=== PATIENT | female | born 1950 | race Caucasian/White ===

== ENCOUNTER → 2021-09-27 08:10 | Outpatient (CLI) | payer MEDICARE, SELFPAY ==
--- NOTE | 2021-09-27 08:24 | CT_ITS ---
STUDY: CT ABDOMEN AND PELVIS WITH CONTRAST REASON FOR EXAM: Female, 70 years old. NEOPLASM OF UNCERTAIN BEHAVIOR OF RIGHT KIDNEY RADIATION DOSAGE (If Supplied By Facility): CTDIvol = ( 15.51 ) mGy, DLP = ( 1014.33 ) mGycm TECHNIQUE: Transaxial images were obtained from the dome of the diaphragm to the symphysis pubis without oral contrast. IV 100mL Isovue-300 was administered. Sagittal and coronal images were reconstructed. Individualized dose optimization techniques were used for this CT. COMPARISON: None. FINDINGS: Minimal linear scarring at the lung bases. Coronary artery calcification. There is decreased attenuation of the liver consistent with steatosis. There are surgical clips in the gallbladder fossa consistent with a prior cholecystectomy. Normal spleen. Normal pancreas. There is a small, circumscribed, smooth, low attenuation right adrenal mass, consistent with an adrenal adenoma. This measures 2.2 cm. Normal left adrenal gland. Mild degree of cortical atrophy in the left kidneys with areas of scarring. There is a 3.1 cm x 3.2 cm duodenal diverticulum arising from the second portion of the duodenum. Normal small intestine. There are multiple colonic diverticula consistent with diverticulosis. The appendix is visualized and appears normal. There is diffuse atherosclerotic calcification of the abdominal aorta and its major visceral branches, without a demonstrated aneurysm. Normal inferior vena cava. Normal retroperitoneum. Normal urinary bladder. There is absence of the uterus consistent with a prior hysterectomy. There is a small umbilical hernia containing fat. There are mild degenerative changes of the visualized lumbar spine. CT/Abdomen/Pelvis W IV Cont ONLY IMPRESSION: No acute abnormality is seen. Electronically Signed: Palmer Carbajal MD at 12:31 EST , Service support ,
[2021-09-27 08:41] LABS: CREATININE FINGERSTICK 1.3 mg/dL (0.55-1.02)
[2021-09-27 09:59] LABS: Anion Gap 5 (5-15); BUN 16 mg/dL (7-18); BUN/Creat Ratio 17.8 RATIO (10-20); Calcium,Total 8.2 mg/dL (8.5-10.1); Chloride 109 mmol/L (98-107); EST Glomerular Filtration Rate 66 mL/min (>60); Est Glom Filt Rate - Afr Amer 80 mL/min (>60); Glucose 136 mg/dL (74-106); Potassium 3.8 mmol/L (3.5-5.1); Sodium Level 140 mmol/L (136-145)
== END ==
PROVIDERS: Referring Provider Urology; Visit Provider Urology
DX: D41.01 Neoplasm of uncertain behavior of right kidney (principal)
CPT/HCPCS: 36415; 74177; 80048; Q9967

== ENCOUNTER → 2021-10-01 | Outpatient (CLI) | payer MEDICARE, SELFPAY ==
[2021-10-01 17:12] LABS: Bacteria 0 SEEN /hpf (None Seen); Mucous, Urine 0 SEEN /hpf (<or=2+); Red Blood Cells-Urine 0 SEEN /hpf (0-5)
[2021-10-01 17:27] LABS: Color, Urine Yellow (Yellow); Glucose, Dipstick Normal (Normal); Ketone-Dipstick Negative (Negative); Leukocyte Esterase-Dipstick 100 /ul (Negative); Nitrite-Dipstick Negative (Negative); Occult Blood-Urine 10 /ul (Negative); Protein-Dipstick 15 mg/dl (Negative); Urine Bilirubin Dipstick Negative (Negative); Urine Clarity Clear (Clear); Urine Urobilinogen Normal (Normal)
[2021-10-01 17:33] LABS: Squamous Epithelial Cells - UA 0-5 SEEN /hpf (5-10); White Blood Cells 0-5 SEEN /hpf (0-5)
== END | disposition home or self-care (01) ==
LOC: LABSPEC 16:33
PROVIDERS: Visit Provider Urology
DX: R31.29 Other microscopic hematuria (principal)
CPT/HCPCS: 81001

== ENCOUNTER 2022-12-25 08:03 | Inpatient (IN) | payer MEDICARE, SELFPAY ==
[2022-12-25] VITALS (14 sets, daily range): BP systolic 97–130; BP diastolic 38–69; PULSE 55–75; RESP 16–18; TEMP 36.1–36.8; O2SAT 92–97; BMI 30.2
[2022-12-25] MEDS: Lactated Ringers 1,000 ML 15 ML IV ×2 (07:07→08:35)
--- NOTE | 2022-12-25 07:26 | HP.PCM_ITS ---
HPI - General General Date of Admission: 12/25/22 Chief Complaint: Right lower pole renal mass HPI Narrative MARI RODRIGUES, is a 72 F who presents with a right lower pole renal mass suspicious for carcinoma or to proceed with a right partial nephrectomy [facility] Medical History Cardiology follow-up encounter Colitis Former smoker Gastric reflux High cholesterol History of diverticulitis History of echocardiogram History of GI bleed History of heart attack Hypertension Post-menopausal Rectal bleeding Right knee pain Shortness of breath on exertion STEMI (ST elevation myocardial infarction) Wears dentures Wears glasses Wears hearing aid Home Medications acetaminophen 500 mg tablet 500 mg PO QHS 12/11/22 [History Last Taken 12/23/22] aspirin 81 mg capsule 81 mg PO DAILY 12/11/22 [History Last Taken 12/15/22] carvedilol 12.5 mg tablet 12.5 mg PO BID BP 12/11/22 [History Last Taken 12/25/22] docusate sodium 100 mg tablet 100 mg PO BID 12/11/22 [History Last Taken 12/18/22] lisinopril 20 mg tablet 20 mg PO DAILY 12/11/22 [History Last Taken 12/25/22] omeprazole 20 mg tablet,delayed release 20 mg PO DAILY 12/11/22 [History Last Taken Unknown] rosuvastatin 40 mg tablet 40 mg PO QHS 12/11/22 [History Last Taken 12/23/22] fluconazole 100 mg tablet 100 mg PO DAILY 12/25/22 [History Last Taken 12/24/22] Allergy/AdvReac Type Severity Reaction Status Date / Time No Known Allergies Allergy Verified 12/25/22 06:52 Surgical History History of cardiac catheterization History of carpal tunnel surgery of right wrist History of coronary artery stent placement History of partial hysterectomy Hx laparoscopic cholecystectomy Social History Smoking Status: Former smoker alcohol intake: never Vital Signs Vital Signs Vital Signs: 12/25/22 06:55 12/25/22 06:55 Temperature 97.5 F L Temperature Source Temporal Pulse Rate 67 Respiratory Rate 16 Respiratory Pattern Normal Blood Pressure 97/69 Blood Pressure Mean 78 Blood Pressure Source Monitor Blood Pressure Position Semi-Fowlers Blood Pressure Location Right Arm Pulse Ox 95 Oxygen Delivery Method Room Air Weight Weight: 80 kg Body Mass Index (BMI) 30.2
[2022-12-25] MEDS: Cefazolin 2 GM in 0.9% Normal Saline 100 ML IV (07:55)
--- NOTE | 2022-12-25 08:00 | KID_PTH ---
PATIENT: MARI RODRIGUES LOC: MS3 U#:[id number] AGE/SX: 72/F ROOM: SC318 RE12/25/[address]: Dr. Giorgio Cleaning MD : 1950 BED: 1 DIS: 12/26/2022 SPEC #: [id number] RECD: 12/25/22 11:53 STATUS: KENNEDY VELASQUEZChadd #: [id number] JOSHUA: 12/25/22 08:[address]: Giorgio Cleaning DEPT: SURGICAL PATHOLOGY RECD BY: Sagar Patino ENTERED: 12/25/22 13:22 SP TYPE: KIDNEY OTHR DR: KARON Correia Tissues: Kidney, NOS Procedures: Surgery Specimen Level V HEADER OPERATION: Lap robotic partial nephrectomy PRE-OP DIAGNOSIS: Right lower pole renal mass TISSUE SUBMITTED: Partial right kidney and contents MICROSCOPIC DIAGNOSIS Partial right kidney and contents, partial nephrectomy: Clear cell renal cell carcinoma. See cancer summary in the comment section. SJ:rg 12/27/2022 COMMENT KIDNEY CANCER SUMMARY Procedure - partial nephrectomy Specimen laterality - right Tumor site ? lower pole as per clinical information. Tumor size ? 3.5 x 3.5 x 3.0 cm Tumor focality - unifocal Histologic type ? clear cell renal cell carcinoma Sarcomatoid features ? not identified Rhabadoid features - not identified Histologic grade - grade 2 predominantly with focal minimal area of grade 3 and grade 4 (WHO/ISUP grade/Carmelo grade) Tumor necrosis ? present, focal % of necrosis - <5% of tumor examined. Tumor extension ? tumor limited kidney. Margins ? uninvolved by invasive carcinoma. Lymphvascular invasion - not identified Regional lymph nodes ? no lymph nodes submitted or found. Non-neoplastic kidney ? interstitial chronic inflammation. Additional pathologic finding - none PATHOLOGIC STAGE: pT1a pNx pMx The above summary is in compliance with [employer] (CAP) Cancer Protocols Checklist and [place] Joint Committee on Cancer (AJCC), Staging Manual, 8th Ed. MICROSCOPIC DESCRIPTION Slides are reviewed. GROSS DESCRIPTION Received in fixative is one container labeled with the patient's name and designated partial right kidney and contents. The specimen consists of a partial nephrectomy specimen weighing 32 gm and measures 4.0 x 4.0 x 4.5 cm. Focal area also shows perirenal adipose tissue. The specimen is inked as follows: parenchymal resection margin ? black, rest of the surface ? blue, and reveals an almost circumferential yellowish, hemorrhagic mass measuring 3.5 x 3.0 x 3.5 cm. Areas of necrosis are not seen. The mass is very close to the renal parenchymal resection margin. Tree Worker sections are submitted in six cassettes. Cassettes 1-3 contain the closest parenchymal resection margin, cassette 5 also contains the perirenal adipose tissue and cassette 6 contains the uninvolved portion of the kidney. / JUICE:braydon 12/26/2022 TC:0 CPT: 35261
--- NOTE | 2022-12-25 08:03 | DCINST_ITS ---
Discharge Instructions Diet Discharge Diet: No restrictions, Light diet - advance as tolerated and Soft diet Activity Discharge Activity: May Shower Return to work on:: 02/05/23 Lifting Restrictions: No lifting for 6 weeks. Dressing / Incision Call your doctor if you observe: Fever of 101 or Higher Cleanse incision/area with: Soap & Water Follow Up Care Please Follow Up With: Giorgio Cleaning MD When: Call for an appt 2 weeks follow up [phone] Test Results: Test results from this visit will be discussed in further detail at your follow- up appointment, if applicable. Discharge Plan Admission Primary Reason for Your Visit: right partial nephrectomy Attending Provider: Giorgio Cleaning Primary Care Provider: Pili Schmitt Discharge Orders/Prescriptions Prescriptions: New docusate sodium [Colace] 100 mg capsule 100 mg PO BID Qty: 20 0RF ibuprofen 600 mg tablet 600 mg PO Q6H PRN (Reason: pain) Qty: 20 0RF No Action carvedilol 12.5 mg tablet 12.5 mg PO BID Label Comments: TAKE 1 TABLET BY MOUTH TWICE DAILY lisinopril 20 mg tablet 20 mg PO DAILY Label Comments: TAKE 1 TABLET BY MOUTH ONCE DAILY acetaminophen 500 mg Tablet 500 mg PO QHS docusate sodium 100 mg Tablet 100 mg PO BID rosuvastatin 40 mg tablet 40 mg PO QHS Label Comments: TAKE 1 TABLET BY MOUTH ONCE DAILY omeprazole 20 mg Tablet,Delayed Release (Dr/Ec) 20 mg PO DAILY aspirin 81 mg Capsule 81 mg PO DAILY fluconazole 100 mg tablet 100 mg PO DAILY Label Comments: TAKE 2 TABLETS BY MOUTH TODAY, THEN 1 DAILY FOR 10 DAYS Referrals / Follow Up: Giorgio Cleaning MD [Med Staff - Active Staff] - Pili Schmitt PA [Primary Care Provider] - Disposition Disposition (needs filled in before D/C Order can be placed): Home, Self Care
[2022-12-25] MEDS: Bupivacaine 0.5% PF 10 ML VIAL (10:19)
--- NOTE | 2022-12-25 10:32 | PCM.OPRPT ---
Report of Operation Date of Procedure: 12/25/22 Pre-Operative Diagnosis: Right lower pole renal mass Post-Operative Diagnosis: Same Surgery/Procedure Performed:: Laparoscopic robotic assisted right partial nephrectomy Description of Surgical Findings:: Patient was taken back to the operating room at the smooth induction of general anesthesia she was placed in flat on the operating room table. She underwent general anesthesia with intubation by Dr. Gifford we then placed a Jacobo catheter into her bladder but the patient was then positioned in modified flank position with the right side up left side down for a laparoscopic approach to the right side and right abdomen and right kidney. The abdomen was prepped and draped in usual sterile fashion, made a small incision in the midline abdomen placement Veress needle into the peritoneal cavity filled the peritoneal cavity with CO2 gas placed my camera trocar right arm trocar left arm trocar and extra trocar lower port, and then placed an air seal trocar for the blood and plasma laboratory assistant. The robot X. I. da Gilda was docked we then proceeded with the dissection. I first dissected the colon off the kidney reflecting the colon off completely I then reflected the fat off the kidney and then got down to the capsule we then dissected lower pole the kidney and dissected down to identify the ureter then we circumferentially dissected the lower pole the kidney where the tumor was as obvious to see the tumor there is irregular shaped tumor. I then dissected the renal hilum and identified 3 blood vessels the lower pole large vessel a small midpole vessel and a large upper pole vessel vessel we placed vessel loop at all the renal arteries. I then ultrasound the tumor and found the demarcation of the tumor and scored the incision line circumferentially around the lower pole to do count of the lower pole heminephrectomy to remove the tumor I then clamped the arteries the kidney turned white and then we proceeded with the resection of the tumor using sharp scissors we dissected down to we got to the deep part of the kidney with the collecting system was and then we excised the lower pole of the kidney where the tumor was completely I then put the tumor in Endo Catch bag we then used electrocautery and put the cautery as high as possible to cauterize the base of the resection. On gross examination there was no violation of the tumor it looked like a complete resection grossly. Then after the resection was completed then I used a V-Loc stitch to run the base on the one side and then the use a second V-Loc stitch to run the second base. After this was completed then we ran and reapproximated the edges of the kidney using the sliding technique with an 0 Vicryl running [id number] and using clips to then put compression on the kidney after this was done then Floseal and Surgicel was placed we unclamped the arteries there was no bleeding blood count at this point was only 50 cc blood loss. We extracted the tumor from the lower incision this incision was closed we checked back inside the abdomen there was no signs of bleeding and then we closed the air seal port which was a 12 mm port with a Guerrero Garcia stitch and then we removed all the ports patient's and incisions were closed with subcuticular stitches her anesthetic was reversed and she was taken back to the PACU in good condition complete successful removal of the mass in the lower pole the right kidney negative margins for gross examination, blood loss was only 50 cc all the instruments and needles were accounted for patient anesthetic reversed and taken back to PACU in stable condition. Surgeon: Giorgio Cleaning Type of Anesthesia: General Estimated Blood Loss (mL): 50 Admit VTE Documentation VTE Present on Admission: No VTE Mechan Device Prophylaxis: SCD's VTE Pharm Prophylaxis ordered?: No
[2022-12-25] MEDS: Lactated Ringers 1,000 ML 125 ML IV ×2 (11:49→18:02)
[2022-12-25] MEDS: Ketorolac 15 MG/ML Vial IV ×2 (12:34→18:01)
[2022-12-25] MEDS: Ondansetron 4 MG/2 ML Vial IV (18:01)
[2022-12-25] MEDS: 0.9% Saline Lock 10 ML Syringe IV (18:02)
[2022-12-25] MEDS: Acetaminophen 500 MG Tablet PO (21:02)
[2022-12-25] MEDS: Carvedilol 12.5 MG Tablet PO (21:02)
[2022-12-25] MEDS: Docusate Sodium 100 MG Capsule 200 MG PO (21:02)
[2022-12-25] MEDS: Atorvastatin Calcium 80 MG Tablet PO (21:03)
[2022-12-26] MEDS: 0.9% Saline Lock 10 ML Syringe IV (01:36)
[2022-12-26] MEDS: Ketorolac 15 MG/ML Vial IV ×2 (01:37→08:24)
[2022-12-26] MEDS: Lactated Ringers 1,000 ML 125 ML IV (01:41)
[2022-12-26 02:21] VITALS: BP 116/63; PULSE 65; RESP 18; TEMP 36.6; O2SAT 92
[2022-12-26 05:49] VITALS: BP 122/60; PULSE 68; RESP 18; TEMP 36.3; O2SAT 95
--- NOTE | 2022-12-26 07:22 | PCM.PN.GU ---
Subjective Subjective Status post right partial nephrectomy for renal mass suspicious for renal cell carcinoma. Complete resection grossly. Today the urine is clear. Pain is 4 out of 10. If she tolerates diet okay walks around she can go home today. Objective Data Objective Data Vital Signs: Vital Signs Temp Pulse Resp BP Pulse Ox O2 Del Method O2 Flow Rate 97.4 F L 68 18 122/60 H 95 Nasal Cannula 1 12/26/22 05:49 12/26/22 05:49 12/26/22 05:49 12/26/22 05:49 12/26/22 05:49 12/26/22 05:49 12/26/22 05:49 Oxygen Flow Rate (L/min) 1 Oxygen Delivery Method Nasal Cannula Weight: 80 kg Body Mass Index (BMI) 30.2 Intake & Output: Intake and Output for Last 24 Hours 12/24/22 12/25/22 12/26/22 23:59 23:59 23:59 Intake Total 3007.08 / 3007.08 1456.25 / 1456.25 Output Total 350 / 350 1500 / 1500 Balance 2657.08 / 2657.08 -43.75 / -43.75
[2022-12-26 07:45] VITALS: O2SAT 97
[2022-12-26 08:05] VITALS: BP 112/54; PULSE 72; RESP 18; TEMP 36.6; O2SAT 94
--- NOTE | 2022-12-26 09:58 | CASEMGMT ---
SPENSER SAWANT Assessment: Face to Face with pt for initial transition planning/care coordination assessment. RN JESE introduced self and role at [facility], pt voices understanding and consents to assessment. Pt is A/O x4 and answers all questions appropriately at this time. Pt sitting up in chair in no distress. Care providers, pharmacy, and demographics verified/updated. Admitting Dx: lap robotic partial nephrectomy PCP:Oskar Specialists:Jennifer Cross, cardio Preferred Pharmacy: [facility] Retail Insurance: [employer] [facility] Prescription Benefit: yes LNOK: Manny Sierra, Living Arrangements: Pt lives with in a single story home with a ramp to enter. Pt reports she is I in ADL's and denies concerns at home. Transportation: Pt drives self and denies concerns with transportation. Pt will transport pt until she can drive again. DME/HHC/SNF: Pt has a cane and walker at home but does not use. Pt denies hx of HHC or SNF stays. Pt states no concerns with going home at time of dc. Pt states no further concerns/needs. CM to follow. Advised pt to ask CM if any further question/concerns/needs arise, voices understanding. Pt Goal: Home Plan: Home
[2022-12-26] MEDS: Docusate Sodium 100 MG Capsule 200 MG PO (10:55)
[2022-12-26] MEDS: Carvedilol 12.5 MG Tablet PO (10:57)
[2022-12-26] MEDS: Pantoprazole Sodium 20 MG Tablet PO (10:58)
[2022-12-26] MEDS: Lisinopril 20 MG Tablet PO (10:58)
[2022-12-26 10:59] VITALS: BP 135/90; PULSE 66; RESP 18; TEMP 36.7; O2SAT 97
[2022-12-26 12:18] VITALS: BP 110/50; PULSE 64; RESP 18; TEMP 36.3; O2SAT 95
== END 2022-12-26 12:26 | disposition home or self-care (01) | DRG 658 ==
LOC: SDC 12:41 → MS3 12:41
PROVIDERS: Admitting Provider Urology; Referring Provider Urology; Visit Provider Urology
PROC: 0TB04ZZ Excision of Right Kidney, Percutaneous Endoscopic Approach (ICD-10-PCS; CPT 50543; principal; 2022-12-25 07:40)
DX: C64.1 Malignant neoplasm of right kidney, except renal pelvis (principal); E78.00 Pure hypercholesterolemia, unspecified; I10 Essential (primary) hypertension; I25.2 Old myocardial infarction; K21.9 Gastro-esophageal reflux disease without esophagitis; I25.10 Atherosclerotic heart disease of native coronary artery without angina pectoris; Z95.5 Presence of coronary angioplasty implant and graft; Z79.82 Long term (current) use of aspirin; Z79.899 Other long term (current) drug therapy; Z87.891 Personal history of nicotine dependence
CPT/HCPCS: 88307; 94668; 99252; J7120; A4216; G0463; J2405

== ENCOUNTER → 2023-03-14 | Outpatient (CLI) | payer MEDICARE, SELFPAY ==
[2023-03-14 11:44] LABS: Erythrocyte Sedimentation Rate 20 mm/hr (0-30)
[2023-03-14 11:54] LABS: Absolute Lymphocyte Count 1.36 X10^3/uL (0.83-4.51); Absolute Neutrophil Count 2.8 X10^3/uL (2.0-7.7); Basophil# 0.02 X10^3/uL; Basophil% 0.4 % (0-1); Eosinophil# 0.08 X10^3/uL; Eosinophils% 1.7 % (0-5); Hematocrit 43.9 % (37-47); Hemoglobin 13.7 g/dL (12.0-15.0); Lymphocyte # 1.36 X10^3/ul (0.83-4.51); Lymphocyte % 29.4 % (19-41); Mean Corp Hgb Conc 31.2 g/dL (32-36); Mean Corpuscular Volume 86.6 fL (81-99); Mean Platelet Vol. 8.1 fl (6.2-12.0); Monocyte# 0.31 X10^3/uL; Monocyte% 6.7 % (0-10); NRBC Flagged by Analyzer 0 % (0-5); Neutrophil # 2.84 X10^3/uL (2.7-7.7); Neutrophil % 61.4 % (47-70); Platelet Count 198 K/mm3 (150-450); RBC Distribution Width CV 15.5 % (11.6-14.6); RBC Distribution Width SD 48.9 fl (35.1-43.9); Red Blood Count 5.07 M/mm3 (4.2-5.4); White Blood Count 4.6 K/mm3 (4.4-11.0)
[2023-03-14 12:09] LABS: AST(SGOT) 22 U/L (15-37); Alanine Aminotransfer ALT/SGPT 18 U/L (13-56); Albumin, Serum 3.8 g/dL (3.2-5.0); Alkaline Phosphatase 125 U/L (45-117); Anion Gap 8 (5-15); BUN 22 mg/dL (7-18); BUN/Creat Ratio 17.7 RATIO (10-20); CRP < 2.90 mg/L (0.0-3.0); Calcium,Total 8.7 mg/dL (8.5-10.1); Chloride 106 mmol/L (98-107); Creatinine, Serum 1.24 mg/dL (0.55-1.02); EST Glomerular Filtration Rate 45 mL/min (>60); Est Glom Filt Rate - Afr Amer 55 mL/min (>60); Globulin 3.9 g/dL (2.2-4.2); Glucose 88 mg/dL (74-106); LDH 202 U/L (84-246); Potassium 4.4 mmol/L (3.5-5.1); Protein, Total 7.7 g/dL (6.4-8.2); Sodium Level 140 mmol/L (136-145)
[2023-03-18 14:09] LABS: Anti-Centromere B Ab <0.2 AI (0.0-0.9); Anti-Chromatin <0.2 AI (0.0-0.9); Anti-Jo <0.2 AI (0.0-0.9); Anti-Scleroderma-70 AB <0.2 AI (0.0-0.9); Anti-dsDNA Ab <1 IU/mL (0-9); RNP Ab <0.2 AI (0.0-0.9); SJOGREN'S Anti-SS-A test 0.2 AI (0.0-0.9); SJOGREN'S Anti-SS-B test < 0.2 AI (0.0-0.9); Smith Ab <0.2 AI (0.0-0.9)
[2023-03-18 15:08] LABS: Endomysial Antibody IgA Negative (Negative); Immunoglobulin A 353 mg/dL (87-352); t-Transglutaminase IgA <2 U/mL (0-3)
[2023-03-19 13:08] LABS: Albumin 3.9 g/dL (2.9-4.4); Alpha-1-Globulins 0.2 g/dL (0.0-0.4); Alpha-2-Globulins 0.9 g/dL (0.4-1.0); Cytoplasmic Ab (C-ANCA) <1:20 titer (Neg:<1:20); Gamma Globulin 1.2 g/dL (0.4-1.8); Immunoglobulin A 367 mg/dL (87-352); Immunoglobulin E 21 IU/mL (6-495); Immunoglobulin G 1274 mg/dL (586-1602); Immunoglobulin M 105 mg/dL (26-217); PROEL- TOTAL PROTEIN 7.6 g/dL (6.0-8.5); Perinuclear Ab (P-ANCA) <1:20 titer (Neg:<1:20)
== END | disposition home or self-care (01) ==
LOC: LAB 10:55
PROVIDERS: Referring Provider Internal Medicine Gastroenterology; Visit Provider Internal Medicine Gastroenterology
DX: K52.9 Noninfective gastroenteritis and colitis, unspecified (principal)
CPT/HCPCS: 36415; 80053; 82784; 82785; 83516; 83615; 84165; 85025; 85652; 86140; 86225; 86235; 86255; 86256; 86334

== ENCOUNTER 2023-06-30 10:34 | Day surgery (SDC) | payer MEDICARE, SELFPAY ==
[2023-06-30] MEDS: Lactated Ringers 1,000 ML 15 ML IV (11:00)
[2023-06-30 11:01] VITALS: BP 94/59; PULSE 78; RESP 18; TEMP 36.2; O2SAT 95; BMI 30.5
--- NOTE | 2023-06-30 11:45 | IMM_PTH ---
PATIENT: MARI RODRIGUES LOC: EN U#:[id number] AGE/SX: 72/F ROOM: RE06/30/[address]: Dr. Adrian Park DO : 1950 BED: DIS: 06/30/2023 SPEC #: [id number] RECD: 07/01/23 13:16 STATUS: KENNEDY REQ #: [id number] JOSHUA: 06/30/23 11:[address]: Adrian Park DEPT: IMMUNOHISTOCHEMISTRY RECD BY: Yesica Horan ENTERED: 07/01/23 13:17 SP TYPE: IMMUNO OTHR DR: KARON Correia Tissues: B - Stomach, NOS Procedures: H Pylori (initial) PHYSICIAN & INSTITUTION [place] [address] SPECIMEN INFORMATION: Tissue Source: B - Antrum Clinical Info: Colitis Specimen Number: [id number] CPT code: 83510 METHODOLOGY: Deparaffinized sections of prefer/formalin-fixed tissue or PAP/DQ stained slides are incubated with monoclonal/polyclonal antibodies/oligonucleotide probes. Localization is made via biotin free immunoperoxidase method. Appropriate controls are performed and reacted as expected. Results on target cell population are indicated in the following table: RESULTS: ANTIBODY / CLONE RESULT Block B H Pylori (polyclonal) negative These tests were developed and their performance characteristics determined by [facility]. They may not have been cleared or approved by the U.S. Food and Drug Administration. The FDA has determined that such clearance or approval is not necessary. The above immunohistochemical/dualISH markers are ordered and reviewed by the Pathologist. INTERPRETATION: B. Antrum, biopsy: Negative for Helicobacter pylori organisms. AM:braydon 07/02/2023
--- NOTE | 2023-06-30 11:45 | EGD_PTH ---
PATIENT: MARI RODRIGUES LOC: EN U#:[id number] AGE/SX: 72/F ROOM: RE06/30/[address]: Dr. Adrian Park DO : 1950 BED: DIS: 06/30/2023 SPEC #: [id number] RECD: 06/30/23 15:56 STATUS: KENNEDY REChadd #: [id number] JOSHUA: 06/30/23 11:[address]: Adrian Park DEPT: SURGICAL PATHOLOGY RECD BY: Courtney Muñoz ENTERED: 07/01/23 08:57 SP TYPE: EGD BIOPSY OT DR: KARON Correia Tissues: A - Esophagus, NOS B - Gastric mucous membrane C - Duodenum, NOS D - Ileum, NOS E - COLON BIOPSY Procedures: Special Stain Group II Surgery Specimen Level IV Alcian Blue/PAS (control) HEADER OPERATION: Colonoscopy, EGD (MAC), biopsy PRE-OP DIAGNOSIS: Colitis TISSUE SUBMITTED: A - Distal esophagus biopsy, B - Antrum biopsy, C - Duodenum biopsy, D - Termina ileum biopsy, E - Random colonic biopsy MICROSCOPIC DIAGNOSIS A. Distal esophagus, biopsy: Gastroesophageal junction with mild chronic inflammation. No evidence of goblet cell metaplasia. See comment. B. Gastric antrum, biopsy: Chronic gastritis. See comment. C. Duodenum, biopsy: Focal acute duodenitis. D. Terminal ileum, biopsy: No pathologic change. E. Colon, random biopsy: No pathologic change. AM:braydon 07/02/2023 COMMENT A. Alcian blue/PAS stain with matched control supports the above diagnosis. B. The results of immunohistochemistry for Helicobacter pylori will be reported separately ([id number]). MICROSCOPIC DESCRIPTION Slides are reviewed. GROSS DESCRIPTION A - Received in fixative is one container labeled with the patient's name and designated distal esophagus biopsy. The specimen consists of one irregular fragment of light deleon soft tissue that measures 0.5 x 0.3 x 0.1 cm. The specimen is totally submitted in one cassette. B - Received in fixative is one container labeled with the patient's name and designated antrum biopsy. The specimen consists of multiple irregular fragments of light deleon soft tissue that in aggregate measure 0.6 x 0.5 x 0.1 cm. The specimen is totally submitted in one cassette. C - Received in fixative is one container labeled with the patient's name and designated duodenum biopsy. The specimen consists of one irregular fragment of light deleon soft tissue that measures 0.5 x 0.2 x 0.1 cm. The specimen is totally submitted in one cassette. D - Received in fixative is one container labeled with the patient's name and designated terminal ileum biopsy. The specimen consists of one irregular fragment of light deleon soft tissue that measures 0.5 x 0.2 x 0.1 cm. The specimen is totally submitted in one cassette. E - Received in fixative is one container labeled with the patient's name and designated random colonic biopsy. The specimen consists of multiple irregular fragments of light deleon soft tissue that in aggregate measure 2.0 x 0.5 x 0.1 cm. The specimen is totally submitted in one cassette. / SJ:rg 07/01/2023 TC:3 CPT: 74579 x5, 78372
--- NOTE | 2023-06-30 12:13 | HP.PCM_ITS ---
History and Physical Date of Admission: 06/30/23 72 F who presents to the office today for PMH hyperlipidemia, STEMI. [facility] cholecystectomy PCP seen following several ED presentations with concern of recurrent rectal bleeding with previously diagnosed colitis, diverticulitis and GERD. [facility] ED presentation 11.03.22, 11.18.22 and 12.07.22 with history of UTI with treatment and abdominal pain/cramping. Presentation 12.07.22 with LLQ abd pain with a history of diverticulitis. Biochemical workup and imaging performed. Surgery consulted who felt it to be more complex the simple diverticulitis and recommended GI referral; discharged with cipro/flagyl and GI referral. ? Biochemical workup CBC, CMP and UA without pertinent abnormality. CT abd/pel focal fatty infiltration at falciform ligament; renal mass consistent with malignancy; thickening of descending and sigmoid colon; pericolonic fat stranding; trace fluid of left colic gutter, consistent with nonspecific colitis; duodenal diverticula; diverticulosis. *BGI established 5.26.23 at this time she is not having symptoms. Approximately every other week she has one day of severe loose stools with abdominal pain/cramping, previously has blood and/or mucus; onset . Last colonoscopy in late 1899?s. Surgery with Dr. Cleaning to address renal cancer; no further treatment indicated. ROS Const Constitutional: No anorexia, fatigue, fever(s), weight change or sleep problems Eyes Eyes: No change in vision ENT ENT: No abnormal hearing, difficulty swallowing, mouth lesions, tongue swelling or throat swelling Resp Respiratory: No cough or shortness of breath Cardio Cardiology: No chest pain at rest, chest pain with exertion, shortness of breath or dyspnea on exertion Gastro GI: No difficulty swallowing Genitourinary-Female: No difficulty urinating or burning urination Musc Musculoskeletal: No joint pain, joint swelling, muscle weakness or decreased muscle mass Skin Skin: No hair loss in leg, yellowing of the eye, itchy eyes, rash, skin ulcer or skin swelling Neuro Neurology: No abnormal hearing, abnormal movements, confusion, unsteady gait/balance or memory loss Psych Psychiatric: No anxiety, No confusion and No memory loss Endo Endocrine: No fatigue or weight change Aller/Imm Allergy/Immunologic: No itchy eyes, throat swelling or tongue swelling Héctor/Lymp Hematologic/Lymphatic: No easy bleeding, easy bruising or enlarged lymph nodes Exam Const General: cooperative and comfortable Nutritional Appearance: average body habitus and well nourished HENCO Head: normal to inspection Ears: hearing grossly normal bilaterally Nose: external nose normal Face and sinus: normal facial exam Mouth: oral mucosae normal Throat: posterior oropharynx normal Eyes General: appearance normal, both eyes and all related structures Neck Neck: normal visual inspection Chest Chest palpation & inspection: normal inspection of the chest and normal palpation of entire chest wall Resp Effort & Inspection: normal respiratory effort Auscultation: Bilateral: Clear to Auscultation Cardio Palpation: normal PMI Rate: regular rate Rhythm: regular rhythm GI Inspection: normal to inspection Auscultation: normal bowel sounds Percussion: normal to percussion Palpation: no hepatosplenomegaly Skin General: no rashes or lesions noted Neuro General: patient alert Extrem General: normal to inspection Psych Affect: normal affect Quality Reporting Tobacco Screening ([facility] 138) Smoking Status: Former smoker Assessment and Plan Assessment and Plan (1) Colitis: Status: Chronic Plan: Diagnosis for her abdominal pain associated with cramping and inflammatory changes resulting in diarrhea is inflammatory bowel disease, ischemic colitis(associated with her previous renal cell carcinoma or cramping), less likely infectious colitis collagenous colitis, microscopic colitis, lymphocytic colitis. We will get a CT angiography of the abdomen and pelvis due to her history of coronary artery disease. I reviewed her CT scan of the abdomen and pelvis that we have available at our institution on 10/08/2021 and it did show significant calcium burden involving the blood vessels of the abdomen and pelvis. We will also get a colonoscopy for evaluation of the colon and terminal ileum along with biopsies. She is already changing her diet due to the discovery of diverticular disease. She is instituting a probiotic and these changes have helped her have more formed stools and have severe cramping and abdominal pain. Once we have biochemical work-up and stool studies taking either doing a colonoscopy or prior we will be able to give her a proper diagnosis. Orders: Orders Comprehensive Metabolic Profil Today K52.9 - Noninfective gastroenteritis and colitis, unspecified CRP Today K52.9 - Noninfective gastroenteritis and colitis, unspecified LDH Today K52.9 - Noninfective gastroenteritis and colitis, unspecified CBC W/Diff, Automated Today K52.9 - Noninfective gastroenteritis and colitis, unspecified Erythrocyte Sed Rate Today K52.9 - Noninfective gastroenteritis and colitis, unspecified SULMA Comprehensive Panel Today K52.9 - Noninfective gastroenteritis and colitis, unspecified ANCA Today K52.9 - Noninfective gastroenteritis and colitis, unspecified Celiac Disease Profile Today K52.9 - Noninfective gastroenteritis and colitis, unspecified Immunoglobulins G/A/M/E Today K52.9 - Noninfective gastroenteritis and colitis, unspecified TOMI + Protein Elect, Serum Today K52.9 - Noninfective gastroenteritis and colitis, unspecified I have examined the patient and the H&P has been reviewed. There are no clinical changes since date of exam.
[2023-06-30 12:50] VITALS: BP 89/51; BP 94/59; PULSE 74; RESP 18; TEMP 36.2; O2SAT 94
--- NOTE | 2023-06-30 12:52 | OP.EGD_ITS ---
Patient Name: Bri Sierra Procedure Date: 06/30/2023 12:12 PM Date of : 1950 Age: 72 Procedure: Upper GI endoscopy Indications: Epigastric abdominal pain, Heartburn Providers: Adrian Park DO Referring MD: Adrian Park DO Medicines: Monitored Anesthesia Care Patient Profile: This is a 72 year old female. Refer to note in patient chart for documentation of history and physical. Patient has symptoms of chronic epigastric abdominal pain, chronic dyspepsia and chronic heartburn. Complications: No immediate complications. Procedure: Pre-Anesthesia Assessment: - Prior to the procedure, a History and Physical was performed, and patient medications and allergies were reviewed. The patient is competent. The risks and benefits of the procedure and the sedation options and risks were discussed with the patient. All questions were answered and informed consent was obtained. Patient identification and proposed procedure were verified by the physician. Mental Status Examination: normal. Prophylactic Antibiotics: The patient does not require prophylactic antibiotics. Prior Anticoagulants: The patient has taken no anticoagulant or antiplatelet agents. ASA Grade Assessment: II - A patient with mild systemic disease. After reviewing the risks and benefits, the patient was deemed in satisfactory condition to undergo the procedure. The anesthesia plan was to use monitored anesthesia care (MAC). Immediately prior to administration of medications, the patient was re-assessed for adequacy to receive sedatives. The heart rate, respiratory rate, oxygen saturations, blood pressure, adequacy of pulmonary ventilation, and response to care were monitored throughout the procedure. The physical status of the patient was re-assessed after the procedure. After obtaining informed consent, the endoscope was passed under direct vision. Throughout the procedure, the patient's blood pressure, pulse, and oxygen saturations were monitored continuously. The Colonoscope was introduced through the mouth, and advanced to the second part of duodenum. The upper GI endoscopy was accomplished without difficulty. The patient tolerated the procedure well. Scope In: 12:20:59 PM Scope Out: 12:24:09 PM Total Procedure Duration Time 0 hours 3 minutes 10 seconds Findings: LA Grade A (one or more mucosal breaks less than 5 mm, not extending between tops of 2 mucosal folds) esophagitis with no bleeding was found 36 to 38 cm from the incisors. Biopsies were taken with a cold forceps for histology. Verification of patient identification for the specimen was done. Estimated blood loss was minimal. A medium-sized hiatal hernia was present. Patchy moderate inflammation characterized by erosions and erythema was found in the gastric body and in the gastric antrum. Biopsies were taken with a cold forceps for histology. Verification of patient identification for the specimen was done. Biopsies were taken with a cold forceps for Helicobacter pylori testing. Verification of patient identification for the specimen was done. Estimated blood loss was minimal. Patchy moderate inflammation characterized by erosions, erythema and aphthous ulcerations was found in the duodenal bulb. Biopsies were taken with a cold forceps for histology. Verification of patient identification for the specimen was done. Estimated blood loss was minimal. Impression: - LA Grade A reflux esophagitis with no bleeding. Biopsied. - Medium-sized hiatal hernia. - Chronic gastritis. Biopsied. - Chronic duodenitis. Biopsied. Recommendation: - Discharge patient to home. - Resume previous diet. - Continue present medications. - Await pathology results. Procedure Code(s): --- Professional --- 52686, Esophagogastroduodenoscopy, flexible, transoral; with biopsy, single or multiple CPT copyright 2021 [employer] [place] [employer]. All rights reserved. The codes documented in this report are preliminary and upon duplication specialist review may be revised to meet current compliance requirements. Adrian Park DO 06/30/2023 12:51:48 PM This report has been signed electronically. Number of Addenda: 0 Note Initiated On: 06/30/2023 12:12 PM
--- NOTE | 2023-06-30 12:52 | OP.CCLET_ITS ---
06/30/2023 Howie Correia Re : Upper GI endoscopy procedure for Bri Sierra Dear Oskar This procedure was performed on Friday, June 30, 2023. My impressions and recommendations are as follows: Impressions : - LA Grade A reflux esophagitis with no bleeding. Biopsied. - Medium-sized hiatal hernia. - Chronic gastritis. Biopsied. - Chronic duodenitis. Biopsied. Recommendations : - Discharge patient to home. - Resume previous diet. - Continue present medications. - Await pathology results. My findings are described in the full procedure note, which is enclosed. If I can be of further assistance, please feel free to contact me at . Sincerely, Adrian Park, 06/30/2023 12:51:48 PM This report has been signed electronically.
[2023-06-30 12:55] VITALS: BP 88/54; BP 94/59; PULSE 78; RESP 18; O2SAT 94
--- NOTE | 2023-06-30 12:56 | OP.CCLET_ITS ---
06/30/2023 Howie Correia Re : Colonoscopy procedure for Bri Amaro Oskar This procedure was performed on Friday, June 30, 2023. My impressions and recommendations are as follows: Impressions : - Preparation of the colon was fair. - Diverticulosis in the recto-sigmoid colon, in the sigmoid colon and in the descending colon. - Congested mucosa in the sigmoid colon, in the descending colon, in the transverse colon, in the ascending colon and in the cecum. Biopsied. - Congested mucosa in the terminal ileum. Biopsied. Recommendations : - Discharge patient to home. - Resume previous diet. - Continue present medications. - Await pathology results. - Repeat colonoscopy in 5 years for surveillance. My findings are described in the full procedure note, which is enclosed. If I can be of further assistance, please feel free to contact me at . Sincerely, Adrian Park, 06/30/2023 12:56:08 PM This report has been signed electronically.
--- NOTE | 2023-06-30 12:56 | OP.COLON_ITS ---
Patient Name: Bri Sierra Procedure Date: 06/30/2023 12:24 PM Date of : 1950 Age: 72 Procedure: Colonoscopy Indications: Screening for colorectal malignant neoplasm Providers: Adrian Park DO Referring MD: Adrian Park DO Medicines: Monitored Anesthesia Care Patient Profile: This is a 72 year old female. Refer to note in patient chart for documentation of history and physical. Patient has symptoms of chronic epigastric abdominal pain, chronic dyspepsia and chronic heartburn. Last Colonoscopy: date unknown. Unable to locate last colonoscopy report. Complications: No immediate complications. Procedure: Pre-Anesthesia Assessment: - Prior to the procedure, a History and Physical was performed, and patient medications and allergies were reviewed. The patient is competent. The risks and benefits of the procedure and the sedation options and risks were discussed with the patient. All questions were answered and informed consent was obtained. Patient identification and proposed procedure were verified by the physician. Mental Status Examination: normal. Prophylactic Antibiotics: The patient does not require prophylactic antibiotics. Prior Anticoagulants: The patient has taken no anticoagulant or antiplatelet agents. ASA Grade Assessment: II - A patient with mild systemic disease. After reviewing the risks and benefits, the patient was deemed in satisfactory condition to undergo the procedure. The anesthesia plan was to use monitored anesthesia care (MAC). Immediately prior to administration of medications, the patient was re-assessed for adequacy to receive sedatives. The heart rate, respiratory rate, oxygen saturations, blood pressure, adequacy of pulmonary ventilation, and response to care were monitored throughout the procedure. The physical status of the patient was re-assessed after the procedure. After I obtained informed consent, the scope was passed under direct vision. Throughout the procedure, the patient's blood pressure, pulse, and oxygen saturations were monitored continuously. The Colonoscope was introduced through the anus and advanced to the terminal ileum. The colonoscopy was performed without difficulty. The patient tolerated the procedure well. The quality of the bowel preparation was fair. Scope In: 12:26:01 PM Scope Withdrawal Time 0 hours 8 minutes 52 seconds Scope Out: 12:43:52 PM Total Procedure Duration Time 0 hours 17 minutes 51 seconds Findings: The perianal and digital rectal examinations were normal. Multiple small and large-mouthed diverticula were found in the recto-sigmoid colon, sigmoid colon and descending colon. An area of mildly congested mucosa was found in the sigmoid colon, in the descending colon, in the transverse colon, in the ascending colon and in the cecum. Biopsies were taken with a cold forceps for histology. Verification of patient identification for the specimen was done. Estimated blood loss was minimal. A patchy area of the terminal ileum was congested. Biopsies were taken with a cold forceps for histology. Verification of patient identification for the specimen was done. Estimated blood loss was minimal. Impression: - Preparation of the colon was fair. - Diverticulosis in the recto-sigmoid colon, in the sigmoid colon and in the descending colon. - Congested mucosa in the sigmoid colon, in the descending colon, in the transverse colon, in the ascending colon and in the cecum. Biopsied. - Congested mucosa in the terminal ileum. Biopsied. Recommendation: - Discharge patient to home. - Resume previous diet. - Continue present medications. - Await pathology results. - Repeat colonoscopy in 5 years for surveillance. Procedure Code(s): --- Professional --- 47982, Colonoscopy, flexible; with biopsy, single or multiple CPT copyright 2021 [employer]. All rights reserved. The codes documented in this report are preliminary and upon automotive designer review may be revised to meet current compliance requirements. Adrian Park DO 06/30/2023 12:56:08 PM This report has been signed electronically. Number of Addenda: 0 Note Initiated On: 06/30/2023 12:24 PM
[2023-06-30 13:00] VITALS: BP 76/65; BP 94/59; PULSE 77; RESP 18; O2SAT 93
[2023-06-30 13:05] VITALS: BP 87/58; BP 94/59; PULSE 69; RESP 18; TEMP 37.2; O2SAT 96
[2023-06-30 14:30] VITALS: BP 94/59
== END 2023-06-30 14:34 | disposition home or self-care (01) ==
LOC: EN 10:36 → AC 10:38
PROVIDERS: Referring Provider Internal Medicine Gastroenterology; Visit Provider Internal Medicine Gastroenterology
PROC: 0DJD8ZZ Inspection of Lower Intestinal Tract, Via Natural or Artificial Opening Endoscopic (ICD-10-PCS; CPT 45378; principal; 2023-06-30 11:40)
DX: Z12.11 Encounter for screening for malignant neoplasm of colon (principal); K55.1 Chronic vascular disorders of intestine; K57.30 Diverticulosis of large intestine without perforation or abscess without bleeding; I25.10 Atherosclerotic heart disease of native coronary artery without angina pectoris; K21.00 Gastro-esophageal reflux disease with esophagitis, without bleeding; K29.50 Unspecified chronic gastritis without bleeding; K29.80 Duodenitis without bleeding; K44.9 Diaphragmatic hernia without obstruction or gangrene; G89.29 Other chronic pain; I25.2 Old myocardial infarction; E78.00 Pure hypercholesterolemia, unspecified; I10 Essential (primary) hypertension; Z95.5 Presence of coronary angioplasty implant and graft; Z90.49 Acquired absence of other specified parts of digestive tract; Z79.82 Long term (current) use of aspirin; Z79.899 Other long term (current) drug therapy; Z85.528 Personal history of other malignant neoplasm of kidney; Z87.891 Personal history of nicotine dependence
CPT/HCPCS: 45380; 43239; 88305; 88313; 88342; J7120; J2405

== ENCOUNTER → 2023-07-07 | Outpatient (CLI) | payer MEDICARE, SELFPAY ==
--- NOTE | 2023-07-07 12:06 | RAD_ITS ---
INDICATION: MALIGNANT NEOPLASM OF UNSPECIFIED KIDNEY, EXCEPT RENAL PELVIS EXAMINATION/TECHNIQUE: X-RAY - XR Chest 2 Views COMPARISON: No relevant prior comparison study available FINDINGS: LINES/DEVICES: None. LUNGS: No consolidation, edema or effusion. No pneumothorax. MEDIASTINUM AND CARDIOVASCULAR STRUCTURES: Cardiac silhouette not enlarged. Central airways and mediastinal contour are unremarkable. BONES AND SOFT TISSUES: Unremarkable. RAD/Chest PA and Lateral IMPRESSION: No radiographic evidence of acute cardiopulmonary disease. Electronically Signed: Lucero Hodge MD at 8:39 EDT ,
[2023-07-07 12:36] LABS: Hematocrit 40.7 % (37-47); Hemoglobin 12.7 g/dL (12.0-15.0); Mean Corp Hgb Conc 31.2 g/dL (32-36); Mean Corpuscular Volume 89.8 fL (81-99); Mean Platelet Vol. 8.2 fl (6.2-12.0); Platelet Count 190 K/mm3 (150-450); RBC Distribution Width CV 13.3 % (11.6-14.6); RBC Distribution Width SD 43.6 fl (35.1-43.9); Red Blood Count 4.53 M/mm3 (4.2-5.4); White Blood Count 5.2 K/mm3 (4.4-11.0)
[2023-07-07 13:02] LABS: ALB/GLOB Ratio 0.9 RATIO (0.9-2.4); AST(SGOT) 16 U/L (15-37); Alanine Aminotransfer ALT/SGPT 20 U/L (13-56); Albumin, Serum 3.5 g/dL (3.2-5.0); Alkaline Phosphatase 118 U/L (45-117); Anion Gap 3 (5-15); BUN 26 mg/dL (7-18); BUN/Creat Ratio 21.8 RATIO (10-20); Calcium,Total 8.6 mg/dL (8.5-10.1); Chloride 106 mmol/L (98-107); Creatinine, Serum 1.19 mg/dL (0.55-1.02); EST Glomerular Filtration Rate 48 mL/min (>60); Est Glom Filt Rate - Afr Amer 58 mL/min (>60); Globulin 3.8 g/dL (2.2-4.2); Glucose 95 mg/dL (74-106); Potassium 4.4 mmol/L (3.5-5.1); Protein, Total 7.3 g/dL (6.4-8.2); Sodium Level 137 mmol/L (136-145)
== END | disposition home or self-care (01) ==
LOC: LAB 11:33
PROVIDERS: Referring Provider Registered Nurse; Visit Provider Registered Nurse
DX: C64.9 Malignant neoplasm of unspecified kidney, except renal pelvis (principal)
CPT/HCPCS: 36415; 71046; 80053; 85027

== ENCOUNTER → 2023-07-11 | Outpatient (CLI) | payer MEDICARE, SELFPAY ==
--- NOTE | 2023-07-11 17:50 | CT_ITS ---
STUDY: CT ABDOMEN AND PELVIS WITH CONTRAST REASON FOR EXAM: Female, 72 years old. NEOPLASM OF RT KIDNEY RADIATION DOSAGE (If Supplied By Facility): CTDIvol = ( 27.05 ) mGy, DLP = ( 870.03 ) mGycm TECHNIQUE: Transaxial images were obtained from the dome of the diaphragm to the symphysis pubis without oral contrast. IV 100mL Isovue-300 was administered. Sagittal and coronal images were reconstructed. Individualized dose optimization techniques were used for this CT. COMPARISON: CT abdomen and pelvis September 27, 2021 FINDINGS: Areas of air trapping within the lungs. There are coronary artery calcifications. There is mild intra and extrahepatic ductal dilatation status post cholecystectomy stable since her study. There are surgical clips in the gallbladder fossa consistent with a prior cholecystectomy. Normal spleen. Normal pancreas. There is a low attenuating mass measuring 2.5 x 2.3 cm involving the right adrenal gland stable since prior study. Hounsfield units elevated or complex. There is visualized renal cortical thinning. There is a focal defect within the inferior pole right kidney which is likely postoperative. Mild atrophy of the left kidney. Normal visualized stomach. The level of the first part of the duodenum there is a visualized gas see outpouching of the duodenum with an air-fluid level compatible with a duodenal diverticulum. Normal colon. The appendix is visualized and appears normal. There is diffuse atherosclerotic calcification of the abdominal aorta, minimal distention of the infrarenal aorta measuring 2.6 x 2.3 cm similar to the prior study slightly greater in size since prior study. There is a small umbilical hernia containing fat. There are diffuse degenerative changes of the visualized lumbar spine. CT/Abdomen/Pelvis W IV Cont ONLY IMPRESSION: Coronary artery disease. Status post cholecystectomy. [id number] constipation diverticulosis or diverticulitis. Duodenal diverticulum second part of the duodenum stable since prior study. Bilateral renal atrophy. Bilateral renal atrophy. Probable post partial resection of the inferior pole of the right kidney. Visualized hydronephrosis. Stable right adrenal mass. Given the clinical history could consider a follow-up study such as MRI. Electronically Signed: Tamia Reyes MD at 6:03 EDT ,
== END | disposition home or self-care (01) ==
PROVIDERS: Referring Provider Urology; Visit Provider Urology
DX: C64.1 Malignant neoplasm of right kidney, except renal pelvis (principal); D41.01 Neoplasm of uncertain behavior of right kidney; Z48.816 Encounter for surgical aftercare following surgery on the genitourinary system
CPT/HCPCS: 74177; Q9967; A4216

== ENCOUNTER → 2024-01-12 | Outpatient (CLI) | payer MEDICARE, SELFPAY ==
--- NOTE | 2024-01-12 11:55 | RAD_ITS ---
STUDY: X-RAY CHEST REASON FOR EXAM: Female, 73 years old. NEOPLASM OF RIGHT KIDNEY TECHNIQUE: PA and lateral views of the chest. COMPARISON: 07/07/2023 FINDINGS: There is hyperinflation of the lungs consistent with chronic obstructive lung disease (COPD). There is no demonstrated pleural abnormality. Normal size heart. Normal mediastinum and jame. Normal visualized pulmonary arteries. Normal visualized aortic arch and descending thoracic aorta. Normal visualized thoracic spine. Normal visualized ribs, clavicles, and shoulders. There is no demonstrated abnormality of the visualized soft tissue structures of the upper abdomen. RAD/Chest PA and Lateral IMPRESSION: Emphysema without pneumonia or atelectasis. Electronically Signed: Manny Reid MD at 23:39 EDT ,
[2024-01-12 12:40] LABS: Hematocrit 40.1 % (37-47); Hemoglobin 12.7 g/dL (12.0-15.0); Mean Corp Hgb Conc 31.7 g/dL (32-36); Mean Corpuscular Hgb 27.2 pg (27.0-32.0); Mean Corpuscular Volume 85.9 fL (81-99); Mean Platelet Vol. 8.6 fl (6.2-12.0); Platelet Count 194 K/mm3 (150-450); RBC Distribution Width CV 14.2 % (11.6-14.6); RBC Distribution Width SD 44.1 fl (35.1-43.9); Red Blood Count 4.67 M/mm3 (4.2-5.4); White Blood Count 5.6 K/mm3 (4.4-11.0)
[2024-01-12 13:21] LABS: Anion Gap 8 (5-15); BUN 24 mg/dL (7-18); BUN/Creat Ratio 19.8 RATIO (10-20); Calcium,Total 8.8 mg/dL (8.5-10.1); Chloride 105 mmol/L (98-107); Creatinine, Serum 1.21 mg/dL (0.55-1.02); EST Glomerular Filtration Rate 47 mL/min (>60); Est Glom Filt Rate - Afr Amer 56 mL/min (>60); Glucose 79 mg/dL (74-106); Potassium 4.5 mmol/L (3.5-5.1); Sodium Level 137 mmol/L (136-145)
== END | disposition home or self-care (01) ==
LOC: LAB 11:14
PROVIDERS: Referring Provider Urology; Visit Provider Urology
DX: C64.1 Malignant neoplasm of right kidney, except renal pelvis (principal)
CPT/HCPCS: 36415; 71046; 80048; 85027

== ENCOUNTER → 2024-07-15 | Outpatient (CLI) | payer MEDICARE, SELFPAY ==
--- NOTE | 2024-07-15 11:15 | RAD_ITS ---
INDICATION: KIDNEY CA EXAMINATION/TECHNIQUE: X-RAY - XR Chest 2 Views COMPARISON: January 12, 2024 FINDINGS: LINES/DEVICES: None. LUNGS: No consolidation, edema or effusion. No pneumothorax. MEDIASTINUM AND CARDIOVASCULAR STRUCTURES: Cardiac silhouette not enlarged. Central airways and mediastinal contour are unremarkable. BONES AND SOFT TISSUES: Unremarkable. RAD/Chest PA and Lateral IMPRESSION: No radiographic evidence of acute cardiopulmonary disease. Electronically Signed: Skyler Kennedy DO at 17:23 EDT ,
[2024-07-15 11:46] LABS: Hematocrit 41.8 % (37-47); Hemoglobin 13.3 g/dL (12.0-15.0); Mean Corp Hgb Conc 31.8 g/dL (32-36); Mean Corpuscular Hgb 27.7 pg (27.0-32.0); Mean Corpuscular Volume 86.9 fL (81-99); Mean Platelet Vol. 8.4 fl (6.2-12.0); Platelet Count 176 K/mm3 (150-450); RBC Distribution Width CV 13.8 % (11.6-14.6); Red Blood Count 4.81 M/mm3 (4.2-5.4); White Blood Count 5.1 K/mm3 (4.4-11.0)
[2024-07-15 12:55] LABS: Anion Gap 3 (5-15); BUN 22 mg/dL (7-18); Calcium,Total 9.5 mg/dL (8.5-10.1); Chloride 106 mmol/L (98-107); Creatinine, Serum 1.16 mg/dL (0.55-1.02); EST Glomerular Filtration Rate 49 mL/min (>60); Est Glom Filt Rate - Afr Amer 59 mL/min (>60); Glucose 87 mg/dL (74-106); Potassium 4.4 mmol/L (3.5-5.1); Sodium Level 137 mmol/L (136-145)
== END | disposition home or self-care (01) ==
LOC: LAB 10:54
PROVIDERS: Referring Provider Nurse Practitioner; Visit Provider Nurse Practitioner
DX: C64.1 Malignant neoplasm of right kidney, except renal pelvis (principal)
CPT/HCPCS: 36415; 71046; 80048; 85027

== ENCOUNTER → 2024-08-04 | Outpatient (CLI) | payer MEDICARE, SELFPAY ==
--- NOTE | 2024-08-04 07:47 | CT_ITS ---
INDICATION: Malignant neoplasm of right kidney, except renal pelvis EXAMINATION: CT Abdomen And Pelvis W/ Contrast Injection TECHNIQUE: Helically acquired images were obtained of the abdomen and pelvis after IV contrast. A radiation dose optimization technique was used for this scan. IV Contrast dosage and agent: IV 100mL Isovue-370 Oral contrast: None. COMPARISON: None. FINDINGS: Visualized lung bases: Unremarkable Liver: Unremarkable Gallbladder: Surgically absent. Spleen: Unremarkable Pancreas: Unremarkable Adrenal Glands: Stable 2.7 cm intermediate density adrenal mass in the right adrenal gland. Kidneys: Status post partial nephrectomy on the right. No evidence of recurrent or residual disease in the right kidney. Vasculature: Moderate aortoiliac atherosclerotic disease. GI Tract: Unremarkable Lymphadenopathy: None Peritoneum: No ascites. Bladder: Unremarkable Reproductive organs: Unremarkable Bones/Soft tissues: Mild scattered degenerative changes of the visualized spine. CT/Abdomen/Pelvis WITH Contrast IMPRESSION: Stable 2.7 cm right adrenal mass. Otherwise no evidence of recurrent or metastatic disease in the abdomen. Electronically Signed: Stas Chin MD at 20:27 EDT ,
== END | disposition home or self-care (01) ==
LOC: CT 07:43
PROVIDERS: Referring Provider Urology; Visit Provider Urology
DX: C64.1 Malignant neoplasm of right kidney, except renal pelvis (principal)
CPT/HCPCS: 74177; Q9967; A4216

== ENCOUNTER → 2025-01-13 | Outpatient (CLI) | payer MEDICARE, SELFPAY | END | disposition home or self-care (01) | LOC: LABSPEC 15:41 | PROVIDERS: Referring Provider Urology; Visit Provider Urology | DX: N39.0 Urinary tract infection, site not specified (principal) | CPT/HCPCS: 87077; 87086; 87088; 87186 ==

== ENCOUNTER 2025-09-07 06:58 | Day surgery (SDC) | payer MEDICARE, SELFPAY ==
--- NOTE | 2025-09-05 17:07 | PAT.ANE_ITS ---
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 When Was Last Pacemaker Check QUESTION #4 FULL TEXT: You/Your Family Experience fever (hyperthermia) with Anesthesia Last Oral Intake Last Oral intake: Last Oral Intake NPO since Meds taken in AM with sips of water? 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 Female Yes 09/05/25 09:57 HX of Motion Sickness No 09/05/25 09:57 HX of N/V After Surgery No 09/05/25 09:57 Non-Smoker Yes 09/05/25 09:57 Duration of Surgery greater No 09/05/25 09:57 than 60 minutes Number of Risk Factors 2 09/05/25 09:57 PONV Score Moderate Risk 09/05/25 09:57 Height & Weight Height & Weight: Anesthesia: Height & Weight Height 5 ft 4 in 06/30/23 11:01 Respiratory Assessment Respiratory Assessment - commercial real estate broker: Respiratory Tract Infection Hx - 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 Has anyone observed you stop No 09/05/25 09:57 breathing during sleep? STOP Results Negative 09/05/25 09:57 QUESTION #5 FULL TEXT : Do you snore loudly (louder than talking or can be heard through closed doors)? 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 Specify any problems Hx of Preganancy in last 3 No 09/05/25 09:57 Months Nurse Filling Out Transfusion [facility] 09/05/25 09:57 & Questions: Date: 09/05/25 09/05/25 09:57 Time: 10:03 09/05/25 09:57 Patient unable to answer at this time (ie. 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 broker Hx Now Gestational Age (in weeks): EDC: Hx Hx Para Hx Section SAB No 09/05/25 09:57 Does the father of the baby or his family experience fever w Father of the baby Malignant Hypertension history comment [facility] Medical History (Updated 09/05/25 @ 10:02 by Radha Li) Arthritis Cancer Easy bruising Bladder disease History of renal disease Migraine headache Right knee pain Rectal bleeding STEMI (ST elevation myocardial infarction) Wears dentures Wears hearing aid Wears glasses Post-menopausal High cholesterol History of GI bleed Colitis History of diverticulitis Gastric reflux Former smoker Shortness of breath on exertion History of echocardiogram Hypertension Cardiology follow-up encounter History of heart attack Home Medications ?Medication ?Instructions ?Recorded ?Last Taken ?Type aspirin 81 mg capsule 81 mg PO DAILY 12/11/2208/20 History carvedilol 12.5 mg tablet 12.5 mg PO BID BP 12/11/22 0 06/30/23 History L.acid,jorge alberto-B.animal,bifid, 1 cap PO QDAY Unknown History 50 billion cell capsule,delayed rel ([employer] Probiotic) cholecalciferol (vitamin D3) 50 50 mcg PO QDAY 5 Unknown History mcg (2,000 unit) capsule dicyclomine 10 mg capsule 10 mg PO BID PRN abdominal p ain 02/02/25 Unknown Rx #60 caps lisinopril 10 mg tablet 10 mg PO QDAY 02/02/25 Unkno wn History pantoprazole 40 mg tablet,delayed 40 mg PO QDAY #30 ta bs 08/10/25 Unknown Rx release rosuvastatin 40 mg tablet 40 mg PO QDAY 08/10/25 Unkno wn History Allergy/AdvReac Type Severity Reaction Status Date / Time No Known Allergies Allergy Verified 09/05/25 09:54 Surgical History (Updated 09/05/25 @ 10:02 by Radha Li) History of partial nephrectomy History of cataract surgery History of cardiac catheterization History of coronary artery stent placement History of carpal tunnel surgery of right wrist History of partial hysterectomy Hx laparoscopic cholecystectomy Social History Smoking Status: Former smoker alcohol intake: never Audit: Pertinent Findings Pertinent Findings EKG Perinent findings: November 01, 2024. Normal sinus rhythm. Consult pertinent findings: June 28, 2025. Dr. Dai?cardiology. 1. Coronary artery disease?status post PCI of the RCA in 2013 and in November 2024. Normal EF. Okay to stop Plavix at this time. Doing well with no anginal symptoms at a good workload. 2. Hypertension-adequately controlled. Recommendation Anesthesia Recommendation Anesthesia recommendation: OPTIMIZED for anesthesia
[2025-09-07] VITALS (9 sets, daily range): BP systolic 91–102; BP diastolic 50–83; PULSE 58–64; RESP 16; TEMP 36.3–36.9; O2SAT 91–98; BMI 33.2
--- OUTSIDE RECORDS SUMMARY | 2025-09-07 07:04 | XMS RPT_ITS | CCD ---
Author Organization [facility] Care Team Providers Care Room Attendant Name Role Phone KARON Osborne Primary Care Provider KARON Osborne Referring Provider [phone] Friend, Dr. Campbell Attending Provider [phone] Friend, Dr. Campbell Referring Provider [phone] Friend, Dr. Campbell Other Provider [phone] KARON Osborne Primary Care Provider Friend, Dr. Campbell Attending Provider Kathy Osborne PA-C Unavailable Hermila LARIOS, Dr. Alvares ([facility]) Unavailable [facility], ([place]) Unavailable Michelle ([place]) , Dr. Quinonez Unavailable Friend, Dr. Campbell Unavailable Renetta LARIOS, Dr. Oates Unavailable [phone] ([place]), [facility] Unavailable Janice Ramires MD Unavailable Archie DE LA CRUZN, Lucretia Unavailable Omari LARIOS, Joe Simental Unavailable Linda Keita MA Unavailable Unavailable Malu HOPSON, Adair Mcrae Unavailable Teresa Toribio Unavailable Unavailable Deborah Bland MA Unavailable Unavailable Dontrell DE LA CRUZN, Constance Unavailable Unavailable Ting DUEÑAS, Ros Navarro Unavailable Unavaila ble Flaco DE LA CRUZN, Aruna Unavailable Unavailable Anam DE LA CRUZN, Janice M Unavailable Unavailab le Roseliaugg DOUGH MIXING MACHINE OPERATOR, Nga Unavailable Unavailable Unavailable Unavailable Osborne, PA Kathy Primary Care Provider Osborne, PA Kathy Referring Provider [phone]([facility])[phone] Friend, Dr. Campbell Attending Provider MARIO JOHNSON Referring Unavailab ALAN Cardenas Attending Unavailable ALAN MANZO Attending Unavailable OSBORNE PA-C, KATHY J Primary Care Physician OSBORNE PA-C, KATHY J Primary Care Unavailable PATY BARRY MD, DR ROBLES Attending Lee NAGEL MD, ОЛЕГ Referring Unavailabl e Hoa Arellano Attending Provider Osborne PA, Kathy Primary Care Provider [phone] Soborne PA, Kathy Referring Provider 1([phone] Hermila LARIOS, Dr. Giorgio Landaverde Attending Provider Hermila LARIOS, Dr. Giorgio Landaverde Referring Provider Sammy DOUGH MIXING MACHINE OPERATOR, Halima Unavailable Unavailabl e Alma Rosa CCMA, Bernadine Unavailable Unavailable Prakash DOUGH MIXING MACHINE OPERATOR, Rito Unavailable Unavailable Renetta LARIOS, Dr. Oates Unavailable OSBORNE, KATHY PAC Primary Care Unavailable OSBORNE, KATHY PAC Consulting Unavailable OSBORNE, KATHY PAC Attending Unavailable OSBORNE, KATHY PAC Admitting Unavailable PROVIDER, UNKNOWN Consulting Unavailable OSBORNE, KATHY PAC Admitting Unavailable OSBORNE, KATHY PAC Primary Care Unavailable OSBORNE, KATHY PAC Consulting Unavailable OSBORNE, KATHY PAC Attending Unavailable PROVIDER, UNKNOWN Consulting Unavailable Osborne, Kathy Referring Unavailable Hoa Van Attending Unavailable Hoa Van Attending Unavailable Osborne, Kathy Primary Care Unavailable Osborne, Kathy Referring Unavailable Osborne, Kathy Primary Care Unavailable Giorgio Cleaning Attending Unavailable Giorgio Cleaning Referring Unavailable [place] Attending Unavailable Hoa Van Attending Unavailable Osborne, Kathy Primary Care Unavailable Osborne, Kathy Referring Unavailable Osborne PA, Kathy Referring Provider [phone] Hoa Arellano Attending Physician Medications Current Medications Medication Drug Class(es) Dates Sig (Normalized) Sig (Original) acetaminophen 500 mg oral tablet (20 sources) Start: 12-11-2022 take 1 tablet by mouth at bedtime Start: 02-13-2022 acetaminophen 500 mg oral capsule Dose : 500 mg = 1 cap(s), Oral, qHS, PRN as needed for pain, 0 Refill(s) Start Date: 02/13/22 Status: Ordered Repeat number: 1 aspirin 81 mg delayed release oral tablet (20 sources) Platelet Aggregation Inhibitor, Nonsteroidal Anti-inflammatory Drug Start: 11-24-2024 aspirin 81 mg ora l delayed release tablet Dose : 81 mg = 1 tab(s), Oral, Daily, # 90 tab(s), 4 Refill(s), Pharmacy: [id number], 162.6, cm, 11/24/24 9:07:00 EST, Height, kg, 11/24/24 9:07:00 EST, Dosing Weight Start Date: 11/24/24 Status: Ordered Quantity: 90.0 Unit: tab(s) Repeat number: 5 Start: 12-11-2022 take 1 capsule by mouth once d aily Azithromycin (20 sources) Macrolide Antimicrobial Start: 04-20-2025 Zithro max Z-Aneesh 250 mg tablet ; 2 (two) Tabs day one, then one daily for 4 days for 0 days Quantity: 1 {Packet} Refills: 0 Ordered: 20-Apr-2025 MARK ANTHONY Osborne Start: 20-Apr-2025 Start: 09-20-2010 End: 09-25-2010 AZITHROMYCIN, 250MG (Oral Ta blet) ; 2 (two) Tablets day one, then 1 tablet daily for 4 days for 5 days Quantity: 6 {Tablet} Refills: 0 Ordered: 20-Sep-2010 MD Janice Ramires Start: 20-Sep-2010 End: 25-Sep-2010 Status: Inactive Comments: fill if needed Comment on above: fill if needed carvedilol 12.5 mg oral tablet (20 sources) alpha-Adrenergic Duc, beta-Adrenergic Duc Start: 12-11-2022 take 1 tablet by mouth twice daily cholecalciferol 0.05 mg oral capsule (20 sources) Vitamin D Start: 02-02-2025 take 1 capsule by mouth once daily Vitamin D3 ; 50m g daily dicyclomine hydrochloride 10 mg oral capsule (20 sources) Anticholinergic Start: 03-28-2023 End: 02-02-2025 take 1 capsule by mouth twice daily as needed for pain take 1 mg by mouth once daily Di cyclomine HCl 20 MG Oral Tablet ; daily (20 MG) Status: Inactive Comment on above: Medication taken as needed. Florajen Acidophilus (1 source) Start: 11-04-2023 Florajen Acidophilus Oral, qDay, 0 Refill(s) Start Date: 11/04/23 Status: Ordered Repeat number: 1 fluconazole 100 mg oral tablet (20 sources) Azole Antifungal Start: 05-12-2025 fluconazole 100 mg tablet ; 2 (two) Tablet today then 1 tab qd x 10 days for 10 days Quantity: 11 {Tablet} Refills: 0 Ordered: 12-May-2025 MARK ANTHONY Osborne Start: 12-May-2025 Start: 12-25-2022 End: 06-27-2023 take 1 tablet by mouth once daily Fluconazole 100 mg tablet Discontinued 100 mg PO DAILY December 25, 2022 12:00am June 27, 2023 8:19am Start: 12-17-2022 End: 12-27-2022 Fluconazole 100 MG Oral Tabl et ; 2 (two) Tablet today then 1 tab qd x 10 days for 10 days Quantity: 11 {Tablet} Refills: 0 Ordered: 17-Dec-2022 MD Joe Salcido Start: 17-Dec-2022 End: 27-Dec-2022 Status: Inactive Start: 08-22-2021 End: 08-29-2021 take 1 tablet by mouth once daily Fluconazole 150 MG Oral Tablet ; 1 (one) Tablet daily for 7 days Quantity: 7 {Tablet} Refills: 0 Ordered: 22-Aug-2021 MARK ANTHONY Osborne Start: 22-Aug-2021 End: 29-Aug-2021 Status: Inactive fluticasone propionate 0.05 mg/actuat metered dose nasal spray (20 sources) Corticosteroid Start: 11-04-2023 Flonase 50 mcg /inh nasal spray 50 mcg Dose = 1 spray(s), Nostril, each, qAM, PRN as needed for allergy symptoms, 0 Refill(s) Start Date: 11/04/23 Status: Ordered Repeat number: 1 Fluticasone Prop ionate 50 MCG/ACT Nasal Suspension ; once daily (50 MCG/ACT) Status: Inactive L.Acid,Hank-B.Anim,Bifid,Inf an (Fortify [place] Women Probiotic) 50 billion cell capsule,delayed release(DR/EC) (1 source) Start: 02-02-2025 Lactobacillus acidophilus (20 sources) Florajen Acidophilus ; daily lisinopril 10 mg oral tablet (20 sources) Angiotensin Converting Enzyme Inhibitor Start: 02-02-2025 take 1 tablet by mouth once daily Start: 12-11-2022 End: 02-02-2025 take 1 tablet by mouth once daily Lisinopril 20 mg tablet Discontinued 20 mg PO DAILY December 11, 2022 12:00am February 02, 2025 8:21am nitroglycerin 0.4 mg sublingual tablet (1 source) Nitrate Vasodilator Start: 11-26-2023 Nitrostat 0.4 mg sublingual tablet Dose : 0.4 mg = 1 tab(s), Sublingual, q5min, PRN Chest pain, # 25 tab(s), 3 Refill(s), Pharmacy: [id number], 162.5, cm, 11/25/23 10:50:00 EST, Height, kg, 11/25/23 10:50:00 EST, Dosing Weight Start Date: 11/26/23 Status: Ordered Quantity: 25.0 Unit: tab(s) Repeat number: 4 pantoprazole 40 mg delayed release oral tablet (1 source) Proton Pump Inhibitor Start: 08-10-2025 take 1 tablet by mouth once daily psyllium 400 mg oral capsule (1 source) Start: 02-02-2025 rosuvastatin calcium 40 mg oral tablet (20 sources) HMG-CoA Reductase Inhibitor Start: 12-11-2022 End: 08-10-2025 take 1 tablet by mouth once daily Vitamin D3 (1 source) Start: 11-04-2023 Vitamin D3 Dos e : 10 mcg = 1 tab(s), Oral, Daily, 0 Refill(s) Start Date: 11/04/23 Status: Ordered Repeat number: 1 Completed/Discontinued Medications Medication Drug Class(es) Dates Sig (Normalized) Sig (Original) acetaminophen 110 mg / aspirin 162 mg / caffeine 32.4 mg / salicylamide 152 mg oral tablet (20 sources) Platelet Aggregation Inhibitor, Nonsteroidal Anti-inflammatory Drug, Central Nervous System Stimulant, Methylxanthine take 1 tablet by mouth at bedtime Pain Relief Oral Tablet ; 500mg at bedtime Status: Inactive acetaminophen 325 mg / oxyCODONE hydrochloride 5 mg oral tablet (7 sources) Opioid Agonist Start: 12-26-2022 End: 06-27-2023 Oxycodone-Acetami nophen (Endocet) 5-325 mg tablet Discontinued 1 {tbl} PO EVERY 6 HOURS as needed for pain 10 5 0 December 26, 2022 June 27, 2023 8:19am Mass of right kidney Other specified disorders of kidney and ureter amoxicillin 500 mg oral tablet (20 sources) Penicillin-class Antibacterial Start: 11-21-2020 End: 11-28-2020 take 1 tablet by mouth twice daily Amoxicillin 500 MG Oral Tablet ; 1 (one) Tablet two times daily for 7 days Quantity: 14 {Tablet} Refills: 0 Ordered: 21-Nov-2020 MARK ANTHONY Osborne Start: 21-Nov-2020 End: 28-Nov-2020 Status: Inactive amoxicillin 875 mg / clavulanate 125 mg oral tablet (20 sources) Penicillin-class Antibacterial Start: 05-03-2025 End: 05-10-2025 amoxicillin 875 mg-potassium clavulanate 125 mg tablet ; 1 (one) tablet two times daily for 7 days Quantity: 14 {Tablet} Refills: 0 Ordered: 03-May-2025 MARK ANTHONY Osborne Start: 03-May-2025 End: 10-May-2025 Status: Inactive Start: 07-25-2023 End: 08-04-2023 amoxicillin 875 mg-potassium clavulanate 125 mg tablet ; 1 (one) tablet two times daily for 10 days Quantity: 20 {Tablet} Refills: 0 Ordered: 25-Jul-2023 MARK ANTHONY Osborne Start: 25-Jul-2023 End: 04-Aug-2023 Status: Inactive atorvastatin 80 mg oral tablet (20 sources) HMG-CoA Reductase Inhibitor take 1 tablet by mouth once daily ATORVASTATIN CALCIUM, 80MG (Oral Tablet) ; 1 daily (80 MG) Status: Inactive cephalexin 500 mg oral tablet (20 sources) Cephalosporin Antibacterial Start: 01-06-20 End: 01-11-20 take 2 tablets by mouth twice daily Cephalexin 500 MG Oral Tablet ; 2 (two) Tablet two times daily for 5 days Quantity: 20 {Tablet} Refills: 0 Ordered: 05-Jan-2021 MARK ANTHONY Osborne Start: 05-Jan-2021 End: 10-Jan-2021 Status: Inactive take 1 mg by mouth once daily Ce phalexin 500 MG Oral Capsule ; daily (500 MG) Status: Inactive cholestyramine resin 4000 mg powder for oral suspension (3 sources) Bile Acid Sequestrant Start: 01-14-2024 End: 07-06-2024 Cholestyramine (With Sugar) 4 gram powder Discontinued 4 g PO BEDTIME 368.76 3 January 13, 2024 11:00pm July 06, 2024 10:21am administer w/meal; avoid other meds within 1hr before or 4-6hr after dose Start: 01-14-2024 End: 07-06-2024 Cholestyramine (With Sugar) 4 gram powder Discontinued 4 g PO BEDTIME 368.76 January 14, 2024 12:00am July 06, 2024 11:21am administer w/meal; avoid other meds within 1hr before or 4-6hr after dose Start: 01-14-2024 Cholestyramine (With Sugar) Active 4 GM PO BEDTIME 368.76 January 14, 2024 12:00am administer w/meal; avoid other meds within 1hr before or 4-6hr after dose ciprofloxacin 500 mg oral tablet (20 sources) Quinolone Antimicrobial Start: 12-11-2022 End: 12-20-2022 take 1 tablet by mouth twice daily Ciprofloxacin Hcl 500 mg Tablet Discontinued 500 mg PO TWICE A DAY December 11, 2022 12:00am December 20, 2022 7:01am Start: 11-08-2022 End: 11-15-2022 take 1 tablet by mouth twice daily Ciprofloxacin HCl 500 MG Oral Tablet ; 1 (one) Tablet two times daily for 7 days Quantity: 14 {Tablet} Refills: 0 Ordered: 08-Nov-2022 MARK ANTHONY Osborne Start: 08-Nov-2022 End: 15-Nov-2022 Status: Inactive clopidogrel 75 mg oral tablet (20 sources) P2Y12 Platelet Inhibitor Start: 11-24-2024 End: 08-10-2025 take 1 tablet by mouth once daily Clopidogrel 75 mg tablet Discontinued 75 mg PO DAILY February 01, 2025 11:00pm August 10, 2025 9:01am For my heart colestipol hydrochloride 1000 mg oral tablet (3 sources) Bile Acid Sequestrant Start: 01-14-2024 End: 07-06-2024 Colestipol 1 gram tablet Discontinued 2 g PO BEDTIME 60 3 January 13, 2024 11:00pm July 06, 2024 10:21am Start: 01-14-2024 take 2 g by mouth at bedtime C olestipol Active 2 GM PO BEDTIME 60 January 14, 2024 12:00am docusate sodium 100 mg oral capsule (20 sources) Start: 12-25-2022 End: 06-27-2023 take 1 capsule by mouth twice daily Docusate Sodium (Colace) 100 mg capsule Discontinued 100 mg PO TWICE A DAY 20 December 25, 2022 12:00am June 27, 2023 8:18am Start: 12-11-2022 End: 06-27-2023 take 1 tablet by mouth twice daily Docusate Sodium 100 mg Tablet Discontinued 100 mg PO TWICE A DAY December 11, 2022 12:00am June 27, 2023 8:18am Comment on above: pt stopped taking du e to diarrhea doxycycline hyclate 100 mg oral tablet (9 sources) Tetracycline-class Drug Start: 5 End: 5 doxycycline hyclate 100 mg tablet ; 1 (one) tablet two times daily for 7 days Quantity: 14 {Tablet} Refills: 0 Ordered: 03-May-2025 MARK ANTHONY Osborne Start: 03-May-2025 End: 10-May-2025 Status: Inactive famciclovir 500 mg oral tablet (20 sources) Herpes Simplex Virus Nucleoside Analog DNA Polymerase Inhibitor Start: 4 End: 4 take 1 tablet by mouth every eight hours famciclovir 500 mg tablet ; 1 (one) Tablet Every 8 hours for 7 days Quantity: 21 {Tablet} Refills: 0 Ordered: 11-Oct-2024 MARK ANTHONY Osborne Start: 11-Oct-2024 End: 18-Oct-2024 Status: Inactive ibuprofen 600 mg oral tablet (20 sources) Nonsteroidal Anti-inflammatory Drug Start: 3 End: 3 take 1 tablet by mouth every six hours as needed for pain Ibuprofen 600 mg tablet Discontinued 600 mg PO EVERY 6 HOURS as needed for pain December 25, 2022 12:00am June 27, 2023 8:19am take 2 tablets by mouth every fo ur hours IBUPROFEN, 200MG (Oral Tablet) ; 2 every four hours (200 MG) Status: Inactive loratadine 10 mg oral tablet (20 sources) ALAVERT, 10MG (O ral Tablet) ; as needed (10 MG) Status: Inactive Comments: Medication taken as needed. Comment on above: Medication taken as needed. methylPREDNISolone (20 sources) Corticosteroid Start: 10-11-2024 End: 10-17-2024 Medrol (Aneesh) 4 mg tablets in a dose pack ; 1 Tab as directed for 6 days Quantity: 1 {Packet} Refills: 0 Ordered: 11-Oct-2024 MARK ANTHONY Osborne Start: 11-Oct-2024 End: 17-Oct-2024 Status: Inactive Start: 10-11-2024 Medrol (Aneesh) 4 mg tablets in a dose pack ; 1 Tab as directed for 6 days Quantity: 1 {Packet} Refills: 0 Ordered: 11-Oct-2024 MARK ANTHONY Osborne Start: 11-Oct-2024 24 hr metoprolol succinate 25 mg extended release oral tablet (20 sources) beta-Adrenergic Duc take 1 tablet by mouth every twenty-four hours METOPROLOL SUCCINATE ER, 25MG (Oral Tablet Extended Release 24 Hour) ; 1 daily (25 MG) Status: Inactive metroNIDAZOLE 250 mg oral tablet (7 sources) Nitroimidazole Antimicrobial Start: End: take 1 tablet by mouth every eight hours Metronidazole 250 mg Tablet Discontinued 250 mg PO Q8H December 11, 2022 12:00am December 20, 2022 7:01am MULTIVITAMINS (Oral Capsule) (20 sources) MULTIVITAMINS (O ral Capsule) Status: Inactive omeprazole 20 mg delayed release oral tablet (20 sources) Proton Pump Inhibitor Start: 023 End: take 1 tablet by mouth once daily Omeprazole 20 mg Tablet,Delayed Release (/Ec) Discontinued 20 mg PO DAILY December 11, 2022 12:00am June 27, 2023 8:19am take 1 capsule by mouth once jovi ly OMEPRAZOLE, 20MG (Oral Capsule Delayed Release) ; 1 cap daily (20 MG) Status: Inactive Omeprazole 20 MG Oral Tablet Delayed Release Disintegrating ; as needed (20 MG) Status: Inactive Comments: Medication taken as needed. Comment on above: Medication taken as needed. ondansetron 4 mg oral tablet (20 sources) Serotonin-3 Receptor Antagonist Start: 3 End: take 1 tablet by mouth three times daily as needed Ondansetron HCl 4 MG Oral Tablet ; 1 (one) Tablet three times daily, as needed for 0 days Quantity: 12 {Tablet} Refills: 0 Ordered: 25-Nov-2022 SPENSER Maguire Start: 06-Nov-2022 End: 25-Nov-2022 Status: Inactive Comments: Medication taken as needed. take 1 mg by mouth once daily as needed Ondansetron 4 MG Oral Film ; daily, as needed (4 MG) Status: Inactive Comments: Medication taken as needed. Comment on above: Medication taken as needed. pravastatin sodium 40 mg oral tablet (20 sources) HMG-CoA Reductase Inhibitor take 1 tablet by mouth once daily Pravastatin Sodium 40 MG Oral Tablet ; 1 daily (40 MG) Status: Inactive Comments: Comment on above: raNITIdine 150 mg oral tablet (20 sources) Histamine-2 Receptor Antagonist take 1 tablet by mouth once daily RANITIDINE HCL, 150MG (Oral Tablet) ; 1 daily (150 MG) Status: Inactive Stool Softener 100 MG Oral Capsule (7 sources) take 1 mg by mouth at bedtime Stool Softener 100 MG Oral Capsule ; bedtime (100 MG) Status: Inactive sucralfate 1000 mg oral tablet (5 sources) Aluminum Complex Start: 07-10-20 End: 08-09-20 take 1 tablet by mouth twice daily Sucralfate (Carafate) 1 gram tablet Discontinued 1 g PO TWICE A DAY 60 30 0 July 09, 2023 11:00pm August 07, 2023 11:00pm August 08, 2023 11:26pm triamcinolone acetonide 0.25 mg/ml topical cream (20 sources) Corticosteroid Start: 01-06-20 End: 11-19-19 Triamcinolone Acetonide 0.025 % External Cream ; 1 (one) Application three times daily, as needed for 0 days Quantity: 1 {Tube} Refills: 0 Ordered: 19-Nov-2021 SPENSER Maguire Start: 05-Jan-2021 End: 19-Nov-2021 Status: Inactive Comments: Medication taken as needed. 30 g tube Comment on above: Medication taken as needed. 30 g tube ubidecarenone 100 mg oral capsule (20 sources) take 1 capsule by mouth once daily CoQ10 100 MG Oral Capsule ; 1 daily (100 MG) Status: Inactive Problems Active Problems Problem Classification Problem Date Documented Da te Episodic/Chronic Abdominal pain (2 sources) Right upper quadrant pain; Translations: [Right upper quadrant pain] 08-10-2025 Episodic Acute bronchitis (20 sources) Acute bronchitis 01-05-2021 Episodic Acute myocardial infarction (20 sources) Acute ST segment elevation myocardial infarction; Translations: [ST elevation (STEMI) myocardial infarction of unspecified site] Onset: 4 07-25-2023 Chronic Comment on above: inferior wall Adjustment disorders (20 sources) Grief finding; Translations: [Adjustment disorder with depressed mood] 07-25-2023 Chronic Chronic kidney disease (20 sources) Chronic kidney disease stage 3; Translations: [Chronic kidney disease, Stage III (moderate)] 07-25-2023 Chronic Chronic obstructive pulmonary disease and bronchiectasis (20 sources) Bronchitis; Translations: [Bronchitis, not specified as acute or chronic] 04-20-2025 Episodic Coagulation and hemorrhagic disorders (20 sources) Easy bruising; Translations: [Spontaneous ecchymoses] 07-25-2023 Episodic Coronary atherosclerosis and other heart disease (20 sources) Coronary occlusion; Translations: [Atherosclerotic heart disease of [place] coronary artery without angina pectoris] Onset: 4 07-25-2023 Chronic Comment on above: History of STEMI 08/31/2014: PCI with Xience Xpedition stent distal RCA JJP Disorders of lipid metabolism (20 sources) Hyperlipidemia; Translations: [Hyperlipidemia, unspecified] 07-25-2023 Chronic Comment on above: 03/23/2018: Total chol esterol 167, triglycerides 248, HDL 38 and LDL 79 04/28/2017: Total cholesterol 146, triglycerides 206, HDL 36 and LDL 69; AST 17 and ALT 14 01/27/2017: Total cholesterol 251, triglycerides 279, HDL 43 and LDL 152 Esophageal disorders (20 sources) Gastroesophageal reflux disease; Translations: [Gastro-esophageal reflux disease without esophagitis] 07-25-2023 Chronic Essential hypertension (1 source) Benign hypertension 03-06-2020 Chronic Gastrointestinal hemorrhage (20 sources) Rectal hemorrhage; Translations: [Hemorrhage of anus and rectum] 07-25-2023 Episodic Immunizations and screening for infectious disease (20 sources) Immunization due; Translations: [Encounter for immunization] 08-22-2021 Episodic Inflammation; infection of eye (except that caused by tuberculosis or sexually transmitteddisease) (20 sources) Conjunctivitis of left eye; Translations: [Unspecified conjunctivitis] 11-21-2020 Episodic Mycoses (20 sources) Candidiasis of mouth; Translations: [Candidal stomatitis] 12-17-2022 Episodic Nausea and vomiting (20 sources) Nausea; Translations: [Nausea] 07-25-2023 Episodic Noninfectious gastroenteritis (20 sources) Colitis; Translations: [Noninfective gastroenteritis and colitis, unspecified] 03-14-2023 Episodic Other aftercare (20 sources) Post-discharge follow-up; Translations: [Encounter for follow-up examination after completed treatment for conditions other than malignant neoplasm] 07-25-2023 Episodic Other connective tissue disease (20 sources) Pain in left foot; Translations: [Pain in left foot] 07-25-2023 Episodic Other diseases of kidney and ureters (20 sources) Renal mass; Translations: [Other specified disorders of kidney and ureter] 12-25-2022 Chronic Other ear and sense organ disorders (20 sources) Infective otitis externa of bilateral ears; Translations: [Other infective otitis externa, bilateral] 11-21-2020 Episodic Other gastrointestinal disorders (20 sources) Diarrhea; Translations: [Diarrhea, unspecified] 07-25-2023 Episodic Other gastrointestinal disorders (4 sources) Loose stool; Translations: [Other fecal abnormalities] 07-22-2023 Episodic Other gastrointestinal disorders (1 source) Other fecal abnormalities; Translations: [Abnormal feces] 01-14-2024 Episodic Other gastrointestinal disorders (4 sources) Constipation; Translations: [Constipation, unspecified] 11-02-2024 Episodic Other gastrointestinal disorders (2 sources) Heartburn; Translations: [Heartburn] 08-10-2025 Episodic Other lower respiratory disease (4 sources) Cough; Translations: [Cough] 05-02-2025 Episodic Other non-traumatic joint disorders (20 sources) Pain in right knee; Translations: [Pain in joint, lower leg] 07-25-2023 Episodic Other screening for suspected conditions (not mental disorders or infectious disease) (20 sources) Imaging of genitourinary system abnormal; Translations: [Abnormal radiologic findings on diagnostic imaging of unspecified kidney] 07-25-2023 Episodic Other skin disorders (20 sources) Raised seborrheic keratosis; Translations: [Other seborrheic keratosis] 07-25-2023 Episodic Other skin disorders (20 sources) Eruption; Translations: [Rash and other nonspecific skin eruption] 01-23-2021 Episodic Other upper respiratory infections (20 sources) Sinusitis; Translations: [Chronic sinusitis, unspecified] 07-25-2023 Chronic Other upper respiratory infections (20 sources) Upper respiratory infection; Translations: [Acute upper respiratory infection, unspecified] 09-20-2010 Episodic Pneumonia (except that caused by tuberculosis or sexually transmitted disease) (20 sources) Pneumonia; Translations: [Pneumonia, unspecified organism] 05-03-2025 Episodic Residual codes; unclassified (20 sources) History of partial nephrectomy; Translations: [Acquired absence of kidney] 07-25-2023 Episodic Skin and subcutaneous tissue infections (20 sources) Cellulitis of lower leg; Translations: [Cellulitis of unspecified part of limb] 01-05-2021 Episodic Unclassified (20 sources) MCR Well Adult - In general the patient feels well with minor complaints, has decreased energy level and is sleeping poorly (pt said it takes her awhile to fall asleep). The patient has a balanced diet and takes no supplemental vitamins & iron. The patient exercises none (pt is active watching her grandkids) and sleeps 7 hours per night. The patient denies having trouble with bathing, dressing/grooming, toileting, preparing meals and ambulating. The patient denies having trouble with grocery shopping, driving, use of telephone, housework, laundry, preparing/taking medications and finances. The patient performs monthly self breast exam. The patient has a Healthcare Power of Maintenance Supervisor 2Nd Shift and a Living Will. Note for MCR Well Adult: pt is scheduled next week for mammogrampt had a cologuard 05/13/22 - is scheduled for an EGD and colonoscopy with Dr. Park in JuneHas labs to be reviewed todayHas follow up with specialist in June regarding heminephrectomy and kidney cancerPatient reports that she has been bruising more easily on her arms than she used to. She has not noted any abnormal bleeding. 05-07-2023 Unclassified (17 sources) Transition into care - The patient is transitioning into care from an emergency room ([place] [facility] 11/18/2022) and a summary of care was reviewed. 11-25-2022 Unclassified (17 sources) [ADDITIONAL REASON] Follow up consultation - The patient is here to follow-up after Emergency Room/Urgent Care (Patient was seen 11/18/2022 at [facility] ER for diverticulitis and Right-sided Kidney Mass. She was put on Augmentin and discharged to home. She finished the ATB. States that her abdominal pain has improved, occasionally will get a cramping pain but does not last long. Usually if she has a bowel movement, this cramping pain will go away.). Note for Consultation follow-up: Occasionally she will get heartburn depending on what she eats. She has not been taking her Omeprazole, wonders if it is okay for her to resume taking the Omeprazole. She has an appt with Dr. Cleaning tomorrow to f/u on right kidney mass. She would like to discuss what she should not eat to help prevent another diverticulitis flare-up. Patient does have issues with chronic constipation. 11-25-2022 Unclassified (20 sources) Follow up from hospital stay - Name of Hospital: [facility]. Date of Admission: 11/03/22. Date of Discharge: 11/03/22. The patient was hospitalized for abdominal pain. New medications include Keflex, Zofran. Patient did not have any consultations ordered while in the hospital. No post hospital therapies were ordered. Patient was discharged to home. Current Symptoms: abdominal pain (right lower side pain) and fatigue. Note for Follow up from hospital stay: Patient reports that she is feeling about three quarters better at this time. She denies any fever, dysuria, frequency, or urgency.She continues to have some nausea that is lessened with the Zofran. 11-06-2022 Unclassified (20 sources) MCR Well Adult - In general the patient feels well with no complaints, has good energy level and is sleeping well. The patient has a balanced diet. The patient exercises none (active) and sleeps 7 hours per night. The patient denies having trouble with bathing, dressing/grooming, toileting, preparing meals and ambulating. The patient denies having trouble with grocery shopping, driving, use of telephone, housework, laundry, preparing/taking medications and finances. The patient performs monthly self breast exam. The patient does not have Healthcare Power of Maintenance Supervisor 2Nd Shift (She is interested in setting up advanced care planning at this time) or Living Will. Note for MCR Well Adult: mammo- 2004 colonoscopy- pt states it has been at least 10 years since the last time she had onePatient reports that she is going through a hard time right now. While she was on vacation with some her family her [id number], who was travelling with them, due to a bleeding ulcer. She reports that she is having good days and bad days, but it is difficult overall. She has a good support system through her family and feels she is coping well overall at this time. 05-01-2022 Unclassified (20 sources) Follow up consultation - The patient is here to follow-up after Emergency Room/Urgent Care (Patient was seen 11/18/2022 at [facility] ER for diverticulitis and Right-sided Kidney Mass. She was put on Augmentin and discharged to home. She finished the ATB. States that her abdominal pain has improved, occasionally will get a cramping pain but does not last long. Usually if she has a bowel movement, this cramping pain will go away.). Note for Consultation follow-up: Occasionally she will get heartburn depending on what she eats. She has not been taking her Omeprazole, wonders if it is okay for her to resume taking the Omeprazole. She has an appt with Dr. Cleaning tomorrow to f/u on right kidney mass. She would like to discuss what she should not eat to help prevent another diverticulitis flare-up. Patient does have issues with chronic constipation. 11-25-2022 Unclassified (20 sources) [ADDITIONAL REASON] Transition into care - The patient is transitioning into care from an emergency room ([facility] 11/18/2022) and a summary of care was reviewed. 11-25-2022 Unclassified (20 sources) MCR Well Adult - In general the patient feels well with minor complaints (Patient reports that she has been having pain in her right knee for some time. She reports that it is worse with activity and weather changes. She has been using Tylenol OTC, which provides only minimal relief. She denies any known injury.), has good energy level and is sleeping well. The patient has a balanced diet and takes no supplemental vitamins & iron. The patient exercises none (Pt stays active) and sleeps 6 hours per night. The patient denies having trouble with bathing, dressing/grooming, toileting, preparing meals and ambulating. The patient denies having trouble with grocery shopping, driving, use of telephone, housework, laundry, preparing/taking medications and finances. The patient performs monthly self breast exam. The patient has a Healthcare Power of Maintenance Supervisor 2Nd Shift and a Living Will. Note for MCR Well Adult: 9.11.23 colonoscopy 7.26.23 mammo negative 05-06-2024 Unclassified (15 sources) MCR Well Adult - In general the patient feels well with no complaints, has decreased energy level and is sleeping well. The patient has a balanced diet and takes supplemental vitamins. The patient exercises daily and sleeps 6 hours per night. The patient denies having trouble with bathing, dressing/grooming, toileting, preparing meals and ambulating. The patient denies having trouble with grocery shopping, driving, use of telephone, housework, laundry, preparing/taking medications and finances. The patient performs monthly self breast exam. The patient has a Healthcare Power of Maintenance Supervisor 2Nd Shift and a Living Will. Note for [facility] Well Adult: Mammogram Mayologuard EXA 2022Has labs to be reviewed today. 02-10-2025 Unclassified (13 sources) Number of Children 03-15-2025 Comment on above: 2. Past or Other Problems Problem Classification Problem Date Documented Date Episodic/Chronic Unclassified (20 sources) Cold Symptoms - Symptoms include sneezing, nasal congestion, runny nose, scratchy throat, dry cough and facial pain, but do not include ear pain, sore throat, productive cough, wheezing, fever, chills, general malaise or headache. The onset was gradual 8 day(s) ago. The symptoms occur frequently. The patient describes this as moderate in severity and unchanged. Current treatment includes non-prescription cold medication, allergy medications, nasal corticosteroids and home remedies. The patient has not been exposed to an individual with a cough, an individual with an upper respiratory infection or an individual with similar symptoms. Patient denies history of seasonal allergies, recurrent sinusitis, recurrent strep pharyngitis, tonsillectomy or recurrent ear infections. 07-25-2023 Unclassified (20 sources) Follow up from hospital stay - Name of Hospital: [facility]. Date of Admission: 12/25/2022. Date of Discharge: 12/26/2022. The patient was hospitalized for surgery (right partial nephrectomy). New medications include Docusate Sodium, Percocet and Ibuprofen PRN (patient no longer taking pain medications. She stopped taking the Docusate due to having diarrhea.). Consultations ordered while in the hospital include Dr. Cleaning 01/09/2023. No post hospital therapies were ordered. Patient was discharged to home. Current Symptoms: right lower abdomen soreness and at times will have a sharp stabbing pain of that area (continues to have diarrhea, will occur shortly after eating. She is gassy and belches often.). Note for Follow up from hospital stay: She is scheduled to see Dr. Xavier JEFFERSON on 03/14/2023 for diarrhea.No trouble with urination. Denies burning with urination. States that her urine stream has improved since surgery. No blood noticed in the urine. 01-06-2023 Unclassified (12 sources) Transition into care - The patient is transitioning into care from an emergency room ([facility] 11/15/21) and a summary of care was reviewed. 11-19-2021 Unclassified (12 sources) [ADDITIONAL REASON] Follow up consultation - The patient is here to follow-up after Emergency Room/Urgent Care (Patient was seen at [facility] 11/15/2021 for Acute Left ankle sprain/foot sprain/Contusion. Xrays were normal. Been wearing a splint on her left foot. Tried using crutches but stopped using due to having arm pain, feels that the crutches were too short.). Current symptoms include some discomfort of her left foot on the top and the lateral side of foot (only taking Tylenol at night before bed.). Note for Consultation follow-up: No numbness or tingling of foot or toes.Patient reports that pain is improving overall. Has also been icing it multiple times a day. 11-19-2021 Unclassified (20 sources) possible thrush - Pt presents to office today for c/o of possible thrushpt was started on prednisone and azithromycin last week in the ER for trouble breathing and a cough. These symptoms have resolved. pt stated that her mouth feels really raw and has white spots on it. She is also itchy in her vaginal area. She reports burning and irritation, but no vaginal discharge.pt has not noticed any foul smelling breath. 08-22-2021 Unclassified (20 sources) Rash - The onset of the rash has been acute and has been occurring in a persistent pattern for 1 month. The course has been increasing. The rash is characterized as red and raised above the skin. The rash was first seen on the lower extremity. There has been no progression. There has been associated itching, pain, erythema and edema, while there has been no associated drainage. There has been associated itching, while there has been no chills, fatigue or fever. Note for Rash: Patient has tried OTC antibiotic and itch creams with no relief of symptoms. She reports that the rash will sometimes have a dull ache. 01-05-2021 Unclassified (11 sources) Eye symptoms - The onset of the eye symptoms has been acute and has been occurring in a persistent pattern for 1 week. The course has been without change. The eye symptoms are described as mild to moderate and involve the left eye. The symptoms are described as itching and drainage (did notice yellow drainage/matted eyes in the beginning but now is just watery eyes). There has been associated blurred vision, ear discharge, itching and watery eyes, while there has been no eye pain, headache, itchy ears, itchy eyes, itchy nose, nasal stuffiness, runny nose, sinus pain or sore throat. 11-21-2020 Unclassified (11 sources) [ADDITIONAL REASON] Ear pain - The onset of the pain has been sudden and has been occurring in an intermittent pattern for 1 week. The course has been constant. The pain is described as a moderate sharp pain and plugged. The pain is described as being located in the inner ear. The pain is felt in both ears. The symptoms have been associated with purulent discharge from ear (yellow drainage from both ears) and tinnitus (states that she always has this), while the symptoms have not been associated with chills, decreased hearing, fever, sore throat, runny nose, cough or vertigo. Medical History does not include ear infections or seasonal allergies. Note for Ear pain: tried OTC cold and sinus medication--did not help. Patient reports that the pain and discharge are present in both ears, but are worse in the right. 11-21-2020 Unclassified (20 sources) Skin lesion - The skin lesion appeared gradually and has been occurring for 4 years. It has been increasing in size. The lesion is characterized as brown and raised above the skin. The lesion is located on the trunk (chest). Note for Skin lesion: Patient states that the lesion has been on her skin for years, but that she has noticed that it feels like it has started growing above the level of the skin over the past few weeks. She reports mild itching, but not pain, bleeding, or scabbing. Patient reports that she was out in the sun often when she was younger and denies any history of skin cancer. 07-14-2020 Unclassified (8 sources) Transition into care - The patient is transitioning into care from another physician and a summary of care was not provided . Note for Transition into care: -Regular follow up with Dr Bonita Acevedo regarding her CAD post [place]. She thought we were receiving the records. 01-23-2016 Unclassified (8 sources) [ADDITIONAL REASON] Knee pain - The onset of the knee pain has been gradual and has been occurring in a persistent pattern for 3 months. The knee pain is moderate in the right knee. The knee pain is characterized as a sharp stabbing. The knee pain is described as being located in the medial knee. The knee pain is aggravated by physical activity (when starts to get up or flexes knee; associated with tightness posterior leg). Note for Knee pain: new patient (not seen >3 years)Had shoulder and knee pain that she thought may be related to lipitor; she stopped it for a few weeks but no change in sx so resumedIbuprofen does not helpNo swelling to knee; no recent or past injury; no new activities 01-23-2016 Unclassified (20 sources) Cold Symptoms - Symptoms include nasal congestion (with PND), scratchy throat, dry cough (very deep, nonproductive), general malaise and facial pain, but do not include wheezing or fever. The onset was sudden 3 day(s) ago. The symptoms occur constantly. The patient describes this as moderate in severity and worsening. The patient is not currently being treated for this problem. Risk factors include smoking. 09-20-2010 Unclassified (20 sources) Ear pain - The onset of the pain has been sudden and has been occurring in an intermittent pattern for 1 week. The course has been constant. The pain is described as a moderate sharp pain and plugged. The pain is described as being located in the inner ear. The pain is felt in both ears. The symptoms have been associated with purulent discharge from ear (yellow drainage from both ears) and tinnitus (states that she always has this), while the symptoms have not been associated with chills, decreased hearing, fever, sore throat, runny nose, cough or vertigo. Medical History does not include ear infections or seasonal allergies. Note for Ear pain: tried OTC cold and sinus medication--did not help. Patient reports that the pain and discharge are present in both ears, but are worse in the right. 11-21-2020 Unclassified (20 sources) [ADDITIONAL REASON] Eye symptoms - The onset of the eye symptoms has been acute and has been occurring in a persistent pattern for 1 week. The course has been without change. The eye symptoms are described as mild to moderate and involve the left eye. The symptoms are described as itching and drainage (did notice yellow drainage/matted eyes in the beginning but now is just watery eyes). There has been associated blurred vision, ear discharge, itching and watery eyes, while there has been no eye pain, headache, itchy ears, itchy eyes, itchy nose, nasal stuffiness, runny nose, sinus pain or sore throat. 11-21-2020 Unclassified (20 sources) Knee pain - The onset of the knee pain has been gradual and has been occurring in a persistent pattern for 3 months. The knee pain is moderate in the right knee. The knee pain is characterized as a sharp stabbing. The knee pain is described as being located in the medial knee. The knee pain is aggravated by physical activity (when starts to get up or flexes knee; associated with tightness posterior leg). Note for Knee pain: new patient (not seen >3 years)Had shoulder and knee pain that she thought may be related to lipitor; she stopped it for a few weeks but no change in sx so resumedIbuprofen does not helpNo swelling to knee; no recent or past injury; no new activities 01-23-2016 Unclassified (20 sources) [ADDITIONAL REASON] Transition into care - The patient is transitioning into care from another physician and a summary of care was not provided . Note for Transition into care: -Regular follow up with Dr Bonita Acevedo regarding her CAD post [place]. She thought we were receiving the records. 01-23-2016 Unclassified (20 sources) Follow up consultation - The patient is here to follow-up after Emergency Room/Urgent Care (Patient was seen at [facility] 11/15/2021 for Acute Left ankle sprain/foot sprain/Contusion. Xrays were normal. Been wearing a splint on her left foot. Tried using crutches but stopped using due to having arm pain, feels that the crutches were too short.). Current symptoms include some discomfort of her left foot on the top and the lateral side of foot (only taking Tylenol at night before bed.). Note for Consultation follow-up: No numbness or tingling of foot or toes.Patient reports that pain is improving overall. Has also been icing it multiple times a day. 11-19-2021 Unclassified (20 sources) [ADDITIONAL REASON] Transition into care - The patient is transitioning into care from an emergency room ([facility] 11/15/21) and a summary of care was reviewed. 11-19-2021 Unclassified (1 source) MCR Well Adult - Note for MCR Well Adult: 9.11.23 colonoscopy 7.26.23 mammo negative 05-06-2024 Unclassified (1 source) Rash 10-11-2024 Unclassified (1 source) Rash - The rash has been occurring in a persistent pattern for 6 days. The course has been increasing (getting more itchy). The rash is characterized as red, raised above the skin (in a few areas) and flat. The rash was first seen on the upper extremity (left anterior upper arm). There has been no progression. There has been associated itching, pain (area is painful to touch and has a burning sensation) and erythema, while there has been no associated drainage. There has been no associated chills or fever. Note for Rash: Been using topical Benadryl cream.Patient states that she has received her two Shingrix vaccinations. 10-11-2024 Unclassified (20 sources) Rash - The onset of the rash has been acute and has been occurring in a persistent pattern for 6 days. The course has been increasing (getting more itchy). The rash is characterized as red, raised above the skin (in a few areas) and flat. The rash was first seen on the upper extremity (left anterior upper arm). There has been no progression. There has been associated itching, pain (area is painful to touch and has a burning sensation) and erythema, while there has been no associated drainage or edema. There has been no associated chills, fever, lymphadenopathy, malaise or pain. Note for Rash: Been using topical Benadryl cream without much relief.Patient states that she has received her two Shingrix vaccinations. 10-11-2024 Unclassified (13 sources) Eye symptoms - The onset of the eye symptoms has been sudden and has been occurring in a persistent pattern for 2 days. The course has been without change. The eye symptoms are described as mild and involve both eyes. The symptoms are described as itching, drainage (watery) and swelling. There has been associated eye congestion, eye discharge, itchy eyes, sore throat and watery eyes, while there has been no blurred vision, eye pain, headache, itchy ears, itchy nose, nasal stuffiness (Does report some post nasal drainage), runny nose or sinus pain. Note for Eye symptoms: Patient reports that she will wake up with crusting around her eyes, but will have watery discharge through the day 03-15-2025 Unclassified (12 sources) Cold Symptoms - Symptoms include productive cough (green) and wheezing (w/ SOB occasionally when walking), but do not include sneezing, nasal congestion, runny nose, ear pain, ear fullness, sore throat, scratchy throat, hoarseness, dry cough, fever, chills, general malaise, headache or facial pain. The onset was gradual 4 day(s) ago. The symptoms occur frequently. The patient describes this as mild and worsening. Current treatment includes non-prescription cold medication (Marija Halifax plus cold and flu) and home remedies. The patient has been exposed to an individual with an upper respiratory infection ( has pneumonia). Patient denies history of seasonal allergies, recurrent sinusitis or recurrent strep pharyngitis. 04-20-2025 Urinary tract infections (20 sources) Urinary tract infectious disease; Translations: [Urinary tract infection, site not specified] Onset: 01-18-2025 11-08-2022 Episodic Results Test Name Value Interpretation Reference Range Facility Gastroenterology Visit Repor ton 08-10-2025 Gastroenterology Visit Report [facility] [address] [place] [address] OFFICE VISIT Date of Service: 08/10/25 MR#: [id number] Acct: [id number] Name: BRI RODRIGUES Rep #: [id number] 3 : 1950 Provider: KARON Osuna Age/Sex: 74/F Location: [facility] Status: Signed Intake Vital Signs 06/30/23 11:01 Height 5 ft 4 in Intake Visit Reasons: 6 M FU Chief Complaint: constipation 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 Required: No Accompanied by: Is patient in pain?: No Allergies No Known Allergies Allergy (Verified 08/10/25 10:03) Medications ???Medication ???Instructions ???Recorded ???Confirmed ???Type acetaminophen 500 mg tablet 500 mg PO QHS 12/11/22 08/10/25 Hi story aspirin 81 mg capsule 81 mg PO DAILY 12/11/22 08/10/25 H istory carvedilol 12.5 mg tablet 12.5 mg PO BID BP 12/11/22 5 History L.acid,hank-B.animal, bifid, 1 cap PO QDAY 02/02/25 08/10/25 H istory 50 billion cell capsule,delayed rel ([employer]ify [place] Women Probiotic) cholecalciferol (vitamin D3) 50 50 mcg PO QDAY 02/02/25 08/10/25 H istory mcg (2,000 unit) capsule dicyclomine 10 mg capsule 10 mg PO BID PRN abdominal pain 08/10/25 Rx #60 caps lisinopril 10 mg tablet 10 mg PO QDAY 02/02/25 08/10/25 Hi story psyllium husk 0.4 gram capsule 0.4 g PO BID 02/02/25 08/10/25 His tory (Daily Fiber) pantoprazole 40 mg tablet,delayed 40 mg PO QDAY #30 tabs 08/10/25 1 Rx release rosuvastatin 40 mg tablet 40 mg PO QDAY 08/10/25 08/10/25 Hi story Have you fallen in the past year?: No PFSH Medical History (Updated 08/10/25 @ 10:28 by KARON Osuna) Cancer Easy bruising Bladder disease History of renal disease Migraine headache Right knee pain Rectal bleeding STEMI (ST elevation myocardial infarction) Wears dentures Wears hearing aid Wears glasses Post-menopausal High cholesterol History of GI bleed Colitis History of diverticulitis Gastric reflux Former smoker Shortness of breath on exertion History of echocardiogram Hypertension Cardiology follow-up encounter History of heart attack Surgical History (Updated 02/02/25 @ 09:24 by Nga Haji) History of cataract surgery History of cardiac catheterization History of coronary artery stent placement History of carpal tunnel surgery of right wrist History of partial hysterectomy Hx laparoscopic cholecystectomy Social History Smoking Status: Former smoker alcohol intake: never HPI HPI Chief Complaint: constipation Details: BRI RODRIGUES, is a 74 F who presents to the office today for follow up. BGI established in 2022 with hx of loose stools and abd cramping. Biochemical CBC, ESR, CMP, LDH, CRP, celiac, SULMA comp, ANCA, TOMI (Bglobulin H1.4), GAME without pertinent abnormality AST 22-ALT 18-AP H125, IgA H353 EGD and colonoscopy 06.30.23 EGD LA grade A esophagitis; medium hiatal hernia; gastritis; duodenitis. No pathologic changes Colonoscopy diverticulosis; congested colon and TI. No pathologic changes Last OV 1.14.25; pt continues to alternate between constipation and diarrhea. Still having LLQ pain. Dicyclomine is helpful. Start psyllium husk. OV 02.02.25 Pt doing well since last visit. She was able to find the psyllium husk and is taking it twice a day. This has increased the frequency of bowel movements to 3x per day. Her stools are still small and hard but is happy with progress. SHe continues dicyclomine daily for pain. OV 08/10/25 patient having new right upper quadrant pain that is intermittent typically after eating. This feels similar to the pain she was having when she had a cholecystectomy. She has also been experiencing increased reflux. She is having heartburn every other day especially during the night. She is not currently on a PPI. She has bowel movements 2-3 times per day while taking a fiber supplement. Her stools are typically hard and small but this is improved for her. ROS Const Constitutional: No fatigue, fever(s) or weight change ENT ENT: No difficulty swallowing Gastro GI: Positive for abdominal pain, bloating, change in bowel habits and heartburn; No belching, change in stool character, coffee ground emesis, constipation, cramping, diarrhea, difficulty swallowing, feeling full early, excessive flatus, incontinent of stools, Vomiting blood/hematemesis, Blood in stool, loose stools, Black,tarry stools, nausea/dyspepsia, pain with swallowing, vomiting or other Musc Musculoskeletal: Positive for joint pain, muscle cramps, stiffness, Arthritis, restless legs and leg pain at night Skin Skin: Positive for dry skin; No yellowing of the eye or itchy eyes Neuro Neurology: Positive for restless legs Psych Psychi (more content not included)... Normal [facility] 3D MAMM BILAT SCREENon 06-14 3D MAMM BILAT SCREEN [place] [address] Patient: BRI RODRIGUES Phone#: : 1950 Age: 74 Gender: F Pt. Type: Out Account: [id number] Location: [facility] Ordering: KATHY OSBORNE Exam Date: 06/14/2025/11:10 Family Phys: Charge Code: [id number] Physician: [place] Order #: [id number] Dose#: PROCEDURE: BILATERAL SCREENING BREAST TOMOSYNTHESIS MAMMOGRAM WITH CAD COMPARISON: [facility], 3D BILAT SCREEN, 06/02/2024, 13:59. [facility], 3D BILAT SCREEN, 05/14/2023, 10:55. INDICATIONS: Screening. BREAST COMPOSITION: The breasts are heterogeneously dense, which may obscure small masses FINDINGS: DIAGNOSTIC CATEGORY 1--NEGATIVE NO CHANGE FROM COMPARISON ASSESSMENT. RIGHT BREAST: No significant suspicious finding. No significant change has occurred. LEFT BREAST: No significant suspicious finding. No significant change has occurred. RECOMMENDATIONS: ROUTINE MAMMOGRAM AND CLINICAL EVALUATION IN 12 MONTHS. PLEASE NOTE: A NORMAL MAMMOGRAM DOES NOT EXCLUDE THE POSSIBILITY OF BREAST CANCER. A CLINICALLY SUSPICIOUS PALPABLE LUMP SHOULD BE BIOPSIED. THIS FACILITY UTILIZES A REMINDER SYSTEM TO ENSURE THAT ALL PATIENTS RECEIVE REMINDER LETTERS FOR APPOINTMENTS. THIS INCLUDES REMINDERS FOR ROUTINE MAMMOGRAMS, DIAGNOSITC MAMMOGRAMS, OR OTHER BREAST IMAGING INTERVENTIONS WHEN APPROPRIATE. THIS PATIENT WILL BE PLACED IN THE APPROPRIATE REMINDER SYSTEM. Dictated by: Maria De Jesus Hernandez MD on 06/14/2025 at 15:21 Approved by: Maria De Jesus Hernandez MD on 06/14/2025 at 15:27 Normal [facility] CHEST 2 VIEWSon 05-02-2025 CHEST 2 VIEWS [place] [address] Patient: BRI RODRIGUES Phone#: : 1950 Age: 74 Gender: F Pt. Type: Out Account: [id number] Location: 052 Ordering: [employer] Exam Date: 05/02/2025/13:40 Family Phys: Charge Code: [id number] Physician: [place] Order #: [id number] Dose#: PROCEDURE: X-RAY CHEST 2 VIEWS COMPARISON: [facility], CHEST 1 VIEW, 08/16/2021, 18:26. INDICATIONS: Cough. FINDINGS: LUNGS: Ill-defined increased density is present adjacent to the left cardiac border. Lingular infiltrate cannot be excluded. VASCULATURE: Normal. Unremarkable pulmonary vasculature. CARDIAC: Normal. No cardiac silhouette abnormality or cardiomegaly. MEDIASTINUM: Normal. No visible mass or adenopathy. PLEURA: Normal. No effusion or pleural thickening. BONES: Normal. No fracture or visible bony lesion. OTHER: Negative. CONCLUSION: 1. Findings suspicious for lingular infiltrate. Dictated by: Maria De Jesus Hernandez MD on 05/02/2025 at 15:51 Approved by: Maria De Jesus Hernandez MD on 05/02/2025 at 15:52 Normal [facility] Gastroenterology Visit Repor ton 02-02-2025 Gastroenterology Visit Report [facility] Gastroenterology [address] [place] [address] OFFICE VISIT Date of Service: 02/02/25 MR#: [id number] Acct: [id number] Name: BRI RODRIGUES Rep #: [id number] : 1950 Provider: KARON Osuna Age/Sex: 74/F Location: [facility] Status: Signed Intake Vital Signs 06/30/23 11:01 Height 5 ft 4 in Intake Visit Reasons: 3 M FU Chief Complaint: constipation 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 Required: No Accompanied by: Is patient in pain?: No Allergies No Known Allergies Allergy (Verified 02/02/25 09:20) Medications ???Medication ???Instructions ???Recorded ???Confirmed ???Type acetaminophen 500 mg tablet 500 mg PO QHS 12/11/22 02/02/25 Hi story aspirin 81 mg capsule 81 mg PO DAILY 12/11/22 02/02/25 H istory carvedilol 12.5 mg tablet 12.5 mg PO BID BP 12/11/22 5 History rosuvastatin 40 mg tablet 40 mg PO QHS 12/11/22 02/02/25 His tory L.acid,hank-B.animal, bifid, 1 cap PO QDAY 02/02/25 02/02/25 H istory 50 billion cell capsule,delayed rel (Fortify [place] Women Probiotic) cholecalciferol (vitamin D3) 50 50 mcg PO QDAY 02/02/25 02/02/25 H istory mcg (2,000 unit) capsule clopidogrel 75 mg tablet 75 mg PO DAILY For my heart 02/02/25 History dicyclomine 10 mg capsule 10 mg PO BID PRN abdominal pain 02/02/25 Rx #60 caps lisinopril 10 mg tablet 10 mg PO QDAY 02/02/25 02/02/25 Hi story psyllium husk 0.4 gram capsule 0.4 g PO BID 02/02/25 02/02/25 His tory (Daily Fiber) Have you fallen in the past year?: No Nurse's Note: OV 02.02.25. Feeling well. No acute concerns. Abdominal pain and bloating occasional and unchanged. PFSH Medical History Cancer Easy bruising Bladder disease History of renal disease Migraine headache Right knee pain Rectal bleeding STEMI (ST elevation myocardial infarction) Wears dentures Wears hearing aid Wears glasses Post-menopausal High cholesterol History of GI bleed Colitis History of diverticulitis Gastric reflux Former smoker Shortness of breath on exertion History of echocardiogram Hypertension Cardiology follow-up encounter History of heart attack Surgical History (Updated 02/02/25 @ 09:24 by Nga Haji) History of cataract surgery History of cardiac catheterization History of coronary artery stent placement History of carpal tunnel surgery of right wrist History of partial hysterectomy Hx laparoscopic cholecystectomy Social History Smoking Status: Former smoker alcohol intake: never HPI HPI Chief Complaint: constipation Details: BRI RODRIGUES, is a 74 F who presents to the office today for f/u. BGI established in 2022 with hx of loose stools and abd cramping. Biochemical CBC, ESR, CMP, LDH, CRP, celiac, SULMA comp, ANCA, TOMI (Bglobulin H1.4), GAME without pertinent abnormality AST 22-ALT 18-AP H125, IgA H353 EGD and colonoscopy 06.30.23 EGD LA grade A esophagitis; medium hiatal hernia; gastritis; duodenitis. No pathologic changes Colonoscopy diverticulosis; congested colon and TI. No pathologic changes Last OV 11.02.24; pt continues to alternate between constipation and diarrhea. Still having LLQ pain. Dicyclomine is helpful. Start psyllium husk. OV 4.16.25 Pt doing well since last visit. She was able to find the psyllium husk and is taking it twice a day. This has increased the frequency of bowel movements to 3x per day. Her stools are still small and hard but is happy with progress. SHe continues dicyclomine daily for pain. ROS Const Constitutional: Positive for weight change; No fatigue, fever(s), frequent falls, headache(s) or weakness ENT ENT: No headache(s) or difficulty swallowing Cardio Cardiology: No leg pain with exertion Gastro GI: Positive for abdominal pain, bloating and change in bowel habits; No constipation, diarrhea, heartburn, difficulty swallowing, excessive flatus, Vomiting blood/hematemesis, Blood in stool, nausea/dyspepsia or vomiting Musc Musculoskeletal: Positive for restless legs; No joint pain, back pain, joint swelling, muscle cramps, muscle weakness, numbness, stiffness, tingling, Arthritis, sciatica, leg pain at night or leg pain with exertion Skin Skin: Positive for dry skin; No lesions, itchy eyes or rash Neuro Neurology: Positive for restless legs; No behavioral changes, unsteady gait/balance, weakness, frequent falls, headache(s), numbness, tingling, tremor(s), Increased tone in limbs, paralysis or seizures Psych Psychiatric: Positive for anxiety, No behavioral changes, No depression, No paranoia, No Compulsive Behavior, No hyperactivity, No inattentiveness, No obsessions/compulsion s, No Temper Tantr (more content not included)... Normal [facility] CBC (INCLUDES DIFF/PLT)on Basophils (Bld) [#/Vol] 0.018 10*3/uL Normal 0-200 [facility] Comment on above: Performed By: #### 7 600, 6399, 65317 #### [facility] [address], [address] [place] [phone] Corporate Legal Manager: Jason Casanova MD Basophils/100 WBC (Bld) 0.3 % Normal [facility] Comment on above: Performed By: #### 7 600, 6399, 27739 #### [facility] [address], [address] [place] [phone] Corporate Legal Manager: Jason Casanova MD Eosinophils (Bld) [#/Vol] 0.06 10*3/uL Normal 15-500 [facility] Comment on above: Performed By: #### 7 600, 6399, 17674 #### [facility] of [place] [address] Corporate Legal Manager: Jason Casanova MD Eosinophils/100 WBC (Bld) 1.0 % Normal [facility] Comment on above: Performed By: #### 7 600, 6399, 91482 #### [facility] of [place] [address] Corporate Legal Manager: Jason Casanova MD Erythrocyte distribution width (RBC) [Ratio] 13.2 % Normal 11.0-15.0 [facility] Comment on above: Performed By: #### 7 600, 6399, 46463 #### [facility] of [place] [address] Corporate Legal Manager: Jason Casanova MD Hematocrit (Bld) [Volume fraction] 42.4 % Normal 35.0-45.0 [facility] Comment on above: Performed By: #### 7 600, 6399, 62232 #### [facility] of [place] [address] Corporate Legal Manager: Jason Casanova MD Hemoglobin (Bld) [Mass/Vol] 13.8 g/dL Normal 11.7-15. 5 [facility] Comment on above: Performed By: #### 7 600, 6399, 07804 #### [facility] of [place] [address] Corporate Legal Manager: Jason Casanova MD Lymphocytes (Bld) [#/Vol] 1.212 10*3/uL Normal 850-390 0 [facility] Comment on above: Performed By: #### 7 600, 6399, 00815 #### [facility] of [place] [address] Corporate Legal Manager: Jason Casanova MD Lymphocytes/100 WBC (Bld) 20.2 % Normal [facility] Comment on above: Performed By: #### 7 600, 6399, 13537 #### [facility] of [place] [address] Corporate Legal Manager: Jason Casanova MD MCH (RBC) [Entitic mass] 28.5 pg Normal 27.0-33.0 [facility] Comment on above: Performed By: #### 7 600, 6399, 38750 #### [facility] of [place] [address] Corporate Legal Manager: Jason Casanova MD MCHC (RBC) [Mass/Vol] 32.5 g/dL Normal 32.0-36.[address] [facility] Comment on above: Result Comment: For adults, a slight decrease in the calculated MCHC value (in the range of 30 to 32 g/dL) is most likely not clinically significant; however, it should be interpreted with caution in correlation with other red cell parameters and the patient's clinical condition. Performed By: #### 7 600, 6399, 06036 #### [facility] of [place] [address] Corporate Legal Manager: Jason Casanova MD MCV (RBC) [Entitic vol] 87.4 fL Normal 80.0-100.0 [facility] Comment on above: Performed By: #### 7 600, 6399, 00566 #### [facility] of [place] [address] Corporate Legal Manager: Jason Casanova MD Monocytes (Bld) [#/Vol] 0.33 10*3/uL Normal 200-950 [facility] Comment on above: Performed By: #### 7 600, 6399, 89957 #### [facility] of [place] [address] Corporate Legal Manager: Jason Casanova MD Monocytes/100 WBC (Bld) 5.5 % Normal [facility] Comment on above: Performed By: #### 7 600, 6399, 45948 #### [facility] of [address] [place] [address] Corporate Legal Manager: Jason Casanova MD Neutrophils (Bld) [#/Vol] 4.38 10*3/uL Normal 1500-780 0 [facility] Comment on above: Performed By: #### 7 600, 6399, 80817 #### [facility] of [place] [address] Corporate Legal Manager: Jason Casanova MD Neutrophils/100 WBC (Bld) 73 % Normal [facility] Comment on above: Performed By: #### 7 600, 6399, 11505 #### [facility] of [place] [address] Corporate Legal Manager: Jason Casanova MD Platelet mean volume (Bld) [Entitic vol] 8.3 fL Normal 7.5-12.5 [facility] Comment on above: Performed By: #### 7 600, 63, 41353 #### [facility] of [place] [address] Corporate Legal Manager: Jason Casanova MD Platelets (Bld) [#/Vol] 184 10*3/uL Normal 140-400 [facility] Comment on above: Performed By: #### 7 600, 6399, 77354 #### [facility] of [place] [address] Corporate Legal Manager: Jason Casanova MD RBC (Bld) [#/Vol] 4.85 10*6/uL Normal 3.80-5.10 [facility] Comment on above: Performed By: #### 7 600, 6399, 05863 #### [facility] of [place] [address] Corporate Legal Manager: Jason Casanova MD WBC (Bld) [#/Vol] 6.0 10*3/uL Normal 3.8-10.8 [facility] Comment on above: Performed By: #### 7 600, 6399, 84523 #### [facility] of [place] [address] Corporate Legal Manager: Jason Casanova MD COMPREHENSIVE METABOLIC PANE [facility] 02-01-2025 Albumin [Mass/Vol] 4.6 g/dL Normal 3.6-5.1 [facility] Comment on above: Performed By: #### 7 600, 6399, 82081 #### [facility] of [address], [address] [place] [address] Corporate Legal Manager: Jason Casanova MD Albumin/Globulin [Mass ratio] 1.8 {ratio} Normal 1.0-2.5 [facility] Comment on above: Performed By: #### 7 600, 6399, 52838 #### [facility] of [place] [address] Corporate Legal Manager: Jason Casanova MD ALP [Catalytic activity/Vol] 93 U/L Normal 37-153 [facility] Comment on above: Performed By: #### 7 600, 6399, 95600 #### [facility] of [place] [address] Corporate Legal Manager: Jason Casanova MD ALT [Catalytic activity/Vol] 14 U/L Normal 6-29 [facility] Comment on above: Performed By: #### 7 600, 6399, 29110 #### [facility] of [place] [address] Corporate Legal Manager: Jason Casanova MD AST [Catalytic activity/Vol] 19 U/L Normal 10-35 [facility] Comment on above: Performed By: #### 7 600, 6399, 06366 #### [facility] of [place] [address] Corporate Legal Manager: Jason Casanova MD Bilirubin [Mass/Vol] 0.4 mg/dL Normal 0.2-1.2 [facility] Comment on above: Performed By: #### 7 600, 6399, 55818 #### [facility] of [place] [address] Corporate Legal Manager: Jason Casanova MD Calcium [Mass/Vol] 9.3 mg/dL Normal 8.6-10.4 [facility] Comment on above: Performed By: #### 7 600, 6399, 75887 #### [facility] of [address], [address] [place] [address] Corporate Legal Manager: Jason Casanova MD Chloride [Moles/Vol] 104 mmol/L Normal 98-110 [facility] Comment on above: Performed By: #### 7 600, 6399, 85782 #### [facility] of [address], [address] [place] [address] Corporate Legal Manager: Jason Casanova MD CO2 [Moles/Vol] 24 mmol/L Normal 20-32 [facility] Comment on above: Performed By: #### 7 600, 6399, 31939 #### [facility] of [place] [address] Corporate Legal Manager: Jason Casanova MD Creatinine [Mass/Vol] 1.21 mg/dL High 0.60-1.[address] [facility] Comment on above: Performed By: #### 7 600, 6399, 08580 #### [facility] of [place] [address] Corporate Legal Manager: Jason Casanova MD GFR/1.73 sq M.predicted among non-blacks MDRD (S/P/Bld) [Vol rate/Area] 48 mL/min/{1.73_m2} Low > OR = 60 [facility] Comment on above: Performed By: #### 7 600, 6399, 84841 #### [facility] of [address], [address] [place] [address] Corporate Legal Manager: Jason Casanova MD Globulin (S) [Mass/Vol] 2.5 g/dL Normal 1.9-3.7 [facility] Comment on above: Performed By: #### 7 600, 6399, 23562 #### [facility] of [place] [address] Corporate Legal Manager: Jason Casanova MD Glucose [Mass/Vol] 84 mg/dL Normal 65-99 [facility] Comment on above: Result Comment: Fasting reference interval Performed By: #### 7 600, 6399, 86031 #### [facility] of [address], [address] [place] [address] Corporate Legal Manager: Jason Casanova MD Potassium [Moles/Vol] 4.3 mmol/L Normal 3.5-5.[address] [facility] Comment on above: Performed By: #### 7 600, 6399, 82503 #### [facility] of [address], [address] [place] [address] Corporate Legal Manager: Jason Casanova MD Protein [Mass/Vol] 7.1 g/dL Normal 6.1-8.1 [facility] Comment on above: Performed By: #### 7 600, 6399, 82058 #### [facility] of [address], [address] [place] [address] Corporate Legal Manager: Jason Casanova MD Sodium [Moles/Vol] 139 mmol/L Normal 135-146 [facility] Comment on above: Performed By: #### 7 600, 6399, 06023 #### [facility] of [address], [address] [place] [address] Corporate Legal Manager: Jason Casanova MD Urea nitrogen [Mass/Vol] 27 mg/dL High 7-25 [facility] Comment on above: Performed By: #### 7 600, 6399, 89474 #### [facility] of [address], [address] [place] [address] Corporate Legal Manager: Jason Casanova MD Urea nitrogen/Creatinine [Mass ratio] 22 mg/mg Normal 6-22 [facility] Comment on above: Performed By: #### 7 600, 6399, 21557 #### [facility] of [address], [address] [place] [address] Corporate Legal Manager: Jason Casanova MD LIPID PANEL, [facility] 01-18 Cholesterol [Mass/Vol] 141 mg/dL Normal <200 [facility] Comment on above: Performed By: #### 7 600, 6399, 16799 #### [facility] of [address], [address] [place] [address] Corporate Legal Manager: Jason Casanova MD Cholesterol in HDL [Mass/Vol] 64 mg/dL Normal > OR = 50 [facility] Comment on above: Performed By: #### 7 600, 6399, 53977 #### [facility] [address], [address] [place] [address] Corporate Legal Manager: Jason Casanova MD Cholesterol in LDL [Mass/Vol] 55 mg/dL Normal [facility] Comment on above: Result Comment: Refe rence range: <100 Desirable range <100 mg/dL for primary prevention; <70 mg/dL for patients with CHD or diabetic patients with > or = 2 CHD risk factors. LDL-C is now calculated using the Kirstin calculation, which is a validated novel method providing better accuracy than the Friedewald equation in the estimation of LDL-C. Amanuel PARADA et al. JOSE LUIS. 2013;310(19): 3517-9997 (http://education.inSelly/faq/XUT179) Performed By: #### 7 600, 6399, 73718 #### [facility] [address], [address] [place] [address] Corporate Legal Manager: Jason Casanova MD Cholesterol.total/Cholester ol in HDL [Mass ratio] 2.2 {ratio} Normal <5.0 [facility] Comment on above: Performed By: #### 7 600, 6399, 07971 #### [facility] [address], [address] [place] [address] Corporate Legal Manager: Jason Casanova MD NON HDL CHOLESTEROL 77 mg/dL (calc) Normal <130 [facility] Comment on above: Result Comment: For patients with diabetes plus 1 major ASCVD risk factor, treating to a non-HDL-C goal of <100 mg/dL (LDL-C of <70 mg/dL) is considered a therapeutic option. Performed By: #### 7 600, 6399, 82329 #### [facility] [address], [address] [place] [address] Corporate Legal Manager: Jason Casanova MD Triglyceride [Mass/Vol] 140 mg/dL Normal <150 [facility] Comment on above: Performed By: #### 7 513, 6470, 36579 #### [facility] [address], [address] [place] [address] Corporate Legal Manager: Jason Casanova MD Laboratory - Chemistry and C hemistry - challengeon 01-31-2025 Albumin [Mass/Vol] 4.6 g/dL Normal 3.6 - 5.1 g/dL [facility] [place] [facility] Albumin/Globulin [Mass ratio] 1.8 {ratio} Normal 1.0 - 2.5 [facility] [place] [employer] [employer] ALP [Catalytic activity/Vol] 93 U/L Normal 37 - 153 U/L [facility] [place] [employer] ALT [Catalytic activity/Vol] 14 U/L Normal 6 - 29 U/L [facility] [place] [employer] [employer] AST [Catalytic activity/Vol] 19 U/L Normal 10 - 35 U/L [place] [facility] Bilirubin [Mass/Vol] 0.4 mg/dL Normal 0.2 - 1 .2 mg/dL [place] [facility] [place] [employer] [employer] Calcium [Mass/Vol] 9.3 mg/dL Normal 8.6 - 10. 4 mg/dL [place] [facility] [place] [employer] [employer] Chloride [Moles/Vol] 104 mmol/L Normal 98 - 11 0 mmol/L [facility] Cholesterol [Mass/Vol] 141 mg/dL Normal [facility], [facility].; [place] [employer] Cholesterol in HDL [Mass/Vol] 64 mg/dL Normal [place] [facility] [place] [employer] Cholesterol in LDL [Mass/Vol] 55 mg/dL Normal [place] [employer] [employer] CO2 [Moles/Vol] 24 mmol/L Normal 20 - 32 mmol/L [facility] [place] [employer] [employer] Creatinine [Mass/Vol] 1.21 mg/dL Abnormal 0.60 - 1.00 mg/dL [facility], [facility]. GFR/1.73 sq M.predicted among non-blacks MDRD (S/P/Bld) [Vol rate/Area] 48 mL/min/{1.73_m2} Abnormal [facility], [facility] Glucose [Mass/Vol] 84 mg/dL Normal 65 - 99 mg/dL [facility], [facility].; [facility], [facility]. Potassium [Moles/Vol] 4.3 mmol/L Normal 3.5 - 5.3 mmol/L [facility], [facility].; [facility], [facility] Protein [Mass/Vol] 7.1 g/dL Normal 6.1 - 8.1 g/dL [facility], [facility].; [facility], [facility]. Sodium [Moles/Vol] 139 mmol/L Normal 135 - 146 mmol/L [facility], [facility].; [facility], [facility]. Triglyceride [Mass/Vol] 140 mg/dL Normal [facility], [facility] Urea nitrogen [Mass/Vol] 27 mg/dL Abnormal 7 - 25 mg/dL [facility], [facility].; [facility], [facility] Urea nitrogen/Creatinine [Mass ratio] 22 mg/mg Normal 6 - 22 [facility] [place] [employer] [facility], [facility]. Laboratory - Hematology and Cell countson 01-31-2025 Basophils (Bld) [#/Vol] 0.018 10*3/uL Normal 0 - 200 {cells/uL} [facility], [facility]. Basophils/100 WBC (Bld) 0.3 % Normal [facility], [facility] Eosinophils (Bld) [#/Vol] 0.06 10*3/uL Normal 15 - 500 {cells/uL} [facility].; [facility], [facility]. Eosinophils/100 WBC (Bld) 1.0 % Normal [facility], [facility].; [place] [facility], [facility] Erythrocyte distribution width (RBC) [Ratio] 13.2 % Normal 11.0 - 15.0 % [place] [facility].; [facility] Hematocrit (Bld) [Volume fraction] 42.4 % Normal 35.0 - 45.0 % [facility].; [facility], [facility] Hemoglobin (Bld) [Mass/Vol] 13.8 g/dL Normal 11.7 - 15.5 g/dL [facility].; [facility], [facility] Lymphocytes (Bld) [#/Vol] 1.212 10*3/uL Normal 8 50 - 3900 {cells/uL} [facility].; [facility], [facility] Lymphocytes/100 WBC (Bld) 20.2 % Normal [facility].; [facility], [facility]. MCH (RBC) [Entitic mass] 28.5 pg Normal 27. 0 - 33.0 pg [facility].; [facility], [facility]. MCHC (RBC) [Mass/Vol] 32.5 g/dL Normal 32.0 - 36.0 g/dL [facility], [facility].; [facility], [facility]. MCV (RBC) [Entitic vol] 87.4 fL Normal 80.0 - 100.0 fL [facility].; [facility], [facility]. Monocytes (Bld) [#/Vol] 0.33 10*3/uL Normal 200 - 950 {cells/uL} [facility], [facility].; [facility], [facility]. Monocytes/100 WBC (Bld) 5.5 % Normal [facility].; [facility], [facility]. Neutrophils (Bld) [#/Vol] 4.38 10*3/uL Normal 15 00 - 7800 {cells/uL} [facility].; [place] [facility], [facility]. Neutrophils/100 WBC (Bld) 73 % Normal [facility].; [place] [employer] [facility], [facility]. Platelet mean volume (Bld) [Entitic vol] 8.3 fL Normal 7.5 - 12.5 fL [facility], [facility].; [facility], [facility]. Platelets (Bld) [#/Vol] 184 10*3/uL Normal 140 - 400 [facility].; [facility], [facility]. RBC (Bld) [#/Vol] 4.85 10*6/uL Normal 3.80 - 5.10 {Million/u L} [employer] [email or web address].; [employer]. WBC (Bld) [#/Vol] 6.0 10*3/uL Normal 3.8 - 10.8 [employer]. No Panel Informationon 01-31 CHOL/HDLC RATIO 2.2 Normal [employer]; [employer]. GLOBULIN 2.5 Normal 1.9 - 3.7 [employer]; [employer] NON HDL CHOLESTEROL 77 Normal [facility]; [employer] Urine Cultureon 01-15-2025 [facility] Klebsiella pneumonia e sp pneum [place] Count >100,000 Klebsiella pneumoniae sp pneum: REACTION Ampicillin Islt WICHO Ampicillin+Sulbac Islt WICHO <=2 S Cefepime Islt WICHO <=0.12 S cefTRIAXone Islt WICHO <=0.25 S Ciprofloxacin Islt WICHO <=0.06 S B-Lactamase Extended Susc Islt NEG Gentamicin Islt WICHO <=1 S levoFLOXacin Islt WICHO <=0.12 S Meropenem Islt WICHO <=0.25 S Nitrofurantoin Islt WICHO 32 S Pip+Tazo Islt WICHO <=4 S TMP SMX Islt WICHO <=20 S Normal [facility] Comment on above: Performed By: #### M 100.2200 #### [facility] [address] [place] [address], [address] Urine cultureOrdered By: Mauricio Cleaning on 01-13-2025 Bacteria identified Cx Nom (U) Klebsiella pneumoniae sp pneum Abnormal [facility] .Auto Diffon 11-24-2024 Basophil, Absolute 0.0 10 3/mcL Normal 0.0-0.3 [facility] Comment on above: Performed By: #### C RONALD CASAS ANEU, PRO, BMP, GFR #### [facility] [address] [place] [address] Basophils/100 WBC (Bld) 0.4 % Normal 0.0-2.5 [facility] Comment on above: Performed By: #### C RONALD CASAS ANEU, PRO, BMP, GFR #### [address] [address] Eosinophil, Absolute 0.1 10 3/mcL Normal 0.0-0.7 [facility] Comment on above: Performed By: #### C BC, ADIFF, ANEU, PRO, BMP, GFR #### [address] [address] Eosinophils/100 WBC (Bld) 1.3 % Normal 0.0-6.0 [facility] Comment on above: Performed By: #### C BC, ADIFF, ANEU, PRO, BMP, GFR #### [address] [address] Lymphocyte, Absolute 1.2 10 3/mcL Normal 0.9-4.3 [facility] Comment on above: Performed By: #### C BC, ADIFF, ANEU, PRO, BMP, GFR #### [address] [address] Lymphocytes/100 WBC (Bld) 22.0 % Normal 20.0-40.0 [facility] Comment on above: Performed By: #### C BC, ADIFF, ANEU, PRO, BMP, GFR #### [address] [address] Monocyte, Absolute 0.4 10 3/mcL Normal 0.1-1.4 [facility] Comment on above: Performed By: #### C BC, ADIFF, ANEU, PRO, BMP, GFR #### [address] [address] Monocytes/100 WBC (Bld) 8.0 % Normal 2.0-13.0 [facility] Comment on above: Performed By: #### C BC, ADIFF, ANEU, PRO, BMP, GFR #### [address] [address] Neutrophils/100 WBC (Bld) 68.3 % Normal 50.0-75.0 [facility] Comment on above: Performed By: #### C BC, ADIFF, ANEU, PRO, BMP, GFR #### [address] [address] .GFRon 02-05-2025 Estimated Glomerular Filtration Rate 53 ml/min/1.73sqm Normal [facility] Comment on above: Result Comment: Stages of Chronic Kidney Disease (CKD) Stage Description eGFR(ml/min/1.73 sq.m.) CKD 1 Normal kidney function or >=90 normal kindney function with possible kidney damage (ex. Proteinuria) CKD 2 Kidney damage with mild loss 60-89 of kidney function CKD 3a Mild to moderate loss of kidney 45-59 function CKD 3b Moderate to severe loss of 30-44 of kindey function CKD 4 Severe loss of kidney function 15-29 CKD 5 Kidney failure <15 Note: (go live 2024) the eGFR calculation was updated to the 2020 CKD-EPI creatinine equation without a race factor to calculate the eGFR results. Performed By: #### C BC, ADIFF, ANEU, PRO, BMP, GFR #### [address] [address] .NEUABSon 11-24-2024 Neutrophil, Absolute 3.8 10 3/mcL Normal 2.3-8.1 [facility] Comment on above: Performed By: #### C BC, ADIFF, ANEU, PRO, BMP, GFR #### [address] [address] BMPon 11-24-2024 BUN/Creatinine Ratio 20.0 ratio Normal 10.0-22.0 [facility] Comment on above: Performed By: #### C BC, ADIFF, ANEU, PRO, BMP, GFR #### [address] [address] Calcium [Mass/Vol] 9.5 mg/dL Normal 8.7-10.4 [facility] Comment on above: Performed By: #### C BC, ADIFF, ANEU, PRO, BMP, GFR #### [address] [address] Chloride [Moles/Vol] 104 mmol/L Normal 98-110 [facility] Comment on above: Performed By: #### C BC, ADIFF, ANEU, PRO, BMP, GFR #### [address] [address] CO2 [Moles/Vol] 28 mmol/L Normal 22-32 [facility] Comment on above: Performed By: #### C BC, ADIFF, ANEU, PRO, BMP, GFR #### [address] [address] Creatinine [Mass/Vol] 1.10 mg/dL Normal 0.50-1.20 [facility] Comment on above: Result Comment: Test ing performed on [employer] analyzer using enzymatic creatinine methodology. Performed By: #### C BC, ADIFF, ANEU, PRO, BMP, GFR #### [place] [id number] Electrolyte Balance 8.0 mEq/L Normal 4.0-15.0 [facility] Comment on above: Performed By: #### C BC, ADIFF, ANEU, PRO, BMP, GFR #### [place] [id number] Glucose [Mass/Vol] 92 mg/dL Normal 82-115 [facility] Comment on above: Performed By: #### C BC, ADIFF, ANEU, PRO, BMP, GFR #### [address] [address] Potassium [Moles/Vol] 4.7 mmol/L Normal 3.5-5.0 [facility] Comment on above: Result Comment: Spec imen slightly hemolyzed. Performed By: #### C BC, ADIFF, ANEU, PRO, BMP, GFR #### [place] [id number] Sodium [Moles/Vol] 140 mmol/L Normal 136-145 [facility] Comment on above: Performed By: #### C BC, ADIFF, ANEU, PRO, BMP, GFR #### [address] [address] Urea nitrogen [Mass/Vol] 22.0 mg/dL Normal 8.0-22.0 [facility] Comment on above: Performed By: #### C BC, ADIFF, ANEU, PRO, BMP, GFR #### [address] [address] CBCon 11-24-2024 Erythrocyte distribution width (RBC) [Ratio] 15.4 % Normal 11.5-15.5 [facility] Comment on above: Performed By: #### C BC, ADIFF, ANEU, PRO, BMP, GFR #### [place] [address] Hematocrit (Bld) [Volume fraction] 39.0 % Normal 34.0-46.0 [facility] Comment on above: Performed By: #### C BC, ADIFF, ANEU, PRO, BMP, GFR #### [place] [address] Hgb 13.2 G/dL Normal 12.0-16.0 [facility] Comment on above: Performed By: #### C BC, ADIFF, ANEU, PRO, BMP, GFR #### [place] [address] MCH (RBC) [Entitic mass] 28.7 pg Normal 27.0-33.0 [facility] Comment on above: Performed By: #### C BC, ADIFF, ANEU, PRO, BMP, GFR #### [place] [address] MCHC 33.9 G/dL Normal 32.0-36.0 [facility] Comment on above: Performed By: #### C BC, ADIFF, ANEU, PRO, BMP, GFR #### [place] [address] MCV (RBC) [Entitic vol] 84.7 fL Normal 80.0-99.0 [facility] Comment on above: Performed By: #### C BC, ADIFF, ANEU, PRO, BMP, GFR #### [place] [address] Platelet 187 10 3/mcL Normal 150-450 [facility] Comment on above: Performed By: #### C BC, ADIFF, ANEU, PRO, BMP, GFR #### [place] [address] Platelet mean volume (Bld) [Entitic vol] 6.3 fL Low 6.6-10.5 [facility] Comment on above: Performed By: #### C BC, ADIFF, ANEU, PRO, BMP, GFR #### [place] [id number] [place] [address] RBC 4.60 10 6/mcL Normal 4.10-5.30 [facility] Comment on above: Performed By: #### C BC, ADIFF, ANEU, PRO, BMP, GFR #### [facility] [address] [place] [address] WBC 5.5 10 3/mcL Normal 4.5-10.8 [facility] Comment on above: Performed By: #### C BC, ADIFF, ANEU, PRO, BMP, GFR #### [place] [id number] [place] [address] LABORATORYOrdered By: SYSTEM SYSTEM on 11-24-2024 Basophils (Bld) [#/Vol] 0.0 103/mcL Normal 0.0 - 0.3 10^3/mcL Workflow SS Basophils/100 WBC (Bld) 0.4 % Normal 0.0 - 2.5 % Workflow SS Calcium [Mass/Vol] 9.5 mg/dL Normal 8.7 - 10. 4 mg/dL ADM SS Chloride [Moles/Vol] 104 mmol/L Normal 98 - 11 0 mEq/L ADM SS CO2 [Moles/Vol] 28 mmol/L Normal 22 - 32 mEq/L ADM SS Creatinine [Mass/Vol] 1.10 mg/dL Normal 0.50 - 1.20 mg/dL ADM SS Comment on above: Interpretive Data: T esting performed on [employer] CH analyzer using enzymatic creatinine methodology. Electrolyte Balance 8.0 mEq/L Normal 4.0 - 15 .0 mEq/L ADM SS Eosinophils (Bld) [#/Vol] 0.1 103/mcL Normal 0. 0 - 0.7 10^3/mcL Workflow SS Eosinophils/100 WBC (Bld) 1.3 % Normal 0. 0 - 6.0 % Workflow SS Erythrocyte distribution width (RBC) [Ratio] 15.4 % Normal 11.5 - 15.5 % Workflow SS Estimated Glomerular Filtration Rate 53 ml/min/1.73sqm Invalid Interpretation Code Chemistry S Comment on above: Interpretive Data: Stages of Chronic Kidney Disease (CKD) Stage Description eGFR(ml/min/1.73 sq.m.) CKD 1 Normal kidney function or >=90 normal kindney function with possible kidney damage (ex. Proteinuria) CKD 2 Kidney damage with mild loss 60-89 of kidney function CKD 3a Mild to moderate loss of kidney 45-59 function CKD 3b Moderate to severe loss of 30-44 of kindey function CKD 4 Severe loss of kidney function 15-29 CKD 5 Kidney failure <15 Note: (go live 2024) the eGFR calculation was updated to the 2020 CKD-EPI creatinine equation without a race factor to calculate the eGFR results. Glucose [Mass/Vol] 92 mg/dL Normal 82 - 115 mg/dL AH ADM SS Hematocrit (Bld) [Volume fraction] 39.0 % Normal 34.0 - 46.0 % AH Workflow SS Hemoglobin (Bld) [Mass/Vol] 13.2 G/dL Normal 12.0 - 16.0 G/dL AH Workflow SS Lymphocytes (Bld) [#/Vol] 1.2 103/mcL Normal 0. 9 - 4.3 10^3/mcL AH Workflow SS Lymphocytes/100 WBC (Bld) 22.0 % Normal 20 .0 - 40.0 % AH Workflow SS MCH (RBC) [Entitic mass] 28.7 pg Normal 27. 0 - 33.0 pg AH Workflow SS MCHC 33.9 G/dL Normal 32.0 - 36.0 G/dL AH Workflow SS MCV (RBC) [Entitic vol] 84.7 fL Normal 80.0 - 99.0 fL AH Workflow SS Monocytes (Bld) [#/Vol] 0.4 103/mcL Normal 0.1 - 1.4 10^3/mcL AH Workflow SS Monocytes/100 WBC (Bld) 8.0 % Normal 2.0 - 13.0 % AH Workflow SS Neutrophils (Bld) [#/Vol] 3.8 103/mcL Normal 2. 3 - 8.1 10^3/mcL AH Workflow SS Neutrophils/100 WBC (Bld) 68.3 % Normal 50 .0 - 75.0 % AH Workflow SS Platelet mean volume (Bld) [Entitic vol] 6.3 fL Low 6.6 - 10.5 fL AH Workflow SS Platelets (Bld) [#/Vol] 187 103/mcL Normal 150 - 450 10^3/mcL AH Workflow SS Potassium [Moles/Vol] 4.7 mmol/L Normal 3.5 - 5.0 mEq/L ADM Comment on above: Result Comment: Spec imen slightly hemolyzed. PT Coag (PPP) [Time] 10.6 s Normal 9.0 - 1 4.4 seconds HemARub Comment on above: Interpretive Data: E ffective 05/03/08, Protime results may be affected by some antibiotics (i.e. Ciprofloxacin, Azithromycin, Bactrim) which may potentiate the action of oral anticoagulants, with further increases in Protime/INR. PT International Ratio 0.9 ratio Invalid Interpretation Code [facility] Comment on above: Interpretive Data: Luis Miguel navarro [employer] (CHEST, 1991, 102:312S-25S) recommended therapeutic range for oral anticoagulant therapy is: LOW RISK: Prophylaxis of venous thrombosis INR: 2.0-3.0 Treatment of pulmonary embolism 2.0-3.0 Prevention of systemic embolism 2.0-3.0 HIGH RISK: Mechanical prosthetic valves 2.5-3.5 RBC (Bld) [#/Vol] 4.60 106/mcL Normal 4.10 - 5.30 10^6/mcL Workflow SS Sodium [Moles/Vol] 140 mmol/L Normal 136 - 145 mEq/L ADM SS Urea nitrogen [Mass/Vol] 22.0 mg/dL Normal 8.0 - 22.0 mg/dL ADM SS Urea nitrogen/Creatinine [Mass ratio] 20.0 ratio Normal 10.0 - 22.0 ratio ADM SS WBC (Bld) [#/Vol] 5.5 103/mcL Normal 4.5 - 10.8 10^3/mcL Workflow SS PROon 11-24-2024 INR Coag (PPP) [Relative time] 0.9 {INR} Normal [facility] Comment on above: Result Comment: [employer] (CHEST, 1991, 102:312S-25S) recommended therapeutic range for oral anticoagulant therapy is: LOW RISK: Prophylaxis of venous thrombosis INR: 2.0-3.0 Treatment of pulmonary embolism 2.0-3.0 Prevention of systemic embolism 2.0-3.0 HIGH RISK: Mechanical prosthetic valves 2.5-3.5 Performed By: #### C BC, ADIFF, ANEU, PRO, BMP, GFR #### [place] [address] PT Coag (PPP) [Time] 10.6 s Normal 9.0-14.4 [facility] Comment on above: Result Comment: Effe ctive 05/03/08, Protime results may be affected by some antibiotics (i.e. Ciprofloxacin, Azithromycin, Bactrim) which may potentiate the action of oral anticoagulants, with further increases in Protime/INR. Performed By: #### C BC, ADIFF, ANEU, PRO, BMP, GFR #### [facility] [address] [place] [address] Gastroenterology Visit Repor ton 11-02-2024 Gastroenterology Visit Report [facility]enterology [address] [place] [address] OFFICE VISIT Date of Service: 11/02/24 MR#: [id number] Acct: [id number] Name: BRI RODRIGUES Rep #: [id number] 3 : 1950 Provider: KARON Osuna Age/Sex: 74/F Location: [facility] Status: Signed Intake Vital Signs 06/30/23 11:01 Height 5 ft 4 in Intake Visit Reasons: 4 M FU Chief Complaint: constipation altrenating with diarrhea 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 Required: No Is patient in pain?: No Allergies No Known Allergies Allergy (Verified 01/14/24 09:28) Is last menstrual period known: No Patient : No Have you fallen in the past year?: No Nurse's Note: OV 11.02.24 Pt here for f/u. Pt reports she goes back and forth between constipation and diarrhea having a BM every 3 days. Pt reports abdominal pain which she takes dicyclomine for and does find this helpful. Denies bloody stools, N/V. PFSH Medical History Bladder disease Cancer Cardiology follow-up encounter Colitis Easy bruising Former smoker Gastric reflux High cholesterol History of diverticulitis History of echocardiogram History of GI bleed History of heart attack History of renal disease Hypertension Migraine headache Post-menopausal Rectal bleeding Right knee pain Shortness of breath on exertion STEMI (ST elevation myocardial infarction) Wears dentures Wears glasses Wears hearing aid Surgical History History of cardiac catheterization History of carpal tunnel surgery of right wrist History of coronary artery stent placement History of partial hysterectomy Hx laparoscopic cholecystectomy Social History Smoking Status: Former smoker alcohol intake: never HPI HPI Chief Complaint: constipation altrenating with diarrhea Details: BRI RODRIGUES, is a 74 F who presents to the office today for f/u. PMH hyperlipidemia, STEMI. PSH cholecystectomy ??? PCP seen following several ED presentations with concern of recurrent rectal bleeding with previously diagnosed colitis, diverticulitis and GERD. ??? [facility] ED presentation 11.03.22, 11.18.22 and 12.07.22 with history of UTI with treatment and abdominal pain/cramping. Presentation 12.07.22 with LLQ abd pain with a history of diverticulitis. Biochemical workup and imaging performed. Surgery consulted who felt it to be more complex the simple diverticulitis and recommended GI referral; discharged with cipro/flagyl and GI referral. ?Biochemical workup???CBC, CMP and UA without pertinent abnormality. CT abd/pel???focal fatty infiltration at falciform ligament; renal mass consistent with malignancy; thickening of descending and sigmoid colon; pericolonic fat stranding; trace fluid of left colic gutter, consistent with nonspecific colitis; duodenal diverticula; diverticulosis. ??? *BGI established 5.26.23 at this time she is not having symptoms. Approximately every other week she has one day of severe loose stools with abdominal pain/cramping, previously has blood and/or mucus; onset . Last colonoscopy in late 1899???s. Surgery with Dr. Cleaning to address renal cancer; no further treatment indicated. ?Biochemical???CBC, ESR, CMP, LDH, CRP, celiac, SULMA comp, ANCA, TOMI (Bglobulin H1.4), GAME without pertinent abnormality ? AST 22-ALT 18-AP H125, IgA H353 ?EGD and colonoscopy 06.30.23???EGD LA grade A esophagitis; medium hiatal hernia; gastritis; duodenitis. No pathologic changes ? Colonoscopy diverticulosis; congested colon and TI. No pathologic changes OV 10.3.23 continues to have loose stools with abdominal pain/cramping occurring one day every other week with 3-4BM/day. Additional burning in her chest. Diet is balanced with meats/potatoes and vegetables, drinks a lot of caffeinated lightly sweetened tea. OV 3.27.24- Pt states no changes since last visit. Continues to have episodes of diarrhea every other day. Has abdominal pain/cramping before she has diarrhea. Dicyclomine helps with this. No bloody or dark stools. Intermittent heartburn r/t diet. OV 9.17.24 pt reports a daily bm; states she has diarrhea 3x a week. Pt reports she was unable to take colestipol or cholestyramine. pt reports gas and bloating after she eats and occasional HB depending on what she eats. OV 1.14.25 Pt continues to have issues with her bowels. SHe alternates between constipation and diarrhea. She is also still having LLQ pain. When she has diarrhea and pain she will take a dicyclomine as needed (more content not included)... Normal [facility] CBC (INCLUDES DIFF/PLT)on Basophils (Bld) [#/Vol] 0.02 10*3/uL Normal 0-200 [employer] Comment on above: Performed By: #### 7 656, 16438, 6399 #### [facility] of [address], [address] [place] [address] Corporate Legal Manager: Jason Casanova MD Basophils/100 WBC (Bld) 0.5 % Normal [facility] Comment on above: Performed By: #### 7 600, 27767, 6399 #### [facility] of [address], [address] [place] [address] Corporate Legal Manager: Jason Casanova MD Eosinophils (Bld) [#/Vol] 0.092 10*3/uL Normal 15-500 [facility] Comment on above: Performed By: #### 7 600, , 6399 #### [facility] of [address], [address] [place] [address] Corporate Legal Manager: Jason Casanova MD Eosinophils/100 WBC (Bld) 2.3 % Normal [facility] Comment on above: Performed By: #### 7 600, , 99 #### [facility] of [address], [address] [place] [address] Corporate Legal Manager: Jason Casanova MD Erythrocyte distribution width (RBC) [Ratio] 14.4 % Normal 11.0-15.0 [facility] Comment on above: Performed By: #### 7 600, [address]9600, 6399 #### [facility] of [place] [address] Corporate Legal Manager: Jason Casanova MD Hematocrit (Bld) [Volume fraction] 39.4 % Normal 35.0-45.0 [facility] Comment on above: Performed By: #### 7 600, 46931, 6399 #### [facility] of [address], [address] [place] [address] Corporate Legal Manager: Jason Casanova MD Hemoglobin (Bld) [Mass/Vol] 12.7 g/dL Normal 11.7-15. 5 [facility] Comment on above: Performed By: #### 7 600, 46955, 6399 #### [facility] of [address], [address] [place] [address] Corporate Legal Manager: Jason Casanova MD Lymphocytes (Bld) [#/Vol] 1.532 10*3/uL Normal 850-390 0 [facility] Comment on above: Performed By: #### 7 600, 94383, 6399 #### [facility] of [place] [address] Corporate Legal Manager: Jason Casanova MD Lymphocytes/100 WBC (Bld) 38.3 % Normal [facility] Comment on above: Performed By: #### 7 600, 19847, 6399 #### [facility] [place] [address] Corporate Legal Manager: Jason Casanova MD MCH (RBC) [Entitic mass] 28.3 pg Normal 27.0-33.0 [facility] Comment on above: Performed By: #### 7 600, [address]4768, 6399 #### [facility] [place] [address] Corporate Legal Manager: Jason Casanova MD MCHC (RBC) [Mass/Vol] 32.2 g/dL Normal 32.0-36.[address] [facility] Comment on above: Performed By: #### 7 600, 74871, 6399 #### [facility] [place] [address] Corporate Legal Manager: Jason Casanova MD MCV (RBC) [Entitic vol] 87.9 fL Normal 80.0-100.0 [facility] Comment on above: Performed By: #### 7 600, 39549, 6399 #### [facility] of [place] [address] Corporate Legal Manager: Jason Casanova MD Monocytes (Bld) [#/Vol] 0.32 10*3/uL Normal 200-950 [facility] Comment on above: Performed By: #### 7 600, 44614, 6399 #### [facility] of [place] [address] Corporate Legal Manager: Jason Casanova MD Monocytes/100 WBC (Bld) 8.0 % Normal [facility] Comment on above: Performed By: #### 7 600, 50558, 6399 #### [facility] of [place] [address] Corporate Legal Manager: Jason Casanova MD Neutrophils (Bld) [#/Vol] 2.036 10*3/uL Normal 1500-78 00 [facility] Comment on above: Performed By: #### 7 600, 83143, 6399 #### [facility] of [place] [address] Corporate Legal Manager: Jason Casanova MD Neutrophils/100 WBC (Bld) 50.9 % Normal [facility] Comment on above: Performed By: #### 7 600, 36999, 6399 #### [facility] of [place] [address] Corporate Legal Manager: Jason Casanova MD Platelet mean volume (Bld) [Entitic vol] 8.4 fL Normal 7.5-12.5 [facility] Comment on above: Performed By: #### 7 600, 98782, 6399 #### [facility] [place] [address] Corporate Legal Manager: Jason Casanova MD Platelets (Bld) [#/Vol] 178 10*3/uL Normal 140-400 [facility] Comment on above: Performed By: #### 7 600, 06631, 6399 #### [facility] of [place] [address] Corporate Legal Manager: Jason Casanova MD RBC (Bld) [#/Vol] 4.48 10*6/uL Normal 3.80-5.10 [facility] Comment on above: Performed By: #### 7 600, 72403, 6399 #### [facility] of [place] [address] Corporate Legal Manager: Jason Casanova MD WBC (Bld) [#/Vol] 4.0 10*3/uL Normal 3.8-10.8 [facility] Comment on above: Performed By: #### 7 600, 88671, 6399 #### [facility] of [address], [address] [place] [address] Corporate Legal Manager: Jason Casanova MD [facility] 04-27-2024 Albumin [Mass/Vol] 4.1 g/dL Normal 3.6-5.1 [facility] Comment on above: Performed By: #### 7 600, 57101, 6399 #### [facility] of [address], [address] [place] [address] Corporate Legal Manager: Jason Casanova MD Albumin/Globulin [Mass ratio] 1.6 {ratio} Normal 1.0-2.5 [facility] Comment on above: Performed By: #### 7 600, 43130, 6399 #### [facility] of [place] [address] Corporate Legal Manager: Jason Casanova MD ALP [Catalytic activity/Vol] 89 U/L Normal 37-153 [facility] Comment on above: Performed By: #### 7 600, 50534, 6399 #### [facility] of [place] [address] Corporate Legal Manager: Jason Casanova MD ALT [Catalytic activity/Vol] 12 U/L Normal 6-29 [facility] Comment on above: Performed By: #### 7 600, 92564, 6399 #### [facility] of [place] [address] Corporate Legal Manager: Jason Casanova MD AST [Catalytic activity/Vol] 16 U/L Normal 10-35 [facility] Comment on above: Performed By: #### 7 600, 50518, 6399 #### [facility] of [place] [address] Corporate Legal Manager: Jason Casanova MD Bilirubin [Mass/Vol] 0.3 mg/dL Normal 0.2-1.2 [facility] Comment on above: Performed By: #### 7 600, 06516, 6399 #### [facility] of [address] [place] [address] Corporate Legal Manager: Jason Casanova MD Calcium [Mass/Vol] 8.7 mg/dL Normal 8.6-10.4 [facility] Comment on above: Performed By: #### 7 600, 50804, 6399 #### [facility] of [address], [address] [place] [address] Corporate Legal Manager: Jason Casanova MD Chloride [Moles/Vol] 106 mmol/L Normal 98-110 [facility] Comment on above: Performed By: #### 7 600, 27824, 6399 #### [facility] of [place] [address] Corporate Legal Manager: Jason Casanova MD CO2 [Moles/Vol] 25 mmol/L Normal 20-32 [facility] Comment on above: Performed By: #### 7 600, 36139, 6399 #### [facility] of [address], [address] [place] [address] Corporate Legal Manager: Jason Casanova MD Creatinine [Mass/Vol] 1.11 mg/dL High 0.60-1.[address] [facility] Comment on above: Performed By: #### 7 600, 85932, 6399 #### [facility] of [place] [address] Corporate Legal Manager: Jason Casanova MD GFR/1.73 sq M.predicted among non-blacks MDRD (S/P/Bld) [Vol rate/Area] 53 mL/min/{1.73_m2} Low > OR = 60 [facility] Comment on above: Performed By: #### 7 600, 57259, 6399 #### [facility] of [place] [address] Corporate Legal Manager: Jason Casanova MD Globulin (S) [Mass/Vol] 2.6 g/dL Normal 1.9-3.7 [facility] Comment on above: Performed By: #### 7 600, 84211, 6399 #### [facility] of [address], [address] [place] [address] Corporate Legal Manager: Jason Casanova MD Glucose [Mass/Vol] 95 mg/dL Normal 65-99 [facility] Comment on above: Result Comment: Fasting reference interval Performed By: #### 7 600, 45341, 6399 #### [facility] [place] [address] Corporate Legal Manager: Jason Casanova MD Potassium [Moles/Vol] 4.5 mmol/L Normal 3.5-5.3 [facility] Comment on above: Performed By: #### 7 600, 46924, 6399 #### [facility] [place] [address] Corporate Legal Manager: Jason Casanova MD Protein [Mass/Vol] 6.7 g/dL Normal 6.1-8.1 [facility] Comment on above: Performed By: #### 7 600, 35411, 6399 #### [facility] [place] [address] Corporate Legal Manager: Jason Casanova MD Sodium [Moles/Vol] 140 mmol/L Normal 135-146 [facility] Comment on above: Performed By: #### 7 600, 03425, 6399 #### [facility] [place] [address] Corporate Legal Manager: Jason Casanova MD Urea nitrogen [Mass/Vol] 21 mg/dL Normal 7-25 [facility] Comment on above: Performed By: #### 7 600, 21161, 6399 #### [facility] [place] [address] Corporate Legal Manager: Jason Casanova MD Urea nitrogen/Creatinine [Mass ratio] 19 mg/mg Normal 6-22 [facility] Comment on above: Performed By: #### 7 600, 04828, 6399 #### [facility] [place] [address] Corporate Legal Manager: Jason Casanova MD LIPID PANEL, [facility] Cholesterol [Mass/Vol] 143 mg/dL Normal <200 [facility] Comment on above: Performed By: #### 7 600, 31855, 6399 #### [facility] [place] [address] Corporate Legal Manager: Jason Casanova MD Cholesterol in HDL [Mass/Vol] 48 mg/dL Low > OR = 50 [facility] Comment on above: Performed By: #### 7 600, 78606, 6399 #### [facility] [place] [address] Corporate Legal Manager: Jason Casanova MD Cholesterol in LDL [Mass/Vol] 67 mg/dL Normal [facility] Comment on above: Result Comment: Refe rence range: <100 Desirable range <100 mg/dL for primary prevention; <70 mg/dL for patients with CHD or diabetic patients with > or = 2 CHD risk factors. LDL-C is now calculated using the Kirstin calculation, which is a validated novel method providing better accuracy than the Friedewald equation in the estimation of LDL-C. Amanuel PARADA et al. JOSE LUIS. 2013;310(19): 8603-6931 (http://education.[employer]faq/AFA426) Performed By: #### 7 600, 51163, 6399 #### [facility] [place] [address] Corporate Legal Manager: Jason Casanova MD Cholesterol.total/Cholester ol in HDL [Mass ratio] 3.0 {ratio} Normal <5.0 [facility] Comment on above: Performed By: #### 7 600, 48521, 6399 #### [facility] [address], [address] [place] [address] Corporate Legal Manager: Jason Casanova MD NON HDL CHOLESTEROL 95 mg/dL (calc) Normal <130 [facility] Comment on above: Result Comment: For patients with diabetes plus 1 major ASCVD risk factor, treating to a non-HDL-C goal of <100 mg/dL (LDL-C of <70 mg/dL) is considered a therapeutic option. Performed By: #### 7 600, 40466, 6399 #### [facility] of [place] [address], [address] [place] [address] Corporate Legal Manager: Jason Casanova MD Triglyceride [Mass/Vol] 226 mg/dL High <150 [facility] Comment on above: Result Comment: If a non-fasting specimen was collected, consider repeat triglyceride testing on a fasting specimen if clinically indicated. Elsa et al. J. of Clin. Lipidol. 2015;9:129-169. Performed By: #### 7 600, 16227, 6399 #### [facility] [address], [address] [place] [address] Corporate Legal Manager: Jason Casanova MD Laboratory - Chemistry and C hemistry - challengeon 04-26-2024 Albumin [Mass/Vol] 4.1 g/dL Normal 3.6 - 5.1 g/dL [facility] [employer] Albumin/Globulin [Mass ratio] 1.6 {ratio} Normal 1.0 - 2.5 [facility] [place] [employer] ALP [Catalytic activity/Vol] 89 U/L Normal 37 - 153 U/L [place] [employer] [employer] [employer] ALT [Catalytic activity/Vol] 12 U/L Normal 6 - 29 U/L [place] [employer] [employer] [employer] AST [Catalytic activity/Vol] 16 U/L Normal 10 - 35 U/L [place] [facility] [facility] [employer] Bilirubin [Mass/Vol] 0.3 mg/dL Normal 0.2 - 1 .2 mg/dL [place] [employer] [employer] Calcium [Mass/Vol] 8.7 mg/dL Normal 8.6 - 10. 4 mg/dL [place] [employer] [employer] [employer] Chloride [Moles/Vol] 106 mmol/L Normal 98 - 11 0 mmol/L [place] [employer] [facility] [employer] [employer] Cholesterol [Mass/Vol] 143 mg/dL Normal [facility] [employer] Cholesterol in HDL [Mass/Vol] 48 mg/dL Abnormal [facility] [place] [employer] [facility], [facility]. Cholesterol in LDL [Mass/Vol] 67 mg/dL Normal [facility], [facility].; [facility], [facility]. CO2 [Moles/Vol] 25 mmol/L Normal 20 - 32 mmol/L [facility], [facility].; [place] [employer] [facility] Creatinine [Mass/Vol] 1.11 mg/dL Abnormal 0.60 - 1.00 mg/dL [facility], [facility].; [facility], [facility]. GFR/1.73 sq M.predicted among non-blacks MDRD (S/P/Bld) [Vol rate/Area] 53 mL/min/{1.73_m2} Abnormal [facility], [facility].; [facility], [facility] Glucose [Mass/Vol] 95 mg/dL Normal 65 - 99 mg/dL [facility], [facility].; [place] [employer] [facility] Potassium [Moles/Vol] 4.5 mmol/L Normal 3.5 - 5.3 mmol/L [facility], [facility].; [place] [employer] [facility] Protein [Mass/Vol] 6.7 g/dL Normal 6.1 - 8.1 g/dL [facility], [facility].; [place] [employer] Sodium [Moles/Vol] 140 mmol/L Normal 135 - 146 mmol/L [facility], [facility].; [place] [employer] Triglyceride [Mass/Vol] 226 mg/dL Abnormal [facility], [facility].; [place] [employer], [facility] Urea nitrogen [Mass/Vol] 21 mg/dL Normal 7 - 25 mg/dL [facility], [facility].; [place] [employer], [facility]. Urea nitrogen/Creatinine [Mass ratio] 19 mg/mg Normal 6 - 22 [facility], [facility].; [place] [employer], [facility]. Laboratory - Hematology and Cell countson 04-26-2024 Basophils (Bld) [#/Vol] 0.02 10*3/uL Normal 0 - 200 {cells/uL} [facility], [facility].; [place] [employer] Basophils/100 WBC (Bld) 0.5 % Normal [facility], [facility].; [place] [employer] [facility] Inc Eosinophils (Bld) [#/Vol] 0.092 10*3/uL Normal 1 5 - 500 {cells/uL} [facility] Check [employer]'m Here [facility].; [employer] Eosinophils/100 WBC (Bld) 2.3 % Normal [facility].; [place] [employer], [facility]. Erythrocyte distribution width (RBC) [Ratio] 14.4 % Normal 11.0 - 15.0 % [facility] [employer] [facility], [employer]. Hematocrit (Bld) [Volume fraction] 39.4 % Normal 35.0 - 45.0 % [facility].; [employer], [facility]. Hemoglobin (Bld) [Mass/Vol] 12.7 g/dL Normal 11.7 - 15.5 g/dL [place] [employer] [facility].; [place] [employer], [facility]. Lymphocytes (Bld) [#/Vol] 1.532 10*3/uL Normal 8 50 - 3900 {cells/uL} [facility] [employer], [facility].; [employer], [employer]. Lymphocytes/100 WBC (Bld) 38.3 % Normal [place] [employer] [facility].; [employer], [employer]. MCH (RBC) [Entitic mass] 28.3 pg Normal 27. 0 - 33.0 pg [place] [employer] [facility], [employer]. MCHC (RBC) [Mass/Vol] 32.2 g/dL Normal 32.0 - 36.0 g/dL [place] [employer] [facility].; [facility] [facility], [employer]. MCV (RBC) [Entitic vol] 87.9 fL Normal 80.0 - 100.0 fL [place] [employer] [facility].; [facility] [facility], [employer]. Monocytes (Bld) [#/Vol] 0.32 10*3/uL Normal 200 - 950 {cells/uL} [place] [employer] Monocytes/100 WBC (Bld) 8.0 % Normal [facility].; [place] [employer], [facility]. Neutrophils (Bld) [#/Vol] 2.036 10*3/uL Normal 1 500 - 7800 {cells/uL} [employer], [employer] [facility] Neutrophils/100 WBC (Bld) 50.9 % Normal [place] [facility].; [employer] Platelet mean volume (Bld) [Entitic vol] 8.4 fL Normal 7.5 - 12.5 fL [facility].; [place] [employer] Platelets (Bld) [#/Vol] 178 10*3/uL Normal 140 - 400 [place] [employer] [place] [employer] RBC (Bld) [#/Vol] 4.48 10*6/uL Normal 3.80 - 5.10 {Million/u L} [facility].; [place] [employer] WBC (Bld) [#/Vol] 4.0 10*3/uL Normal 3.8 - 10.8 [place] [employer] [email or web address].; [place] [employer] No Panel Informationon 04-26 CHOL/HDLC RATIO 3.0 Normal [facility]; [place] [employer] GLOBULIN 2.6 Normal 1.9 - 3.7 [email or web address]; [place] [employer] NON HDL CHOLESTEROL 95 Normal [facility]; [place] [employer] Basophil percentageOrdered B y: Giorgio Cleaning on 01-12-2024 Chloride [Moles/Vol] 105 mmol/L 98-107 [facility] Glucose [Mass/Vol] 79 mg/dL 74-106 [facility] Hemoglobin (Bld) [Mass/Vol] 12.7 g/dL 12.0-15. 0 [facility] Potassium [Moles/Vol] 4.5 mmol/L 3.5-5.1 [facility] Sodium [Moles/Vol] 137 mmol/L 136-145 [facility] WBC (Bld) [#/Vol] 5.6 10*3/uL 4.4-11.0 [facility] Determination of erythrocyte mean corpuscular volume (MCV)Ordered By: Giorgio Cleaning on 01-12-2024 MCV (RBC) [Entitic vol] 85.9 fL 81-99 [facility] Erythrocyte distribution wid th ratioOrdered By: Giorgio Cleaning on 01-12-2024 Erythrocyte distribution width (RBC) [Ratio] 14.2 % 11.6-14.6 [facility] Erythrocyte distribution wid th standard deviationOrdered By: Giorgio Cleaning on 01-12-2024 Erythrocyte distribution width (RBC) [Entitic vol] 44.1 fL 35.1-43.9 [facility] Hematocrit Auto (Bld) [Volum e fraction]Ordered By: Giorgio Cleaning on 01-12-2024 Hematocrit (Bld) [Volume fraction] 40.1 % 37-47 [facility] Laboratory - Chemistry and C hemistry - challengeOrdered By: Giorgio Cleaning on 01-12-2024 CO2 [Moles/Vol] 24.0 mmol/L 21.0-32.0 [facility] Urea nitrogen/Creatinine [Mass ratio] 19.8 mg/mg 10-20 [facility] Laboratory - Hematology and Cell countsOrdered By: Giorgio Cleaning on 01-12-2024 MCH (RBC) [Entitic mass] 27.2 pg 27.0-32.0 [facility] MCHC (RBC) [Mass/Vol] 31.7 g/dL 32-36 [facility] Platelet mean volume (Bld) [Entitic vol] 8.6 fL 6.2-12.0 [facility] Platelets (Bld) [#/Vol] 194 10*3/uL 150-450 [facility] No Panel InformationOrdered By: Giorgio Cleaning on 01-12-2024 Estimated GFR (MDRD) Amer 56 mL/min >60 [facility] Comment on above: GFR Calc Estimated GFR (MDRD) Non-Af Amer 47 mL/min >60 [facility] Comment on above: Non- GFR Calc RBC Auto (Bld) [#/Vol]Ordere d By: Giorgio Cleaning on 01-12-2024 RBC (Bld) [#/Vol] 4.67 10*6/uL 4.2-5.4 [facility] Serum or plasma calcium molly urement (mass/volume)Ordered By: Giorgio Cleaning on 01-12-2024 Calcium [Mass/Vol] 8.8 mg/dL 8.5-10.1 [facility] Serum or plasma creatinine m easurement (mass/volume)Ordered By: Giorgio Cleaning on 01-12-2024 Creatinine [Mass/Vol] 1.21 mg/dL 0.55-1.02 [facility] Comment on above: The validity of the calculated GFR & GFRAA in patients over 70 years has not been determined. Clinical correlation is essential. Serum or plasma urea nitroge n measurement (mass/volume)Ordered By: Giorgio Cleaning on 01-12-2024 Urea nitrogen [Mass/Vol] 24 mg/dL 7-18 [facility] Thin prep Papanicolaou smear with manual screeningOrdered By: Giorgio Cleaning on 01-12-2024 Thin prep Papanicolaou smear with manual screening 8 5-15 [facility] Basophil percentageOrdered B y: MYCHAL Carbajal on 07-07-2023 Bilirubin [Mass/Vol] 0.30 mg/dL 0.20-1.00 [facility] Comment on above: For patients on eltr ombopag therapy, use of Dimension Bulan TBIL is not recommended. Chloride [Moles/Vol] 106 mmol/L 98-107 [facility] Glucose [Mass/Vol] 95 mg/dL 74-106 [facility] Potassium [Moles/Vol] 4.4 mmol/L 3.5-5.1 [facility] Protein [Mass/Vol] 7.3 g/dL 6.4-8.2 [facility] Sodium [Moles/Vol] 137 mmol/L 136-145 [facility] WBC (Bld) [#/Vol] 5.2 10*3/uL 4.4-11.0 [facility] Blood erythrocytes count (nu mber/volume)Ordered By: MYCHAL Carbajal on 07-07-2023 RBC (Bld) [#/Vol] 4.53 10*6/uL 4.2-5.4 [facility] Blood hemoglobin measurement (mass/volume)Ordered By: MYCHAL Carbajal on 07-07-2023 Hemoglobin (Bld) [Mass/Vol] 12.7 g/dL 12.0-15. 0 [facility] Blood platelet mean volumeOr dered By: MYCHAL Carbajal on 07-07-2023 Platelet mean volume (Bld) [Entitic vol] 8.2 fL 6.2-12.0 [facility] Determination of erythrocyte mean corpuscular volume (MCV)Ordered By: MYCHAL Carbajal on 07-07-2023 MCV (RBC) [Entitic vol] 89.8 fL 81-99 [facility] Hematocrit Auto (Bld) [Volum e fraction]Ordered By: MYCHAL Carbajal on 07-07-2023 Hematocrit (Bld) [Volume fraction] 40.7 % 37-47 [facility] Laboratory - Chemistry and C hemistry - challengeOrdered By: MYCHAL Carbajal on 07-07-2023 ALP [Catalytic activity/Vol] 118 U/L 45-117 [facility] ALT [Catalytic activity/Vol] 20 U/L 13-56 [facility] CO2 [Moles/Vol] 28.0 mmol/L 21.0-32.0 [facility] Globulin (S) [Mass/Vol] 3.8 g/dL 2.2-4.2 [facility] Urea nitrogen/Creatinine [Mass ratio] 21.8 mg/mg 10-20 [facility] Laboratory - Hematology and Cell countsOrdered By: MYCHAL Carbajal on 07-07-2023 Erythrocyte distribution width (RBC) [Entitic vol] 43.6 fL 35.1-43.9 [facility] Erythrocyte distribution width (RBC) [Ratio] 13.3 % 11.6-14.6 [facility] MCH (RBC) [Entitic mass] 28.0 pg 27.0-32.0 [facility] MCHC Auto (RBC) [Mass/Vol]Or dered By: MYCHAL Carbajal on 07-07-2023 MCHC (RBC) [Mass/Vol] 31.2 g/dL 32-36 [facility] No Panel InformationOrdered By: MYCHAL Carbajal on 07-07-2023 Estimated GFR (MDRD) Amer 58 mL/min >60 [facility] Comment on above: GFR Calc Estimated GFR (MDRD) Non-Af Amer 48 mL/min >60 [facility] Comment on above: Non- GFR Calc Platelets bldOrdered By: MYCHAL Carbajal on 07-07-2023 Platelets (Bld) [#/Vol] 190 10*3/uL 150-450 [facility] Serum or plasma albumin molly urement (mass/volume)Ordered By: MYCHAL Carbajal on 07-07-2023 Albumin [Mass/Vol] 3.5 g/dL 3.2-5.0 [facility] Serum or plasma albumin/glob ulin mass ratioOrdered By: MYCHAL [facility]le [facility] on 07-07-2023 Albumin/Globulin [Mass ratio] 0.9 {ratio} 0.9-2.4 [facility] Serum or plasma calcium molly urement (mass/volume)Ordered By: MYCHAL [facility] on 07-07-2023 Calcium [Mass/Vol] 8.6 mg/dL 8.5-10.1 [facility] Serum or plasma creatinine m easurement (mass/volume)Ordered By: MYCHAL [place] [facility] on 07-07-2023 Creatinine [Mass/Vol] 1.19 mg/dL 0.55-1.02 [facility] Comment on above: The validity of the calculated GFR & GFRAA in patients over 70 years has not been determined. Clinical correlation is essential. Serum or plasma urea nitroge n measurement (mass/volume)Ordered By: MYCHAL [facility] on 07-07-2023 Urea nitrogen [Mass/Vol] 26 mg/dL 7-18 [facility] Thin prep Papanicolaou smear with manual screeningOrdered By: MYCHAL [place]le [facility] on 07-07-2023 Thin prep Papanicolaou smear with manual screening 16 U/L 15-37 [facility] Thin prep Papanicolaou smear with manual screening 3 5-15 [facility] Laboratory - Hematology and Cell countson 05-07-2023 Basophils (Bld) [#/Vol] 0.022 10*3/uL Normal 0 - 200 {cells/uL} [facility], [facility].; [facility], [facility]. Basophils/100 WBC (Bld) 0.5 % Normal [facility], [facility].; [employer] [facility] Eosinophils (Bld) [#/Vol] 0.069 10*3/uL Normal 1 5 - 500 {cells/uL} [facility], [facility].; [facility], [employer] Eosinophils/100 WBC (Bld) 1.6 % Normal [facility], [facility].; [employer] [facility] Erythrocyte distribution width (RBC) [Ratio] 14.4 % Normal 11.0 - 15.0 % [facility], [facility] Hematocrit (Bld) [Volume fraction] 39.1 % Normal 35.0 - 45.0 % [facility]; [facility], [facility] Hemoglobin (Bld) [Mass/Vol] 12.8 g/dL Normal 11.7 - 15.5 g/dL [facility].; [facility], [facility] Lymphocytes (Bld) [#/Vol] 1.587 10*3/uL Normal 8 50 - 3900 {cells/uL} [facility].; [facility], [facility] Lymphocytes/100 WBC (Bld) 36.9 % Normal [facility]; [facility], [facility] MCH (RBC) [Entitic mass] 27.8 pg Normal 27. 0 - 33.0 pg [facility].; [facility], [facility] MCHC (RBC) [Mass/Vol] 32.7 g/dL Normal 32.0 - 36.0 g/dL [facility].; [facility], [facility]. MCV (RBC) [Entitic vol] 84.8 fL Normal 80.0 - 100.0 fL [facility].; [facility], [facility] Monocytes (Bld) [#/Vol] 0.249 10*3/uL Normal 200 - 950 {cells/uL} [facility].; [facility], [facility]. Monocytes/100 WBC (Bld) 5.8 % Normal [facility].; [facility], [facility] Neutrophils (Bld) [#/Vol] 2.374 10*3/uL Normal 1 500 - 7800 {cells/uL} [facility].; [facility], [facility]. Neutrophils/100 WBC (Bld) 55.2 % Normal [facility].; [place] [employer] [facility], [facility] Platelet mean volume (Bld) [Entitic vol] 8.3 fL Normal 7.5 - 12.5 fL [facility].; [facility] [employer], [facility] Platelets (Bld) [#/Vol] 188 10*3/uL Normal 140 - 400 [facility].; [facility], [facility] RBC (Bld) [#/Vol] 4.61 10*6/uL Normal 3.80 - 5.10 {Million/u L} [facility].; [facility], [facility]. WBC (Bld) [#/Vol] 4.3 10*3/uL Normal 3.8 - 10.8 [facility].; [facility], [facility]. Laboratory - Chemistry and C hemistry - challengeon 04-30-2023 Albumin [Mass/Vol] 4.2 g/dL Normal 3.6 - 5.1 g/dL [facility].; [facility], [facility] Albumin/Globulin [Mass ratio] 1.5 {ratio} Normal 1.0 - 2.5 [facility].; [facility], [facility] ALP [Catalytic activity/Vol] 100 U/L Normal 37 - 153 U/L [facility].; [facility], [facility]. ALT [Catalytic activity/Vol] 12 U/L Normal 6 - 29 U/L [facility].; [facility], [facility]. AST [Catalytic activity/Vol] 18 U/L Normal 10 - 35 [facility], [facility]. Bilirubin [Mass/Vol] 0.4 mg/dL Normal 0.2 - 1 .2 mg/dL [facility], [facility].; [facility], [facility]. Calcium [Mass/Vol] 9.1 mg/dL Normal 8.6 - 10. 4 mg/dL [facility], [facility].; [facility], [facility]. Chloride [Moles/Vol] 105 mmol/L Normal 98 - 11 0 mmol/L [facility], [facility].; [facility], [facility]. Cholesterol [Mass/Vol] 158 mg/dL Normal [facility], [facility] Cholesterol in HDL [Mass/Vol] 55 mg/dL Normal [facility], [facility].; [facility], [facility]. Cholesterol in LDL [Mass/Vol] 73 mg/dL Normal [facility], [facility].; [facility], [facility]. CO2 [Moles/Vol] 27 mmol/L Normal 20 - 32 mmol/L [facility], [facility].; [place] [employer], [facility]. Creatinine [Mass/Vol] 1.30 mg/dL Abnormal 0.60 - 1.00 mg/dL [facility].; [place] [employer], [employer]. GFR/1.73 sq M.predicted among non-blacks MDRD (S/P/Bld) [Vol rate/Area] 44 mL/min/{1.73_m2} Abnormal [facility].; [place] [facility], [facility] Glucose [Mass/Vol] 93 mg/dL Normal 65 - 99 mg/dL [facility], [facility].; [place], [facility]. Potassium [Moles/Vol] 4.4 mmol/L Normal 3.5 - 5.3 mmol/L [facility], [facility].; [place] [employer], [employer]. Protein [Mass/Vol] 7.0 g/dL Normal 6.1 - 8.1 g/dL [facility], [facility].; [place] [employer] Sodium [Moles/Vol] 139 mmol/L Normal 135 - 146 mmol/L [facility].; [place] [employer], [employer]. Triglyceride [Mass/Vol] 208 mg/dL Abnormal [facility].; [place] [employer], [facility]. Urea nitrogen [Mass/Vol] 32 mg/dL Abnormal 7 - 25 mg/dL [facility].; [place] [employer], [facility]. Urea nitrogen/Creatinine [Mass ratio] 25 mg/mg Abnormal 6 - 22 [facility].; [place] [employer], [employer]. No Panel Informationon 04-30 CHOL/HDLC RATIO 2.9 Normal [place] [facility].; [employer] GLOBULIN 2.8 Normal 1.9 - 3.7 [place] [facility] [facility].; [place] [employer], [employer]. NON HDL CHOLESTEROL 103 Normal [facility].; [place] [employer], [employer]. Absolute lymphocyte countOrd ered By: Adrian Friend on 03-14-2023 Lymphocytes Auto (Unsp spec) [#/Vol] 1.36 10*3/uL 0.83-4.51 [facility] Albumin Elph [Mass/Vol]Order ed By: Adrianradha Park on 03-14-2023 Albumin [Mass/Vol] 3.9 g/dL 2.9-4.4 [facility] Atypical perinuclear antineu trophil cytoplasmic antibodies measurementOrdered By: Adrian Park on 03-14-2023 Neutrophil cytoplasmic Ab.perinuclear.atypical IF (S) [Titer] <1:20 titer Neg:<1:20 [facility] Comment on above: The atypical pANCA p attern has been observed in asignificant percentage of patients with ulcerative colitis,primary sclerosing cholangitis and autoimmune hepatitis.Performed at: - [facility] [address] [id number] Director: Alberto Meraz PhD, Phone: [phone] at: - [facility] [address] [id number] Director: Ryan Ulloa MD, Phone: [phone] Basophil percentageOrdered B y: Adrian Park on 03-14-2023 Basophil percentage 0.2 AI 0.0-0.9 [facility] Basophil percentage < 0.2 AI 0.0-0.9 [facility] Basophils/100 WBC (Bld) 0.4 % 0-1 [facility] Bilirubin [Mass/Vol] 0.30 mg/dL 0.20-1.00 [facility] Comment on above: For patients on eltr ombopag therapy, use of Dimension Bulan TBIL is not recommended. Chloride [Moles/Vol] 106 mmol/L 98-107 [facility] Eosinophils/100 WBC (Bld) 1.7 % 0-5 [facility] Glucose [Mass/Vol] 88 mg/dL 74-106 [facility] LDH [Catalytic activity/Vol] 202 U/L 84-246 [facility] Neutrophils (Bld) [#/Vol] 2.8 10*3/uL 2.0-7.7 [facility] Neutrophils/100 WBC (Bld) 61.4 % 47-70 [facility] Potassium [Moles/Vol] 4.4 mmol/L 3.5-5.1 [facility] Protein [Mass/Vol] 7.7 g/dL 6.4-8.2 [facility] Sodium [Moles/Vol] 140 mmol/L 136-145 [facility] WBC (Bld) [#/Vol] 4.6 10*3/uL 4.4-11.0 [facility] Blood erythrocytes count (nu mber/volume)Ordered By: Adrian Park on 03-14-2023 RBC (Bld) [#/Vol] 5.07 10*6/uL 4.2-5.4 [facility] Blood hemoglobin measurement (mass/volume)Ordered By: Adrian Park on 03-14-2023 Hemoglobin (Bld) [Mass/Vol] 13.7 g/dL 12.0-15. 0 [facility] Blood lymphocytes/100 leukoc ytesOrdered By: Adrian Park on 03-14-2023 Lymphocytes/100 WBC (Bld) 29.4 % 19-41 [facility] Blood monocytes/100 leukocyt esOrdered By: Adrian Park on 03-14-2023 Monocytes/100 WBC (Bld) 6.7 % 0-10 [facility] Blood platelet mean volumeOr dered By: Adrian Park on 03-14-2023 Platelet mean volume (Bld) [Entitic vol] 8.1 fL 6.2-12.0 [facility] Determination of erythrocyte mean corpuscular volume (MCV)Ordered By: Adrian Park on 03-14-2023 MCV (RBC) [Entitic vol] 86.6 fL 81-99 [facility] Erythrocyte sedimentation ra teOrdered By: Adrian Prak on 03-14-2023 ESR (Bld) [Velocity] 20 mm/h 0-30 [facility] Hematocrit Auto (Bld) [Volum e fraction]Ordered By: Adrian Park on 03-14-2023 Hematocrit (Bld) [Volume fraction] 43.9 % 37-47 [facility] Interpretation of serum or p lasma protein pattern by immunofixation (narrative resultOrdered By: Adrian Park on 03-14-2023 Protein Fractions Immunofixation Layo [Interp] See comment [facility] Comment on above: Result: Not Observed Laboratory - Chemistry and C hemistry - challengeOrdered By: Adrian Park on 03-14-2023 ALP [Catalytic activity/Vol] 125 U/L 45-117 [facility] ALT [Catalytic activity/Vol] 18 U/L 13-56 [facility] CO2 [Moles/Vol] 26.0 mmol/L 21.0-32.0 [facility] Urea nitrogen/Creatinine [Mass ratio] 17.7 mg/mg 10-20 [facility] Laboratory - Hematology and Cell countsOrdered By: Adrian Park on 03-14-2023 Erythrocyte distribution width (RBC) [Entitic vol] 48.9 fL 35.1-43.9 [facility] Erythrocyte distribution width (RBC) [Ratio] 15.5 % 11.6-14.6 [facility] Immature granulocytes/100 WBC (Bld) 0.400 % 0.0-0.9 [facility] Comment on above: IG% - Immature Granu locytes (promyelocytes, myelocytes and metamyelocytes) > 1% indicates that a LEFT SHIFT is Present. MCH (RBC) [Entitic mass] 27.0 pg 27.0-32.0 [facility] Nucleated RBC/100 WBC (Bld) [Ratio] 0 % 0-5 [facility] MCHC Auto (RBC) [Mass/Vol]Or dered By: Adrian Park on 03-14-2023 MCHC (RBC) [Mass/Vol] 31.2 g/dL 32-36 [facility] No Panel InformationOrdered By: Adrian Park on 03-14-2023 Addendum Document Comment . [facility] Comment on above: Protein electrophore sis scan will follow via computer,mail, or chief port director delivery. Centromere B Antibody <0.2 AI 0.0-0.9 [facility] Endomysial IgA Antibody Negative Negative [facility] Estimated GFR (MDRD) Amer 55 mL/min >60 [facility] Comment on above: GFR Calc Estimated GFR (MDRD) Non-Af Amer 45 mL/min >60 [facility] Comment on above: Non- GFR Calc Immunoglobulin E 21 IU/mL 6-495 [facility] ACREAGE REPORTER Antibody <0.2 AI 0.0-0.9 [facility] Platelets bldOrdered By: Jordan Park on 03-14-2023 Platelets (Bld) [#/Vol] 198 10*3/uL 150-450 [facility] Serum DNA double strand anti body assay (units/volume)Ordered By: Adrian Park on 03-14-2023 DNA double strand Ab Qn (S) [IU]/mL 0-9 [facility] Comment on above: Negative <5 Equivoca l 5 - 9 Positive >9 Serum Alberta-1 antibody assay (u nits/volume)Ordered By: Adrian Park on 03-14-2023 Alberta-1 extractable nuclear Ab Qn (S) <0.2 AI 0.0-0.9 [facility] Serum Scl-70 extractable nuc lear antibody assay (units/volume)Ordered By: Adrian Park on 03-14-2023 SCL-70 extractable nuclear Ab Qn (S) <0.2 AI 0.0-0.9 [facility] Serum Chavarria extractable nucl ear antibody detectionOrdered By: Adrian Park on 03-14-2023 Chavarria extractable nuclear Ab Ql (S) <0.2 AI 0.0-0.9 [facility] Serum [id number] measu rement by electrophoresisOrdered By: Adrian Park on 03-14-2023 Alpha 1 globulin Elph [Mass/Vol] 0.2 g/dL 0.0-0.4 [facility] Alpha 1 globulin Elph [Mass/Vol] 0.9 g/dL 0.4-1.0 [facility] Serum classic neutrophil cyt oplasmic antibody assay (units/volume)Ordered By: Adrian Park on 03-14-2023 Neutrophil cytoplasmic Ab.classic Qn (S) <1:20 titer Neg:<1:20 [facility] Serum globulin measurement ( mass/volume)Ordered By: Adrian Park on 03-14-2023 Globulin (S) [Mass/Vol] 3.7 g/dL 2.2-3.9 [facility] Serum or plasma C reactive p rotein measurement (mass/volume)Ordered By: Adrian Park on 03-14-2023 CRP [Mass/Vol] mg/L 0.0-3.0 [facility] Comment on above: C-Reactive Protein ( CRP) provides useful information for thediagnosis, therapy and monitoring of inflammatory processesand associated diseases. For the evaluation of Relative Riskfor Cardiovascular Disease, a High Sensitivity CRP (HSCRP)should be ordered. Serum or plasma IgA measurem ent (mass/volume)Ordered By: Adrian Park on 03-14-2023 IgA [Mass/Vol] 367 mg/dL 87-352 [facility] Serum or plasma IgG measurem ent (mass/volume)Ordered By: Adrian Park on 03-14-2023 IgG [Mass/Vol] 1274 mg/dL 586-1602 [facility] Serum or plasma IgM measurem ent (mass/volume)Ordered By: Adrian Park on 03-14-2023 IgM [Mass/Vol] 105 mg/dL 26-217 [facility] Serum or plasma albumin molly urement (mass/volume)Ordered By: Adrian Park on 03-14-2023 Albumin [Mass/Vol] 3.8 g/dL 3.2-5.0 [facility] Serum or plasma albumin/glob ulin mass ratioOrdered By: Adrian Park on 03-14-2023 Albumin/Globulin [Mass ratio] 1.0 {ratio} 0.9-2.4 [facility] Serum or plasma beta globuli n measurement by electrophoresis (mass/volume)Ordered By: Adrian Park on 03-14-2023 Beta globulin Elph [Mass/Vol] 1.4 g/dL 0.7-1.3 [facility] Serum or plasma calcium molly urement (mass/volume)Ordered By: Adrian Park on 03-14-2023 Calcium [Mass/Vol] 8.7 mg/dL 8.5-10.1 [facility] Serum or plasma creatinine m easurement (mass/volume)Ordered By: Adrian Park on 03-14-2023 Creatinine [Mass/Vol] 1.24 mg/dL 0.55-1.02 [facility] Comment on above: The validity of the calculated GFR & GFRAA in patients over 70 years has not been determined. Clinical correlation is essential. Serum or plasma gamma globul in measurement by electrophoresis (mass/volume)Ordered By: Adrian Park on 03-14-2023 Gamma globulin Elph [Mass/Vol] 1.2 g/dL 0.4-1.8 [facility] Serum or plasma immunoelectr ophoresis interpretation (nominal result)Ordered By: Adrian Park on 03-14-2023 Interpretation IEP [Interp] Comment . [facility] Comment on above: No monoclonality det ected. Serum or plasma urea nitroge n measurement (mass/volume)Ordered By: Adrian Park on 03-14-2023 Urea nitrogen [Mass/Vol] 22 mg/dL 7-18 [facility] Serum perinuclear neutrophil cytoplasmic antibody titer by immunofluorescenceOrdered By: Adrian Park on 03-14-2023 Neutrophil cytoplasmic Ab.perinuclear IF (S) [Titer] <1:20 titer Neg:<1:20 [facility] Comment on above: The presence of posi tive fluorescence exhibiting P-ANCA orC-ANCA patterns alone is not specific for the diagnosis ofWegener's Granulomatosis (WG) or microscopic polyangiitis.Decisions about treatment should not be based solely onANCA IFA results. The [employer] ANCA [employer] Consensusrecommends follow up testing of positive sera with both SD-3 and MPO-ANCA enzyme immunoassays. As many as 5% serumsamples are positive only by EIA. Ref. AM J Clin [id number];111:507-513. Serum tissue transglutaminas e IgA antibody assay (units/volume)Ordered By: Adrian Park on 03-14-2023 tTG IgA Qn (S) <2 U/mL 0-3 [facility] Comment on above: Negative 0 - 3 Weak Positive 4 - 10 Positive >10 Tissue Transglutaminase (tTG) has been identified as the endomysial antigen. Studies have demonstr- ated that endomysial IgA antibodies have over 99% specificity for gluten sensitive enteropathy. Thin prep Papanicolaou smear with manual screeningOrdered By: Adiran Park on 03-14-2023 Thin prep Papanicolaou smear with manual screening 22 U/L 15-37 [facility] Thin prep Papanicolaou smear with manual screening 8 5-15 [facility] Thin prep Papanicolaou smear with manual screening 1.1 0.7-1.7 [facility] Total protein bloodOrdered B y: Adrian Park on 03-14-2023 Protein [Mass/Vol] 7.6 g/dL 6.0-8.5 [facility] Laboratory - Chemistry and C hemistry - challengeon 04-04-2022 Albumin [Mass/Vol] 4.0 g/dL Normal 3.6 - 5.1 g/dL [facility], [facility].; [place] [employer] Albumin/Globulin [Mass ratio] 1.3 {ratio} Normal 1.0 - 2.5 [facility], [facility].; [place] [facility] ALP [Catalytic activity/Vol] 102 U/L Normal 37 - 153 U/L [facility], [facility].; [place] [facility] ALT [Catalytic activity/Vol] 16 U/L Normal 6 - 29 U/L [facility], [facility].; [place] [employer] AST [Catalytic activity/Vol] 18 U/L Normal 10 - 35 U/L [facility], [facility].; [place] [employer] Bilirubin [Mass/Vol] 0.3 mg/dL Normal 0.2 - 1 .2 mg/dL [facility], [facility].; [employer] Calcium [Mass/Vol] 8.9 mg/dL Normal 8.6 - 10. 4 mg/dL [place] [facility], [facility].; [employer] Chloride [Moles/Vol] 102 mmol/L Normal 98 - 11 0 mmol/L [facility], [facility].; [employer] Cholesterol [Mass/Vol] 122 mg/dL Normal [facility], [facility].; [place] [employer] Cholesterol in HDL [Mass/Vol] 47 mg/dL Abnormal [place] [employer], [facility].; [employer] Cholesterol in LDL [Mass/Vol] 54 mg/dL Normal [place] [employer] [place] [employer] CO2 [Moles/Vol] 28 mmol/L Normal 20 - 32 mmol/L [facility] [employer] Creatinine [Mass/Vol] 1.05 mg/dL Abnormal 0.50 - 0.99 mg/dL [facility], [facility].; [place] [employer] GFR/1.73 sq M.predicted among blacks MDRD (S/P/Bld) [Vol rate/Area] 63 mL/min/{1.73_m2} Normal [facility]; [facility], [facility] Glucose [Mass/Vol] 103 mg/dL Abnormal 65 - 99 mg/dL [facility]; [facility], [facility] Potassium [Moles/Vol] 4.1 mmol/L Normal 3.5 - 5.3 mmol/L [facility]; [facility], [facility] Protein [Mass/Vol] 7.1 g/dL Normal 6.1 - 8.1 g/dL [facility]; [facility], [facility] Sodium [Moles/Vol] 138 mmol/L Normal 135 - 146 mmol/L [facility]; [facility], [facility] Triglyceride [Mass/Vol] 124 mg/dL Normal H [facility]; [facility], [facility] Urea nitrogen [Mass/Vol] 14 mg/dL Normal 7 - 25 mg/dL [facility]; [facility], [facility] Urea nitrogen/Creatinine [Mass ratio] 13 mg/mg Normal 6 - 22 [facility]; [facility], [facility] No Panel Informationon 04-04 CHOL/HDLC RATIO 2.6 Normal [facility]; [facility], [facility] eGFR NON-AFR. KYRGYZ 54 Abnormal [facility]; [facility], [facility] GLOBULIN 3.1 Normal 1.9 - 3.7 [facility]; [facility], [facility] NON HDL CHOLESTEROL 75 Normal [facility]; [place] [facility], [facility] Vital Signs Date Time Vital Sign Value Performing Clinician Facility 04-20-2025 13:03-040 Body height 157.48 cm Rito Randall LPN [facility], [facility].; [place] [facility], [facility] 04-20-2025 13:03-0400 Body mass index (BMI) [Ratio] 33.65 kg/m2 Rito Randall LPN [facility], [facility].; [facility], [facility] 04-20-2025 13:03-0400 Body surface area Derived from formula 1.85 m2 Rito Randall LPN [facility], [facility].; [facility]. 04-20-2025 13:03-0400 Body temperature 97.2 [degF] Rito Randall LPN [facility], [facility].; [facility] 04-20-2025 13:03-0400 Body weight 83.46 kg Rito Randall DOUGH MIXING MACHINE OPERATOR [facility], [facility].; [facility]. 04-20-2025 13:03-0400 Diastolic blood pressure 64 mm[Hg] Rito Randall LPN [facility].; [facility], [employer]. Comment on above: Patient Position: Sitting; Cuff Location : Left Arm; Cuff Size: Standard 04-20-2025 13:03-0400 Heart rate 62 /min Rito Randall DOUGH MIXING MACHINE OPERATOR [facility], [facility].; [facility], [employer]. Comment on above: Pattern: Regular 04-20-2025 13:03-0400 Inhaled oxygen concentration 21 % Ritomiguel Randall [facility], [facility].; [facility], [facility]. Comment on above: Room air 04-20-2025 13:03-0400 SaO2% (BldA) [Mass fraction] 96 % Rito Randall [facility].; [facility]. 04-20-2025 13:03-0400 Systolic blood pressure 99 mm[Hg] Rito Randall LPN [facility], [facility].; [place] [facility], [employer]. Comment on above: Patient Position: Sitting; Cuff Location : Left Arm; Cuff Size: Standard 03-15-2025 13:02-0400 Body height 157.48 cm Deborah Bland MA [facility], [facility].; [facility]. 03-15-2025 13:02-0400 Body mass index (BMI) [Ratio] 34.49 kg/m2 Deborah Bland MA [facility], [facility].; [facility], [facility]. 03-15-2025 13:02-0400 Body surface area Derived from formula 1.86 m2 Deboarh Bland MA [facility], [facility].; [facility], [facility]. 03-15-2025 13:02-0400 Body weight 85.53 kg Deborah Bland MA [facility] [employer] 03-15-2025 13:02-0400 Diastolic blood pressure 78 mm[Hg] Deborah Bland MA [facility] [employer] Comment on above: Patient Position: Sitting; Cuff Location : Left Arm; Cuff Size: Standard 03-15-2025 13:02-0400 Heart rate 76 /min Deborah Bland MA [facility] [employer] Comment on above: Pattern: Regular 03-15-2025 13:02-0400 Systolic blood pressure 121 mm[Hg] Deborah Bland MA [facility] [employer] Comment on above: Patient Position: Sitting; Cuff Location : Left Arm; Cuff Size: Standard 02-10-2025 08:44-0400 Body height 157.[address] [facility] [employer] 02-10-2025 08:44-0400 Body mass index (BMI) [Ratio] 34.57 kg/m2 Bernadine Paulfina [facility].; [employer] 02-10-2025 08:44-0400 Body surface area Derived from formula 1.[address] [facility], [facility].; [employer] 02-10-2025 08:44-0400 Body weight 85.[address] [facility] [employer] 02-10-2025 08:44-0400 Diastolic blood pressure 76 mm[Hg] [facility] [employer], [employer]. Comment on above: Patient Position: Sitting; Cuff Location : Left Arm; Cuff Size: Standard 02-10-2025 08:44-0400 Heart rate 64 /min [facility] [facility] [employer] Comment on above: Pattern: Regular 02-10-2025 08:44-0400 Systolic blood pressure 116 mm[Hg] Bernadine St CCMA [facility]. Comment on above: Patient Position: Sitting; Cuff Location : Left Arm; Cuff Size: Standard 11-24-2024 16:45-0500 Diastolic Blood Pressure Non-Invasive 70 mm[Hg] DR TRAVIS BARRY MD [address] [place] [address] 11-24-2024 16:45-0500 Heart rate 65 /min DR TRAVIS BARRY MD [address] [place] [address] 11-24-2024 16:45-0500 Systolic Blood Pressure Non-Invasive 106 mm[Hg] DR TRAVIS BARRY MD [address] [place] [address] 11-24-2024 16:17-0500 Diastolic Blood Pressure Non-Invasive 58 mm[Hg] DR TRAVIS BARRY MD [address] [place] [address] 11-24-2024 16:17-0500 Heart rate 66 /min DR TRAVIS BARRY MD [address] [place] [address] 11-24-2024 16:17-0500 Respiratory rate 18 /min DR TRAVIS BARRY MD [address] [place] [address] 11-24-2024 16:17-0500 Systolic Blood Pressure Non-Invasive 100 mm[Hg] DR TRAVIS BARRY MD [address] [place] [address] 11-24-2024 15:30-0500 Diastolic Blood Pressure Non-Invasive 72 mm[Hg] DR TRAVIS BARRY MD [address] [place] [address] 11-24-2024 15:30-0500 Heart rate 67 /min DR TRAVIS BARRY MD [address] [place] [address] 11-24-2024 15:30-0500 Systolic Blood Pressure Non-Invasive 112 mm[Hg] DR TRAVIS BARRY MD [address] [place] [address] 11-24-2024 15:15-0500 Respiratory rate 18 /min DR TRAVIS BARRY MD [facility] 11-24-2024 14:57-0500 Respiratory rate 18 /min DR TRAVIS BARRY MD [address] 11-24-2024 09:07-0500 Body height 162.[address] TRAVIS BARRY MD [address] 11-24-2024 09:07-0500 Body temperature 97.88 [degF] DR TRAVIS BARRY MD [address] 11-24-2024 09:07-0500 Body weight 84.[address] TRAVIS BARRY MD [address] 10-11-2024 12:18-0500 Body height 161.29 cm Ros Maguire RN [facility], [facility].; [facility]. 10-11-2024 12:18-0500 Body mass index (BMI) [Ratio] 32.78 kg/m2 Ros [facility].; [facility], [facility]. 10-11-2024 12:18-0500 Body surface area Derived from formula 1.89 m2 Ros Mag[facility].; [facility], [facility]. 10-11-2024 12:18-0500 Body temperature 98.1 [degF] Ros [facility].; [email or web address]. Comment on above: Method: Tympanic 10-11-2024 12:18-0500 Body weight 85.28 kg Ros Maguire RN [email or web address].; [employer]. 10-11-2024 12:18-0500 Diastolic blood pressure 62 mm[Hg] Ros [facility].; [facility] [facility], [employer]. Comment on above: Patient Position: Sitting; Cuff Location : Left Arm; Cuff Size: Standard 10-11-2024 12:18-0500 Heart rate 72 /min Ros [facility].; [place] [employer] [email or web address]. Comment on above: Pattern: Regular 10-11-2024 12:18-0500 Systolic blood pressure 97 mm[Hg] Ros [facility].; [place] [employer]. Comment on above: Patient Position: Sitting; Cuff Location : Left Arm; Cuff Size: Standard 05-06-2024 15:06-0400 Body height 161.29 cm Linda Keita [facility].; [employer]. 05-06-2024 15:06-0400 Body mass index (BMI) [Ratio] 33.13 kg/m2 Linda [email or web address].; [place] [employer]. 05-06-2024 15:06-0400 Body surface area Derived from formula 1.9 m2 Linda [facility].; [employer]. 05-06-2024 15:06-0400 Body weight 86.18 kg Linda eKita [facility].; [employer]. 05-06-2024 15:06-0400 Diastolic blood pressure 68 mm[Hg] Linda [email or web address].; [employer]. Comment on above: Patient Position: Sitting; Cuff Location : Left Arm; Cuff Size: Standard 05-06-2024 15:06-0400 Heart rate 71 /min Linda [facility].; [employer]. Comment on above: Pattern: Regular 05-06-2024 15:06-0400 Systolic blood pressure 109 mm[Hg] Linda [facility]ita [email or web address].; [employer]. Comment on above: Patient Position: Sitting; Cuff Location : Left Arm; Cuff Size: Standard 07-25-2023 13:08-0400 Body height 161.29 cm Linda [email or web address].; [employer]. 07-25-2023 13:08-0400 Body mass index (BMI) [Ratio] 31.91 kg/m2 Linda Keita MA [place] [email or web address].; [employer]. 07-25-2023 13:08-0400 Body surface area Derived from formula 1.87 m2 Linda Keita MA [facility].; [facility]. 07-25-2023 13:08-0400 Body weight 83.01 kg Linda Keita MA [facility].; [facility] 07-25-2023 13:08-0400 Diastolic blood pressure 65 mm[Hg] Linda Keita MA [facility].; [facility]. Comment on above: Patient Position: Sitting; Cuff Location : Left Arm; Cuff Size: Standard 07-25-2023 13:08-0400 Heart rate 75 /min Linda Keita MA [facility].; [facility]. Comment on above: Pattern: Regular 07-25-2023 13:08-0400 Systolic blood pressure 100 mm[Hg] Linda Keita MA [facility].; [facility]. Comment on above: Patient Position: Sitting; Cuff Location : Left Arm; Cuff Size: Standard 06-30-2023 13:05-0400 Body temperature 98.9 [degF] PA Kathy Osborne Work Phone: [facility] 06-30-2023 13:05-0400 Diastolic blood pressure 58 mm[Hg] PA Kathy Osborne Work Phone: [facility] 06-30-2023 13:05-0400 Heart rate 69 /min PA Kathy Osborne Work Phone: [facility] 06-30-2023 13:05-0400 Respiratory rate 18 /min PA Kathy Osborne Work Phone: [facility] 06-30-2023 13:05-0400 SaO2% (BldA) [Mass fraction] 96 % PA Kathy Osborne Work Phone: [facility] 06-30-2023 13:05-0400 Systolic blood pressure 87 mm[Hg] PA Kathy Osborne Work Phone: [facility] 06-30-2023 13:00-0400 Inhaled oxygen flow rate 2 L/min PA Kathy Osborne Work Phone: [facility] 06-30-2023 11:01-0400 Body height 162.56 cm PA Kathy Osborne Work Phone: [facility] 06-30-2023 11:01-0400 Body mass index (BMI) [Ratio] 30.5 kg/m2 PA Kathy Osborne Work Phone: [facility] 06-30-2023 11:01-0400 Body weight 80.64 kg PA Kathy Osborne Work Phone: [facility] 05-07-2023 14:05-0400 Body height 161.29 cm Linda Keita MA [facility], [facility].; [facility] 05-07-2023 14:05-0400 Body mass index (BMI) [Ratio] 31.21 kg/m2 Linda Keita MA [facility], [facility].; [facility], [facility]. 05-07-2023 14:05-0400 Body surface area Derived from formula 1.86 m2 Linda Keita MA [facility], [facility].; [facility], [facility]. 05-07-2023 14:05-0400 Body weight 81.19 kg Linda Keita MA [facility].; [facility], [facility]. 05-07-2023 14:05-0400 Diastolic blood pressure 72 mm[Hg] Linda Keita MA [facility].; [facility], [facility]. Comment on above: Patient Position: Sitting; Cuff Location : Left Arm; Cuff Size: Standard 05-07-2023 14:05-0400 Heart rate 81 /min Linda Keita MA [facility].; [place] [facility], [facility]. Comment on above: Pattern: Regular 05-07-2023 14:05-0400 Systolic blood pressure 113 mm[Hg] Linda Keita MA [facility].; [facility], [facility]. Comment on above: Patient Position: Sitting; Cuff Location : Left Arm; Cuff Size: Standard 01-06-2023 10:30-0400 Body height 161.29 cm Ros Maguire RN [facility].; [facility]. 01-06-2023 10:30-0400 Body mass index (BMI) [Ratio] 31.04 kg/m2 Ros Mag[facility]ire RN [facility].; [facility]. 01-06-2023 10:30-0400 Body surface area Derived from formula 1.85 m2 Ros Maguire RN [facility].; [facility]. 01-06-2023 10:30-0400 Body temperature 98.3 [degF] Ros Maguire RN [facility].; [place] [employer] [email or web address]. Comment on above: Method: Tympanic 01-06-2023 10:30-0400 Body weight 80.74 kg Ros [facility]ire RN [facility].; [place] [facility]. 01-06-2023 10:30-0400 Diastolic blood pressure 71 mm[Hg] Ros [facility]ire RN [facility].; [place] [employer] [email or web address]. Comment on above: Patient Position: Sitting; Cuff Location : Left Arm; Cuff Size: Standard 01-06-2023 10:30-0400 Heart rate 66 /min Ros Mag[facility]ire RN [facility].; [place] [employer] [email or web address]. Comment on above: Pattern: Regular 01-06-2023 10:30-0400 Systolic blood pressure 116 mm[Hg] Ros [facility]ire RN [facility].; [place] [employer]. Comment on above: Patient Position: Sitting; Cuff Location : Left Arm; Cuff Size: Standard 12-26-2022 12:18-0500 Body temperature 97.4 [degF] PA Kathy Osborne Work Phone: [facility] 12-26-2022 12:18-0500 Diastolic blood pressure 50 mm[Hg] PA Kathy Osborne Work Phone: [facility] 12-26-2022 12:18-0500 Heart rate 64 /min PA Kathy Osborne Work Phone: [facility] 12-26-2022 12:18-0500 Respiratory rate 18 /min PA Kathy Osborne Work Phone: [facility] 12-26-2022 12:18-0500 SaO2% (BldA) [Mass fraction] 95 % PA Kathy Osborne Work Phone: [facility] 12-26-2022 12:18-0500 Systolic blood pressure 110 mm[Hg] PA Kathy Osborne Work Phone: [facility] 12-26-2022 05:49-0500 Inhaled oxygen flow rate 1 L/min PA Kathy Osborne Work Phone: [facility] 12-25-2022 14:03-0500 Body height 162.56 cm PA Kathy Osborne Work Phone: [facility] 12-25-2022 14:03-0500 Body mass index (BMI) [Ratio] 30.2 kg/m2 PA Kathy Osborne Work Phone: [phone] [place] [address] 12-25-2022 14:03-0500 Body weight 80 kg PA Kathy Osborne Work Phone: [facility] 11-25-2022 13:13-0500 Body height 161.29 cm Ros Maguire RN [facility], [facility].; [facility], [facility]. 11-25-2022 13:13-0500 Body mass index (BMI) [Ratio] 32.78 kg/m2 Ros [facility]ire RN [facility].; [facility]. 11-25-2022 13:13-0500 Body surface area Derived from formula 1.89 m2 Ros Maguire RN [facility].; [facility]. 11-25-2022 13:13-0500 Body temperature 98.3 [degF] Ros Maguire RN [facility].; [facility] [facility]. Comment on above: Method: Tympanic 11-25-2022 13:13-0500 Body weight 85.28 kg Ros [facility]ire RN [facility].; [place] [facility]. 11-25-2022 13:13-0500 Diastolic blood pressure 74 mm[Hg] Ros [facility] RN [email or web address].; [employer]. Comment on above: Patient Position: Sitting; Cuff Location : Left Arm; Cuff Size: Standard 11-25-2022 13:13-0500 Heart rate 75 /min Ros [facility] RN [email or web address].; [employer]. Comment on above: Pattern: Regular 11-25-2022 13:13-0500 Systolic blood pressure 134 mm[Hg] Ros Maguire RN [facility] [employer].; [employer]. Comment on above: Patient Position: Sitting; Cuff Location : Left Arm; Cuff Size: Standard 11-06-2022 13:45-0500 Body height 161.29 cm Deborah Bland [email or web address].; [employer]. 11-06-2022 13:45-0500 Body mass index (BMI) [Ratio] 32.78 kg/m2 Deborah Bland MA [place] [facility].; [facility] [employer], [employer]. 11-06-2022 13:45-0500 Body surface area Derived from formula 1.89 m2 Deborah Bland MA [place] [facility].; [facility], [facility]. 11-06-2022 13:45-0500 Body weight 85.28 kg Deborah Bland MA [place] [facility].; [employer], [employer]. 11-06-2022 13:45-0500 Diastolic blood pressure 71 mm[Hg] Deborah Bland MA [place] [email or web address].; [employer]. Comment on above: Patient Position: Sitting; Cuff Location : Left Arm; Cuff Size: Standard 11-06-2022 13:45-0500 Heart rate 72 /min Deborah Bland MA [employer].; [employer]. Comment on above: Pattern: Regular 11-06-2022 13:45-0500 Systolic blood pressure 106 mm[Hg] Deborah Bland MA [employer].; [employer]. Comment on above: Patient Position: Sitting; Cuff Location : Left Arm; Cuff Size: Standard 05-01-2022 09:44-0400 Body height 161.29 cm Constance Jon LPN [facility], [facility].; [facility]. 05-01-2022 09:44-0400 Body mass index (BMI) [Ratio] 33.48 kg/m2 Constance Jon LPN [facility], [facility].; [facility]. 05-01-2022 09:44-0400 Body surface area Derived from formula 1.91 m2 Constance Jon LPN [facility], [facility].; [facility]. 05-01-2022 09:44-0400 Body weight 87.09 kg Constance Jon LPN [facility], [facility].; [facility]. 05-01-2022 09:44-0400 Diastolic blood pressure 71 mm[Hg] Constance Jon LPN [facility], [facility].; [place] [facility], [employer]. Comment on above: Patient Position: Sitting; Cuff Location : Left Arm; Cuff Size: Standard 05-01-2022 09:44-0400 Heart rate 69 /min Constance Jon LPN [facility], [facility].; [place] [employer] [facility]. Comment on above: Pattern: Regular 05-01-2022 09:44-0400 Systolic blood pressure 110 mm[Hg] Constance Jon LPN [facility], [facility].; [place] [employer] [facility], [facility]. Comment on above: Patient Position: Sitting; Cuff Location : Left Arm; Cuff Size: Standard 11-19-2021 08:08-0500 Body height 161.29 cm Ros Maguire RN [facility], [facility].; [place] [facility]. 11-19-2021 08:08-0500 Body mass index (BMI) [Ratio] 34.17 kg/m2 Ros Maguire RN [facility], [facility].; [place] [employer] [facility], [facility]. 11-19-2021 08:08-0500 Body surface area Derived from formula 1.93 m2 Ros Maguire RN [facility], [facility].; [place] [employer] [facility], [facility]. 11-19-2021 08:08-0500 Body temperature 97.4 [degF] Ros [facility] RN [facility].; [employer]. Comment on above: Method: Tympanic 11-19-2021 08:08-0500 Body weight 88.91 kg Ros Maguire RN [facility].; [place] [employer] 11-19-2021 08:08-0500 Diastolic blood pressure 72 mm[Hg] Ros Maguire RN [facility], [facility].; [place] [employer]. Comment on above: Patient Position: Sitting; Cuff Location : Right Arm; Cuff Size: Standard 11-19-2021 08:08-0500 Heart rate 67 /min Ros Maguire RN [facility], [facility].; [employer]. Comment on above: Pattern: Regular 11-19-2021 08:08-0500 Systolic blood pressure 123 mm[Hg] Ros Maguire RN [facility], [facility].; [employer]. Comment on above: Patient Position: Sitting; Cuff Location : Right Arm; Cuff Size: Standard 08-22-2021 13:15-0400 Body height 161.29 cm Aruna Sam LPN [facility], [facility].; [facility], [employer]. 08-22-2021 13:15-0400 Body mass index (BMI) [Ratio] 34.35 kg/m2 Aruna Sam LPN [facility], [facility].; [facility], [employer]. 08-22-2021 13:15-0400 Body surface area Derived from formula 1.93 m2 Aruna Sam LPN [facility], [facility].; [facility] [employer], [facility]. 08-22-2021 13:15-0400 Body weight 89.36 kg Aruna Sam LPN [facility], [facility].; [employer], [employer]. 08-22-2021 13:15-0400 Diastolic blood pressure 76 mm[Hg] Aruna Sam LPN [facility], [facility].; [employer]. Comment on above: Patient Position: Sitting; Cuff Location : Left Arm; Cuff Size: Standard 08-22-2021 13:15-0400 Heart rate 66 /min Aruna Sam LPN [facility], [facility].; [employer]. Comment on above: Pattern: Regular 08-22-2021 13:15-0400 Systolic blood pressure 118 mm[Hg] Aruna Sam [facility], [facility].; [facility], [facility]. Comment on above: Patient Position: Sitting; Cuff Location : Left Arm; Cuff Size: Standard 01-05-2021 08:57-0400 Body height 161.29 cm Nga Velozjames [facility], [facility].; [facility], [facility]. 01-05-2021 08:57-0400 Body mass index (BMI) [Ratio] 34 kg/m2 Nga Velozjames [facility], [facility].; [facility], [facility]. 01-05-2021 08:57-0400 Body surface area Derived from formula 1.92 m2 Nga Velozjames [facility], [facility].; [place] [facility], [facility]. 01-05-2021 08:57-0400 Body temperature 97.5 [degF] Nga Velozjames [facility], [facility].; [place] [employer], [employer]. Comment on above: Method: Tympanic 01-05-2021 08:57-0400 Body weight 88.45 kg Nga Velozjames [facility], [facility].; [facility], [facility]. 01-05-2021 08:57-0400 Diastolic blood pressure 74 mm[Hg] Nga Encinas DOUGH MIXING MACHINE OPERATOR [facility], [facility].; [place] [facility], [facility]. Comment on above: Patient Position: Sitting; Cuff Location : Left Arm; Cuff Size: Standard 01-05-2021 08:57-0400 Heart rate 71 /min Nga Velozjames [facility], [facility].; [place] [employer], [facility]. Comment on above: Pattern: Regular 01-05-2021 08:57-0400 Systolic blood pressure 112 mm[Hg] Nga Velozugg [facility], [facility].; [place] [employer], [facility]. Comment on above: Patient Position: Sitting; Cuff Location : Left Arm; Cuff Size: Standard 11-21-2020 07:59-0500 Body height 161.29 cm Ros Maguire RN [facility], [facility].; [place] [facility], [facility]. 11-21-2020 07:59-0500 Body mass index (BMI) [Ratio] 33.83 kg/m2 Ros [facility].; [place] [facility]. 11-21-2020 07:59-0500 Body surface area Derived from formula 1.92 m2 Ros [facility]ire RN [facility].; [employer] [facility]. 11-21-2020 07:59-0500 Body temperature 98.6 [degF] Ros Maguire RN [place] [email or web address].; [employer]. Comment on above: Method: Tympanic 11-21-2020 07:59-0500 Body weight 88 kg Ros [facility] RN [email or web address].; [place] [facility]. 11-21-2020 07:59-0500 Diastolic blood pressure 56 mm[Hg] Ros Maguire RN [place] [email or web address].; [employer]. Comment on above: Patient Position: Sitting; Cuff Location : Left Arm; Cuff Size: Standard 11-21-2020 07:59-0500 Heart rate 76 /min Ros [facility] RN [email or web address].; [employer]. Comment on above: Pattern: Regular 11-21-2020 07:59-0500 Systolic blood pressure 116 mm[Hg] Ros Maguire RN [place] [facility].; [employer]. Comment on above: Patient Position: Sitting; Cuff Location : Left Arm; Cuff Size: Standard 07-14-2020 08:53-0400 Body height 161.29 cm Janice Mendieta LPN [place] [facility].; [place] [employer] [facility]. 07-14-2020 08:53-0400 Body mass index (BMI) [Ratio] 34.35 kg/m2 Janice Mendieta LPN [place] [facility].; [place] [employer] [facility]. 07-14-2020 08:53-0400 Body surface area Derived from formula 1.93 m2 Janice Mendieta LPN [place] [facility].; [place] [facility]. 07-14-2020 08:53-0400 Body weight 89.36 kg Janice Mendieta LPN [place] [facility], [employer]. 07-14-2020 08:53-0400 Diastolic blood pressure 82 mm[Hg] Janice Mendieta LPN [place] [employer]. Comment on above: Patient Position: Sitting; Cuff Location : Left Arm; Cuff Size: Standard 07-14-2020 08:53-0400 Heart rate 73 /min Janice Mendieta LPN [place] [employer], [employer].; [employer]. Comment on above: Pattern: Regular 07-14-2020 08:53-0400 Systolic blood pressure 124 mm[Hg] Janice Mendieta LPN [employer].; [employer]. Comment on above: Patient Position: Sitting; Cuff Location : Left Arm; Cuff Size: Standard 01-23-2016 14:32-0400 Body height 161.29 cm oDesk DOUGH MIXING MACHINE OPERATOR Work Phone: [employer].; [employer]. 01-23-2016 14:32-0400 Body mass index (BMI) [Ratio] 34.35 kg/m2 [employer] DOUGH MIXING MACHINE OPERATOR Work Phone: [employer].; [employer]. 01-23-2016 14:32-0400 Body surface area Derived from formula 1.93 m2 [employer] DOUGH MIXING MACHINE OPERATOR Work Phone: [employer].; [employer]. 01-23-2016 14:32-0400 Body weight 89.36 kg Mintigoy DOUGH MIXING MACHINE OPERATOR Work Phone: [employer].; [employer]. 01-23-2016 14:32-0400 Diastolic blood pressure 88 mm[Hg] Mintigoy DOUGH MIXING MACHINE OPERATOR Work Phone: [employer].; [employer]. Comment on above: Patient Position: Sitting; Cuff Location : Left Arm; Cuff Size: Large 01-23-2016 14:32-0400 Heart rate 85 /min [employer] DOUGH MIXING MACHINE OPERATOR Work Phone: [employer].; [employer]. Comment on above: Pattern: Regular 01-23-2016 14:32-0400 Systolic blood pressure 150 mm[Hg] Lucretia Louisy DOUGH MIXING MACHINE OPERATOR Work Phone: [place] [employer]; [employer]. Comment on above: Patient Position: Sitting; Cuff Location : Left Arm; Cuff Size: Large 09-20-2010 14:51-0500 Body height 161.29 cm Lucretia Almanza DOUGH MIXING MACHINE OPERATOR Work Phone: [employer].; [employer]. 09-20-2010 14:51-0500 Body mass index (BMI) [Ratio] 28.77 kg/m2 Lucretia Louisy DOUGH MIXING MACHINE OPERATOR Work Phone: [employer]; [employer]. 09-20-2010 14:51-0500 Body surface area Derived from formula 1.79 m2 Lucretia Almanza LPN Work Phone: [employer]; [employer]. 09-20-2010 14:51-0500 Body temperature 97.5 [degF] Lucretia Almanza LPN Work Phone: [employer]; [employer]. Comment on above: Method: Tympanic 09-20-2010 14:51-0500 Body weight 74.84 kg Lucretia Almanza DOUGH MIXING MACHINE OPERATOR Work Phone: [employer]; [employer]. 09-20-2010 14:51-0500 Diastolic blood pressure 81 mm[Hg] Lucretia Louisy DOUGH MIXING MACHINE OPERATOR Work Phone: [employer]. Comment on above: Patient Position: Sitting; Cuff Location : Left Arm; Cuff Size: Standard 09-20-2010 14:51-0500 Heart rate 87 /min Lucretia Louisy DOUGH MIXING MACHINE OPERATOR Work Phone: [employer]. Comment on above: Pattern: Regular 09-20-2010 14:51-0500 Systolic blood pressure 129 mm[Hg] Lucretia Almanza LPN Work Phone: [employer]. Comment on above: Patient Position: Sitting; Cuff Location : Left Arm; Cuff Size: Standard Encounters Encounter Date Encounter Type Care Provider Facility Start: 09-07-2025 ambulatory Adrianjovanna Park Facility :[facility] Start: 08-10-2025 End: 08-10-2025 [facility] Work [facility]: Start: 08-10-2025 End: 08-10-2025 ambulatory Kathy Osborne Facility:[facility] Start: 06-14-2025 End: 06-14-2025 ambulatory KATHY PAC OSBORNE [facility] Start: 05-10-2025 End: 05-10-2025 Orders Kathy Osborne PA-C Work Phone: [employer]. Start: 05-03-2025 End: 05-03-2025 Medication Kathy Osborne PA-C Work Phone: [employer]. Start: 05-02-2025 End: 05-02-2025 ambulatory KATHY PAC OSBORNE [facility] Start: 05-02-2025 End: 05-02-2025 Orders Kathy Osborne PA-C Work Phone: [employer]. Start: 04-20-2025 End: 04-20-2025 Office outpatient visit 15 minutes Kathy Osborne PA-C Work Phone: [employer]. Start: 03-15-2025 End: 03-15-2025 Office outpatient visit 15 minutes Kathy Osborne PA-C Work Phone: [employer]. Start: 02-10-2025 End: 02-10-2025 Patient encounter procedure Kathy J Osborne PA-C Work Phone: [employer]. Start: 02-02-2025 End: 02-02-2025 ambulatory Hoa Van Facility:[facility] Start: 01-31-2025 End: 01-31-2025 Orders Kathy Osborne PA-C Work Phone: [employer] Start: 01-25-2025 End: 01-25-2025 Historical Summary Kathy Osborne PA-C Work Phone: [employer] Start: 01-13-2025 End: 01-13-2025 ambulatory Kathy Osborne PA Work Phone: [facility] Work Phone: Start: 01-13-2025 End: 01-13-[address] Giorgio Cleaning MD -Laboratory, Specimen Work Phone: Start: 01-13-2025 End: 01-13-2025 ambulatory Kathy Osborne Facility:[facility] Start: 11-24-2024 End: 11-24-2024 Orders Kathy Osborne PA-C Work Phone: [employer] Start: 11-24-2024 End: 11-24-2024 ambulatory KATHY J OSBORNE PA-C Facility:[facility] Start: 11-24-2024 End: 11-24-[address] TRAVIS BARRY MD [facility] Start: 11-02-2024 End: 11-02-2024 Patient encounter procedure [facility] Work Phone: Start: 11-02-2024 End: 11-02-2024 ambulatory Hoa Van Facility:[facility] Start: 10-11-2024 End: 10-11-2024 Office outpatient visit 15 minutes Kathy Osborne PA-C Work Phone: [employer] Start: 10-11-2024 Review Kathy Osborne P A-C Work Phone: [employer] Start: 05-06-2024 End: 05-06-2024 Patient encounter procedure Kathy J Osborne PA-C Work Phone: [facility] Start: 05-06-2024 Patient encounter procedure Linda Keita MA [facility] Start: 04-26-2024 End: 04-26-2024 Orders Kathy Osborne PA-C Work Phone: [facility] Start: 04-12-2024 End: 04-12-2024 Orders Kathy Osborne PA-C Work Phone: [facility] Start: 02-12-2024 ambulatory ALAN MANZO [facility] Start: 02-10-2024 End: 02-10-2024 ambulatory MARIO SEAY [facility] Start: 01-14-2024 End: 01-14-2024 Patient encounter procedure PA Kathy Osborne Work Phone: [facility] Work Phone: Start: 01-12-2024 End: 01-12-2024 ambulatory PA Kathy Osborne Work Phone: [facility] Work Phone: Start: 01-12-2024 End: 01-12-2024 Patient encounter procedure PA Kathy Osborne Work Phone: [facility] Work Phone: Start: 07-25-2023 End: 07-25-2023 Office outpatient visit 15 minutes Kathy Osborne PA-C Work Phone: [facility] Start: 07-11-2023 End: 07-11-2023 ambulatory PA Kathy Osborne Work Phone: [facility] Work Phone: Start: 07-11-2023 End: 07-11-2023 Patient encounter procedure PA Kathy Osborne Work Phone: [facility] Work Phone: Start: 07-07-2023 End: 07-07-2023 ambulatory PA Kathy Osborne Work Phone: [facility] Work Phone: Start: 07-07-2023 End: 07-07-2023 Patient encounter procedure PA Kathy Osborne Work Phone: [facility] Work Phone: Start: 06-30-2023 Non-patient / Non-visit PA Kathy Osborne Work Phone: [facility] Start: 06-30-2023 End: 06-30-2023 Admission to same day surgery center PA Kathy Osborne Work Phone: [facility] Work Phone: Start: 06-30-2023 End: 06-30-2023 ambulatory PA Kathy Osborne Work Phone: [facility] Work Phone: Start: 06-24-2023 End: 06-24-2023 Orders [email or web address] Start: 05-07-2023 End: 05-07-2023 Patient encounter procedure Kathy [facility]borne [facility]-C [email or web address] Start: 04-23-2023 End: 04-23-2023 Orders Kathy Osborne PA-C Work Phone: [facility]. Start: 04-14-2023 End: 04-14-2023 Orders Kathy Osborne PA-C Work Phone: [employer] Start: 03-14-2023 End: 03-14-2023 ambulatory PA Kathy Osborne Work Phone: [facility] Work Phone: Start: 03-14-2023 End: 03-14-2023 Patient encounter procedure PA Kathy Osborne Work Phone: [facility] Work Phone: Start: 01-06-2023 End: 01-06-2023 Office outpatient visit 15 minutes Kathy Osborne PA-C Work Phone: [employer] Start: 12-27-2022 End: 12-27-2022 Telephone follow-up Kathy Osborne PA-C Work Phone: [employer] Start: 12-25-2022 End: 12-26-2022 Evaluation and management of inpatient PA Kathy [facility] Work Phone: Start: 12-17-2022 End: 12-17-2022 Medication Kathy Osborne PA-C Work Phone: [employer] Start: 12-09-2022 End: 12-09-2022 Patient encounter procedure Kathy Osborne PA-C Work Phone: [employer] Start: 12-09-2022 End: 12-09-2022 Telephone follow-up Kathy Osborne PA-C Work Phone: [employer] Start: 11-25-2022 End: 11-25-2022 Office outpatient visit 15 minutes Kathy Osborne PA-C Work Phone: [employer] Start: 11-08-2022 End: 11-08-2022 Medication Kathy Osborne PA-C Work Phone: [employer] Start: 11-06-2022 End: 11-06-2022 Office outpatient visit 15 minutes Kathy Osborne PA-C Work Phone: [employer] Start: 11-04-2022 End: 11-04-2022 Telephone follow-up Kathy Osborne PA-C Work Phone: [employer] Start: 05-13-2022 End: 05-13-2022 Historical Summary Kathy Osborne PA-C Work Phone: [employer] Start: 05-08-2022 End: 05-08-2022 Historical Summary Kathy Osborne PA-C Work Phone: [employer] Start: 05-01-2022 End: 05-01-2022 Patient encounter procedure Kathy Osborne PA-C Work Phone: [employer] Start: 04-04-2022 End: 04-04-2022 Orders Kathy Osborne PA-C Work Phone: [employer] Start: 03-21-2022 End: 03-21-2022 Orders Kathy Osborne PA-C Work Phone: [employer] Start: 11-22-2021 End: 11-22-2021 Telephone follow-up Kathy Osborne PA-C Work Phone: [employer] Start: 11-19-2021 End: 11-19-2021 Office outpatient visit 15 minutes Kathy Osborne PA-C Work Phone: [employer] Start: 08-23-2021 End: 08-23-2021 Telephone follow-up Kathy Osborne PA-C Work Phone: [employer] Start: 08-22-2021 End: 08-22-2021 Office outpatient visit 15 minutes Kathy Osborne PA-C Work Phone: [employer] Start: 03-14-2021 End: 03-14-2021 Patient encounter procedure Kathy Osborne PA-C Work Phone: [employer] Start: 03-13-2021 End: 03-13-2021 Patient encounter procedure Kathy Osborne PA-C Work Phone: [employer] Start: 02-22-2021 End: 02-22-2021 Orders Kathy Osborne PA-C Work Phone: [employer] Start: 01-23-2021 End: 01-23-2021 Patient encounter procedure Kathy Osborne PA-C Work Phone: [employer] Start: 01-05-2021 End: 01-05-2021 Office outpatient visit 15 minutes Kathy Osborne PA-C Work Phone: [employer] Start: 11-21-2020 End: 11-21-2020 Office outpatient visit 15 minutes Kathy Osborne PA-C Work Phone: [employer] Start: 10-02-2020 End: 10-02-2020 Telephone follow-up Kathy Osborne PA-C Work Phone: [employer]. Start: 07-14-2020 End: 07-14-2020 Office outpatient visit 10 minutes Kathy Osborne PA-C Work Phone: [employer] Start: 09-22-2017 End: 09-22-2017 Historical Summary Kathy Osborne PA-C Work Phone: [employer] Start: 01-23-2016 End: 01-23-2016 Office outpatient new 20 minutes Kathy Osborne PA-C Work Phone: [employer] Start: 09-20-2010 End: 09-20-2010 Patient encounter procedure Kathy Osborne PA-C Work Phone: [employer] Patient encounter procedure Ros Maguire RN [employer] [facility] Patient encounter procedure Kathy J Osborne PA-C Work Phone: [employer] Patient encounter procedure Bernadine JOHNSON [employer] Procedures Date Procedure Procedure Detail Performing Clinician Start: 05-16-2025 End: 05-16-2025 FIT DNA test Deborah Bland MA Comment on above: Negative Finding. Start: 05-10-2025 End: 06-14-2025 Screening mammography bi 2-view breast inc cad Kathy J Osborne PA-C Work Phone: Start: 05-02-2025 End: 05-03-2025 Chest x-ray Kathy Ministerio Osborne PA-C Work Phone: Start: 02-10-2025 End: 02-10-2025 Adv care pln/ no alt dcsn mkr docd or refusal Kathy Ministerio Osborne PA-C Work Phone: Start: 02-10-2025 End: 02-10-2025 Depression screening Kathy J Osborne PA-C Work Phone: Start: 02-10-2025 End: 02-10-2025 Falls risk assessment documented Kathy J Osborne PA-C Work Phone: Start: 02-10-2025 End: 05-17-2025 Oncology colorectal screening jean 10 dna markrs Kathy Ministerio Osborne PA-C Work Phone: Start: 02-10-2025 End: 02-10-2025 PPPS, subseq visit Kathy Ministerio Osborne PA-C Work Phone: Start: 02-10-2025 End: 02-10-2025 Pt falls assess docd w/o fall/injury past year Kathy J Osborne PA-C Work Phone: Start: 02-10-2025 End: 02-10-2025 Scr dep neg, no plan reqd Kathy Ministerio Osborne PA-C Work Phone: Start: 01-25-2025 End: 01-25-2025 Extraction of cataract Bernadine PADILLA MA Start: 01-13-2025 Urine culture Kathy B brii PA Work Phone: Start: 11-01-2024 End: 11-01-2024 Most Recent Cardio Report [facility]adine [facility] Start: 05-06-2024 End: 05-06-2024 Adv care pln/ no alt dcsn mkr docd or refusal Kathy Ministerio Osborne PA-C Work Phone: Start: 05-06-2024 End: 05-06-2024 Depression screening Kathy J Osborne PA-C Work Phone: Start: 05-06-2024 End: 05-06-2024 Falls risk assessment documented Kathy Mandel Osborne PA-C Work Phone: Start: 05-06-2024 End: 05-06-2024 Pos clin depres scrn f/u doc Kathy Diane brii PA-C Work Phone: Start: 05-06-2024 End: 05-06-2024 PPPS, subseq visit Kathy J Osborne PA-C Work Phone: Start: 05-06-2024 End: 05-06-2024 Pt falls assess docd w/o fall/injury past year Kathy Ministerio Osborne PA-C Work Phone: Start: 05-06-2024 End: 05-10-2024 Radiologic exam knee complete 4/more views Kathy Ministerio Osborne PA-C Work Phone: Start: 05-06-2024 End: 05-06-2024 Scr dep neg, no plan reqd Kathy Ministerio Osborne PA-C Work Phone: Start: 05-06-2024 End: 06-09-2024 Screening mammography bi 2-view breast inc cad Kathy Ministerio Osborne PA-C Work Phone: Start: 04-27-2024 End: 04-27-2024 Lab findings surveillance Linda alejo MA Comment on above: 95 in CMP Start: 04-27-2024 End: 04-27-2024 Lipid panel Linda Keita MA Start: 01-12-2024 Plain chest X-ray PA Re rashard Osborne Work Phone: Start: 07-11-2023 Computed tomography of abdomen and pelvis with intravenous contrast PA Kathy Osborne Work Phone: Start: 07-07-2023 Plain chest X-ray PA Re rashard Osborne Work Phone: Start: 06-30-2023 Colonoscopy PA Kathy Osborne Work Phone: Start: 06-24-2023 End: 07-09-2023 Dxa bone density study 1/> sites axial skel Kathy Ministerio Osborne PA-C Work Phone: Start: 05-07-2023 End: 05-07-2023 Adv care pln/ no alt dcsn mkr docd or refusal Kathy Ministerio Osborne PA-C Work Phone: Start: 05-07-2023 End: 05-07-2023 Depression screening Kathy J Osborne PA-C Work Phone: Start: 05-07-2023 End: 05-07-2023 Falls risk assessment documented Kathy J Osborne PA-C Work Phone: Start: 05-07-2023 End: 05-07-2023 PPPS, subseq visit Kathy Ministerio Osborne PA-C Work Phone: Start: 05-07-2023 End: 05-07-2023 Pt falls assess docd w/o fall/injury past year Kathy J Osborne PA-C Work Phone: Start: 05-07-2023 End: 05-07-2023 Scr dep neg, no plan reqd Kathy J Osborne PA-C Work Phone: Start: 05-01-2023 End: 05-01-2023 Lab findings surveillance Linda alejo MA Comment on above: CMP 93 Start: 05-01-2023 End: 05-01-2023 Lipid panel Linda Keita MA Start: 04-14-2023 End: 05-14-2023 Screening mammography bi 2-view breast inc cad Kathy Ministerio Osborne PA-C Work Phone: Start: 01-26-2023 Excision of lesion o f kidney with partial nephrectomy DR TRAVIS BARRY MD Start: 12-25-2022 End: 12-25-2022 Partial nephrectomy PA Kathy Osborne Work Phone: Comment on above: Right. Adela Sosa Start: 05-01-2022 End: 05-01-2022 Adv care pln/ no alt dcsn mkr docd or refusal Kathy J Osborne PA-C Work Phone: Start: 05-01-2022 End: 05-01-2022 Depression screening Kathy Osborne PA-C Work Phone: Start: 05-01-2022 End: 05-01-2022 Falls risk assessment documented Kathy Osborne PA-C Work Phone: Start: 05-01-2022 End: 05-13-2022 Oncology colorectal screening jean 10 dna markrs Kathy Osborne PA-C Work Phone: Start: 05-01-2022 End: 05-01-2022 PPPS, subseq visit Kathy Osborne PA-C Work Phone: Start: 05-01-2022 End: 05-01-2022 Pt falls assess docd w/o fall/injury past year Kathy Osborne PA-C Work Phone: Start: 05-01-2022 End: 05-01-2022 Scr dep neg, no plan reqd Kathy Osborne PA-C Work Phone: Start: 05-01-2022 End: 05-08-2022 Screening mammography bi 2-view breast inc cad Kathy Osborne PA-C Work Phone: Start: 04-19-2022 End: 04-19-2022 Screening mammography Linda Keita MA Comment on above: Normal. repeat 1-2 y ears Start: 05-07-2021 End: 05-07-2021 FIT DNA test Linda Keita MA Comment on above: Negative Finding. Start: 02-22-2021 End: 03-13-2021 Mri abdomen w/o & w/contrast material Kathy Osborne PA-C Work Phone: Start: 02-23-[address] MAKENZIE BARRY MD Comment on above: 1. Mild concentric l eft ventricle hypertrophy with normal left ventricle systolic function, ejection fraction 60-65%.2. Normal right ventricle size and systolic function. 3. Mild mitral annular calcification. 4. No significant valvular heart disease. 5. Mild calcified aortic root. 6. Normal diastolic function for age. 7. RVSP estimated to be 27 mm Hg. 8. No prior study available for comparison. Start: 01-23-2016 End: 01-25-2016 Radiologic exam knee complete 4/more views Janice Ramires MD Work Phone: Comment on above: painful right knee w ith weight bearing; no injury; sx present for 3 months Start: 08-31-2014 End: 08-31-2014 Heart Catheterization Linda Keita MA Start: 08-31-2014 End: 08-31-2014 Stent Linda Keita MA Comment on above: 11/24/2024 Start: 08-31-[address] TRAVIS BARRY MD Start: 08-31-[address] TRAVIS BARRY MD Comment on above: PCI with Xience Xped ition stent distal RCA Start: 10-20-1993 End: 10-20-1993 Cholecystectomy Linda Keita MA Comment on above: [facility] Start: 10-20-1984 End: 10-20-1984 Partial hysterectomy Linda Keita MA Comment on above: Ovaries remain [facility] Start: 10-20-1981 End: 10-20-1981 Decompression of median nerve Linda Keita MA Gallbladder structur e (body structure) DR TRAVIS BARRY MD Partial hysterectomy DR JAMIE BARRY MD Plan of Treatment Date Care Activity Detail Author Start: 02-16-2026 Patient encounter procedure Medical; PHYSICAL - annual AWV [employer]. Start: 16-Feb-2026 08:30-04:00 MARK ANTHONY Osborne Appointment Request [employer]. Start: 02-09-2026 Nursing evaluation of patient and report Medical; Nurse visit - fasting labs- RJB [employer]. Start: 09-Feb-2026 08:20-04:00 NURSE, FLOAT [email or web address] Start: 07-27-2025 Patient encounter procedure Medical; PHYSICAL - awv (no BW needed per RJB) [employer] Start: 27-Jul-2025 10:00-04:00 MARK ANTHONY Osborne Appointment Request [facility] Check I'm Here [facility] Start: 05-20-2025 Screening mammography bi 2-view breast inc cad Mammogram Bilateral Screening Digital w/CAD ([id number]) with 3D (tomosynthesis), bilateral ([id number]) Start: 20-May-2025 Intent [employer] [employer]. Start: 05-10-2025 Screening mammography bi 2-view breast inc cad Mammogram Bilateral Screening Digital w/CAD ([id number]) with 3D (tomosynthesis), bilateral ([id number]) Start: 10-May-2025 Intent [employer] [employer]. Start: 05-02-2025 Chest x-ray CHEST X-RAY, PA AND LATERAL ([id number]) Start: 02-May-2025 Intent [employer]. Start: 02-10-2025 Oncology colorectal screening [facility]an [facility] USING STOOL DNA AT POINT OF CARE ([id number]) Start: 10-Feb-2025 Intent [employer]. Start: 02-10-2025 Patient encounter procedure Medical; [facility] Start: 10-Feb-2025 08:30-04:00 MARK ANTHONY Osborne Appointment Request [employer] [employer]. Start: 01-31-2025 Nursing evaluation of patient and report Medical; Nurse visit - fasting labs--RJB [employer]. Start: 31-Jan-2025 09:20-04:00 NURSE, FLOAT Appointment Request [employer]. Start: 01-31-2025 Blood count complete auto&auto difrntl wbc [employer] Start: 01-31-2025 Lipid panel [employer] Start: 01-31-2025 Comprehensive metabolic panel [employer]. Start: 05-06-2024 Patient encounter procedure Medical; PHYSICAL - Medicare Wellness [facility] Start: 06-May-2024 15:10-04:00 MARK ANTHONY Osborne [facility] Start: 05-06-2024 Radiologic exam knee complete 4/more views Knee x-ray, Right Complete ([id number]) Start: 06-May-2024 [facility].; [employer]. Start: 05-06-2024 Screening mammography bi 2-view breast inc cad Mammogram Bilateral Screening Digital w/CAD ([id number]) with 3D (tomosynthesis), bilateral ([id number]) Start: 06-May-2024 [facility] [employer]. Start: 05-05-2024 Patient encounter procedure Medical; PHYSICAL - Medicare Wellness [facility] Start: 05-May-2024 14:50-04:00 MARK ANTHONY Osborne [facility]. Start: 04-26-2024 Blood count complete auto&auto difrntl wbc [email or web address] [employer] [employer]. Start: 04-26-2024 Comprehensive metabolic panel [facility].; [employer] Start: 04-26-2024 Lipid panel [facility].; [employer]. Start: 04-26-2024 Nursing evaluation of patient and report Medical; Nurse visit - Medicare Wellness fasting labs RJB [facility] Start: 26-Apr-2024 09:00-04:00 NURSE, FLOAT [facility]ment [facility] Start: 06-30-2023 Colonoscopy w/biopsy single/multiple COLONOSCOPY AND BIOPSY [facility] Start: 06-30-2023 Egd transoral biopsy single/multiple EGD BIOPSY SINGLE/MULTIPLE [facility] Start: 06-30-2023 Patient discharge [facility] Start: 12-26-2022 Application of intermittent pneumatic compression device [facility] Start: 12-26-2022 Patient discharge [facility] Start: 12-26-2022 Removal of urinary catheter [facility] Start: 12-25-2022 Following clinical pathway protocol [facility] Start: 12-25-2022 Admission procedure [facility] Start: 12-25-2022 Deep breathing and coughing exercises [facility] Start: 12-25-2022 Incentive spirometry [facility] Start: 12-25-2022 Assessment of risk of venous thromboembolism [facility] Start: 12-25-2022 Measuring intake and output [facility] Start: 12-25-2022 Patient education [facility] Start: 12-25-2022 Provision of activity privileges [facility] Start: 12-25-2022 Taking patient vital signs [facility] Start: 12-25-2022 Vital signs measurements [facility] Start: 12-25-2022 End: 12-25-2022 [facility] Start: 05-01-2022 Blood occult fecal hgb deter ia qual feces 1-3 [facility]; [email or web address] Patient referral [facility] Work Phone: Immunizations Immunization Date Immunization Notes Care Provider Branden sepulveda 08-22-2021 pneumococcal polysaccharide vaccine, 23 valent Kathy Osborne PA-C Work Phone: [facility]; [email or web address] Comment on above: Site: Left DeltoidVI S Given: * Pneumococcal Polysaccharide (PPSV23) (02/10/15) 09-02-2014 influenza, injectabl e, quadrivalent, preservative free DR TRAVIS BARRY MD [facility] 09-02-2014 pneumococcal polysaccharide vaccine, [address] TRAVIS BARRY MD [facility] Payers Date Payer Category Payer Medicare [id number] 2024 Unknown 2024 Self-pay [id number] 1950 Unknown [id number] 1950 Unknown [id number] 1950 Unknown [id number] 1950 Unknown [id number] Private Health Insurance [facility] [id number] Unknown [employer] [id number] Unknown [id number] Unknown [id number] Unknown [id number] Unknown [id number] Unknown [id number] Social History Date Type Detail Facility Start: 03-14-2023 End: 01-14-2024 Tobacco smoking status NYIS Unknown if ever smoked [facility] Start: 1950 Sex Assigned At Female [facility] Caffeine Use Caffeine Use [facility] [employer] Tobacco Use: Tobacco Use: ; F ormer smoker. [employer] Smokes < 1 pack of cigarettes per day [employer] Work Phone: Start: 03-03-2020 End: 01-14-2024 Ex-smoker [facility] Sexual Orientation [facility] Start: 09-14-2019 End: 01-18-2025 Sex Female (finding) [facility] Sex Female [facility] NEGATED: Highlighted row [facility] Medical Equipment Procedure Code Equipment Code Equipment Origin al Text Equipment Identifier Dates Robot-assisted partial nephrectomy CLIP,HEMLUCY SIMMONS FDA Start: 12-25-2022 Robot-assisted partial nephrectomy Ligation clip, synthetic polymer, non-bioabsorbable ()[id number] FDA Start: 12-25-2022 Robot-assisted partial nephrectomy SEALANT,FLOSEAL HEMOSTATIC 5ML FDA Start: 12-25-2022 Robot-assisted partial nephrectomy Plant polysaccharide haemostatic agent, bioabsorbable ()[id number] FDA Start: 12-25-2022 Robot-assisted partial nephrectomy Suture clasp, bioabsorbable ()[id number] FDA Start: 12-25-2022 Robot-assisted partial nephrectomy CLIP,HEMOLOJAKUB SIMMONS FDA Start: 12-25-2022 Robot-assisted partial nephrectomy SEALANT,FLOSEAL HEMOSTATIC 5ML FDA Start: 12-25-2022 Robot-assisted partial nephrectomy CLIP,HEMOLOCK DIDIER SIMMONS FDA Start: 12-25-2022 Robot-assisted partial nephrectomy SEALANT,FLOSEAL HEMOSTATIC 5ML FDA Start: 12-25-2022 Robot-assisted partial nephrectomy CLIP,HEMOLOCK LG IRIS FDA Start: 12-25-2022 Robot-assisted partial nephrectomy SEALANT,FLOSEAL HEMOSTATIC 5ML FDA Start: 12-25-2022 Robot-assisted partial nephrectomy CLIP,HEMOLOCK DIDIER SIMMONS FDA Start: 12-25-2022 Robot-assisted partial nephrectomy SEALANT,FLOSEAL HEMOSTATIC 5ML FDA Start: 12-25-2022 Robot-assisted partial nephrectomy CLIP,HEMOLOCK DIDIER SIMMONS FDA Start: 12-25-2022 Robot-assisted partial nephrectomy SEALANT,FLOSEAL HEMOSTATIC 5ML FDA Start: 12-25-2022 Robot-assisted partial nephrectomy CLIP,HEMOLOCK DIDIER SIMMONS FDA Start: 12-25-2022 Robot-assisted partial nephrectomy SEALANT,FLOSEAL HEMOSTATIC 5ML FDA Start: 12-25-2022 Goals Date Patient Goal Desired Activity /State Functional Status Date Assessment Result Facility 11-24-2024 Functional Status Awake, Up ad yana [facility] 11-24-2024 Functional Status Afternoon Snack Percent 100 [facility] 11-24-2024 Functional Status [facility] 11-24-2024 Functional Status Room check performed [facility] 12-26-2022 Functional status Ambulates [facility] Work Phone: Mental Status Date Assessment Result Facility 11-24-2024 Mental Status Orientation Oriented x 4 [facility] 11-24-2024 Mental Status [facility] 06-30-2023 Cognitive function Level Of Consciousness Sedated [facility] Work Phone: 06-30-2023 Cognitive function Voice/Name [facility] Work Phone: 12-26-2022 Cognitive function Voice/Name [facility] Work Phone: Clinical Notes 06-30-2023 to 08-10-2025 Note Date & Type Note Facility 08-10-2025 Progress note [facility] 11-24-2024 Hospital Discharge instructions Patient Education 11/24/2024 16:56:43 3- Heart Cath/PCI radial (07/2018) (CUSTOM) HEART CATHETERIZATION/PCI (radial) Discharge Instructions DIET Drink plenty of fluids for the next 48 hours to help your kidneys flush the heart cath dye out of your system ACTIVITY For the next 48 hours: Do not deep bend the wrist Do not lift, push, or pull anything over 5 pounds Do not use the hand/arm to support your weight when rising from a chair or bed Do not drive For the next 7 days: Do not submerse your procedure site in water Do not swim, wash dishes, or take tub baths You may write, eat, type, and shower WOUND CARE You will go home with a dressing over your procedure site. After 24 hours, remove dressing, shower, and place a Band-Aid over your procedure site. Keep a Band-Aid on your procedure site for the next 3-4 days Change the Band-Aid daily or if it gets wet/soiled AFTER YOU GO HOME, CALL YOUR DOCTOR FOR: Any increase in bruising or tenderness from the procedure site Any redness, pus, or other signs of infection at the site A temperature above 100.5 Severe pain at the site DIAL 911 AND RETURN TO THE HOSPITAL FOR: Any bleeding from the procedure site. The site may be bruised or tender, but it should not be bleeding at any time. If your site begins to bleed, hold firm pressure on it and dial 911 to return to the hospital Any increase in swelling at the procedure site. An increase in swelling could mean the area is bleeding under the skin. Hold firm pressure to the site and dial 911 to return to the hospital Document Released: 10/06/2006 Document Revised: 09/22/2013 Document Reviewed: 10/07/2014 ExitCare Patient Information 2015 [employer]. This information is not intended to replace advice given to you by your health care provider. Make sure you discuss any questions you have with your health care provider. 11/24/2024 12:20:08 Moderate Conscious Sedation, Adult, Care After Moderate Conscious Sedation, Adult, Care After These instructions provide you with information about caring for yourself after your procedure. Your health care provider may also give you more specific instructions. Your treatment has been planned according to current medical practices, but problems sometimes occur. Call your health care provider if you have any problems or questions after your procedure. What can I expect after the procedure? After your procedure, it is common: To feel sleepy for several hours. To feel clumsy and have poor balance for several hours. To have poor judgment for several hours. To vomit if you eat too soon. Follow these instructions at home: For at least 24 hours after the procedure: Do not: ?Participate in activities where you could fall or become injured. ?Drive. ?Use heavy machinery. ?Drink alcohol. ?Take sleeping pills or medicines that cause drowsiness. ?Make important decisions or sign legal documents. ?Take care of children on your own. Rest. Eating and drinking Follow the diet recommended by your health care provider. If you vomit: ?Drink water, juice, or soup when you can drink without vomiting. ?Make sure you have little or no nausea before eating solid foods. General instructions Have a responsible adult stay with you until you are awake and alert. Take xttg-rke-ekxjlko and prescription medicines only as told by your health care provider. If you smoke, do not smoke without supervision. Keep all follow-up visits as told by your health care provider. This is important. Contact a health care provider if: You keep feeling nauseous or you keep vomiting. You feel light-headed. You develop a rash. You have a fever. Get help right away if: You have trouble breathing. This information is not intended to replace advice given to you by your health care provider. Make sure you discuss any questions you have with your health care provider. Document Released: 07/27/2014 Document Revised: 09/18/2018 Document Reviewed: 01/25/2017 [employer] Patient Education 2020 [place]. Follow Up Care 11/01/2024 14:25:15 With:KATHY OSBORNE PA-C Address: [address] [place] [phone] When: Unknown With:TRAVIS VIRGEN MD Address: [address] [place] [address]- [phone] When:12/22/2024 13:45:00 Comments:THIS APPOINTMENT [facility] BE [facility] 11-24-2024 Summary of episode note Discharge Instructions Thank you for allowing [facility] to assist you with your healthcare needs. The following is important discharge information regarding your hospital visit. Your Care Team KATHY OSBORNE PA-C What to do next Instructions From Your Doctor 1. Kindly follow up with your Primary Care Physician and Mercantile Reporter as recommended. _ 2. Some of your medications may have changed during this hospital stay. Please go over these changes with your nurse before you leave the hospital. Since you have had a coronary stenting procedure done, you will need to continue aspirin and plavix for the next 12 months without fail. 3. Take all your medications as prescribed. If you have any queries, please reach out to our [facility] office at [phone] for general queries and [phone] for medication refills. 4. All your medical records and results are available to you through our [facility] Patient Portal. To sign up, please visit [email or web address] Scheduled Follow-Up Appointments Appointment Type When With Where Contact Information StatusCV OV 12/22/2024 01:45 PM [facility] [place] [facility] App[facility] Follow Up with KATHY OSBORNE PA-C Where:[address] [place] [address]- [phone] Follow Up with TRAVIS VIRGEN MD When:12/22/2024 01:45 PM EST Where:[address] [place] [address]- [phone] Additional Information: THIS APPOINTMENT WILL BE WITH DR. NAGEL The Following Activity and Diet Have Been Ordered for You Discharge Activity - Ordered -- Lifting Restricted less than 5 pounds, Follow the post-operative/post-procedure activity instructions provided by your physician's office., 11/24/24 11:42:00 EST Discharge Diet - Ordered -- Follow the post-operative/post-procedure diet instructions provided by your physician's office., 11/24/24 11:42:00 EST Allergies NKA Medications Please ask your primary doctor or pharmacist before taking any other medication not listed, including over the counter drugs, herbal medications, vitamins and or supplements as they may interact with your home medications. What How Much When Instructions Last Dose New clopidogrel (Plavix 75 mg oral tablet) 1 tab(s) by mouth Once a day Refills: 4 Pickup at [facility] 1723 1100 Unchanged acetaminophen (acetaminophen 500 mg oral capsule) 1 cap by mouth Daily at bedtime as needed for as needed for pain Unchanged aspirin (aspirin 81 mg oral delayed release tablet) 1 tab(s) by mouth Every day Pickup at [facility] 1724 Unchanged carvedilol (carvedilol 12.5 mg oral tablet) 1 tab(s) by mouth Two (2) times a day Unchanged cholecalciferol (Vitamin D3) 10 Microgram by mouth Every day Unchanged dicyclomine (dicyclomine 10 mg oral capsule) 1 cap Unchanged fluticasone nasal (Flonase 50 mcg/ inh nasal spray) 1 spray(s) each nostril Once a day (in the morning) as needed for as needed for allergy symptoms Unchanged lactobacillus acidophilus (Florajen Acidophilus) by mouth Once a day Unchanged lisinopril (lisinopril 20 mg oral tablet) 1 tab(s) by mouth Once a day Unchanged nitroGLYcerin (Nitrostat 0.4 mg sublingual tablet) 1 tab(s) under the tongue Every 5 minutes as needed for Chest pain Unchanged rosuvastatin (rosuvastatin 40 mg oral tablet) 1 tab(s) by mouth Every day Pharmacy Information [facility]: [address], [place] [phone] Please take this list to your next doctor s visit. Bring all medications you take, including over the counter medications, herbals and other supplements with you to your doctor s visit. Patients and families are reminded to discard old lists and to update any records with all medication providers or retail pharmacies. Medication Leaflets clopidogrel (kloe PID oh grel) Plavix What is the most important information I should know about clopidogrel? You should not use this medicine if you have any active bleeding such as a stomach ulcer or bleeding in the brain. Clopidogrel increases your risk of bleeding, which can be severe or life-threatening. Call your doctor or seek emergency medical attention if you have bleeding that will not stop, if you have blood in your urine, black or bloody stools, or if you cough up blood or vomit that looks like coffee grounds. Do not stop taking clopidogrel without first talking to your doctor, even if you have signs of bleeding. Stopping clopidogrel may increase your risk of a heart attack or stroke. What is clopidogrel? Clopidogrel is used to lower your risk of having a stroke, blood clot, or serious heart problem after you've had a heart attack, severe chest pain (angina), or circulation problems. Clopidogrel may also be used for purposes not listed in this medication guide. What should I discuss with my healthcare provider before taking clopidogrel? You should not use clopidogrel if you are allergic to it, or if you have: any active bleeding; or a stomach ulcer or bleeding in the brain (such as from a head injury). Tell your doctor if you have ever had: an ulcer in your stomach or intestines; or a bleeding disorder or blood clotting disorder. Clopidogrel may not work as well if you have certain genetic factors that affect the breakdown of this medicine in your body. Your doctor may perform a blood test to make sure clopidogrel is right for you. This medicine is not expected to harm an unborn baby. However, taking clopidogrel within 1 week before childbirth can cause bleeding in the mother. Tell your doctor if you are or plan to become . You should not breastfeed while using this medicine. How should I take clopidogrel? Follow all directions on your prescription label and read all medication guides or instruction sheets. Use these medicines exactly as directed. Clopidogrel can be taken with or without food. Clopidogrel is sometimes taken together with aspirin. Take aspirin only if your doctor tells you to. Clopidogrel keeps your blood from coagulating (clotting) and can make it easier for you to bleed, even from a minor injury. Contact your doctor or seek emergency medical attention if you have any bleeding that will not stop. You may need to stop using clopidogrel for a short time before a surgery, medical procedure, or dental work. Any healthcare provider who treats you should know that you are taking clopidogrel. Do not stop taking clopidogrel without first talking to your doctor, even if you have signs of bleeding. Stopping the medicine could increase your risk of a heart attack or stroke. Store at room temperature away from moisture and heat. What happens if I miss a dose? Take the medicine as soon as you can, but skip the missed dose if it is almost time for your next dose. Do not take two doses at one time. What happens if I overdose? Seek emergency medical attention or call the Poison Help line at . Overdose can cause excessive bleeding. What should I avoid while taking clopidogrel? Avoid alcohol. It can increase your risk of stomach bleeding. Avoid activities that may increase your risk of bleeding or injury. Use extra care to prevent bleeding while shaving or brushing your teeth. If you also take aspirin: Ask a doctor or pharmacist before using medicines for pain, fever, swelling, or cold/flu symptoms. They may contain ingredients similar to aspirin (such as salicylates, ibuprofen, ketoprofen, or naproxen). Taking these products together can increase your risk of bleeding. What are the possible side effects of clopidogrel? Get emergency medical help if you have signs of an allergic reaction: hives; difficult breathing; swelling of your face, lips, tongue, or throat. Clopidogrel increases your risk of bleeding, which can be severe or life-threatening. Call your doctor or seek emergency medical attention if you have bleeding that will not stop, if you have blood in your urine, black or bloody stools, or if you cough up blood or vomit that looks like coffee grounds. Also call your doctor at once if you have: nosebleeds, pale skin, easy bruising, purple spots under your skin or in your mouth; jaundice (yellowing of your skin or eyes); fast heartbeats, shortness of breath; headache, fever, weakness, feeling tired; little or no urination; a seizure; low blood sugar--headache, hunger, sweating, irritability, dizziness, fast heart rate, and feeling anxious or shaky; or signs of a blood clot--sudden numbness or weakness, confusion, problems with vision or speech. Common side effects may include: bleeding. This is not a complete list of side effects and others may occur. Call your doctor for medical advice about side effects. You may report side effects to FDA at 6-097-AVG-7748. What other drugs will affect clopidogrel? Sometimes it is not safe to use certain medications at the same time. Some drugs can affect your blood levels of other drugs you take, which may increase side effects or make the medications less effective. Tell your doctor about all your other medicines, especially: a stomach acid spray drier such as omeprazole, Nexium, or Prilosec; an antidepressant such as citalopram, fluoxetine, sertraline, Cymbalta, Effexor, Lexapro, Pristiq, or Prozac; rifampin; a blood thinner--warfarin, Coumadin, Jantoven; or NSAIDs (nonsteroidal anti-inflammatory drugs)--aspirin, ibuprofen (Advil, Motrin), naproxen (Aleve), celecoxib, diclofenac, indomethacin, meloxicam, and others. This list is not complete. Other drugs may affect clopidogrel, including prescription and ypjk-kyl-rkdmcvy medicines, vitamins, and herbal products. Not all possible drug interactions are listed here. Where can I get more information? Your pharmacist can provide more information about clopidogrel. Remember, keep this and all other medicines out of the reach of children, never share your medicines with others, and use this medication only for the indication prescribed. Every effort has been made to ensure that the information provided by [employer]') is accurate, up-to-date, and complete, but no guarantee is made to that effect. Drug information contained herein may be time sensitive. [employer] information has been compiled for use by healthcare practitioners and consumers in the [place] and therefore [employer] does not warrant that uses outside of the [place] are appropriate, unless specifically indicated otherwise. [employer]'s drug information does not endorse drugs, diagnose patients or recommend therapy. [place] drug information is an informational resource designed to assist licensed healthcare practitioners in caring for their patients and/or to serve consumers viewing this service as a supplement to, and not a substitute for, the expertise, skill, knowledge and judgment of healthcare practitioners. The absence of a warning for a given drug or drug combination in no way should be construed to indicate that the drug or drug combination is safe, effective or appropriate for any given patient. [employer] does not assume any responsibility for any aspect of healthcare administered with the aid of information [employer] provides. The information contained herein is not intended to cover all possible uses, directions, precautions, warnings, drug interactions, allergic reactions, or adverse effects. If you have questions about the drugs you are taking, check with your doctor, nurse or pharmacist. Copyright 9968-7245 [employer]. Version: 18.01. Revision Date: 01/17/2021. Education Materials HEART CATHETERIZATION/PCI (radial) Discharge Instructions DIET Drink plenty of fluids for the next 48 hours to help your kidneys flush the heart cath dye out of your system ACTIVITY For the next 48 hours: Do not deep bend the wrist Do not lift, push, or pull anything over 5 pounds Do not use the hand/arm to support your weight when rising from a chair or bed Do not drive For the next 7 days: Do not submerse your procedure site in water Do not swim, wash dishes, or take tub baths You may write, eat, type, and shower WOUND CARE You will go home with a dressing over your procedure site. After 24 hours, remove dressing, shower, and place a Band-Aid over your procedure site. Keep a Band-Aid on your procedure site for the next 3-4 days Change the Band-Aid daily or if it gets wet/soiled AFTER YOU GO HOME, CALL YOUR DOCTOR FOR: Any increase in bruising or tenderness from the procedure site Any redness, pus, or other signs of infection at the site A temperature above 100.5 Severe pain at the site DIAL 911 AND RETURN TO THE HOSPITAL FOR: Any bleeding from the procedure site. The site may be bruised or tender, but it should not be bleeding at any time. If your site begins to bleed, hold firm pressure on it and dial 911 to return to the hospital Any increase in swelling at the procedure site. An increase in swelling could mean the area is bleeding under the skin. Hold firm pressure to the site and dial 911 to return to the hospital Document Released: 10/06/2006 Document Revised: 09/22/2013 Document Reviewed: 10/07/2014 ExitCare Patient Information 2015 [place]. This information is not intended to replace advice given to you by your health care provider. Make sure you discuss any questions you have with your health care provider. Moderate Conscious Sedation, Adult, Care After These instructions provide you with information about caring for yourself after your procedure. Your health care provider may also give you more specific instructions. Your treatment has been planned according to current medical practices, but problems sometimes occur. Call your health care provider if you have any problems or questions after your procedure. What can I expect after the procedure? After your procedure, it is common: To feel sleepy for several hours. To feel clumsy and have poor balance for several hours. To have poor judgment for several hours. To vomit if you eat too soon. Follow these instructions at home: For at least 24 hours after the procedure: Do not: ? Participate in activities where you could fall or become injured. ? Drive. ? Use heavy machinery. ? Drink alcohol. ? Take sleeping pills or medicines that cause drowsiness. ? Make important decisions or sign legal documents. ? Take care of children on your own. Rest. Eating and drinking Follow the diet recommended by your health care provider. If you vomit: ? Drink water, juice, or soup when you can drink without vomiting. ? Make sure you have little or no nausea before eating solid foods. General instructions Have a responsible adult stay with you until you are awake and alert. Take lfmx-xpi-hxtkygz and prescription medicines only as told by your health care provider. If you smoke, do not smoke without supervision. Keep all follow-up visits as told by your health care provider. This is important. Contact a health care provider if: You keep feeling nauseous or you keep vomiting. You feel light-headed. You develop a rash. You have a fever. Get help right away if: You have trouble breathing. This information is not intended to replace advice given to you by your health care provider. Make sure you discuss any questions you have with your health care provider. Document Released: 07/27/2014 Document Revised: 09/18/2018 Document Reviewed: 01/25/2017 [employer] Patient Education 2020 [employer] Additional Information VACCINATE! IT SAVES LIVES! Members of the community who have not yet received the COVID-19 vaccine and would like to receive it can visit one of [facility] vaccine clinics. There are many vaccine clinic locations within the [facility]. For locations and available times, please visit https://gettheshot.coronavirus.[place].gov/. It is important to note that some COVID mobile vaccine clinics are held outdoors and may be canceled in rainy or stormy conditions. To learn more about pediatric vaccinations (ages 5-11), we invite you to visit the [employer] webpage. [email or web address] To learn more about the COVID-19 vaccine, we invite you to visit the CDC website for a list of frequently asked questions.https://www.cdc.gov/davon navirus/2019-ncov/vaccines/faq.htm l [facility] Patient Portal Access Instructions: Stay connected with your healthcare team and access your personal medical information anytime with the [facility] Patient Portal. Please follow the directions below to create your [facility] account: 1.Access the email account you provided upon registration to the hospital/physician office.2.Look for an invitation email from [facility].3.Open the email and access the invitation link: Accept Invitation to [facility].4.Fill in the required witt to create your account. To access your account, visit [email or web address]. Click the blue button labeled Access Patient Portal and then log in with the username and password that you created in the steps above. You will be able to view your test results, lab results, a summary of your visits, upcoming appointments and more. There is also a convenient messaging option where you can send secure messages to your provider. In addition, you will have the ability to download any documents or summaries to your computer and/or send the information securely to a physician. Remember that your healthcare information is confidential, so carefully consider who you will allow to register on the [facility] Patient Portal for access to your information. You can also access the [facility] Patient Portal on the [facility] terri. Simply click on Patient Portal and then log into your account. If you would like to receive a full copy of your medical records, please contact the [facility] Medical Records Department by calling [phone], Friday through Friday between 8 a.m. and 4:30 p.m. HOW TO SAFELY DISPOSE OF PRESCRIPTION MEDICATIONS Please use one of the following methods to safely dispose of your unused medications. 1.Use a drug disposal kit: the drug disposal pouch allows you to safely discard your old and unused drugs. Ask your nurse to give you one when you are discharged.2.Visit a local take-back location: Many local pharmacies and police departments have programs that collect old and unwanted prescription drugs. Call your local pharmacy or go to http://SED Web/7V5Ik7a to find one close to you.3.Make use of household items: Use cat litter or old coffee grounds to dispose medications if other options are not available. Mix your drugs with these household products, seal them in an airtight container and throw it into the garbage. Call [facility]: [phone] to be sure your drugs can be disposed of in this way. Some medicines may require a different approach.4.Never flush your medications down the toilet. IF YOU HAVE BEEN PRESCRIBED AN OPIOID FOR PAIN If you have been prescribed an opioid (such as hydrocodone, oxycodone or morphine), it is critical to understand the possible side effects and risks of opioid pain medications. Even when taken as directed, opioids can have several side effects including: Tolerance, meaning you might need to take more of a medication for the same pain relief. Nausea, vomiting and/or constipation. Sleepiness, dizziness, dry mouth, confusion, depression or itching. Physical dependence, meaning you have withdrawal symptoms when a medication is stopped, can develop within a few days. KNOW YOUR RESPONSIBILITIES It is important to know exactly how much and how often to take the opioid pain medications you are prescribed. Never take opioids in higher amounts or more often than prescribed. Do not combine opioids with alcohol or other drugs that cause drowsiness, such as benzodiazepines, also known as benzos, including diazepam and alprazolam, muscle relaxants or sleep aids. Never sell or share prescription opioids. This is illegal. Store opioids in a secure place and out of reach of others (including children, family, friends and visitors). The last page of this document has been signed and retained as a CHART COPY. Signatures Patient Education Materials 3- Heart Cath/PCI radial (07/2018) (CUSTOM) Moderate Conscious Sedation, Adult, Care After Medication Leaflets clopidogrel My discharge plan and instructions have been reviewed and explained to me and I,BRI RODRIGUES understand my current condition and have read and understand these discharge instructions. I have received a written copy of the plan/instructions. If I have questions, I am aware that I should contact my doctor. 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 Signature: Date/Time: Relationship to Patient: ___ Witness Name/Signature: Date/Time: [facility] 11-24-2024 Discharge summary Date of Service November 24, 2024 Discharge Diagnosis Exertional angina status post HOLLIE to distal RCA; patent previous RCA stent Essential hypertension Dyslipidemia Hospital Course Patient is a 74year old lady who was brought for an outpatient left heart cath as part of workup for exertional chest pain x 3-4 months duration with an outpatient stress test [November 2023] demonstrating fixed perfusion defect in the inferior wall LHC demonstrated severe distal RCA disease for which she underwent HOLLIE placement by Dr. Alonso. She is being discharged home and will follow up with her primary reducing system operator as an outpatient. Allergies NKA Consults No qualifying data available. Physical Exam Vitals and Measurements T: 36.6 C (Oral) HR: 72 RR: 16 BP: 125/78 SpO2: 95% HT: 162.6 cm WT: 84.2 kg Weight Dosing Weight: 84.2 kg (11/24/24) GENERAL APPEARANCE: Appears comfortable, not in distress; _ SKIN: Warm EXTREMITIES: No cyanosis/clubbing. No significant pedal edema HEENT: PERRL, EOMI. JVD not elevated NECK: Supple. Trachea is midline. CHEST: Symmetric. Nontender to palpation. LUNGS: Normal vesicular breath sounds, no rales HEART: RRR, S1, S2 +. No murmurs, gallops, or rubs. ABDOMEN: Soft. No organomegaly. NEUROLOGIC: A&O, moving all four extremities. Code Status No qualifying data available. Admission Date November 24, 2024 Discharge Date November 24, 2024 Patient Instructions 1. Kindly follow up with your Primary Care Physician and Mercantile Reporter as recommended. _ 2. Some of your medications may have changed during this hospital stay. Please go over these changes with your nurse before you leave the hospital. Since you have had a coronary stenting procedure done, you will need to continue aspirin and plavix for the next 12 months without fail. 3. Take all your medications as prescribed. If you have any queries, please reach out to our [facility] office at [phone] for general queries and [phone] for medication refills. 4. All your medical records and results are available to you through our [facility] Patient Portal. To sign up, please visit [email or web address] Medications New Prescription clopidogrel (Plavix 75 mg oral tablet)1 tab(s) by mouth once a day. Refills: 4. Unchanged acetaminophen (acetaminophen 500 mg oral capsule)1 cap by mouth daily at bedtime as needed as needed for pain. aspirin (aspirin 81 mg oral delayed release tablet)1 tab(s) by mouth every day. Refills: 4. carvedilol (carvedilol 12.5 mg oral tablet)1 tab(s) by mouth two (2) times a day. Refills: 3. cholecalciferol (Vitamin D3)10 Microgram by mouth every day. dicyclomine (dicyclomine 10 mg oral capsule)1 cap. fluticasone nasal (Flonase 50 mcg/inh nasal spray)1 spray(s) each nostril once a day (in the morning) as needed as needed for allergy symptoms. lactobacillus acidophilus (Florajen Acidophilus)by mouth once a day. lisinopril (lisinopril 20 mg oral tablet)1 tab(s) by mouth once a day. Refills: 3. nitroGLYcerin (Nitrostat 0.4 mg sublingual tablet)1 tab(s) under the tongue every 5 minutes as needed Chest pain. Refills: 3. rosuvastatin (rosuvastatin 40 mg oral tablet)1 tab(s) by mouth every day. Refills: 3. Follow Up Follow Up with KATHY OSBORNE PA-C Where:[address] [place] [address]- [phone] Follow Up with TRAVIS VIRGEN MD When:12/22/2024 01:45 PM EST Where:[address] [facility] [place] [address]- [phone] Additional Information: THIS APPOINTMENT WILL BE WITH DR. NAGEL Follow Up Appointments No qualifying data available. Follow Up Labs/Studies Discharge Labs No Follow-up Labs Discharge Studies No Follow-up Studies Discharge Diet Discharge Diet - Ordered -- Follow the post-operative/post-procedure diet instructions provided by your physician's office., 11/24/24 11:42:00 EST Discharge Activity Discharge Activity - Ordered -- Lifting Restricted less than 5 pounds, Follow the post-operative/post-procedure activity instructions provided by your physician's office., 11/24/24 11:42:00 EST Condition on Discharge Stable Discharge Disposition Home Time Spent 45 min Digitally Signed by DARLENE GOLDBERG MD on 11/24/2024 11:46 AM Digitally Signed by TRAVIS VIRGEN MD [facility] 11-02-2024 Evaluation note Diagnosis Onset Date Resolution Constipation acute October 10:54am Loose stools chronic October 10:54am [facility] Work Phone: 1(687) 344-254109-11-2023 History and physical note Author Adrian Friend [facility] June 30, 2023 12:13pm Note Date/Time June 30, 2023 12:13pm [facility] Medical Records Department [address] [place] [address] History & Physical Exam 06/30/23 1213 MR#: [id number] Acct: [id number] Name: BRI RODRIGUES Rep #:[id number] : 1950 72 From: Adrian Friend DO PCP: KARON Correia Status:[facility] Location: [place] [address] History and Physical Date of Admission: 06/30/23 72 F who presents to the office today for PMH hyperlipidemia, STEMI. PSH cholecystectomy PCP seen following several ED presentations with concern of recurrent rectal bleeding with previously diagnosed colitis, diverticulitis and GERD. [facility] ED presentation 11.03.22, 11.18.22 and 12.07.22 with history of UTI with treatment and abdominal pain/cramping. Presentation 12.07.22 with LLQ abd pain with a history of diverticulitis. Biochemical workup and imaging performed. Surgery consulted who felt it to be more complex the simple diverticulitis and recommended GI referral; discharged with cipro/flagyl and GI referral. ? Biochemical workup CBC, CMP and UA without pertinent abnormality. CT abd/pel focal fatty infiltration at falciform ligament; renal mass consistentwith malignancy; thickening of descending and sigmoid colon; pericolonic fat stranding; trace fluid of left colic gutter, consistent with nonspecific colitis; duodenal diverticula; diverticulosis. *BGI established 5.26.23 at this time she is not having symptoms. Approximately every other week she has one day of severe loose stools with abdominal pain/cramping, previously has blood and/or mucus; onset . Last colonoscopyin late 190?s. Surgery with Dr. Cleaning to address renal cancer; no further treatment indicated. ROS Const Constitutional: No anorexia, fatigue, fever(s), weight change or sleep problems Eyes Eyes: No change in vision ENT ENT: No abnormal hearing, difficulty swallowing, mouth lesions, tongue swelling or throat swelling Resp Respiratory: No cough or shortness of breath Cardio Cardiology: No chest pain at rest, chest pain with exertion, shortness of breathor dyspnea on exertion Gastro GI: No difficulty swallowing Genitourinary-Female: No difficulty urinating or burning urination Musc Musculoskeletal: No joint pain, joint swelling, muscle weakness or decreased muscle mass Skin Skin: No hair loss in leg, yellowing of the eye, itchy eyes, rash, skin ulcer orskin swelling Neuro Neurology: No abnormal hearing, abnormal movements, confusion, unsteady gait/balance or memory loss Psych Psychiatric: No anxiety, No confusion and No memory loss Endo Endocrine: No fatigue or weight change Aller/Imm Allergy/Immunologic: No itchy eyes, throat swelling or tongue swelling Héctor/Lymp Hematologic/Lymphatic: No easy bleeding, easy bruising or enlarged lymph nodes Exam Const General: cooperative and comfortable Nutritional Appearance: average body habitus and well nourished [facility] Head: normal to inspection Ears: hearing grossly normal bilaterally Nose: external nose normal Face and sinus: normal facial exam Mouth: oral mucosae normal Throat: posterior oropharynx normal Eyes General: appearance normal, both eyes and all related structures Neck Neck: normal visual inspection Chest Chest palpation & inspection: normal inspection of the chest and normal palpation of entire chest wall Resp Effort & Inspection: normal respiratory effort Auscultation: Bilateral: Clear to Auscultation Cardio Palpation: normal PMI Rate: regular rate Rhythm: regular rhythm GI Inspection: normal to inspection Auscultation: normal bowel sounds Percussion: normal to percussion Palpation: no hepatosplenomegaly Skin General: no rashes or lesions noted Neuro General: patient alert Extrem General: normal to inspection Psych Affect: normal affect Quality Reporting Tobacco Screening ([facility] [address]) Smoking Status: Former smoker Assessment and Plan Assessment and Plan (1) Colitis: Status: Chronic Plan: Diagnosis for her abdominal pain associated with cramping and inflammatory changes resulting in diarrhea is inflammatory bowel disease, ischemic colitis(associated with her previous renal cell carcinoma or cramping), less likely infectious colitis collagenous colitis, microscopic colitis, lymphocytic colitis. We will get a CT angiography of the abdomen and pelvis due to her history of coronary artery disease. I reviewed her CT scan of the abdomen and pelvis that we have available at our institution on 10/08/2021 and it did show significant calcium burden involving the blood vessels of the abdomen and pelvis. We will also get a colonoscopy for evaluation of the colon and terminalileum along with biopsies. She is already changing her diet due to the discovery of diverticular disease. She is instituting a probiotic and these changes have helped her have more formed stools and have severe cramping and abdominal pain. Once we have biochemical work-up and stool studies taking either doing a colonoscopy or prior we will be able to give her a proper diagnosis. Orders: Orders Comprehensive Metabolic Profil Today K52.9 - Noninfective gastroenteritis and colitis, unspecified CRP Today K52.9 - Noninfective gastroenteritis and colitis, unspecified LDH Today K52.9 - Noninfective gastroenteritis and colitis, unspecified CBC W/Diff, Automated Today K52.9 - Noninfective gastroenteritis and colitis, unspecified Erythrocyte Sed Rate Today K52.9 - Noninfective gastroenteritis and colitis, unspecified SULMA Comprehensive Panel Today K52.9 - Noninfective gastroenteritis and colitis, unspecified ANCA Today K52.9 - Noninfective gastroenteritis and colitis, unspecified Celiac Disease Profile Today K52.9 - Noninfective gastroenteritis and colitis, unspecified Immunoglobulins G/A/M/E Today K52.9 - Noninfective gastroenteritis and colitis, unspecified TOMI + Protein Elect, Serum Today K52.9 - Noninfective gastroenteritis and colitis, unspecified I have examined the patient and the H&P has been reviewed. There are no clinicalchanges since date of exam. 06/30/23 1213 <Electronically signed by Adrian Park DO> Cosigner Signature (if applicable): CC: Adrian Park DO; KARON Correia~ Signed [facility] Work Phone: 1(109) 799-581609-11-2023 Procedure [facility] 06-30-2023 Procedure [facility]09-11-2023 Procedure note [facility]09-11-2023 Procedure [facility] Evaluation + Plan note Future Appointments Appointment Date:12/22/2024 01:45:00 PM Scheduled Provider:ETTA NAGEL Location:[facility] Appointment Type:[facility] Evaluation note* Diagnosis Onset Date Resolution Status Colitis chronic [facility] Work Phone: Evaluation noteNo assessment information available [facility] Work Phone: evaluation note* Diagnosis Onset Date Resolution Status Loose stools chronic [facility] Work Phone: Evaluation note* Diagnosis Onset Date Resolution Status Admit Date Constipation acute July 9:52am Heartburn acute August 10, 2025 9:52am Right upper quadrant pain acute August 10, 2025 9:52am [facility] Work Phone: Hospital course Narrative No data available for this section [facility] Progress note Author Hoa Van [facility] Note Date/Time August 10, 2025 1 1:23am [facility] [address] [place] [address] OFFICE VISIT Date of Service: 08/10/25 MR#: [id number] Acct: [id number] Name: BRI RODRIGUES Rep #: [id number] : 1950 Provider: KARON Osuna Age/Sex: 74/F Location: [facility] Status: Signed Intake Vital Signs 06/30/23 11:01 Height 5 ft 4 in Intake Visit Reasons: 6 M FU Chief Complaint: constipation 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 Required: No Accompanied by: Is patient in pain?: No Allergies No Known Allergies Allergy (Verified 08/10/25 10:03) Medications ?Medication ?Instructions ?Recorded ?Confirmed ?Type acetaminophen 500 mg tablet 500 mg PO QHS 12/11/22 History aspirin 81 mg capsule 81 mg PO DAILY 12/11/2207/21 History carvedilol 12.5 mg tablet 12.5 mg PO BID BP 12/11/22 1 History L.acid,hank-B.animal,bifid, 1 cap PO QDAY 08/10/25 History 50 billion cell capsule,delayed rel ([employer] [place] Women Probiotic) cholecalciferol (vitamin D3) 50 50 mcg PO QDAY 5 08/10/25 History mcg (2,000 unit) capsule dicyclomine 10 mg capsule 10 mg PO BID PRN abdominal p ain 02/02/25 08/10/25 Rx #60 caps lisinopril 10 mg tablet 10 mg PO QDAY 02/02/2508/10 History psyllium husk 0.4 gram capsule 0.4 g PO BID 02/02/25 1 History (Daily Fiber) pantoprazole 40 mg tablet,delayed 40 mg PO QDAY #30 ta bs 08/10/25 08/10/25 Rx release rosuvastatin 40 mg tablet 40 mg PO QDAY 08/10/2508/10 History Have you fallen in the past year?: No PFSH Medical History (Updated 08/10/25 @ 10:28 by KARON Osuna) Cancer Easy bruising Bladder disease History of renal disease Migraine headache Right knee pain Rectal bleeding STEMI (ST elevation myocardial infarction) Wears dentures Wears hearing aid Wears glasses Post-menopausal High cholesterol History of GI bleed Colitis History of diverticulitis Gastric reflux Former smoker Shortness of breath on exertion History of echocardiogram Hypertension Cardiology follow-up encounter History of heart attack Surgical History (Updated 02/02/25 @ 09:24 by Nga Haji) History of cataract surgery History of cardiac catheterization History of coronary artery stent placement History of carpal tunnel surgery of right wrist History of partial hysterectomy Hx laparoscopic cholecystectomy Social History Smoking Status: Former smoker alcohol intake: never HPI HPI Chief Complaint: constipation Details: BRI RODRIGUES, is a 74 F who presents to the office today for follow up. BGI established in 2022 with hx of loose stools and abd cramping. Biochemical CBC, ESR, CMP, LDH, CRP, celiac, SULMA comp, ANCA, TOMI (Bglobulin H1.4), GAME without pertinent abnormality AST 22-ALT 18-AP H125, IgA H353 EGD and colonoscopy 06.30.23 EGD LA grade A esophagitis; medium hiatal hernia; gastritis; duodenitis. No pathologic changes Colonoscopy diverticulosis; congested colon and TI. No pathologicchanges Last OV 1; pt continues to alternate between constipation and diarrhea. Still having LLQ pain. Dicyclomine is helpful. Start psyllium husk. OV 4.16 Pt doing well since last visit. She was able to find the psyllium husk and is taking it twice a day. This has increased the frequency of bowel movements to 3x per day. Her stools are still small and hard but is happy with progress. SHe continues dicyclomine daily for pain. OV 08/10/25 patient having new right upper quadrant pain that is intermittent typically after eating. This feels similar to the pain she was having when she had a cholecystectomy. She has also been experiencing increased reflux. She ishaving heartburn every other day especially during the night. She is not currently on a PPI. She has bowel movements 2-3 times per day while taking a fiber supplement. Her stools are typically hard and small but this is improved for her. ROS Const Constitutional: No fatigue, fever(s) or weight change ENT ENT: No difficulty swallowing Gastro GI: Positive for abdominal pain, bloating, change in bowel habits and heartburn; No belching, change in stool character, coffee ground emesis, constipation, cramping, diarrhea, difficulty swallowing, feeling full early, excessive flatus,incontinent of stools, Vomiting blood/hematemesis, Blood in stool, loose stools,Black,tarry stools, nausea/dyspepsia, pain with swallowing, vomiting or other Musc Musculoskeletal: Positive for joint pain, muscle cramps, stiffness, Arthritis, restless legs and leg pain at night Skin Skin: Positive for dry skin; No yellowing of the eye or itchy eyes Neuro Neurology: Positive for restless legs Psych Psychiatric: No anxiety and No depression Endo Endocrine: No fatigue or weight change Aller/Imm Allergy/Immunologic: No itchy eyes Héctor/Lymp Hematologic/Lymphatic: No easy bleeding or easy bruising Exam Const General: cooperative, healthy appearing and comfortable Nutritional Appearance: overweight Orientation: alert [facility] Head: normal to inspection Ears: hearing grossly normal bilaterally Nose: external nose normal Eyes General: appearance normal, both eyes and all related structures Neck Neck: normal visual inspection Chest Chest palpation & inspection: normal inspection of the chest Resp Effort & Inspection: normal respiratory effort Cardio Rate: regular rate Rhythm: regular rhythm GI Inspection: normal to inspection Auscultation: normal bowel sounds Palpation: soft and nontender Assessment and Plan Assessment and Plan (1) Constipation: Status: Acute Plan: Bri is a 74-year-old female patient with past medical history of constipation, right renal mass, status postcardiac stent placement and gastritishere today for follow-up. Patient having new right upper quadrant abdominal pain that is intermittent after eating. She is also noticing increased reflux symptoms every other day especially during the night. EGD from 2022 showing esophagitis, medium hiatal hernia, gastritis and duodenitis. With her history and symptoms she should undergo repeat EGD for evaluation. We may also considera right upper quadrant ultrasound. I have started her on pantoprazole 40 mg daily. We may consider increasing the dose to twice a day and/or adding famotidine in the evening. Constipation is controlled with daily fiber supplement. Last colonoscopy in 2022 was without polyps. Recommend continuing fiber supplement and increasing her fluid intake. - EGD - Start pantoprazole 40 mg daily - Consider famotidine - Consider right upper quadrant ultrasound - Continue fiber supplement and increase fluid intake - Follow-up after procedure Note: [employer] speech recognition safety representative software was used to create portions of this document. Sound-alike and misspelled words, as well as other safety representative errors may be contained in the documentation. (2) Heartburn: Status: Acute (3) Right upper quadrant pain: Status: Acute Medications: New pantoprazole 40 mg PO QDAY 30 tabs 2RF Coding Level of Care Code Off vis,est,level 4 Diagnoses Constipation K59.00 Heartburn R12 Right upper quadrant pain R10.11 Clinical Quality Measures Falls Risk Screening/Assistive Devices Have you fallen in the past year?: No 08/10/25 1031 <Electronically signed by Hoa BRANTLEY> Date _ Hoa BRANTLEY Cosigner Signature: Date (if applicable) CC: ~ [facility] Work Phone: Reason for referral (narrative)No reason for referral information [facility]WLuther[facility] Work Phone: Chief Complaint and Reason for Visit Chief Complaint LAP ROBOTIC 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 Consult E-ORDER Reason for Visit Colitis Chief Complaint Consult E-ORDER Reason for Visit Colitis Chief Complaint RT KIDNEY CANCER, AF TERCARE Chief Complaint LAB AND XRAY 6 MO FU Reason for Visit Loose stools Chief Complaint Admit Date 4 M FU November 02, 2024 1 0:54am Reason for Visit Admit Date Constipation November 02, 2024 1 0:54am Loose stools November 02, 2024 1 0:54am Chief Complaint Admit Date 6 M FU August 10, 2025 9 :52am Reason for Visit Admit Date Constipation August 10, 2025 9 :52am Heartburn August 10, 2025 9 :52am Right upper quadrant pain August 10, 2025 9:52am Advance Directives Advance Directive Response Recorded Date/ Time Name of Medical Power of Maintenance Supervisor 2Nd Shift Van mcrae December 25, 2022 3:03pm Living Will Yes December 25, 2022 3:03pm Power of Maintenance Supervisor 2Nd Shift Yes December 25 3:03pm Advance Directive Response Recorded Date/ Time Name of Medical Power of Maintenance Supervisor 2Nd Shift Manny cano June 27, 2023 9:20am Living Will Yes June 27 023 9:20am Power of Maintenance Supervisor 2Nd Shift Yes June 27, 2023 9:20am Living Will - Effective on . Expiration date unspecified. Scanned Document is available upon request. Effective:06-Nov-2022 Living Will - Effective on . Expiration date unspecified. Scanned Document is available upon request. Effective:06-Nov-2022 Living Will - Effective on . Expiration date unspecified. Scanned Document is available upon request. Effective:06-Nov-2022 Living Will - Effective on . Expiration date unspecified. Scanned Document is available upon request. Effective:06-Nov-2022 Living Will - Effective on . Expiration date unspecified. Scanned Document is available upon request. Effective:06-Nov-2022 Living Will - Effective on . Expiration date unspecified. Scanned Document is available upon request. Effective:06-Nov-2022 Living Will - Effective on . Expiration date unspecified. Scanned Document is available upon request. Effective:06-Nov-2022 Advance Directive Response Recorded Date/ Time Living Will Yes June 27 023 9:20am Power of Maintenance Supervisor 2Nd Shift Yes June 27, 2023 9:20am Living Will - Effective on . Expiration date unspecified. Scanned Document is available upon request. Effective:06-Nov-2022 Living Will - Effective on . Expiration date unspecified. Scanned Document is available upon request. Effective:06-Nov-2022 Living Will - Effective on . Expiration date unspecified. Scanned Document is available upon request. Effective:06-Nov-2022 Living Will - Effective on . Expiration date unspecified. Scanned Document is available upon request. Effective:06-Nov-2022 Living Will - Effective on . Expiration date unspecified. Scanned Document is available upon request. Effective:06-Nov-2022 Living Will - Effective on . Expiration date unspecified. Scanned Document is available upon request. Effective:06-Nov-2022 Living Will - Effective on . Expiration date unspecified. Scanned Document is available upon request. Effective:06-Nov-2022 Living Will - Effective on . Expiration date unspecified. Scanned Document is available upon request. Effective:06-Nov-2022 Living Will - Effective on . Expiration date unspecified. Scanned Document is available upon request. Effective:06-Nov-2022 Living Will - Effective on . Expiration date unspecified. Scanned Document is available upon request. Effective:06-Nov-2022 Living Will - Effective on . Expiration date unspecified. Scanned Document is available upon request. Effective:06-Nov-2022 Living Will - Effective on . Expiration date unspecified. Scanned Document is available upon request. Effective:06-Nov-2022 Living Will - Effective on . Expiration date unspecified. Scanned Document is available upon request. Effective:06-Nov-2022 Living Will - Effective on . Expiration date unspecified. Scanned Document is available upon request. Effective:06-Nov-2022 Living Will - Effective on . Expiration date unspecified. Scanned Document is available upon request. Effective:06-Nov-2022 Living Will - Effective on . Expiration date unspecified. Scanned Document is available upon request. Effective:06-Nov-2022 Living Will - Effective on . Expiration date unspecified. Scanned Document is available upon request. Effective:06-Nov-2022 Living Will - Effective on . Expiration date unspecified. Scanned Document is available upon request. Effective:06-Nov-2022 Living Will - Effective on . Expiration date unspecified. Scanned Document is available upon request. Effective:06-Nov-2022 Living Will - Effective on . Expiration date unspecified. Scanned Document is available upon request. Effective:06-Nov-2022 Advance Directive Response Recorded Date/ Time Living Will Yes June 27 9:20am Do you have a Healthcare Power of Maintenance Supervisor 2Nd Shift? Yes June 27, 2023 9:20am Living Will - Effective on . Expiration date unspecified. Scanned Document is available upon request. Effective:06-Nov-2022 Living Will - Effective on . Expiration date unspecified. Scanned Document is available upon request. Effective:06-Nov-2022 Living Will - Effective on . Expiration date unspecified. Scanned Document is available upon request. Effective:06-Nov-2022 Living Will - Effective on . Expiration date unspecified. Scanned Document is available upon request. Effective:06-Nov-2022 Living Will - Effective on . Expiration date unspecified. Scanned Document is available upon request. Effective:06-Nov-2022 Living Will - Effective on . Expiration date unspecified. Scanned Document is available upon request. Effective:06-Nov-2022 Living Will - Effective on . Expiration date unspecified. Scanned Document is available upon request. Effective:06-Nov-2022 Living Will - Effective on . Expiration date unspecified. Scanned Document is available upon request. Effective:06-Nov-2022 Living Will - Effective on . Expiration date unspecified. Scanned Document is available upon request. Effective:06-Nov-2022 Living Will - Effective on . Expiration date unspecified. Scanned Document is available upon request. Effective:06-Nov-2022 Living Will - Effective on . Expiration date unspecified. Scanned Document is available upon request. Effective:06-Nov-2022 Living Will - Effective on . Expiration date unspecified. Scanned Document is available upon request. Effective:06-Nov-2022 Living Will - Effective on . Expiration date unspecified. Scanned Document is available upon request. Effective:06-Nov-2022 Living Will - Effective on . Expiration date unspecified. Scanned Document is available upon request. Effective:06-Nov-2022 Living Will - Effective on . Expiration date unspecified. Scanned Document is available upon request. Effective:06-Nov-2022 Living Will - Effective on . Expiration date unspecified. Scanned Document is available upon request. Effective:06-Nov-2022 Living Will - Effective on . Expiration date unspecified. Scanned Document is available upon request. Effective:06-Nov-2022 Living Will - Effective on . Expiration date unspecified. Scanned Document is available upon request. Effective:06-Nov-2022 Summary Purpose Family History Brain Cancer Status:Active Comments:Daughte r. PASSED AT AGE 44 Brain Cancer Status:Active Comments:Daughte r. PASSED AT AGE 44 Brain Cancer Status:Active Comments:Daughte r. PASSED AT AGE 44 Brain Cancer Status:Active Comments:Daughte r. PASSED AT AGE 44 Brain Cancer Status:Active Comments:Daughte r. PASSED AT AGE 44 Brain Cancer Status:Active Comments:Daughte r. PASSED AT AGE 44 Brain Cancer Status:Active Comments:Daughte r. PASSED AT AGE 44 Brain Cancer Status:Active Comments:Daughte r. PASSED AT AGE 44 Brain Cancer Status:Active Comments:Daughte r. PASSED AT AGE 44 Brain Cancer Status:Active Comments:Daughte r. PASSED AT AGE 44 Brain Cancer Status:Active Comments:Daughte r. PASSED AT AGE 44 Brain Cancer Status:Active Comments:Daughte r. PASSED AT AGE 44 Brain Cancer Status:Active Comments:Daughte r. PASSED AT AGE 44 Additional Source Comments Care Teams (unrecognized sec tion and content) Team Status: Active Member Role Status Dates Out of Town Doctor Family Provider Active KARON Correia Primary Care Provider Active Team Status: Inactive Member Role Status Dates KARON Correia Primary Care Provider, Referring Pro vider Active Dr. Adrian Park DO Attending Provider Active Team Status: Inactive Member Role Status Dates KARON Correia Primary Care Provider Active Dr. Giorgio Cleaning MD Admit Provid er, Attending Provider, Referring Provider Active Team Status: Inactive Member Role Status Dates KARON Correia Primary Care Provider Active Dr. Adrian Park DO Attending Provider, Referring Provider Active Team Status: Active Member Role Status Dates KARON Correia Primary Care Provider Active Dr. Adrian Park DO Attending Provid er, Referring Provider, Other Provider Active Team Status: Inactive Member Role Status Dates KARON Correia Primary Care Provider Active Adelia Carbajal , LABORATORY EQUIPMENT CLEANER-C Attending Provider, Referrin g Provider Active Team Status: Inactive Member Role Status Dates KARON Correia Primary Care Provider Active Dr. Giorgio Cleaning MD Attending Provider, Referr ing Provider Active Team Status: Inactive Member Role Status Dates KARON Osuna Attending Provider Active Start: November 02, 2024 End: November 02, 2024 KARON Correia Primary Care Provider Active S tart: November 02, 2024 End: November 02, 2024 KARON Correia Referring Provider Active Star t: November 02, 2024 End: November 02, 2024 Team Status: Inactive Member Role Status Dates KARON Correia Primary Care Provider Active S tart: January 13, 2025 End: January 13, 2025 Dr. Giorgio Cleaning MD Attending Provider Active Start: January 13, 2025 End: January 13, 2025 Dr. Giorgio Cleaning MD Referring Provider Active Start: January 13, 2025 End: January 13, 2025 Team Status: Inactive Member Role/Relationship Status Dates KARON Correia Referring Provider Active Star t: August 10, 2025 End: August 10, 2025 KARON Osuna Attending physician Active Start: August 10, 2025 End: August 10, 2025 Goals (unrecognized section and content) Goals may be documented in a n alternate section No data available for this sectionGoals may be documented in an alternate sectionGoals may be documented in an alternate section INFORMATION SOURCE (unrecogn ized section and content) DATE CREATED AUTHOR 02/10/2024 [facility] DATE CREATED AUTHOR AUTHOR'S ORGANIZ ATION 12/18/2024 [facility] DATE CREATED AUTHOR AUTHOR'S ORGANIZ ATION 02/02/2025 [facility] DATE CREATED AUTHOR AUTHOR'S ORGANIZ ATION 06/22/2025 [facility] DATE CREATED AUTHOR AUTHOR'S ORGANIZ ATION 08/26/2025 [facility] FOR RECORDS PERTAINING TO PATIENTS WHO ARE OR HAVE BEEN ENROLLED IN A CHEMICAL DEPENDENCY/SUBSTANCEABUSE PROGRAM, SOME INFORMATION MAY BE OMITTED. This clinical summary was aggregated from multiple sources. Caution should be exercised in using it in the provision of clinical care. This summary normalizes information from multiple sources, and as a consequence, information in this document may materially change the coding, format and clinical context of patient data. In addition, data may be omitted in some cases. CLINICAL DECISIONS SHOULD BE BASED ON THE PRIMARY CLINICAL RECORDS. [facility]. provides no warranty or guarantee of the accuracy or completeness of information in this document.
--- NOTE | 2025-09-07 07:27 | PCM.HP.STD ---
HPI - General General Date of Admission: 09/07/25 Date of Service: 09/07/25 Chief Complaint: Heartburn HPI Narrative BGI established in 2022 with hx of loose stools and abd cramping. Biochemical CBC, ESR, CMP, LDH, CRP, celiac, SULMA comp, ANCA, TOMI (Bglobulin H1.4), GAME without pertinent abnormality AST 22-ALT 18-AP H125, IgA H353 EGD and colonoscopy 06.30.23 EGD LA grade A esophagitis; medium hiatal hernia; gastritis; duodenitis. No pathologic changes Colonoscopy diverticulosis; congested colon and TI. No pathologic changes Last OV 11.02.24; pt continues to alternate between constipation and diarrhea. Still having LLQ pain. Dicyclomine is helpful. Start psyllium husk. OV 02.02.25 Pt doing well since last visit. She was able to find the psyllium husk and is taking it twice a day. This has increased the frequency of bowel movements to 3x per day. Her stools are still small and hard but is happy with progress. SHe continues dicyclomine daily for pain. OV 08/10/25 patient having new right upper quadrant pain that is intermittent typically after eating. This feels similar to the pain she was having when she had a cholecystectomy. She has also been experiencing increased reflux. She is having heartburn every other day especially during the night. She is not currently on a PPI. She has bowel movements 2-3 times per day while taking a fiber supplement. Her stools are typically hard and small but this is improved for her. [facility] Medical History Arthritis Cancer Easy bruising Bladder disease History of renal disease Migraine headache Right knee pain Rectal bleeding STEMI (ST elevation myocardial infarction) Wears dentures Wears hearing aid Wears glasses Post-menopausal High cholesterol History of GI bleed Colitis History of diverticulitis Gastric reflux Former smoker Shortness of breath on exertion History of echocardiogram Hypertension Cardiology follow-up encounter History of heart attack Home Medications ?Medication ?Instructions ?Recorded ?Last Taken ?Type aspirin 81 mg capsule 81 mg PO DAILY 12/11/22 09/01/25 History carvedilol 12.5 mg tablet 12.5 mg PO BID BP 12/11/22 09/07/25 05:40 History L.acid,jorge alberto-B.animal,bifid, 1 cap PO QDAY 02/02/25 Unknown History 50 billion cell capsule,delayed rel ([employer] [place] [employer] Probiotic) cholecalciferol (vitamin D3) 50 50 mcg PO QDAY 02/02/25 Unknown History mcg (2,000 unit) capsule dicyclomine 10 mg capsule 10 mg PO BID PRN abdominal pain 02/02/25 Unknown Rx #60 caps lisinopril 10 mg tablet 10 mg PO QDAY 02/02/25 Unknown History pantoprazole 40 mg tablet,delayed 40 mg PO QDAY #30 tabs 08/10/25 Unknown Rx release rosuvastatin 40 mg tablet 40 mg PO QDAY 08/10/25 Unknown History Allergy/AdvReac Type Severity Reaction Status Date / Time No Known Allergies Allergy Verified 09/07/25 07:13 Surgical History History of partial nephrectomy History of cataract surgery History of cardiac catheterization History of coronary artery stent placement History of carpal tunnel surgery of right wrist History of partial hysterectomy Hx laparoscopic cholecystectomy Social History Smoking Status: Former smoker alcohol intake: never ROS Constitutional Constitutional: Denies fatigue, fever(s), poor appetite, weight gain or weight loss Gastrointestinal Gastrointestinal: Denies belching, bloating, change in bowel habits, change in stool character, chewing difficulty, coffee ground emesis, constipation, cramping, diarrhea, dyspepsia, dysphagia, early satiety, excessive flatus, fecal incontinence, heartburn, hematemesis, hematochezia, hemorrhoids, loose stools, melena, nausea, odynophagia, rectal bleeding, tenesmus, vomiting or weight changes Vital Signs Vital Signs Vital Signs: 09/07/25 07:16 09/07/25 07:16 09/07/25 07:16 Temperature 97.4 F L Temperature Source Temporal Pulse Rate 64 Respiratory Rate 16 Respiratory Pattern Normal Blood Pressure 102/61 Blood Pressure Mean 74 Blood Pressure Source Monitor Blood Pressure Position Semi-Fowlers Blood Pressure Location Left Arm Baseline BP 102/61 Pulse Ox 96 Oxygen Delivery Method Room Air Weight Weight: 187 lb 6.287 oz Body Mass Index (BMI) 33.2 Physical Exam Const alert, oriented x3, no apparent distress and healthy appearing General Appearance: cooperative GI normal to inspection, nondistended, normoactive bowel sounds, soft to palpation, non-tender and non-distended Percussion: normal to percussion Rectal Exam: deferred Assessment & Plan Assessment/Plan (1) Right upper quadrant pain: (2) Heartburn: PLAN: Assessment and Plan Assessment and Plan (1) Constipation: Status: Acute Plan: Bri is a 74-year-old female patient with past medical history of constipation, right renal mass, status postcardiac stent placement and gastritis here today for follow-up. Patient having new right upper quadrant abdominal pain that is intermittent after eating. She is also noticing increased reflux symptoms every other day especially during the night. EGD from 2022 showing esophagitis, medium hiatal hernia, gastritis and duodenitis. With her history and symptoms she should undergo repeat EGD for evaluation. We may also consider a right upper quadrant ultrasound. I have started her on pantoprazole 40 mg daily. We may consider increasing the dose to twice a day and/or adding famotidine in the evening. Constipation is controlled with daily fiber supplement. Last colonoscopy in 2022 was without polyps. Recommend continuing fiber supplement and increasing her fluid intake. - EGD - Start pantoprazole 40 mg daily - Consider famotidine - Consider right upper quadrant ultrasound - Continue fiber supplement and increase fluid intake - Follow-up after procedure Note: [employer] speech recognition experimental mechanic software was used to create portions of this document. Sound-alike and misspelled words, as well as other experimental mechanic errors may be contained in the documentation. (2) Heartburn: Status: Acute (3) Right upper quadrant pain: Status: Acute Medications: New pantoprazole 40 mg PO QDAY 30 tabs 2RF ]
[2025-09-07] MEDS: Lactated Ringers 1,000 ML 15 ML IV (07:32)
--- NOTE | 2025-09-07 07:45 | PCM.PRE.AN2 ---
ASA Classification* ASA Classification ASA Classification: 3 Assessment & Plan Anesthesia* Anesthesia Assessment Anesthesia Assessment: Discussed sedation and/or anesthesia options, risks, benefits, and alternatives with patient/parents/legal guardian/POA. Questions invited. The patient/parents/legal guardian/POA seems to understand and agrees to proceed with anesthesia plan. Reviewed the physical assessment, medical history, allergy history and patient home medications list prior to surgery/procedure/anesthetic and documented any changes. Performed airway and anesthesia risk assessments. Anesthesia Type Anesthesia Type: MAC History Source History Obtained from:: Patient and Chart Anesthesia Focused Assessment* Temperature: 97.4 F Pulse Rate: 64 Blood Pressure: 102/61 Respiratory Rate: 16 Pulse Ox: 96 Oxygen Delivery Method: Room Air Airway Assessment Mouth opens: >3 cm Mallampati Score: IV Teeth Condition: Dentures (Patient has full upper and lower dentures.) Neck Range of motion (ROM): Limited ROM (Slight Decrease) Labs Anesthesia Preop lab: CBC WBC, (4.4-11.0) 5.1 K/mm3 07/15/24, 10:59 RBC, (4.2-5.4) 4.81 M/mm3 07/15/24, 10:59 Hgb, (12.0-15.0) 13.3 g/dL 07/15/24, 10:59 Hct, (37-47) 41.8 % 07/15/24, 10:59 Plt Count, (150-450) 176 K/mm3 07/15/24, 10:59 CHEMISTRY Potassium, (3.5-5.1) 4.4 mmol/L 07/15/24, 10:59 Sodium, (136-145) 137 mmol/L 07/15/24, 10:59 BUN, (7-18) 22 mg/dL H 07/15/24, 10:59 Creatinine, (0.55-1.02) 1.16 mg/dL H 07/15/24, 10:59 Glucose, (74-106) 87 mg/dL 07/15/24, 10:59 COAG Pre-Assessment Diagnosis/Proposed Procedure Planned Operative Procedure(s): EGD Anesthesia History Anesthesia History - computer tape librarian: Anesthesia History - computer tape librarian Hx Hospitalization Yes: NOV 2024-CARDIAC STENT 09/05/25 09:57 Any Problems With Anesthesia No 09/05/25 09:57 Cholinesterase deficiency No 09/05/25 09:57 You/Your Family Experience No 09/05/25 09:57 fever (hyperthermia) with Relationship Recent Exposure to Contagious No 09/07/25 07:16 Disease Does patient have nerve No 09/05/25 09:57 stimulator Patient instructed to have device shut off --Does patient have Pacemaker No 09/07/25 07:16 or ICD? When Was Last Pacemaker Check QUESTION #4 FULL TEXT: You/Your Family Experience fever (hyperthermia) with Anesthesia Last Oral Intake Last Oral intake: Last Oral Intake NPO since 05:45 09/07/25 07:16 Meds taken in AM with sips of Yes 09/07/25 07:16 water? Meds patient instructed to take am of surgery Any additional information?: Yes Meds taken in AM with sips of water?: Yes PONV PONV - computer tape librarian: PONV - computer tape librarian Female Yes 09/05/25 09:57 HX of Motion Sickness No 09/05/25 09:57 HX of N/V After Surgery No 09/05/25 09:57 Non-Smoker Yes 09/05/25 09:57 Duration of Surgery greater No 09/05/25 09:57 than 60 minutes Number of Risk Factors 2 09/05/25 09:57 PONV Score Moderate Risk 09/05/25 09:57 Height & Weight Height & Weight: Anesthesia: Height & Weight Height 5 ft 3 in 09/07/25 07:16 Weight: 85 kg 09/07/25 07:16 Body Mass Index (BMI) 33.2 09/07/25 07:16 Respiratory Assessment Respiratory Assessment - computer tape librarian: Respiratory Tract Infection Hx - computer tape librarian Hx Respiratory Tract Infection No 09/05/25 09:57 STOP Sleep Apnea STOP Sleep Apnea - computer tape librarian: STOP Sleep Apnea - computer tape librarian Hx Hypertension No 09/05/25 09:57 Hx Sleep Apnea No 09/05/25 09:57 CPAP BIPAP Do you snore loudly (louder No 09/05/25 09:57 than talking or can be heard Do you often feel tired/ No 09/05/25 09:57 fatigued/ sleepy during daytime? Has anyone observed you stop No 09/05/25 09:57 breathing during sleep? STOP Results Negative 09/05/25 09:57 QUESTION #5 FULL TEXT : Do you snore loudly (louder than talking or can be heard through closed doors)? 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 Specify any problems Hx of Preganancy in last 3 No 09/05/25 09:57 Months Nurse Filling Out Transfusion [facility] 09/05/25 09:57 & Questions: Date: 09/05/25 09/05/25 09:57 Time: 10:03 09/05/25 09:57 Patient unable to answer at this time (ie. confused, unrespo /Reproduction History /Reproductive History - computer tape librarian: /Reproductive Hx- computer tape librarian Hx Now Gestational Age (in weeks): EDC: Hx Hx Para Hx Section SAB No 09/05/25 09:57 Does the father of the baby or his family experience fever w Father of the baby Malignant Hypertension history comment Active Medications Active Medications: Current Medications Generic Name Dose Route Start Last Admin Trade Name Freq PRN Reason Stop Dose Admin Lactated Ringer's 1,000 mls @ 15 mls/hr 09/07/25 07:45 09/07/25 07:32 IV 15 mls/hr .Q48H SHYANN Administration PFSH Medical History Arthritis Cancer Easy bruising Bladder disease History of renal disease Migraine headache Right knee pain Rectal bleeding STEMI (ST elevation myocardial infarction) Wears dentures Wears hearing aid Wears glasses Post-menopausal High cholesterol History of GI bleed Colitis History of diverticulitis Gastric reflux Former smoker Shortness of breath on exertion History of echocardiogram Hypertension Cardiology follow-up encounter History of heart attack Home Medications ?Medication ?Instructions ?Recorded ?Last Taken ?Type aspirin 81 mg capsule 81 mg PO DAILY 12/11/22 09/01/25 History carvedilol 12.5 mg tablet 12.5 mg PO BID BP 12/11/22 09/07/25 05:40 History L.acid,jorge alberto-B.animal,bifid, 1 cap PO QDAY 02/02/25 Unknown History 50 billion cell capsule,delayed rel ([employer] [place] [employer] Probiotic) cholecalciferol (vitamin D3) 50 50 mcg PO QDAY 02/02/25 Unknown History mcg (2,000 unit) capsule dicyclomine 10 mg capsule 10 mg PO BID PRN abdominal pain 02/02/25 Unknown Rx #60 caps lisinopril 10 mg tablet 10 mg PO QDAY 02/02/25 Unknown History pantoprazole 40 mg tablet,delayed 40 mg PO QDAY #30 tabs 08/10/25 Unknown Rx release rosuvastatin 40 mg tablet 40 mg PO QDAY 08/10/25 Unknown History Allergy/AdvReac Type Severity Reaction Status Date / Time No Known Allergies Allergy Verified 09/07/25 07:13 Surgical History History of partial nephrectomy History of cataract surgery History of cardiac catheterization History of coronary artery stent placement History of carpal tunnel surgery of right wrist History of partial hysterectomy Hx laparoscopic cholecystectomy Social History Smoking Status: Former smoker alcohol intake: never Review of Systems (Anesthesia) ROS Narrative System reviewed and no additional complaints, except as documented.
--- NOTE | 2025-09-07 08:15 | EGD_PTH ---
PATIENT: MARI RODRIGUES LOC: EN U#:[id number] AGE/SX: 74/F ROOM: RE09/07/[address]: Dr. Adrian Park DO : 1950 BED: DIS: 09/07/2025 SPEC #: [id number] RECD: 09/07/25 08:55 STATUS: KENNEDY REChadd #: [id number] JOSHUA: 09/07/25 08:[address]: Adrian Park DEPT: SURGICAL PATHOLOGY RECD BY: Enrrique Devine ENTERED: 09/07/25 10:54 SP TYPE: EGD BIOPSY OT DR: KARON Correia Tissues: A - Duodenum, NOS B - Gastric mucous membrane Procedures: Immunohistochemical Stains Surgery Specimen Level IV HEADER OPERATION: EGD with biopsy PRE-OP DIAGNOSIS: Right upper quadrant pain, heartburn TISSUE SUBMITTED: A- Duodenum biopsy, B- Gastric body biopsy MICROSCOPIC DIAGNOSIS A. Small intestine, duodenum, biopsy: - Small bowel mucosa with no pathologic change B. Stomach, antrum, biopsy: - Oxyntic mucosa with mild chronic inflammation - No morphologic evidence of Helicobacter pylori organisms identified on H&E or immunostained sections MICROSCOPIC DESCRIPTION Slides are reviewed. All matched controls reacted appropriately. These tests were developed and their performance characteristics determined by [facility]. They may not have been cleared or approved by the [place]. Food and Drug Administration. The FDA has determined that such clearance or approval is not necessary. The above immunohistochemical markers are viewed by the Pathologist. GROSS DESCRIPTION A. Received in fixative is one container labeled with the patient's name and designated Duodenum biopsy. The specimen consists of multiple irregular fragments of deleon tissue that in aggregate measure 0.8 x 0.5 x 0.1 cm. The specimen is totally submitted in one cassette. B. Received in fixative is one container labeled with the patient's name and designated Gastric body biopsy. The specimen consists of multiple irregular fragments of deleon tissue that in aggregate measure 1 x 0.8 x 0.1 cm. The specimen is totally submitted in one cassette. AL 09/07/2025 CPT:[id number]
--- NOTE | 2025-09-07 08:42 | PCM.POST.ANE ---
Anesthesia: Postop Eval I Current Vital Signs Temperature: 98.4 F Pulse Rate: 62 Blood Pressure: 92/52 Respiratory Rate: 16 Pulse Ox: 91 Oxygen Delivery Method: Room Air Assessment Airway patent: Yes Spontaneous unlabored respirations: Yes Mental status: Asleep nausea: No Vomiting: No Anesthesia Complication: No Fluid Hydration Crystalloid volume administer (ml): 400 Total IV fluid infused: 400 Progress Note Anesthesia document: Postop Eval 1 completed: Yes
--- NOTE | 2025-09-07 08:44 | OP.EGD_ITS ---
Patient Name: Bri Sierra Procedure Date: 09/07/2025 8:24 AM Date of : 1950 Age: 74 Procedure: Upper GI endoscopy Indications: Epigastric abdominal pain, Functional Dyspepsia Providers: Adrian Park DO Medicines: Monitored Anesthesia Care Patient Profile: This is a 74 year old female. Refer to note in patient chart for documentation of history and physical. Patient has symptoms of chronic abdominal cramping, chronic abdominal distention and chronic epigastric abdominal pain. Complications: No immediate complications. Procedure: Pre-Anesthesia Assessment: - Prior to the procedure, a History and Physical was performed, and patient medications and allergies were reviewed. The patient is competent. The risks and benefits of the procedure and the sedation options and risks were discussed with the patient. All questions were answered and informed consent was obtained. Patient identification and proposed procedure were verified by the physician in the pre-procedure area. Mental Status Examination: alert and oriented. Airway Examination: normal oropharyngeal airway and neck mobility. Respiratory Examination: clear to auscultation. CV Examination: normal. Prophylactic Antibiotics: The patient does not require prophylactic antibiotics. Prior Anticoagulants: The patient has taken no anticoagulant or antiplatelet agents. ASA Grade Assessment: II - A patient with mild systemic disease. After reviewing the risks and benefits, the patient was deemed in satisfactory condition to undergo the procedure. The anesthesia plan was to use monitored anesthesia care (MAC). Immediately prior to administration of medications, the patient was re-assessed for adequacy to receive sedatives. The heart rate, respiratory rate, oxygen saturations, blood pressure, adequacy of pulmonary ventilation, and response to care were monitored throughout the procedure. The physical status of the patient was re-assessed after the procedure. After obtaining informed consent, the endoscope was passed under direct vision. Throughout the procedure, the patient's blood pressure, pulse, and oxygen saturations were monitored continuously. The Endoscope was introduced through the mouth, and advanced to the third part of the duodenum. Small bowel enteroscopy was deemed necessary. The upper GI endoscopy was accomplished without difficulty. The patient tolerated the procedure well. Scope In: 8:28:03 AM Scope Out: 8:31:38 AM Total Procedure Duration Time 0 hours 3 minutes 35 seconds Findings: The examined esophagus was normal. Diffuse mildly erythematous mucosa without bleeding was found in the gastric body. Biopsies were taken with a cold forceps for histology. Biopsies were taken with a cold forceps for Helicobacter pylori testing. Patchy mildly erythematous mucosa without active bleeding and with no stigmata of bleeding was found in the duodenal bulb. Biopsies were taken with a cold forceps for histology. Verification of patient identification for the specimen was done. Estimated blood loss was minimal. Impression: - Normal esophagus. - Erythematous mucosa in the gastric body. Biopsied. - Erythematous duodenopathy. Biopsied. Recommendation: - Discharge patient to home. - Resume previous diet. - Continue present medications. - Await pathology results. Procedure Code(s): --- Professional --- 49766, Small intestinal endoscopy, enteroscopy beyond second portion of duodenum, not including ileum; with biopsy, single or multiple CPT copyright 2021 [employer]. All rights reserved. The codes documented in this report are preliminary and upon bulk plant manager review may be revised to meet current compliance requirements. Adrian Park DO 09/07/2025 8:44:09 AM This report has been signed electronically. Number of Addenda: 0 Note Initiated On: 09/07/2025 8:24 AM
--- NOTE | 2025-09-07 16:33 | PCM.POSTANE2 ---
Anesthesia Postop Eval I Sum Postop Eval Completion status Anesthesia document: Postop Eval 1 completed: Yes Anesthesia Postop Eval I Summary Anesthesia Postop Eval I Summary: Anesthesia Postop Eval I: Assessment Summary Airway patent Yes 09/07/25 08:43 [email or web address] Spontaneous unlabored Yes 09/07/25 08:43 [email or web address] respirations Mental status Asleep 09/07/25 08:43 [email or web address] nausea No 09/07/25 08:43 [email or web address] Vomiting No 09/07/25 08:43 [email or web address] Anesthesia Postop Eval I: Fluid Summary Crystalloid volume administer 400 09/07/25 08:43 [email or web address] (ml) Colloids volume administered ( ml) Blood Product volume administered (ml) Total IV fluid infused 400 09/07/25 08:43 [email or web address] Anesthesia Postop Eval I: Summary Notes Anesthesia Complication No 09/07/25 08:43 [email or web address] Anesthesia Complication Comment: Post-operative progress note Anesthesia: Postop Eval II Evaluation Mental status: Awake and Calm Pain Level: 0 nausea: No Vomiting: No
== END 2025-09-07 09:22 | disposition home or self-care (01) ==
LOC: EN 07:01 → AC 07:01
PROVIDERS: Visit Provider Internal Medicine Gastroenterology
PROC: 0DJ08ZZ Inspection of Upper Intestinal Tract, Via Natural or Artificial Opening Endoscopic (ICD-10-PCS; CPT 43235; principal; 2025-09-07 08:10)
DX: R10.11 Right upper quadrant pain (principal); Z87.891 Personal history of nicotine dependence; Z90.710 Acquired absence of both cervix and uterus; Z79.899 Other long term (current) drug therapy; K21.9 Gastro-esophageal reflux disease without esophagitis; Z79.82 Long term (current) use of aspirin; I10 Essential (primary) hypertension; E78.00 Pure hypercholesterolemia, unspecified; Z90.49 Acquired absence of other specified parts of digestive tract; I25.2 Old myocardial infarction; Z95.5 Presence of coronary angioplasty implant and graft; Z90.5 Acquired absence of kidney; K59.00 Constipation, unspecified; R12 Heartburn; K29.50 Unspecified chronic gastritis without bleeding; K31.89 Other diseases of stomach and duodenum
CPT/HCPCS: 44361; 88305; 88342; J2405

== ENCOUNTER → 2025-10-14 | Outpatient (CLI) | payer MEDICARE, SELFPAY ==
--- NOTE | 2025-10-14 17:06 | CT_ITS ---
PROCEDURE: ABDOMEN/PELVIS WITH CONTRAST 10/14/2025 REASON FOR EXAM: NEOPLASM OF RIGHT KIDNEY TECHNIQUE: Procedure Code: [id number] Modality: CT Procedure: ABDOMEN/PELVIS WITH CONTRAST Coronal and Sagittal reconstruction series were provided. CONTRAST: Isovue 370 VOLUME: 75 mL One or more dose reduction techniques were used (e.g., Automated exposure control, adjustment of the mA and/or kV according to patient size, use of iterative reconstruction technique. RADIATION DOSE SUMMARY: CTDlvol: 20.43 mGy DLP: 1944.48 mGycm COMPARISON: None. FINDINGS: Lung bases: Clear. Atherosclerotic calcifications of the coronary arteries. Liver: Unremarkable. Gallbladder: Cholecystectomy. No biliary dilation. Spleen: Unremarkable. Pancreas: Unremarkable. Adrenals: Increase in size of right adrenal mass now measures 3 cm, previously measured 2.[address] scan 08/04/2024. The left adrenal gland is unremarkable. Kidneys: No hydronephrosis. No nephrolithiasis. Status post ablation versus surgical intervention at the lower pole of the right kidney. No abnormal enhancing lesion. Bladder: Unremarkable. Reproductive Organs: Unremarkable. Bowel: No bowel wall thickening. No bowel obstruction. Colonic diverticulosis without evidence of acute diverticulitis. Appendix: Unremarkable. Lymph nodes: No lymphadenopathy. Vasculature: No aneurysm. Atherosclerotic calcifications. Peritoneum / Retroperitoneum: No free air or free fluid. Bones: No acute bony abnormalities. CT/Abdomen/Pelvis WITH Contrast IMPRESSION: Increase in size of right adrenal mass now measures 3 cm, previously measured [address] scan 08/04/2024. Otherwise, no acute findings or evidence of metastatic lesions. Reading Location: [facility]
--- OUTSIDE RECORDS SUMMARY | 2025-10-14 17:08 | XMS RPT_ITS | CCD ---
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 Campbell Attending Provider Friend, Dr. Campbell Referring Provider [phone] Friend, Dr. Campbell Other Provider [phone] KARON Osborne Primary Care Provider Friend, Dr. Campbell Attending Provider Kathy Osborne PA-C Unavailable Hermila LARIOS, Dr. Alvares ([facility]) Unavailable [facility], ([facility]) Unavailable Michelle ([place]) , Dr. Quinonez Unavailable Friend, Dr. Campbell Unavailable Renetta LARIOS, Dr. Oates Unavailable [phone] ([place]), [facility] Unavailable Janice Ramires MD Unavailable Archie [...] CRUZN, Janice M Unavailable Unavailab le Roseliaugg FIRE PILOT, Nga Unavailable Unavailable Unavailable Unavailable Osborne, PA Kathy Primary Care Provider Osborne, PA Kathy Referring Provider [phone] Friend, Dr. Campbell Attending Provider MARIO JOHNSON Referring Unavailab ALAN Cardenas Attending Unavailable ALAN MANZO Attending Unavailable OSBORNE PA-C, KATHY J Primary Care Physician OSBORNE PA-C, KATHY J Primary Care Unavailable PATY BARRY MD, DR ROBLES Attending Lee NAGEL MD, ОЛЕГ Referring Unavailabl e Hoa Arellano Attending Provider Osborne PA, Kathy Primary Care Provider [phone] Obsorne PA, Kathy Referring Provider [phone]([phone] Hermila LARIOS, Dr. Giorgio Landaverde Attending Provider Hermila LARIOS, Dr. Giorgio Landaverde Referring Provider Sammy FIRE PILOT, Halima Unavailable Unavailabl e Alma Rosa CCMA, Bernadine Unavailable Unavailable Prakash FIRE PILOT, Rito Unavailable Unavailable Renetta LARIOS, Dr. Oates [...] Referring Unavailable Osborne PA, Kathy Referring Provider [phone]([phone] Hoa Arellano Attending Physician Medications Current Medications [...] Daily, # 90 tab(s), 4 Refill(s), Pharmacy: [facility], 162.6, cm, 11/24/24 9:07:00 EST, [...] (50 MCG/ACT) Status: Inactive L.Acid,Hank-B.Anim,Bifid,Inf an ([employer] Probiotic) 50 billion cell capsule,delayed release(DR/EC) [...] pain, # 25 tab(s), 3 Refill(s), Pharmacy: [facility], 162.5, cm, 11/25/23 10:50:00 EST, [...] Coronary occlusion; Translations: [Atherosclerotic heart disease of [place] coronary artery without angina pectoris] Onset: 4 [...] The patient has a Healthcare Power of Financial Sales Advisor and a Living Will. Note for MCR [...] transitioning into care from an emergency room ([facility] 11/18/2022) and a summary of care was reviewed. 11-25-2022 Unclassified (17 sources) [ADDITIONAL REASON] Follow up consultation - The patient is here to follow-up after Emergency Room/Urgent Care (Patient was seen 11/18/2022 at [facility] for diverticulitis and Right-sided Kidney Mass. [...] from hospital stay - Name of Hospital: [facility]. Date of Admission: 11/03/22. Date of [...] patient does not have Healthcare Power of Financial Sales Advisor (She is interested in setting up advanced care planning at this time) or Living Will. Note for MCR Well Adult: mammo- 2004 colonoscopy- pt states it has been at least 10 years since the last time she had onePatient reports that she is going through a hard time right now. While she was on vacation with some her family her [id number], who was travelling with them, due to [...] Room/Urgent Care (Patient was seen 11/18/2022 at [facility] for diverticulitis and Right-sided Kidney Mass. [...] transitioning into care from an emergency room ([facility] 11/18/2022) and a summary of care [...] The patient has a Healthcare Power of Financial Sales Advisor and a Living Will. Note for MCR [...] The patient has a Healthcare Power of Financial Sales Advisor and a Living Will. Note for [facility] Well Adult: Mammogram Mayologuard EXA [...] from hospital stay - Name of Hospital: [facility]. Date of Admission: 12/25/2022. Date of [...] transitioning into care from an emergency room ([facility] 11/15/21) and a summary of care was reviewed. 11-19-2021 Unclassified (12 sources) [ADDITIONAL REASON] Follow up consultation - The patient is here to follow-up after Emergency Room/Urgent Care (Patient was seen at [facility] 11/15/2021 for Acute Left ankle sprain/foot [...] Dr Bonita Acevedo regarding her CAD post [place]. She thought we were receiving the records. [...] Dr Bonita Acevedo regarding her CAD post [place]. She thought we were receiving the records. 01-23-2016 Unclassified (20 sources) Follow up consultation - The patient is here to follow-up after Emergency Room/Urgent Care (Patient was seen at [facility] 11/15/2021 for Acute Left ankle sprain/foot [...] transitioning into care from an emergency room ([facility] 11/15/21) and a summary of care was [...] Current treatment includes non-prescription cold medication (Marija [place] plus cold and flu) and home remedies. [...] Visit Repor ton 08-10-2025 Gastroenterology Visit Report [facility] [address] [place] [address] OFFICE VISIT Date of Service: 08/10/25 MR#: [id number] Acct: [id number] Name: BRI RODRIGUES Rep #: [id number] : 1950 Provider: KARON Osnua Age/Sex: 74/F Location: [facility] Status: Signed Intake Vital Signs 06/30/23 11:01 Height 5 ft 4 in Intake Visit Reasons: 6 M FU Chief Complaint: constipation Baker Biscuit Required: No Accompanied by: Is patient in [...] istory 50 billion cell capsule,delayed rel (Fortify Graball Women Probiotic) cholecalciferol (vitamin D3) 50 50 [...] Psych Psychi (more content not included)... Normal [facility] 3D MAMM BILAT SCREENon 06-14 3D MAMM BILAT SCREEN [place] [address] Patient: BRI RODRIGUES Phone#: : 1950 Age: 74 Gender: F Pt. Type: Out Account: [id number] Location: [facility] Ordering: KATHY OSBORNE Exam Date: 06/14/2025/11:10 Family Phys: Charge Code: [id number] Physician: [place] Order #: [id number] Dose#: PROCEDURE: BILATERAL SCREENING BREAST TOMOSYNTHESIS MAMMOGRAM WITH CAD COMPARISON: [facility], 3D BILAT SCREEN, 06/02/2024, 13:59. [facility], 3D BILAT SCREEN, 05/14/2023, 10:55. INDICATIONS: Screening. [...] Hernandez MD on 06/14/2025 at 15:27 Normal [facility] CHEST 2 VIEWSon 05-02-2025 CHEST 2 VIEWS [place] [address] Patient: BRI RODRIGUES Phone#: : 1950 Age: 74 Gender: F Pt. Type: Out Account: [id number] Location: 052 Ordering: INN[employer] Travel Exam Date: 05/02/2025/13:40 Family Phys: Charge Code: [id number] Physician: [place] Order #: [id number] Dose#: PROCEDURE: X-RAY CHEST 2 VIEWS COMPARISON: [facility], CHEST 1 VIEW, 08/16/2021, 18:26. INDICATIONS: [...] Hernandez MD on 05/02/2025 at 15:52 Normal [facility] Gastroenterology Visit Repor ton 02-02-2025 Gastroenterology Visit Report [facility] [address] [place] [address] OFFICE VISIT Date of Service: 02/02/25 MR#: [id number] Acct: [id number] Name: BRI RODRIGUES Rep #: [id number] : 1950 Provider: KARON Osuna Age/Sex: 74/F Location: [facility] Status: Signed Intake Vital Signs 06/30/23 11:01 Height 5 ft 4 in Intake Visit Reasons: 3 M FU Chief Complaint: constipation Baker Biscuit Required: No Accompanied by: Is patient in [...] istory 50 billion cell capsule,delayed rel (Fortify Graball Women Probiotic) cholecalciferol (vitamin D3) 50 50 [...] Temper Tantr (more content not included)... Normal [facility] CBC (INCLUDES DIFF/PLT)on Basophils (Bld) [#/Vol] 0.018 10*3/uL Normal 0-200 [facility] Comment on above: Performed By: #### 7 600, 6399, 75642 #### [facility] [address], [address] [place] [id number] Aerial Advertiser: Jason Casanova MD Basophils/100 WBC (Bld) 0.3 % Normal [facility] Comment on above: Performed By: #### 7 600, 6399, 64978 #### [facility] [address], [address] [place] [phone] Aerial Advertiser: Jason Casanova MD Eosinophils (Bld) [#/Vol] 0.06 10*3/uL Normal 15-500 [facility] Comment on above: Performed By: #### 7 600, 6399, 30989 #### [facility] of [place] [address] Aerial Advertiser: Jason Casanova MD Eosinophils/100 WBC (Bld) 1.0 % Normal [facility] Comment on above: Performed By: #### 7 600, 6399, 05883 #### [facility] of [place] [address] Aerial Advertiser: Jason Casanova MD Erythrocyte distribution width (RBC) [Ratio] 13.2 % Normal 11.0-15.0 [facility] Comment on above: Performed By: #### 7 600, 6399, 90382 #### [facility] of [place] [address] Aerial Advertiser: Jason Casanova MD Hematocrit (Bld) [Volume fraction] 42.4 % Normal 35.0-45.0 [facility] Comment on above: Performed By: #### 7 600, 6399, 60088 #### [facility] of [place] [address] Aerial Advertiser: Jason Casanova MD Hemoglobin (Bld) [Mass/Vol] 13.8 g/dL Normal 11.7-15. 5 [facility] Comment on above: Performed By: #### 7 600, 6399, 77286 #### [facility] of [place] [address] Aerial Advertiser: Jason Casanova MD Lymphocytes (Bld) [#/Vol] 1.212 10*3/uL Normal 850-390 0 [facility] Comment on above: Performed By: #### 7 600, 6399, 63828 #### [facility] of [place] [address] Aerial Advertiser: Jason Casanova MD Lymphocytes/100 WBC (Bld) 20.2 % Normal [facility] Comment on above: Performed By: #### 7 600, 6399, 58405 #### [facility] of [place] [address] Aerial Advertiser: Jason Casanova MD MCH (RBC) [Entitic mass] 28.5 pg Normal 27.0-33.0 [facility] Comment on above: Performed By: #### 7 600, 6399, 02421 #### [facility] of [place] [address] Aerial Advertiser: Jason Casanova MD MCHC (RBC) [Mass/Vol] 32.5 [...] condition. Performed By: #### 7 600, 6399, 20945 #### [facility] of [place] [address] Aerial Advertiser: Jason Casanova MD MCV (RBC) [Entitic vol] 87.4 fL Normal 80.0-100.0 [facility] Comment on above: Performed By: #### 7 600, 6399, 33461 #### [facility] of [place] [address] Aerial Advertiser: Jason Casanova MD Monocytes (Bld) [#/Vol] 0.33 10*3/uL Normal 200-950 [facility] Comment on above: Performed By: #### 7 600, 6399, 47382 #### [facility] of [place] [address] Aerial Advertiser: Jason Casanova MD Monocytes/100 WBC (Bld) 5.5 % Normal [facility] Comment on above: Performed By: #### 7 600, 6399, 63958 #### [facility] of [address] [place] [address] Aerial Advertiser: Jason Casanova MD Neutrophils (Bld) [#/Vol] 4.38 10*3/uL Normal 1500-780 0 [facility] Comment on above: Performed By: #### 7 600, 6399, 24863 #### [facility] of [place] [address] Aerial Advertiser: Jason Casanova MD Neutrophils/100 WBC (Bld) 73 % Normal [facility] Comment on above: Performed By: #### 7 600, 6399, 03279 #### [facility] [place] [address] Aerial Advertiser: Jason Casanova MD Platelet mean volume (Bld) [Entitic vol] 8.3 fL Normal 7.5-12.5 [facility] Comment on above: Performed By: #### 7 600, 63, 85031 #### [facility] [place] [address] Aerial Advertiser: Jason Casanova MD Platelets (Bld) [#/Vol] 184 10*3/uL Normal 140-400 [facility] Comment on above: Performed By: #### 7 600, 6399, 01111 #### [facility] [place] [address] Aerial Advertiser: Jason Casanova MD RBC (Bld) [#/Vol] 4.85 10*6/uL Normal 3.80-5.10 [facility] Comment on above: Performed By: #### 7 600, 6399, 07519 #### [facility] [place] [address] Aerial Advertiser: Jason Casanova MD WBC (Bld) [#/Vol] 6.0 10*3/uL Normal 3.8-10.8 [facility] Comment on above: Performed By: #### 7 600, 6399, 30284 #### [facility] of [place] [address] Aerial Advertiser: Jason Casanova MD COMPREHENSIVE METABOLIC PANE [facility] 02-01-2025 Albumin [Mass/Vol] 4.6 g/dL Normal 3.6-5.1 [facility] Comment on above: Performed By: #### 7 600, 6399, 42715 #### [facility] of [address], [address] [place] [address] Aerial Advertiser: aJson Casanova MD Albumin/Globulin [Mass ratio] 1.8 {ratio} Normal 1.0-2.5 [facility] Comment on above: Performed By: #### 7 600, 6399, 21422 #### [facility] of [place] [address] Aerial Advertiser: Jason Casanova MD ALP [Catalytic activity/Vol] 93 U/L Normal 37-153 [facility] Comment on above: Performed By: #### 7 600, 6399, 80930 #### [facility] [place] [address] Aerial Advertiser: Jason Casanova MD ALT [Catalytic activity/Vol] 14 U/L Normal 6-29 [facility] Comment on above: Performed By: #### 7 600, 6399, 88249 #### [facility] [place] [address] Aerial Advertiser: Jason Casanova MD AST [Catalytic activity/Vol] 19 U/L Normal 10-35 [facility] Comment on above: Performed By: #### 7 600, 6399, 65225 #### [facility] [place] [address] Aerial Advertiser: Jason Casanova MD Bilirubin [Mass/Vol] 0.4 mg/dL Normal 0.2-1.2 [facility] Comment on above: Performed By: #### 7 600, 6399, 42741 #### [facility] [place] [address] Aerial Advertiser: Jason Casanova MD Calcium [Mass/Vol] 9.3 mg/dL Normal 8.6-10.4 [facility] Comment on above: Performed By: #### 7 600, 6399, 92317 #### [facility] of [address], [address] [place] [address] Aerial Advertiser: Jason Casanova MD Chloride [Moles/Vol] 104 mmol/L Normal 98-110 [facility] Comment on above: Performed By: #### 7 600, 6399, 64508 #### [facility] of [address], [address] [place] [address] Aerial Advertiser: Jason Casanova MD CO2 [Moles/Vol] 24 mmol/L Normal 20-32 [facility] Comment on above: Performed By: #### 7 600, 6399, 31997 #### [facility] of [place] [address] Aerial Advertiser: Jason Casanova MD Creatinine [Mass/Vol] 1.21 mg/dL High 0.60-1.[address] [facility] Comment on above: Performed By: #### 7 600, 6399, 92973 #### [facility] of [place] [address] Aerial Advertiser: Jason Casanova MD GFR/1.73 sq M.predicted among non-blacks MDRD (S/P/Bld) [Vol rate/Area] 48 mL/min/{1.73_m2} Low > OR = 60 [facility] Comment on above: Performed By: #### 7 600, 6399, 93645 #### [facility] of [address], [address] [place] [address] Aerial Advertiser: Jason Casanova MD Globulin (S) [Mass/Vol] 2.5 g/dL Normal 1.9-3.7 [facility] Comment on above: Performed By: #### 7 600, 6399, 15951 #### [facility] of [place] [address] Aerial Advertiser: Jason Casanova MD Glucose [Mass/Vol] 84 mg/dL Normal 65-99 [facility] Comment on above: Result Comment: Fasting reference interval Performed By: #### 7 600, 6399, 88680 #### [facility] of [address], [address] [place] [address] Aerial Advertiser: Jason Casanova MD Potassium [Moles/Vol] 4.3 mmol/L Normal 3.5-5.[address] [facility] Comment on above: Performed By: #### 7 600, 6399, 15069 #### [facility] of [address], [address] [place] [address] Aerial Advertiser: Jason Casanova MD Protein [Mass/Vol] 7.1 g/dL Normal 6.1-8.1 [facility] Comment on above: Performed By: #### 7 600, 6399, 97779 #### [facility] of [address], [address] [place] [address] Aerial Advertiser: Jason Casanova MD Sodium [Moles/Vol] 139 mmol/L Normal 135-146 [facility] Comment on above: Performed By: #### 7 600, 6399, 06024 #### [facility] of [address], [address] [place] [address] Aerial Advertiser: Jason Casanova MD Urea nitrogen [Mass/Vol] 27 mg/dL High 7-25 [facility] Comment on above: Performed By: #### 7 600, 6399, 07862 #### [facility] of [address], [address] [place] [address] Aerial Advertiser: Jason Casanova MD Urea nitrogen/Creatinine [Mass ratio] 22 mg/mg Normal 6-22 [facility] Comment on above: Performed By: #### 7 600, 6399, 06573 #### [facility] of [address], [address] [place] [address] Aerial Advertiser: Jason Casanova MD LIPID PANEL, [facility] 01-18 Cholesterol [Mass/Vol] 141 mg/dL Normal <200 [facility] Comment on above: Performed By: #### 7 600, 6399, 75878 #### [facility] of [address], [address] [place] [address] Aerial Advertiser: Jason Casanova MD Cholesterol in HDL [Mass/Vol] 64 mg/dL Normal > OR = 50 [facility] Comment on above: Performed By: #### 7 600, 6399, 28525 #### [facility] [address], [address] [place] [address] Aerial Advertiser: Jason Casanova MD Cholesterol in LDL [Mass/Vol] [...] Amanuel PARADA et al. JOSE LUIS. 2013;310(19): 0921-4256 (http://[email or web address]/faq/[email or web address]) Performed By: #### 7 600, 6399, 99444 #### [facility] [address], [address] [place] [address] Aerial Advertiser: Jason Casanova MD Cholesterol.total/Cholester ol in HDL [Mass ratio] 2.2 {ratio} Normal <5.0 [facility] Comment on above: Performed By: #### 7 600, 6399, 41474 #### [facility] [address], [address] [place] [address] Aerial Advertiser: Jason Casanova MD NON HDL CHOLESTEROL 77 mg/dL (calc) Normal <130 [facility] Comment on above: Result Comment: For patients with diabetes plus 1 major ASCVD risk factor, treating to a non-HDL-C goal of <100 mg/dL (LDL-C of <70 mg/dL) is considered a therapeutic option. Performed By: #### 7 600, 6399, 34103 #### [facility] [address], [address] [place] [address] Aerial Advertiser: Jason Casanova MD Triglyceride [Mass/Vol] 140 mg/dL Normal <150 [facility] Comment on above: Performed By: #### 7 655, 7053, 90513 #### [facility] [address], [address] [place] [address] Aerial Advertiser: Jason Casanova MD Laboratory - Chemistry and C hemistry - challengeon 01-31-2025 Albumin [Mass/Vol] 4.6 g/dL Normal 3.6 - 5.1 g/dL [facility] [employer] [facility] Albumin/Globulin [Mass ratio] 1.8 {ratio} Normal 1.0 - 2.5 [facility] [place] [employer] ALP [Catalytic activity/Vol] 93 U/L Normal 37 - 153 U/L [facility] [employer] [facility] ALT [Catalytic activity/Vol] 14 U/L Normal 6 - 29 U/L [facility] [employer] AST [Catalytic activity/Vol] 19 U/L Normal 10 - 35 U/L [employer] [facility] [employer] Bilirubin [Mass/Vol] 0.4 mg/dL Normal 0.2 - 1 .2 mg/dL [employer] [facility] [place] [employer] Calcium [Mass/Vol] 9.3 mg/dL Normal 8.6 - 10. 4 mg/dL [employer] [facility] [place] Chloride [Moles/Vol] 104 mmol/L Normal 98 - 11 0 mmol/L [facility] [employer] Cholesterol [Mass/Vol] 141 mg/dL Normal [facility], [facility].; [employer] Cholesterol in HDL [Mass/Vol] 64 mg/dL Normal [facility] [employer] Cholesterol in LDL [Mass/Vol] 55 mg/dL Normal [employer] CO2 [Moles/Vol] 24 mmol/L Normal 20 - 32 mmol/L [facility] [employer] Creatinine [Mass/Vol] 1.21 mg/dL Abnormal 0.60 - 1.00 mg/dL [facility], [facility]. GFR/1.73 sq M.predicted among non-blacks MDRD (S/P/Bld) [Vol rate/Area] 48 mL/min/{1.73_m2} Abnormal [facility], [facility] Glucose [Mass/Vol] 84 mg/dL Normal 65 - 99 mg/dL [facility], [facility].; [facility], [facility]. Potassium [Moles/Vol] 4.3 mmol/L Normal 3.5 - 5.3 mmol/L [facility], [facility].; [facility], [facility] Protein [Mass/Vol] 7.1 g/dL Normal 6.1 - 8.1 g/dL [facility], [facility].; [facility], [facility]. Sodium [Moles/Vol] 139 mmol/L Normal 135 - 146 mmol/L [facility], [facility].; [facility], [facility]. Triglyceride [Mass/Vol] 140 mg/dL Normal [facility], [facility] Urea nitrogen [Mass/Vol] 27 mg/dL Abnormal 7 - 25 mg/dL [facility], [facility].; [facility], [facility] Urea nitrogen/Creatinine [Mass ratio] 22 mg/mg Normal 6 - 22 [facility].; [employer] [facility], [facility]. Laboratory - Hematology and Cell countson 01-31-2025 Basophils (Bld) [#/Vol] 0.018 10*3/uL Normal 0 - 200 {cells/uL} [facility].; [facility], [facility]. Basophils/100 WBC (Bld) 0.3 % Normal [facility], [facility] Eosinophils (Bld) [#/Vol] 0.06 10*3/uL Normal 15 - 500 {cells/uL} [facility].; [facility], [facility]. Eosinophils/100 WBC (Bld) 1.0 % Normal [facility], [facility].; [employer] [facility], [facility] Erythrocyte distribution width (RBC) [Ratio] 13.2 % Normal 11.0 - 15.0 % [facility].; [facility] [employer] Hematocrit (Bld) [Volume fraction] 42.4 % Normal 35.0 - 45.0 % [facility].; [facility], [facility] Hemoglobin (Bld) [Mass/Vol] 13.8 g/dL Normal 11.7 - 15.5 g/dL [facility].; [facility], [facility] Lymphocytes (Bld) [#/Vol] 1.212 10*3/uL Normal 8 50 - 3900 {cells/uL} [facility].; [facility], [facility] Lymphocytes/100 WBC (Bld) 20.2 % Normal [facility].; [facility], [facility]. MCH (RBC) [Entitic mass] 28.5 pg Normal 27. 0 - 33.0 pg [facility].; [facility], [facility]. MCHC (RBC) [Mass/Vol] 32.5 g/dL Normal 32.0 - 36.0 g/dL [facility], [facility].; [facility], [facility]. MCV (RBC) [Entitic vol] 87.4 fL Normal 80.0 - 100.0 fL [facility].; [facility], [facility]. Monocytes (Bld) [#/Vol] 0.33 10*3/uL Normal 200 - 950 {cells/uL} [facility], [facility].; [facility], [facility]. Monocytes/100 WBC (Bld) 5.5 % Normal [facility].; [facility], [facility]. Neutrophils (Bld) [#/Vol] 4.38 10*3/uL Normal 15 00 - 7800 {cells/uL} [facility].; [employer] [facility], [facility]. Neutrophils/100 WBC (Bld) 73 % Normal [facility].; [employer] [facility], [facility]. Platelet mean volume (Bld) [Entitic vol] 8.3 fL Normal 7.5 - 12.5 fL [facility], [facility].; [facility], [facility]. Platelets (Bld) [#/Vol] 184 10*3/uL Normal 140 - 400 [facility].; [facility], [facility]. RBC (Bld) [#/Vol] 4.85 10*6/uL Normal 3.80 - 5.10 {Million/u L} [facility].; [employer]. WBC (Bld) [#/Vol] 6.0 10*3/uL Normal 3.8 - 10.8 [employer]. No Panel Informationon 01-31 CHOL/HDLC RATIO 2.2 Normal [employer]; [employer]. GLOBULIN 2.5 Normal 1.9 - 3.7 [employer]; [employer] NON HDL CHOLESTEROL 77 Normal [facility] [employer]; [employer] Urine Cultureon 01-15-2025 URC Klebsiella pneumonia e sp pneum [place] Count >100,000 Klebsiella pneumoniae sp pneum: REACTION [...] TMP SMX Islt WICHO <=20 S Normal [facility] Comment on above: Performed By: #### M 100.2200 #### [facility] [address] [place] [address], [address] Urine cultureOrdered By: Mauricio Cleaning on 01-13-2025 Bacteria identified Cx Nom (U) Klebsiella pneumoniae sp pneum Abnormal [facility] .Auto Diffon 11-24-2024 Basophil, Absolute 0.0 10 3/mcL Normal 0.0-0.3 [facility] Comment on above: Performed By: #### C RONALD CASAS ANEU, PRO, BMP, GFR #### [facility] [address] [place] [address] Basophils/100 WBC (Bld) 0.4 % Normal 0.0-2.5 [facility] Comment on above: Performed By: #### C RONALD CASAS ANEU, PRO, BMP, GFR #### [address] [address] Eosinophil, Absolute 0.1 10 3/mcL Normal 0.0-0.7 [facility] Comment on above: Performed By: #### C BC, ADIFF, ANEU, PRO, BMP, GFR #### [address] [address] Eosinophils/100 WBC (Bld) 1.3 % Normal 0.0-6.0 [facility] Comment on above: Performed By: #### C BC, ADIFF, ANEU, PRO, BMP, GFR #### [address] [address] Lymphocyte, Absolute 1.2 10 3/mcL Normal 0.9-4.3 [facility] Comment on above: Performed By: #### C BC, ADIFF, ANEU, PRO, BMP, GFR #### [address] [address] Lymphocytes/100 WBC (Bld) 22.0 % Normal 20.0-40.0 [facility] Comment on above: Performed By: #### C BC, ADIFF, ANEU, PRO, BMP, GFR #### [address] [address] Monocyte, Absolute 0.4 10 3/mcL Normal 0.1-1.4 [facility] Comment on above: Performed By: #### C BC, ADIFF, ANEU, PRO, BMP, GFR #### [address] [address] Monocytes/100 WBC (Bld) 8.0 % Normal 2.0-13.0 [facility] Comment on above: Performed By: #### C BC, ADIFF, ANEU, PRO, BMP, GFR #### [address] [address] Neutrophils/100 WBC (Bld) 68.3 % Normal 50.0-75.0 [facility] Comment on above: Performed By: #### C BC, ADIFF, ANEU, PRO, BMP, GFR #### [address] [address] .GFRon 02-05-2025 Estimated Glomerular Filtration Rate 53 ml/min/1.73sqm Normal [facility] Comment on above: Result Comment: Stages [...] BC, ADIFF, ANEU, PRO, BMP, GFR #### [address] [address] .NEUABSon 11-24-2024 Neutrophil, Absolute 3.8 10 3/mcL Normal 2.3-8.1 [facility] Comment on above: Performed By: #### C BC, ADIFF, ANEU, PRO, BMP, GFR #### [address] [address] BMPon 11-24-2024 BUN/Creatinine Ratio 20.0 ratio Normal 10.0-22.0 [facility] Comment on above: Performed By: #### C BC, ADIFF, ANEU, PRO, BMP, GFR #### [address] [address] Calcium [Mass/Vol] 9.5 mg/dL Normal 8.7-10.4 [facility] Comment on above: Performed By: #### C BC, ADIFF, ANEU, PRO, BMP, GFR #### [address] [address] Chloride [Moles/Vol] 104 mmol/L Normal 98-110 [facility] Comment on above: Performed By: #### C BC, ADIFF, ANEU, PRO, BMP, GFR #### [address] [address] CO2 [Moles/Vol] 28 mmol/L Normal 22-32 [facility] Comment on above: Performed By: #### C BC, ADIFF, ANEU, PRO, BMP, GFR #### [address] [address] Creatinine [Mass/Vol] 1.10 mg/dL Normal 0.50-1.20 [facility] Comment on above: Result Comment: Test ing performed on [employer] analyzer using enzymatic creatinine methodology. Performed By: #### C BC, ADIFF, ANEU, PRO, BMP, GFR #### [place] [id number] Electrolyte Balance 8.0 mEq/L Normal 4.0-15.0 [facility] Comment on above: Performed By: #### C BC, ADIFF, ANEU, PRO, BMP, GFR #### [place] [id number] Glucose [Mass/Vol] 92 mg/dL Normal 82-115 [facility] Comment on above: Performed By: #### C BC, ADIFF, ANEU, PRO, BMP, GFR #### [address] [address] Potassium [Moles/Vol] 4.7 mmol/L Normal 3.5-5.0 [facility] Comment on above: Result Comment: Spec imen slightly hemolyzed. Performed By: #### C BC, ADIFF, ANEU, PRO, BMP, GFR #### [place] [id number] Sodium [Moles/Vol] 140 mmol/L Normal 136-145 [facility] Comment on above: Performed By: #### C BC, ADIFF, ANEU, PRO, BMP, GFR #### [address] [address] Urea nitrogen [Mass/Vol] 22.0 mg/dL Normal 8.0-22.0 [facility] Comment on above: Performed By: #### C BC, ADIFF, ANEU, PRO, BMP, GFR #### [address] [address] CBCon 11-24-2024 Erythrocyte distribution width (RBC) [Ratio] 15.4 % Normal 11.5-15.5 [facility] Comment on above: Performed By: #### C BC, ADIFF, ANEU, PRO, BMP, GFR #### [place] [address] Hematocrit (Bld) [Volume fraction] 39.0 % Normal 34.0-46.0 [facility] Comment on above: Performed By: #### C BC, ADIFF, ANEU, PRO, BMP, GFR #### [place] [address] Hgb 13.2 G/dL Normal 12.0-16.0 [facility] Comment on above: Performed By: #### C BC, ADIFF, ANEU, PRO, BMP, GFR #### [place] [address] MCH (RBC) [Entitic mass] 28.7 pg Normal 27.0-33.0 [facility] Comment on above: Performed By: #### C BC, ADIFF, ANEU, PRO, BMP, GFR #### [place] [address] MCHC 33.9 G/dL Normal 32.0-36.0 [facility] Comment on above: Performed By: #### C BC, ADIFF, ANEU, PRO, BMP, GFR #### [place] [address] MCV (RBC) [Entitic vol] 84.7 fL Normal 80.0-99.0 [facility] Comment on above: Performed By: #### C BC, ADIFF, ANEU, PRO, BMP, GFR #### [place] [address] Platelet 187 10 3/mcL Normal 150-450 [facility] Comment on above: Performed By: #### C BC, ADIFF, ANEU, PRO, BMP, GFR #### [place] [address] Platelet mean volume (Bld) [Entitic vol] 6.3 fL Low 6.6-10.5 [facility] Comment on above: Performed By: #### C BC, ADIFF, ANEU, PRO, BMP, GFR #### [place] [id number] [place] [address] RBC 4.60 10 6/mcL Normal 4.10-5.30 [facility] Comment on above: Performed By: #### C BC, ADIFF, ANEU, PRO, BMP, GFR #### [facility] [address] [place] [address] WBC 5.5 10 3/mcL Normal 4.5-10.8 [facility] Comment on above: Performed By: #### C BC, ADIFF, ANEU, PRO, BMP, GFR #### [place] [id number] [place] [address] LABORATORYOrdered By: SYSTEM SYSTEM on 11-24-2024 Basophils [...] above: Interpretive Data: T esting performed on [employer] analyzer using enzymatic creatinine methodology. Electrolyte [...] s Normal 9.0 - 1 4.4 seconds [facility] Comment on above: Interpretive Data: E ffective 05/03/08, Protime results may be affected by some antibiotics (i.e. Ciprofloxacin, Azithromycin, Bactrim) which may potentiate the action of oral anticoagulants, with further increases in Protime/INR. PT International Ratio 0.9 ratio Invalid Interpretation Code [facility] Comment on above: Interpretive Data: Luis Miguel navarro [employer] (CHEST, 1991, 102:312S-25S) [...] Coag (PPP) [Relative time] 0.9 {INR} Normal [facility] Comment on above: Result Comment: [employer] (CHEST, 1991, 102:312S-25S) recommended therapeutic range for oral anticoagulant therapy is: LOW RISK: Prophylaxis of venous thrombosis INR: 2.0-3.0 Treatment of pulmonary embolism 2.0-3.0 Prevention of systemic embolism 2.0-3.0 HIGH RISK: Mechanical prosthetic valves 2.5-3.5 Performed By: #### C BC, ADIFF, ANEU, PRO, BMP, GFR #### [place] [address] PT Coag (PPP) [Time] 10.6 s Normal 9.0-14.4 [facility] Comment on above: Result Comment: Effe ctive 05/03/08, Protime results may be affected by some antibiotics (i.e. Ciprofloxacin, Azithromycin, Bactrim) which may potentiate the action of oral anticoagulants, with further increases in Protime/INR. Performed By: #### C BC, ADIFF, ANEU, PRO, BMP, GFR #### [facility] [address] [place] [address] Gastroenterology Visit Repor ton 11-02-2024 Gastroenterology Visit Report [facility] [address] 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 ??? [facility] ED presentation 11.03.22, 11.18.22 and 12.07.22 [...] as needed (more content not included)... Normal [facility] CBC (INCLUDES DIFF/PLT)on Basophils (Bld) [#/Vol] 0.02 10*3/uL Normal 0-200 [facility] Comment on above: Performed By: #### 7 846, 73787, 6399 #### [facility] of [address], [address] [place] [address] Aerial Advertiser: Jason Casanova MD Basophils/100 WBC (Bld) 0.5 % Normal [facility] Comment on above: Performed By: #### 7 600, 47377, 6399 #### [facility] of [address], [address] [place] [address] Aerial Advertiser: Jason Casanova MD Eosinophils (Bld) [#/Vol] 0.092 10*3/uL Normal 15-500 [facility] Comment on above: Performed By: #### 7 600, , 6399 #### [facility] of [address], [address] [place] [address] Aerial Advertiser: Jason Casanova MD Eosinophils/100 WBC (Bld) 2.3 % Normal [facility] Comment on above: Performed By: #### 7 600, , 99 #### [facility] of [address], [address] [place] [address] Aerial Advertiser: Jason Casanova MD Erythrocyte distribution width (RBC) [Ratio] 14.4 % Normal 11.0-15.0 [facility] Comment on above: Performed By: #### 7 600, 88366, 6399 #### [facility] of [place] [address] Aerial Advertiser: Jason Casanova MD Hematocrit (Bld) [Volume fraction] 39.4 % Normal 35.0-45.0 [facility] Comment on above: Performed By: #### 7 600, 25190, 6399 #### [facility] of [address], [address] [place] [address] Aerial Advertiser: Jason Casanova MD Hemoglobin (Bld) [Mass/Vol] 12.7 g/dL Normal 11.7-15. 5 [facility] Comment on above: Performed By: #### 7 600, 19072, 6399 #### [facility] of [address], [address] [place] [address] Aerial Advertiser: Jason Casanova MD Lymphocytes (Bld) [#/Vol] 1.532 10*3/uL Normal 850-390 0 [facility] Comment on above: Performed By: #### 7 600, 50517, 6399 #### [facility] of [place] [address] Aerial Advertiser: Jason Casanova MD Lymphocytes/100 WBC (Bld) 38.3 % Normal [facility] Comment on above: Performed By: #### 7 600, 58306, 6399 #### [facility] [place] [address] Aerial Advertiser: Jason Casanova MD MCH (RBC) [Entitic mass] 28.3 pg Normal 27.0-33.0 [facility] Comment on above: Performed By: #### 7 600, 07427, 6399 #### [facility] [place] [address] Aerial Advertiser: Jason Casanova MD MCHC (RBC) [Mass/Vol] 32.2 g/dL Normal 32.0-36.[address] [facility] Comment on above: Performed By: #### 7 600, 02861, 6399 #### [facility] [place] [address] Aerial Advertiser: Jason Casanova MD MCV (RBC) [Entitic vol] 87.9 fL Normal 80.0-100.0 [facility] Comment on above: Performed By: #### 7 600, 32887, 6399 #### [facility] of [place] [address] Aerial Advertiser: Jason Casanova MD Monocytes (Bld) [#/Vol] 0.32 10*3/uL Normal 200-950 [facility] Comment on above: Performed By: #### 7 600, 79578, 6399 #### [facility] of [place] [address] Aerial Advertiser: Jason Casanova MD Monocytes/100 WBC (Bld) 8.0 % Normal [facility] Comment on above: Performed By: #### 7 600, 30472, 6399 #### [facility] of [place] [address] Aerial Advertiser: Jason Casanova MD Neutrophils (Bld) [#/Vol] 2.036 10*3/uL Normal 1500-78 00 [facility] Comment on above: Performed By: #### 7 600, 91994, 6399 #### [facility] of [place] [address] Aerial Advertiser: Jason Casanova MD Neutrophils/100 WBC (Bld) 50.9 % Normal [facility] Comment on above: Performed By: #### 7 600, 08284, 6399 #### [facility] of [place] [address] Aerial Advertiser: Jason Casanova MD Platelet mean volume (Bld) [Entitic vol] 8.4 fL Normal 7.5-12.5 [facility] Comment on above: Performed By: #### 7 600, 26924, 6399 #### [facility] of [place] [address] Aerial Advertiser: Jason Casanova MD Platelets (Bld) [#/Vol] 178 10*3/uL Normal 140-400 [facility] Comment on above: Performed By: #### 7 600, 17767, 6399 #### [facility] of [place] [address] Aerial Advertiser: Jason Casanova MD RBC (Bld) [#/Vol] 4.48 10*6/uL Normal 3.80-5.10 [facility] Comment on above: Performed By: #### 7 600, 80277, 6399 #### [facility] of [place] [address] Aerial Advertiser: Jason Casanova MD WBC (Bld) [#/Vol] 4.0 10*3/uL Normal 3.8-10.8 [facility] Comment on above: Performed By: #### 7 600, 44915, 6399 #### [facility] of [address], [address] [place] [address] Aerial Advertiser: Jason Casanova MD [employer] [facility] 04-27-2024 Albumin [Mass/Vol] 4.1 g/dL Normal 3.6-5.1 [facility] Comment on above: Performed By: #### 7 600, 16309, 6399 #### [facility] of [address], [address] [place] [address] Aerial Advertiser: Jason Casanova MD Albumin/Globulin [Mass ratio] 1.6 {ratio} Normal 1.0-2.5 [facility] Comment on above: Performed By: #### 7 600, 44930, 6399 #### [facility] of [place] [address] Aerial Advertiser: Jason Casanova MD ALP [Catalytic activity/Vol] 89 U/L Normal 37-153 [facility] Comment on above: Performed By: #### 7 600, 77150, 6399 #### [facility] of [place] [address] Aerial Advertiser: Jason Casanova MD ALT [Catalytic activity/Vol] 12 U/L Normal 6-29 [facility] Comment on above: Performed By: #### 7 600, 62299, 6399 #### [facility] of [place] [address] Aerial Advertiser: Jason Casanova MD AST [Catalytic activity/Vol] 16 U/L Normal 10-35 [facility] Comment on above: Performed By: #### 7 600, 40425, 6399 #### [facility] of [place] [address] Aerial Advertiser: Jason Casanova MD Bilirubin [Mass/Vol] 0.3 mg/dL Normal 0.2-1.2 [facility] Comment on above: Performed By: #### 7 600, 37514, 6399 #### [facility] of [address] [place] [address] Aerial Advertiser: Jason Casanova MD Calcium [Mass/Vol] 8.7 mg/dL Normal 8.6-10.4 [facility] Comment on above: Performed By: #### 7 600, 38390, 6399 #### [facility] of [address], [address] [place] [address] Aerial Advertiser: Jason Casanova MD Chloride [Moles/Vol] 106 mmol/L Normal 98-110 [facility] Comment on above: Performed By: #### 7 600, 04290, 6399 #### [facility] of [place] [address] Aerial Advertiser: Jason Casanova MD CO2 [Moles/Vol] 25 mmol/L Normal 20-32 [facility] Comment on above: Performed By: #### 7 600, 17042, 6399 #### [facility] of [address], [address] [place] [address] Aerial Advertiser: Jason Casanova MD Creatinine [Mass/Vol] 1.11 mg/dL High 0.60-1.[address] [facility] Comment on above: Performed By: #### 7 600, 93513, 6399 #### [facility] of [place] [address] Aerial Advertiser: Jason Casanova MD GFR/1.73 sq M.predicted among non-blacks MDRD (S/P/Bld) [Vol rate/Area] 53 mL/min/{1.73_m2} Low > OR = 60 [facility] Comment on above: Performed By: #### 7 600, 48984, 6399 #### [facility] of [place] [address] Aerial Advertiser: Jason Casanova MD Globulin (S) [Mass/Vol] 2.6 g/dL Normal 1.9-3.7 [facility] Comment on above: Performed By: #### 7 600, 87593, 6399 #### [facility] of [address], [address] [place] [address] Aerial Advertiser: Jason Casanova MD Glucose [Mass/Vol] 95 mg/dL Normal 65-99 [facility] Comment on above: Result Comment: Fasting reference interval Performed By: #### 7 600, 64845, 6399 #### [facility] [place] [address] Aerial Advertiser: Jason Casanova MD Potassium [Moles/Vol] 4.5 mmol/L Normal 3.5-5.[address] [facility] Comment on above: Performed By: #### 7 600, 89124, 6399 #### [facility] [place] [address] Aerial Advertiser: Jason Casanova MD Protein [Mass/Vol] 6.7 g/dL Normal 6.1-8.1 [facility] Comment on above: Performed By: #### 7 600, 11271, 6399 #### [facility] [place] [address] Aerial Advertiser: Jason Casanova MD Sodium [Moles/Vol] 140 mmol/L Normal 135-146 [facility] Comment on above: Performed By: #### 7 600, 29348, 6399 #### [facility] [place] [address] Aerial Advertiser: Jason Casanova MD Urea nitrogen [Mass/Vol] 21 mg/dL Normal 7-25 [facility] Comment on above: Performed By: #### 7 600, 10164, 6399 #### [facility] [place] [address] Aerial Advertiser: Jason Casanova MD Urea nitrogen/Creatinine [Mass ratio] 19 mg/mg Normal 6-22 [facility] Comment on above: Performed By: #### 7 600, 22790, 6399 #### [facility] [place] [address] Aerial Advertiser: Jason Casanova MD LIPID PANEL, [facility] Cholesterol [Mass/Vol] 143 mg/dL Normal <200 [facility] Comment on above: Performed By: #### 7 600, 37224, 6399 #### [facility] [place] [address] Aerial Advertiser: Jason Casanova MD Cholesterol in HDL [Mass/Vol] 48 mg/dL Low > OR = 50 [facility] Comment on above: Performed By: #### 7 600, 14683, 6399 #### [facility] [place] [address] Aerial Advertiser: Jason Casanova MD Cholesterol in LDL [Mass/Vol] [...] Friedewald equation in the estimation of LDL-C. Amaunel PARADA et al. JOSE LUIS. 2013;310(19): 4298-5925 (http://education.Bebestore.POI/faq/GKB998) Performed By: #### 7 600, 99776, 6399 #### [facility] [place] [address] Aerial Advertiser: Jason Casanova MD Cholesterol.total/Cholester ol in HDL [Mass ratio] 3.0 {ratio} Normal <5.0 [facility] Comment on above: Performed By: #### 7 600, 54609, 6399 #### [facility] [address], [address] [place] [address] Aerial Advertiser: Jason Casanova MD NON HDL CHOLESTEROL 95 mg/dL (calc) Normal <130 [facility] Comment on above: Result Comment: For patients with diabetes plus 1 major ASCVD risk factor, treating to a non-HDL-C goal of <100 mg/dL (LDL-C of <70 mg/dL) is considered a therapeutic option. Performed By: #### 7 600, 03214, 6399 #### [facility] of [place] [address], [address] [place] [address] Aerial Advertiser: Jason Casanova MD Triglyceride [Mass/Vol] 226 mg/dL High <150 [facility] Comment on above: Result Comment: If a non-fasting specimen was collected, consider repeat triglyceride testing on a fasting specimen if clinically indicated. Elsa et al. J. of Clin. Lipidol. 2015;9:129-169. Performed By: #### 7 600, 83218, 6399 #### [facility] [address], [address] [place] [address] Aerial Advertiser: Jason Casanova MD Laboratory - Chemistry and C hemistry - challengeon 04-26-2024 Albumin [Mass/Vol] 4.1 g/dL Normal 3.6 - 5.1 g/dL [facility] [employer] Albumin/Globulin [Mass ratio] 1.6 {ratio} Normal 1.0 - 2.5 [facility] ALP [Catalytic activity/Vol] 89 U/L Normal 37 - 153 U/L [facility] [employer] ALT [Catalytic activity/Vol] 12 U/L Normal 6 - 29 U/L [facility] [employer] AST [Catalytic activity/Vol] 16 U/L Normal 10 - 35 U/L [facility] [employer] [facility] [employer] Bilirubin [Mass/Vol] 0.3 mg/dL Normal 0.2 - 1 .2 mg/dL [facility] [employer] Calcium [Mass/Vol] 8.7 mg/dL Normal 8.6 - 10. 4 mg/dL [facility] [employer] Chloride [Moles/Vol] 106 mmol/L Normal 98 - 11 0 mmol/L [facility] [employer] [facility] [employer] Cholesterol [Mass/Vol] 143 mg/dL Normal [facility] [employer] Cholesterol in HDL [Mass/Vol] 48 mg/dL Abnormal [facility] [place] [employer] [facility], [facility]. Cholesterol in LDL [Mass/Vol] 67 mg/dL Normal [facility], [facility].; [facility], [facility]. CO2 [Moles/Vol] 25 mmol/L Normal 20 - 32 mmol/L [facility], [facility].; [place] [employer] [facility] Creatinine [Mass/Vol] 1.11 mg/dL Abnormal 0.60 - 1.00 mg/dL [facility], [facility].; [facility], [facility]. GFR/1.73 sq M.predicted among non-blacks MDRD (S/P/Bld) [Vol rate/Area] 53 mL/min/{1.73_m2} Abnormal [facility], [facility].; [facility], [facility] Glucose [Mass/Vol] 95 mg/dL Normal 65 - 99 mg/dL [facility], [facility].; [facility] [employer] [facility] Potassium [Moles/Vol] 4.5 mmol/L Normal 3.5 - 5.3 mmol/L [facility], [facility].; [place] [employer] [facility] Protein [Mass/Vol] 6.7 g/dL Normal 6.1 - 8.1 g/dL [facility], [facility].; [employer] Sodium [Moles/Vol] 140 mmol/L Normal 135 - 146 mmol/L [facility], [facility].; [employer] Triglyceride [Mass/Vol] 226 mg/dL Abnormal [facility], [facility].; [employer], [facility] Urea nitrogen [Mass/Vol] 21 mg/dL Normal 7 - 25 mg/dL [facility], [facility].; [employer], [facility]. Urea nitrogen/Creatinine [Mass ratio] 19 mg/mg Normal 6 - 22 [facility], [facility].; [employer], [facility]. Laboratory - Hematology and Cell countson 04-26-2024 Basophils (Bld) [#/Vol] 0.02 10*3/uL Normal 0 - 200 {cells/uL} [facility], [facility].; [employer] Basophils/100 WBC (Bld) 0.5 % Normal [facility], [facility].; [place] [employer] [facility] Eosinophils (Bld) [#/Vol] 0.092 10*3/uL Normal 1 5 - 500 {cells/uL} [facility].; [employer]. Eosinophils/100 WBC (Bld) 2.3 % Normal [facility].; [employer], [facility]. Erythrocyte distribution width (RBC) [Ratio] 14.4 % Normal 11.0 - 15.0 % [facility] [employer], [employer]. Hematocrit (Bld) [Volume fraction] 39.4 % Normal 35.0 - 45.0 % [facility].; [employer], [facility]. Hemoglobin (Bld) [Mass/Vol] 12.7 g/dL Normal 11.7 - 15.5 g/dL [place] [employer] [facility].; [employer], [facility]. Lymphocytes (Bld) [#/Vol] 1.532 10*3/uL Normal 8 50 - 3900 {cells/uL} [facility] [employer], [facility].; [place] [employer]. Lymphocytes/100 WBC (Bld) 38.3 % Normal [facility].; [employer], [employer]. MCH (RBC) [Entitic mass] 28.3 pg Normal 27. 0 - 33.0 pg [employer] [employer], [employer]. MCHC (RBC) [Mass/Vol] 32.2 g/dL Normal 32.0 - 36.0 g/dL [facility].; [employer], [employer]. MCV (RBC) [Entitic vol] 87.9 fL Normal 80.0 - 100.0 fL [facility].; [employer], [employer]. Monocytes (Bld) [#/Vol] 0.32 10*3/uL Normal 200 - 950 {cells/uL} [employer] [employer] Monocytes/100 WBC (Bld) 8.0 % Normal [facility].; [place] [employer], [facility]. Neutrophils (Bld) [#/Vol] 2.036 10*3/uL Normal 1 500 - 7800 {cells/uL} [employer], [employer].; [employer] Neutrophils/100 WBC (Bld) 50.9 % Normal [facility].; [employer] Platelet mean volume (Bld) [Entitic vol] 8.4 fL Normal 7.5 - 12.5 fL [facility].; [place] [employer] Platelets (Bld) [#/Vol] 178 10*3/uL Normal 140 - 400 [employer] RBC (Bld) [#/Vol] 4.48 10*6/uL Normal 3.80 - 5.10 {Million/u L} [facility].; [place] [employer] WBC (Bld) [#/Vol] 4.0 10*3/uL Normal 3.8 - 10.8 [place] [employer] [facility] [place] [employer] No Panel Informationon 04-26 CHOL/HDLC RATIO 3.0 Normal [facility]; [place] [employer] GLOBULIN 2.6 Normal 1.9 - 3.7 [facility]; [place] [employer] NON HDL CHOLESTEROL 95 Normal [facility]; [place] [employer] Basophil percentageOrdered B y: Giorgio Cleaning on 01-12-2024 Chloride [Moles/Vol] 105 mmol/L 98-107 [facility] Glucose [Mass/Vol] 79 mg/dL 74-106 [facility] Hemoglobin (Bld) [Mass/Vol] 12.7 g/dL 12.0-15. 0 [facility] Potassium [Moles/Vol] 4.5 mmol/L 3.5-5.1 [facility] Sodium [Moles/Vol] 137 mmol/L 136-145 [facility] WBC (Bld) [#/Vol] 5.6 10*3/uL 4.4-11.0 [facility] Determination of erythrocyte mean corpuscular volume (MCV)Ordered By: Giorgio Cleaning on 01-12-2024 MCV (RBC) [Entitic vol] 85.9 fL 81-99 [facility] Erythrocyte distribution wid th ratioOrdered By: Giorgio Cleaning on 01-12-2024 Erythrocyte distribution width (RBC) [Ratio] 14.2 % 11.6-14.6 [facility] Erythrocyte distribution wid th standard deviationOrdered By: Giorgio Cleaning on 01-12-2024 Erythrocyte distribution width (RBC) [Entitic vol] 44.1 fL 35.1-43.9 [facility] Hematocrit Auto (Bld) [Volum e fraction]Ordered By: Giorgio Cleaning on 01-12-2024 Hematocrit (Bld) [Volume fraction] 40.1 % 37-47 [facility] Laboratory - Chemistry and C hemistry - challengeOrdered By: Giorgio Cleaning on 01-12-2024 CO2 [Moles/Vol] 24.0 mmol/L 21.0-32.0 [facility] Urea nitrogen/Creatinine [Mass ratio] 19.8 mg/mg 10-20 [facility] Laboratory - Hematology and Cell countsOrdered By: Giorgio Cleaning on 01-12-2024 MCH (RBC) [Entitic mass] 27.2 pg 27.0-32.0 [facility] MCHC (RBC) [Mass/Vol] 31.7 g/dL 32-36 [facility] Platelet mean volume (Bld) [Entitic vol] 8.6 fL 6.2-12.0 [facility] Platelets (Bld) [#/Vol] 194 10*3/uL 150-450 [facility] No Panel InformationOrdered By: Giorgio Cleaning on 01-12-2024 Estimated GFR (MDRD) Amer 56 mL/min >60 [facility] Comment on above: GFR Calc Estimated GFR (MDRD) Non-Af Amer 47 mL/min >60 [facility] Comment on above: Non- GFR Calc RBC Auto (Bld) [#/Vol]Ordere d By: Giorgio Cleaning on 01-12-2024 RBC (Bld) [#/Vol] 4.67 10*6/uL 4.2-5.4 [facility] Serum or plasma calcium molly urement (mass/volume)Ordered By: Giorgio Cleaning on 01-12-2024 Calcium [Mass/Vol] 8.8 mg/dL 8.5-10.1 [facility] Serum or plasma creatinine m easurement (mass/volume)Ordered By: Giorgio Cleaning on 01-12-2024 Creatinine [Mass/Vol] 1.21 mg/dL 0.55-1.02 [facility] Comment on above: The validity of the calculated GFR & GFRAA in patients over 70 years has not been determined. Clinical correlation is essential. Serum or plasma urea nitroge n measurement (mass/volume)Ordered By: Giorgio Cleaning on 01-12-2024 Urea nitrogen [Mass/Vol] 24 mg/dL 7-18 [facility] Thin prep Papanicolaou smear with manual screeningOrdered By: Giorgio Cleaning on 01-12-2024 Thin prep Papanicolaou smear with manual screening 8 5-15 [facility] Basophil percentageOrdered B y: MYCHAL Carbajal on 07-07-2023 Bilirubin [Mass/Vol] 0.30 mg/dL 0.20-1.00 [facility] Comment on above: For patients on eltr ombopag therapy, use of Dimension Rogers TBIL is not recommended. Chloride [Moles/Vol] 106 mmol/L 98-107 [facility] Glucose [Mass/Vol] 95 mg/dL 74-106 [facility] Potassium [Moles/Vol] 4.4 mmol/L 3.5-5.1 [facility] Protein [Mass/Vol] 7.3 g/dL 6.4-8.2 [facility] Sodium [Moles/Vol] 137 mmol/L 136-145 [facility] WBC (Bld) [#/Vol] 5.2 10*3/uL 4.4-11.0 [facility] Blood erythrocytes count (nu mber/volume)Ordered By: MYCHAL Carbajal on 07-07-2023 RBC (Bld) [#/Vol] 4.53 10*6/uL 4.2-5.4 [facility] Blood hemoglobin measurement (mass/volume)Ordered By: MYCHAL Carbajal on 07-07-2023 Hemoglobin (Bld) [Mass/Vol] 12.7 g/dL 12.0-15. 0 [facility] Blood platelet mean volumeOr dered By: MYCHAL Carbajal on 07-07-2023 Platelet mean volume (Bld) [Entitic vol] 8.2 fL 6.2-12.0 [facility] Determination of erythrocyte mean corpuscular volume (MCV)Ordered By: MYCHAL Carbajal on 07-07-2023 MCV (RBC) [Entitic vol] 89.8 fL 81-99 [facility] Hematocrit Auto (Bld) [Volum e fraction]Ordered By: MYCHAL Carbajal on 07-07-2023 Hematocrit (Bld) [Volume fraction] 40.7 % 37-47 [facility] - Chemistry and C hemistry - challengeOrdered By: MYCHAL Carbajal on 07-07-2023 ALP [Catalytic activity/Vol] 118 U/L 45-117 [facility] ALT [Catalytic activity/Vol] 20 U/L 13-56 [facility] CO2 [Moles/Vol] 28.0 mmol/L 21.0-32.0 [facility] Globulin (S) [Mass/Vol] 3.8 g/dL 2.2-4.2 [facility] Urea nitrogen/Creatinine [Mass ratio] 21.8 mg/mg 10-20 [facility] - Hematology and Cell countsOrdered By: MYCHAL Carbajal on 07-07-2023 Erythrocyte distribution width (RBC) [Entitic vol] 43.6 fL 35.1-43.9 [facility] Erythrocyte distribution width (RBC) [Ratio] 13.3 % 11.6-14.6 [facility] MCH (RBC) [Entitic mass] 28.0 pg 27.0-32.0 [facility] MCHC Auto (RBC) [Mass/Vol]Or dered By: MYCHAL Carbajal on 07-07-2023 MCHC (RBC) [Mass/Vol] 31.2 g/dL 32-36 [facility] No Panel InformationOrdered By: MYCHAL Carbajal on 07-07-2023 Estimated GFR (MDRD) Amer 58 mL/min >60 [facility] Comment on above: GFR Calc Estimated GFR (MDRD) Non-Af Amer 48 mL/min >60 [facility] Comment on above: Non- GFR Calc Platelets bldOrdered By: MYCHAL Carbajal on 07-07-2023 Platelets (Bld) [#/Vol] 190 10*3/uL 150-450 [facility] Serum or plasma albumin molly urement (mass/volume)Ordered By: MYCHAL Carbajal on 07-07-2023 Albumin [Mass/Vol] 3.5 g/dL 3.2-5.0 [facility] Serum or plasma albumin/glob ulin mass ratioOrdered By: MYCHAL Delvalle [facility] on 07-07-2023 Albumin/Globulin [Mass ratio] 0.9 {ratio} 0.9-2.4 [facility] Serum or plasma calcium molly urement (mass/volume)Ordered By: MYCHAL [facility] on 07-07-2023 Calcium [Mass/Vol] 8.6 mg/dL 8.5-10.1 [facility] Serum or plasma creatinine m easurement (mass/volume)Ordered By: MYCHAL Delvalle [facility] on 07-07-2023 Creatinine [Mass/Vol] 1.19 mg/dL 0.55-1.02 [facility] Comment on above: The validity of the calculated GFR & GFRAA in patients over 70 years has not been determined. Clinical correlation is essential. Serum or plasma urea nitroge n measurement (mass/volume)Ordered By: MYCHAL [facility] on 07-07-2023 Urea nitrogen [Mass/Vol] 26 mg/dL 7-18 [facility] Thin prep Papanicolaou smear with manual screeningOrdered By: MYCHAL Delvalle [facility] on 07-07-2023 Thin prep Papanicolaou smear with manual screening 16 U/L 15-37 [facility] Thin prep Papanicolaou smear with manual screening 3 5-15 [facility] Laboratory - Hematology and Cell countson 05-07-2023 Basophils (Bld) [#/Vol] 0.022 10*3/uL Normal 0 - 200 {cells/uL} [facility], [facility].; [employer], [facility]. Basophils/100 WBC (Bld) 0.5 % Normal [facility], [facility].; [employer] [facility] Eosinophils (Bld) [#/Vol] 0.069 10*3/uL Normal 1 5 - 500 {cells/uL} [facility], [facility].; [employer], [employer]. Eosinophils/100 WBC (Bld) 1.6 % Normal [facility], [facility].; [employer] [facility] Erythrocyte distribution width (RBC) [Ratio] 14.4 % Normal 11.0 - 15.0 % [facility].; [facility], [facility] Hematocrit (Bld) [Volume fraction] 39.1 % Normal 35.0 - 45.0 % [facility]; [facility], [facility] Hemoglobin (Bld) [Mass/Vol] 12.8 g/dL Normal 11.7 - 15.5 g/dL [facility].; [facility], [facility] Lymphocytes (Bld) [#/Vol] 1.587 10*3/uL Normal 8 50 - 3900 {cells/uL} [facility].; [facility], [facility] Lymphocytes/100 WBC (Bld) 36.9 % Normal [facility]; [facility], [facility] MCH (RBC) [Entitic mass] 27.8 pg Normal 27. 0 - 33.0 pg [facility].; [facility], [facility] MCHC (RBC) [Mass/Vol] 32.7 g/dL Normal 32.0 - 36.0 g/dL [facility].; [facility], [facility]. MCV (RBC) [Entitic vol] 84.8 fL Normal 80.0 - 100.0 fL [facility].; [facility], [facility] Monocytes (Bld) [#/Vol] 0.249 10*3/uL Normal 200 - 950 {cells/uL} [facility].; [facility], [facility]. Monocytes/100 WBC (Bld) 5.8 % Normal [facility].; [facility], [facility] Neutrophils (Bld) [#/Vol] 2.374 10*3/uL Normal 1 500 - 7800 {cells/uL} [facility].; [facility], [facility]. Neutrophils/100 WBC (Bld) 55.2 % Normal [facility].; [place] [employer] [facility], [facility] Platelet mean volume (Bld) [Entitic vol] 8.3 fL Normal 7.5 - 12.5 fL [facility].; [facility] [employer], [facility] Platelets (Bld) [#/Vol] 188 10*3/uL Normal 140 - 400 [facility].; [facility], [facility] RBC (Bld) [#/Vol] 4.61 10*6/uL Normal 3.80 - 5.10 {Million/u L} [facility].; [facility], [facility]. WBC (Bld) [#/Vol] 4.3 10*3/uL Normal 3.8 - 10.8 [facility].; [facility], [facility]. Laboratory - Chemistry and C hemistry - challengeon 04-30-2023 Albumin [Mass/Vol] 4.2 g/dL Normal 3.6 - 5.1 g/dL [facility].; [facility], [facility] Albumin/Globulin [Mass ratio] 1.5 {ratio} Normal 1.0 - 2.5 [facility].; [facility], [facility] ALP [Catalytic activity/Vol] 100 U/L Normal 37 - 153 U/L [facility].; [facility], [facility]. ALT [Catalytic activity/Vol] 12 U/L Normal 6 - 29 U/L [facility].; [facility], [facility]. AST [Catalytic activity/Vol] 18 U/L Normal 10 - 35 U/L [facility].; [facility], [facility]. Bilirubin [Mass/Vol] 0.4 mg/dL Normal 0.2 - 1 .2 mg/dL [facility], [facility].; [facility], [facility]. Calcium [Mass/Vol] 9.1 mg/dL Normal 8.6 - 10. 4 mg/dL [facility], [facility].; [facility], [facility]. Chloride [Moles/Vol] 105 mmol/L Normal 98 - 11 0 mmol/L [facility], [facility].; [facility], [facility]. Cholesterol [Mass/Vol] 158 mg/dL Normal [facility].; [facility], [facility] Cholesterol in HDL [Mass/Vol] 55 mg/dL Normal [facility], [facility].; [facility], [facility]. Cholesterol in LDL [Mass/Vol] 73 mg/dL Normal [facility], [facility].; [facility], [facility]. CO2 [Moles/Vol] 27 mmol/L Normal 20 - 32 mmol/L [facility], [facility].; [place] [employer], [facility]. Creatinine [Mass/Vol] 1.30 mg/dL Abnormal 0.60 - 1.00 mg/dL [facility].; [place] [employer], [employer]. GFR/1.73 sq M.predicted among non-blacks MDRD (S/P/Bld) [Vol rate/Area] 44 mL/min/{1.73_m2} Abnormal [facility].; [place] [employer] [facility], [facility] Glucose [Mass/Vol] 93 mg/dL Normal 65 - 99 mg/dL [facility], [facility].; [place] [employer] [facility], [facility]. Potassium [Moles/Vol] 4.4 mmol/L Normal 3.5 - 5.3 mmol/L [facility], [facility].; [place] [employer], [employer]. Protein [Mass/Vol] 7.0 g/dL Normal 6.1 - 8.1 g/dL [facility], [facility].; [place] [employer] Sodium [Moles/Vol] 139 mmol/L Normal 135 - 146 mmol/L [facility].; [place] [employer], [employer]. Triglyceride [Mass/Vol] 208 mg/dL Abnormal [facility].; [place] [employer], [facility]. Urea nitrogen [Mass/Vol] 32 mg/dL Abnormal 7 - 25 mg/dL [facility].; [place] [employer], [facility]. Urea nitrogen/Creatinine [Mass ratio] 25 mg/mg Abnormal 6 - 22 [facility].; [employer]. No Panel Informationon 04-30 CHOL/HDLC RATIO 2.9 Normal [place] [employer] [facility].; [employer] GLOBULIN 2.8 Normal 1.9 - 3.7 [place] [employer] [facility].; [place] [employer], [employer]. NON HDL CHOLESTEROL 103 Normal [facility].; [place] [employer], [employer]. Absolute lymphocyte countOrd ered By: Adrian Friend on 03-14-2023 Lymphocytes Auto (Unsp spec) [#/Vol] 1.36 10*3/uL 0.83-4.51 [facility] Albumin Elph [Mass/Vol]Order ed By: Adrianradha Park on 03-14-2023 Albumin [Mass/Vol] 3.9 g/dL 2.9-4.4 [facility] Atypical perinuclear antineu trophil cytoplasmic antibodies measurementOrdered By: Adrian Park on 03-14-2023 Neutrophil cytoplasmic Ab.perinuclear.atypical IF (S) [Titer] <1:20 titer Neg:<1:20 [facility] Comment on above: The atypical pANCA p attern has been observed in asignificant percentage of patients with ulcerative colitis,primary sclerosing cholangitis and autoimmune hepatitis.Performed at: - [facility] [address] [id number] Director: Alberto Meraz PhD, Phone: [phone] at: - [facility] [address] [id number] Director: Ryan Ulloa MD, Phone: [phone] Basophil percentageOrdered B y: Adrian Park on 03-14-2023 Basophil percentage 0.2 AI 0.0-0.9 [facility] Basophil percentage < 0.2 AI 0.0-0.9 [facility] Basophils/100 WBC (Bld) 0.4 % 0-1 [facility] Bilirubin [Mass/Vol] 0.30 mg/dL 0.20-1.00 [facility] Comment on above: For patients on eltr ombopag therapy, use of Dimension Rogers TBIL is not recommended. Chloride [Moles/Vol] 106 mmol/L 98-107 [facility] Eosinophils/100 WBC (Bld) 1.7 % 0-5 [facility] Glucose [Mass/Vol] 88 mg/dL 74-106 [facility] LDH [Catalytic activity/Vol] 202 U/L 84-246 [facility] Neutrophils (Bld) [#/Vol] 2.8 10*3/uL 2.0-7.7 [facility] Neutrophils/100 WBC (Bld) 61.4 % 47-70 [facility] Potassium [Moles/Vol] 4.4 mmol/L 3.5-5.1 [facility] Protein [Mass/Vol] 7.7 g/dL 6.4-8.2 [facility] Sodium [Moles/Vol] 140 mmol/L 136-145 [facility] WBC (Bld) [#/Vol] 4.6 10*3/uL 4.4-11.0 [facility] Blood erythrocytes count (nu mber/volume)Ordered By: Adrian Park on 03-14-2023 RBC (Bld) [#/Vol] 5.07 10*6/uL 4.2-5.4 [facility] Blood hemoglobin measurement (mass/volume)Ordered By: Adrian Park on 03-14-2023 Hemoglobin (Bld) [Mass/Vol] 13.7 g/dL 12.0-15. 0 [facility] Blood lymphocytes/100 leukoc ytesOrdered By: Adrian Park on 03-14-2023 Lymphocytes/100 WBC (Bld) 29.4 % 19-41 [facility] Blood monocytes/100 leukocyt esOrdered By: Adrian Park on 03-14-2023 Monocytes/100 WBC (Bld) 6.7 % 0-10 [facility] Blood platelet mean volumeOr dered By: Adrian Park on 03-14-2023 Platelet mean volume (Bld) [Entitic vol] 8.1 fL 6.2-12.0 [facility] Determination of erythrocyte mean corpuscular volume (MCV)Ordered By: Adrian Park on 03-14-2023 MCV (RBC) [Entitic vol] 86.6 fL 81-99 [facility] Erythrocyte sedimentation ra teOrdered By: Adrian Park on 03-14-2023 ESR (Bld) [Velocity] 20 mm/h 0-30 [facility] Hematocrit Auto (Bld) [Volum e fraction]Ordered By: Adrian Park on 03-14-2023 Hematocrit (Bld) [Volume fraction] 43.9 % 37-47 [facility] Interpretation of serum or p lasma protein pattern by immunofixation (narrative resultOrdered By: Adrian Park on 03-14-2023 Protein Fractions Immunofixation Layo [Interp] See comment [facility] Comment on above: Result: Not Observed Laboratory - Chemistry and C hemistry - challengeOrdered By: Adrian Park on 03-14-2023 ALP [Catalytic activity/Vol] 125 U/L 45-117 [facility] ALT [Catalytic activity/Vol] 18 U/L 13-56 [facility] CO2 [Moles/Vol] 26.0 mmol/L 21.0-32.0 [facility] Urea nitrogen/Creatinine [Mass ratio] 17.7 mg/mg 10-20 [facility] Laboratory - Hematology and Cell countsOrdered By: Adrian Park on 03-14-2023 Erythrocyte distribution width (RBC) [Entitic vol] 48.9 fL 35.1-43.9 [facility] Erythrocyte distribution width (RBC) [Ratio] 15.5 % 11.6-14.6 [facility] Immature granulocytes/100 WBC (Bld) 0.400 % 0.0-0.9 [facility] Comment on above: IG% - Immature Granu locytes (promyelocytes, myelocytes and metamyelocytes) > 1% indicates that a LEFT SHIFT is Present. MCH (RBC) [Entitic mass] 27.0 pg 27.0-32.0 [facility] Nucleated RBC/100 WBC (Bld) [Ratio] 0 % 0-5 [facility] MCHC Auto (RBC) [Mass/Vol]Or dered By: Adrian Park on 03-14-2023 MCHC (RBC) [Mass/Vol] 31.2 g/dL 32-36 [facility] No Panel InformationOrdered By: Adrian Park on 03-14-2023 Addendum Document Comment . [facility] Comment on above: Protein electrophore sis scan will follow via computer,mail, or exhibition specialist delivery. [employer] B Antibody <0.2 AI 0.0-0.9 [facility] Endomysial IgA Antibody Negative Negative [facility] Estimated GFR (MDRD) Amer 55 mL/min >60 [facility] Comment on above: GFR Calc Estimated GFR (MDRD) Non-Af Amer 45 mL/min >60 [facility] Comment on above: Non- GFR Calc Immunoglobulin E 21 IU/mL 6-495 [facility] [employer]PER[employer] Antibody <0.2 AI 0.0-0.9 [facility] Platelets bldOrdered By: Jordan Park on 03-14-2023 Platelets (Bld) [#/Vol] 198 10*3/uL 150-450 [facility] Serum DNA double strand anti body assay (units/volume)Ordered By: Adrian Park on 03-14-2023 DNA double strand Ab Qn (S) [IU]/mL 0-9 [facility] Comment on above: Negative <5 Equivoca l 5 - 9 Positive >9 Serum Alberta-1 antibody assay (u nits/volume)Ordered By: Adrian Park on 03-14-2023 Alberta-1 extractable nuclear Ab Qn (S) <0.2 AI 0.0-0.9 [facility] Serum Scl-70 extractable nuc lear antibody assay (units/volume)Ordered By: Adrian Park on 03-14-2023 SCL-70 extractable nuclear Ab Qn (S) <0.2 AI 0.0-0.9 [facility] Serum Chavarria extractable nucl ear antibody detectionOrdered By: Adrian Park on 03-14-2023 Chavarria extractable nuclear Ab Ql (S) <0.2 AI 0.0-0.9 [facility] Serum [id number] measu rement by electrophoresisOrdered By: Adrian Park on 03-14-2023 Alpha 1 globulin Elph [Mass/Vol] 0.2 g/dL 0.0-0.4 [facility] Alpha 1 globulin Elph [Mass/Vol] 0.9 g/dL 0.4-1.0 [facility] Serum classic neutrophil cyt oplasmic antibody assay (units/volume)Ordered By: Adrian Park on 03-14-2023 Neutrophil cytoplasmic Ab.classic Qn (S) <1:20 titer Neg:<1:20 [facility] Serum globulin measurement ( mass/volume)Ordered By: Adrian Park on 03-14-2023 Globulin (S) [Mass/Vol] 3.7 g/dL 2.2-3.9 [facility] Serum or plasma C reactive p rotein measurement (mass/volume)Ordered By: Adrian Park on 03-14-2023 CRP [Mass/Vol] mg/L 0.0-3.0 [facility] Comment on above: C-Reactive Protein ( CRP) provides useful information for thediagnosis, therapy and monitoring of inflammatory processesand associated diseases. For the evaluation of Relative Riskfor Cardiovascular Disease, a High Sensitivity CRP (HSCRP)should be ordered. Serum or plasma IgA measurem ent (mass/volume)Ordered By: Adrian Park on 03-14-2023 IgA [Mass/Vol] 367 mg/dL 87-352 [facility] Serum or plasma IgG measurem ent (mass/volume)Ordered By: Adrian Park on 03-14-2023 IgG [Mass/Vol] 1274 mg/dL 586-1602 [facility] Serum or plasma IgM measurem ent (mass/volume)Ordered By: Adrian Park on 03-14-2023 IgM [Mass/Vol] 105 mg/dL 26-217 [facility] Serum or plasma albumin molly urement (mass/volume)Ordered By: Adrian Park on 03-14-2023 Albumin [Mass/Vol] 3.8 g/dL 3.2-5.0 [facility] Serum or plasma albumin/glob ulin mass ratioOrdered By: Adrian Park on 03-14-2023 Albumin/Globulin [Mass ratio] 1.0 {ratio} 0.9-2.4 [facility] Serum or plasma beta globuli n measurement by electrophoresis (mass/volume)Ordered By: Adrian Park on 03-14-2023 Beta globulin Elph [Mass/Vol] 1.4 g/dL 0.7-1.3 [facility] Serum or plasma calcium molly urement (mass/volume)Ordered By: Adrian Park on 03-14-2023 Calcium [Mass/Vol] 8.7 mg/dL 8.5-10.1 [facility] Serum or plasma creatinine m easurement (mass/volume)Ordered By: Adrian Park on 03-14-2023 Creatinine [Mass/Vol] 1.24 mg/dL 0.55-1.02 [facility] Comment on above: The validity of the calculated GFR & GFRAA in patients over 70 years has not been determined. Clinical correlation is essential. Serum or plasma gamma globul in measurement by electrophoresis (mass/volume)Ordered By: Adrian Park on 03-14-2023 Gamma globulin Elph [Mass/Vol] 1.2 g/dL 0.4-1.8 [facility] Serum or plasma immunoelectr ophoresis interpretation (nominal result)Ordered By: Adrian Park on 03-14-2023 Interpretation IEP [Interp] Comment . [facility] Comment on above: No monoclonality det ected. Serum or plasma urea nitroge n measurement (mass/volume)Ordered By: Adrian Park on 03-14-2023 Urea nitrogen [Mass/Vol] 22 mg/dL 7-18 [facility] Serum perinuclear neutrophil cytoplasmic antibody titer by immunofluorescenceOrdered By: Adrian Park on 03-14-2023 Neutrophil cytoplasmic Ab.perinuclear IF (S) [Titer] <1:20 titer Neg:<1:20 [facility] Comment on above: The presence of posi tive fluorescence exhibiting P-ANCA orC-ANCA patterns alone is not specific for the diagnosis ofWegener's Granulomatosis (WG) or microscopic polyangiitis.Decisions about treatment should not be based solely onANCA IFA results. The [employer]CA [employer] Consensusrecommends follow up testing of positive sera with both MS-3 and MPO-ANCA enzyme immunoassays. As many as 5% serumsamples are positive only by EIA. Ref. AM J Clin [id number];111:507-513. Serum tissue transglutaminas e IgA antibody assay (units/volume)Ordered By: Adrian Park on 03-14-2023 tTG IgA Qn (S) <2 U/mL 0-3 [facility] Comment on above: Negative 0 - 3 Weak Positive 4 - 10 Positive >10 Tissue Transglutaminase (tTG) has been identified as the endomysial antigen. Studies have demonstr- ated that endomysial IgA antibodies have over 99% specificity for gluten sensitive enteropathy. Thin prep Papanicolaou smear with manual screeningOrdered By: Adrian Park on 03-14-2023 Thin prep Papanicolaou smear with manual screening 22 U/L 15-37 [facility] Thin prep Papanicolaou smear with manual screening 8 5-15 [facility] Thin prep Papanicolaou smear with manual screening 1.1 0.7-1.7 [facility] Total protein bloodOrdered B y: Adrian Park on 03-14-2023 Protein [Mass/Vol] 7.6 g/dL 6.0-8.5 [facility] - Chemistry and C hemistry - challengeon 04-04-2022 Albumin [Mass/Vol] 4.0 g/dL Normal 3.6 - 5.1 g/dL [facility], [facility].; [employer] Albumin/Globulin [Mass ratio] 1.3 {ratio} Normal 1.0 - 2.5 [facility].; [place] [employer] [facility] ALP [Catalytic activity/Vol] 102 U/L Normal 37 - 153 U/L [facility].; [employer] [facility] ALT [Catalytic activity/Vol] 16 U/L Normal 6 - 29 U/L [facility].; [employer] AST [Catalytic activity/Vol] 18 U/L Normal 10 - 35 U/L [facility].; [employer] Bilirubin [Mass/Vol] 0.3 mg/dL Normal 0.2 - 1 .2 mg/dL [facility].; [employer] Calcium [Mass/Vol] 8.9 mg/dL Normal 8.6 - 10. 4 mg/dL [employer] [facility], [facility].; [employer] Chloride [Moles/Vol] 102 mmol/L Normal 98 - 11 0 mmol/L [facility].; [employer] Cholesterol [Mass/Vol] 122 mg/dL Normal [facility], [facility].; [place] [employer] Cholesterol in HDL [Mass/Vol] 47 mg/dL Abnormal [employer], [facility].; [employer] Cholesterol in LDL [Mass/Vol] 54 mg/dL Normal [place] [employer] [place] [employer] CO2 [Moles/Vol] 28 mmol/L Normal 20 - 32 mmol/L [facility], [facility] [employer] Creatinine [Mass/Vol] 1.05 mg/dL Abnormal 0.50 - 0.99 mg/dL [facility], [facility].; [place] [employer] GFR/1.73 sq M.predicted among blacks MDRD (S/P/Bld) [Vol rate/Area] 63 mL/min/{1.73_m2} Normal [facility]; [facility], [facility] Glucose [Mass/Vol] 103 mg/dL Abnormal 65 - 99 mg/dL [facility]; [facility], [facility] Potassium [Moles/Vol] 4.1 mmol/L Normal 3.5 - 5.3 mmol/L [facility]; [facility], [facility] Protein [Mass/Vol] 7.1 g/dL Normal 6.1 - 8.1 g/dL [facility]; [facility], [facility] Sodium [Moles/Vol] 138 mmol/L Normal 135 - 146 mmol/L [facility]; [facility], [facility] Triglyceride [Mass/Vol] 124 mg/dL Normal H [facility]; [facility], [facility] Urea nitrogen [Mass/Vol] 14 mg/dL Normal 7 - 25 mg/dL [facility]; [facility], [facility] Urea nitrogen/Creatinine [Mass ratio] 13 mg/mg Normal 6 - 22 [facility]; [facility], [facility] No Panel Informationon 04-04 CHOL/HDLC RATIO 2.6 Normal [facility]; [facility], [facility] eGFR NON-AFR. [place]THER[place] IRISH 54 Abnormal [facility]; [facility], [facility] GLOBULIN 3.1 Normal 1.9 - 3.7 [facility]; [facility], [facility] NON HDL CHOLESTEROL 75 Normal [facility]; [place] [employer] [facility], [facility] Vital Signs Date Time Vital Sign Value Performing Clinician Facility 04-20-2025 13:03-040 Body height 157.48 cm Rito Randall LPN [facility].; [place] [employer] [facility], [facility] 04-20-2025 13:03-0400 Body mass index (BMI) [Ratio] 33.65 kg/m2 Rito Randall LPN [facility], [facility].; [facility], [facility] 04-20-2025 13:03-0400 Body surface area Derived from formula 1.85 m2 Rito Randall LPN [facility].; [facility]. 04-20-2025 13:03-0400 Body temperature 97.2 [degF] Rito Randall LPN [facility].; [facility] 04-20-2025 13:03-0400 Body weight 83.46 kg Rito Randall FI[employer] [facility].; [facility]. 04-20-2025 13:03-0400 Diastolic blood pressure 64 mm[Hg] Rito Randall LPN [facility].; [facility], [employer]. Comment on above: Patient Position: Sitting; Cuff Location : Left Arm; Cuff Size: Standard 04-20-2025 13:03-0400 Heart rate 62 /min Rito Randall [employer] [facility].; [facility], [employer]. Comment on above: Pattern: Regular 04-20-2025 13:03-0400 Inhaled oxygen concentration 21 % Ritomiguel Randall [facility], [facility].; [facility]. Comment on above: Room air 04-20-2025 13:03-0400 SaO2% (BldA) [Mass fraction] 96 % Rito Randall [facility].; [facility]. 04-20-2025 13:03-0400 Systolic blood pressure 99 mm[Hg] Rito Randall LPN [facility], [facility].; [place] [employer] [facility], [employer]. Comment on above: Patient Position: Sitting; Cuff Location : Left Arm; Cuff Size: Standard 03-15-2025 13:02-0400 Body height 157.48 cm Deborah Bland MA [facility].; [facility]. 03-15-2025 13:02-0400 Body mass index (BMI) [Ratio] 34.49 kg/m2 Deborah Bland MA [facility], [facility].; [facility]. 03-15-2025 13:02-0400 Body surface area Derived from formula 1.86 m2 Deborah Bland MA [facility].; [facility]. 03-15-2025 13:02-0400 Body weight 85.53 kg Deborah Bland MA [facility], [facility].; [employer] 03-15-2025 13:02-0400 Diastolic blood pressure 78 mm[Hg] Deborah Bland MA [facility], [facility] [employer] Comment on above: Patient Position: Sitting; Cuff Location : Left Arm; Cuff Size: Standard 03-15-2025 13:02-0400 Heart rate 76 /min Deborah Bland MA [facility], [facility] [employer] Comment on above: Pattern: Regular 03-15-2025 13:02-0400 Systolic blood pressure 121 mm[Hg] Deborah Bland MA [facility], [facility] [employer] Comment on above: Patient Position: Sitting; Cuff Location : Left Arm; Cuff Size: Standard 02-10-2025 08:44-0400 Body height 157.[address] [facility], [facility].; [employer] 02-10-2025 08:44-0400 Body mass index (BMI) [Ratio] 34.57 kg/m2 Bernadine [facility], [facility].; [employer] 02-10-2025 08:44-0400 Body surface area Derived from formula 1.[address] [facility], [facility].; [employer] 02-10-2025 08:44-0400 Body weight 85.[address] [facility], [facility].; [employer] 02-10-2025 08:44-0400 Diastolic blood pressure 76 mm[Hg] [facility] [employer], [employer]. Comment on above: Patient Position: Sitting; Cuff Location : Left Arm; Cuff Size: Standard 02-10-2025 08:44-0400 Heart rate 64 /min [facility] [employer] Comment on above: Pattern: Regular 02-10-2025 08:44-0400 Systolic blood pressure 116 mm[Hg] Bernadine St [facility], [facility]. Comment on above: Patient Position: Sitting; Cuff Location : Left Arm; Cuff Size: Standard 11-24-2024 16:45-0500 Diastolic Blood Pressure Non-Invasive 70 mm[Hg] DR TRAVIS BARRY MD [address] [place] [address] 11-24-2024 16:45-0500 Heart rate 65 /min DR TRAVIS BARRY MD [address] [place] [address] 11-24-2024 16:45-0500 Systolic Blood Pressure Non-Invasive 106 mm[Hg] DR TRAVIS BARRY MD [address] [place] [address] 11-24-2024 16:17-0500 Diastolic Blood Pressure Non-Invasive 58 mm[Hg] DR TRAVIS BARRY MD [address] [place] [address] 11-24-2024 16:17-0500 Heart rate 66 /min DR TRAVIS BARRY MD [address] [place] [address] 11-24-2024 16:17-0500 Respiratory rate 18 /min DR TRAVIS BARRY MD [address] [place] [address] 11-24-2024 16:17-0500 Systolic Blood Pressure Non-Invasive 100 mm[Hg] DR TRAVIS BARRY MD [address] [place] [address] 11-24-2024 15:30-0500 Diastolic Blood Pressure Non-Invasive 72 mm[Hg] DR TRAVIS BARRY MD [address] [place] [address] 11-24-2024 15:30-0500 Heart rate 67 /min DR TRAVIS BARRY MD [address] [place] [address] 11-24-2024 15:30-0500 Systolic Blood Pressure Non-Invasive 112 mm[Hg] DR TRAVIS BARRY MD [address] [place] [address] 11-24-2024 15:15-0500 Respiratory rate 18 /min DR TRAVIS BARRY MD [facility] 11-24-2024 14:57-0500 Respiratory rate 18 /min DR TRAVIS BARRY MD [address] 11-24-2024 09:07-0500 Body height 162.[address] TRAVIS BARRY MD [address] 11-24-2024 09:07-0500 Body temperature 97.88 [degF] DR TRAVIS BARRY MD [address] 11-24-2024 09:07-0500 Body weight 84.[address] TRAVIS BARRY MD [address] 10-11-2024 12:18-0500 Body height 161.29 cm Ros Maguire RN [facility].; [facility]. 10-11-2024 12:18-0500 Body mass index (BMI) [Ratio] 32.78 kg/m2 Ros Maguire RN [facility].; [facility]. 10-11-2024 12:18-0500 Body surface area Derived from formula 1.89 m2 Ros Maguire RN [facility].; [facility]. 10-11-2024 12:18-0500 Body temperature 98.1 [degF] Ros Maguire RN [facility].; [employer] [facility]. Comment on above: Method: Tympanic 10-11-2024 12:18-0500 Body weight 85.28 kg Ros Maguire RN [employer] [facility].; [employer]. 10-11-2024 12:18-0500 Diastolic blood pressure 62 mm[Hg] Ros Maguire RN [facility].; [employer] [facility], [employer]. Comment on above: Patient Position: Sitting; Cuff Location : Left Arm; Cuff Size: Standard 10-11-2024 12:18-0500 Heart rate 72 /min Ros Maguire RN [facility].; [employer] [facility]. Comment on above: Pattern: Regular 10-11-2024 12:18-0500 Systolic blood pressure 97 mm[Hg] Ros Maguire RN [facility].; [employer]. Comment on above: Patient Position: Sitting; Cuff Location : Left Arm; Cuff Size: Standard 05-06-2024 15:06-0400 Body height 161.29 cm Linda Keita MA [facility].; [employer]. 05-06-2024 15:06-0400 Body mass index (BMI) [Ratio] 33.13 kg/m2 Linda Keita [facility].; [employer]. 05-06-2024 15:06-0400 Body surface area Derived from formula 1.9 m2 Linda Keita MA [facility].; [employer]. 05-06-2024 15:06-0400 Body weight 86.18 kg Linda Keita MA [facility].; [employer]. 05-06-2024 15:06-0400 Diastolic blood pressure 68 mm[Hg] Linda Keita [facility] [employer]. Comment on above: Patient Position: Sitting; Cuff Location : Left Arm; Cuff Size: Standard 05-06-2024 15:06-0400 Heart rate 71 /min Linda Keita MA [facility].; [employer]. Comment on above: Pattern: Regular 05-06-2024 15:06-0400 Systolic blood pressure 109 mm[Hg] Linda Keita [facility].; [employer]. Comment on above: Patient Position: Sitting; Cuff Location : Left Arm; Cuff Size: Standard 07-25-2023 13:08-0400 Body height 161.29 cm Linda Keita [facility].; [employer]. 07-25-2023 13:08-0400 Body mass index (BMI) [Ratio] 31.91 kg/m2 Linda Keita MA [place] [employer] [facility].; [employer]. 07-25-2023 13:08-0400 Body surface area Derived from formula 1.87 m2 Linda Keita MA [facility].; [facility]. 07-25-2023 13:08-0400 Body weight 83.01 kg Linda Keita MA [facility].; [facility] 07-25-2023 13:08-0400 Diastolic blood pressure 65 mm[Hg] Linda Keita MA [facility].; [facility]. Comment on above: Patient Position: Sitting; Cuff Location : Left Arm; Cuff Size: Standard 07-25-2023 13:08-0400 Heart rate 75 /min Linda Keita MA [facility].; [facility]. Comment on above: Pattern: Regular 07-25-2023 13:08-0400 Systolic blood pressure 100 mm[Hg] Linda Keita MA [facility].; [facility]. Comment on above: Patient Position: Sitting; Cuff Location : Left Arm; Cuff Size: Standard 06-30-2023 13:05-0400 Body temperature 98.9 [degF] PA Kathy Osborne Work Phone: [facility] 06-30-2023 13:05-0400 Diastolic blood pressure 58 mm[Hg] PA Kathy Osborne Work Phone: [facility] 06-30-2023 13:05-0400 Heart rate 69 /min PA Kathy Osborne Work Phone: [facility] 06-30-2023 13:05-0400 Respiratory rate 18 /min PA Kathy Osborne Work Phone: [facility] 06-30-2023 13:05-0400 SaO2% (BldA) [Mass fraction] 96 % PA Kathy Osborne Work Phone: [facility] 06-30-2023 13:05-0400 Systolic blood pressure 87 mm[Hg] PA Kathy Osborne Work Phone: [facility] 06-30-2023 13:00-0400 Inhaled oxygen flow rate 2 L/min PA Kathy Osborne Work Phone: [facility] 06-30-2023 11:01-0400 Body height 162.56 cm PA Kathy Osborne Work Phone: [facility] 06-30-2023 11:01-0400 Body mass index (BMI) [Ratio] 30.5 kg/m2 PA Kathy Osborne Work Phone: [facility] 06-30-2023 11:01-0400 Body weight 80.64 kg PA Kathy Osborne Work Phone: [facility] 05-07-2023 14:05-0400 Body height 161.29 cm Linda Keita MA [facility].; [facility] 05-07-2023 14:05-0400 Body mass index (BMI) [Ratio] 31.21 kg/m2 Linda Keita MA [facility].; [facility]. 05-07-2023 14:05-0400 Body surface area Derived from formula 1.86 m2 Linda Keita MA [facility].; [facility]. 05-07-2023 14:05-0400 Body weight 81.19 kg Linda Keita MA [facility].; [facility]. 05-07-2023 14:05-0400 Diastolic blood pressure 72 mm[Hg] Linda Keita MA [facility].; [facility]. Comment on above: Patient Position: Sitting; Cuff Location : Left Arm; Cuff Size: Standard 05-07-2023 14:05-0400 Heart rate 81 /min Linda Keita MA [facility].; [employer] [facility], [facility]. Comment on above: Pattern: Regular 05-07-2023 14:05-0400 Systolic blood pressure 113 mm[Hg] Linda Keita MA [facility].; [facility]. Comment on above: Patient Position: Sitting; Cuff Location : Left Arm; Cuff Size: Standard 01-06-2023 10:30-0400 Body height 161.29 cm Ros Maguire RN [facility].; [facility]. 01-06-2023 10:30-0400 Body mass index (BMI) [Ratio] 31.04 kg/m2 Ros Maguire RN [facility].; [facility]. 01-06-2023 10:30-0400 Body surface area Derived from formula 1.85 m2 Ros Maguire RN [facility].; [facility]. 01-06-2023 10:30-0400 Body temperature 98.3 [degF] Ros Maguire RN [facility].; [employer] [facility]. Comment on above: Method: Tympanic 01-06-2023 10:30-0400 Body weight 80.74 kg Ros Maguire RN [facility].; [employer] [facility]. 01-06-2023 10:30-0400 Diastolic blood pressure 71 mm[Hg] Ros Maguire RN [facility].; [place] [employer] [facility]. Comment on above: Patient Position: Sitting; Cuff Location : Left Arm; Cuff Size: Standard 01-06-2023 10:30-0400 Heart rate 66 /min Ros Maguire RN [facility].; [employer] [facility]. Comment on above: Pattern: Regular 01-06-2023 10:30-0400 Systolic blood pressure 116 mm[Hg] Ros Maguire RN [facility].; [employer] Comment on above: Patient Position: Sitting; Cuff Location : Left Arm; Cuff Size: Standard 12-26-2022 12:18-0500 Body temperature 97.4 [degF] PA Kathy Osborne Work Phone: [facility] 12-26-2022 12:18-0500 Diastolic blood pressure 50 mm[Hg] PA Kathy Osborne Work Phone: [facility] 12-26-2022 12:18-0500 Heart rate 64 /min PA Kathy Osborne Work Phone: [facility] 12-26-2022 12:18-0500 Respiratory rate 18 /min PA Kathy Osborne Work Phone: [facility] 12-26-2022 12:18-0500 SaO2% (BldA) [Mass fraction] 95 % PA Kathy Osborne Work Phone: [facility] 12-26-2022 12:18-0500 Systolic blood pressure 110 mm[Hg] PA Kathy Osborne Work Phone: [facility] 12-26-2022 05:49-0500 Inhaled oxygen flow rate 1 L/min PA Kathy Osborne Work Phone: [facility] 12-25-2022 14:03-0500 Body height 162.56 cm PA Kathy Osborne Work Phone: [facility] 12-25-2022 14:03-0500 Body mass index (BMI) [Ratio] 30.2 kg/m2 PA Kathy Obsorne Work Phone: [phone] [place] [address] 12-25-2022 14:03-0500 Body weight 80 kg PA Kathy Osborne Work Phone: [facility] 11-25-2022 13:13-0500 Body height 161.29 cm Ros Maguire RN [facility].; [facility]. 11-25-2022 13:13-0500 Body mass index (BMI) [Ratio] 32.78 kg/m2 Ros Maguire RN [facility].; [facility]. 11-25-2022 13:13-0500 Body surface area Derived from formula 1.89 m2 Ros Maguire RN [facility].; [facility]. 11-25-2022 13:13-0500 Body temperature 98.3 [degF] Ros Maguire RN [facility].; [employer] [facility]. Comment on above: Method: Tympanic 11-25-2022 13:13-0500 Body weight 85.28 kg Ros Maguire RN [facility].; [facility]. 11-25-2022 13:13-0500 Diastolic blood pressure 74 mm[Hg] Ros Maguire RN [facility].; [employer]. Comment on above: Patient Position: Sitting; Cuff Location : Left Arm; Cuff Size: Standard 11-25-2022 13:13-0500 Heart rate 75 /min Ros Maguire RN [facility].; [employer]. Comment on above: Pattern: Regular 11-25-2022 13:13-0500 Systolic blood pressure 134 mm[Hg] Ros Maguire RN [facility] [employer]. Comment on above: Patient Position: Sitting; Cuff Location : Left Arm; Cuff Size: Standard 11-06-2022 13:45-0500 Body height 161.29 cm Deborah Bland [facility].; [employer]. 11-06-2022 13:45-0500 Body mass index (BMI) [Ratio] 32.78 kg/m2 Deborah Bland MA [employer] [facility].; [employer] 11-06-2022 13:45-0500 Body surface area Derived from formula 1.89 m2 Deborah Bland MA [employer] [facility].; [employer], [facility]. 11-06-2022 13:45-0500 Body weight 85.28 kg Deborah Bland MA [employer] [facility].; [employer], [employer]. 11-06-2022 13:45-0500 Diastolic blood pressure 71 mm[Hg] Deborah Bland MA [place] [facility].; [employer]. Comment on above: Patient Position: Sitting; Cuff Location : Left Arm; Cuff Size: Standard 11-06-2022 13:45-0500 Heart rate 72 /min Deborah Bland MA [employer]. Comment on above: Pattern: Regular 11-06-2022 13:45-0500 Systolic blood pressure 106 mm[Hg] Deborah Bland MA [employer].; [employer]. Comment on above: Patient Position: Sitting; Cuff Location : Left Arm; Cuff Size: Standard 05-01-2022 09:44-0400 Body height 161.29 cm Constance Jon LPN [facility].; [facility]. 05-01-2022 09:44-0400 Body mass index (BMI) [Ratio] 33.48 kg/m2 Constance Jon LPN [facility].; [facility]. 05-01-2022 09:44-0400 Body surface area Derived from formula 1.91 m2 Constance Jon LPN [facility].; [facility]. 05-01-2022 09:44-0400 Body weight 87.09 kg Constance Jon LPN [facility].; [facility]. 05-01-2022 09:44-0400 Diastolic blood pressure 71 mm[Hg] Constance Jon LPN [facility].; [employer] [facility], [employer]. Comment on above: Patient Position: Sitting; Cuff Location : Left Arm; Cuff Size: Standard 05-01-2022 09:44-0400 Heart rate 69 /min Constance Jon LPN [facility].; [employer] [facility]. Comment on above: Pattern: Regular 05-01-2022 09:44-0400 Systolic blood pressure 110 mm[Hg] Constance Jon LPN [facility].; [employer] [facility], [facility]. Comment on above: Patient Position: Sitting; Cuff Location : Left Arm; Cuff Size: Standard 11-19-2021 08:08-0500 Body height 161.29 cm Ros Maguire RN [facility].; [employer] [facility]. 11-19-2021 08:08-0500 Body mass index (BMI) [Ratio] 34.17 kg/m2 Ros Maguire RN [facility].; [employer] [facility], [facility]. 11-19-2021 08:08-0500 Body surface area Derived from formula 1.93 m2 Ros Maguire RN [facility].; [employer] [facility], [facility]. 11-19-2021 08:08-0500 Body temperature 97.4 [degF] Ros Maguire RN [facility].; [employer]. Comment on above: Method: Tympanic 11-19-2021 08:08-0500 Body weight 88.91 kg Ros Maguire RN [facility].; [employer] 11-19-2021 08:08-0500 Diastolic blood pressure 72 mm[Hg] Ros Maguire RN [facility].; [employer]. Comment on above: Patient Position: Sitting; Cuff Location : Right Arm; Cuff Size: Standard 11-19-2021 08:08-0500 Heart rate 67 /min Ros Maguire RN [facility].; [employer]. Comment on above: Pattern: Regular 11-19-2021 08:08-0500 Systolic blood pressure 123 mm[Hg] Ros Maguire RN [facility].; [employer]. Comment on above: Patient Position: Sitting; Cuff Location : Right Arm; Cuff Size: Standard 08-22-2021 13:15-0400 Body height 161.29 cm Aruna Sam LPN [facility].; [employer], [employer]. 08-22-2021 13:15-0400 Body mass index (BMI) [Ratio] 34.35 kg/m2 Aruna Sam LPN [facility].; [employer], [employer]. 08-22-2021 13:15-0400 Body surface area Derived from formula 1.93 m2 Aruna Sam LPN [facility].; [employer], [facility]. 08-22-2021 13:15-0400 Body weight 89.36 kg Aruna Sam LPN [facility].; [employer], [employer]. 08-22-2021 13:15-0400 Diastolic blood pressure 76 mm[Hg] Aruna Sam LPN [facility].; [employer]. Comment on above: Patient Position: Sitting; Cuff Location : Left Arm; Cuff Size: Standard 08-22-2021 13:15-0400 Heart rate 66 /min Aruna Sam LPN [facility].; [employer]. Comment on above: Pattern: Regular 08-22-2021 13:15-0400 Systolic blood pressure 118 mm[Hg] [facility], [facility].; [facility]. Comment on above: Patient Position: Sitting; Cuff Location : Left Arm; Cuff Size: Standard 01-05-2021 08:57-0400 Body height 161.29 cm Nga Velozjames [facility], [facility].; [facility]. 01-05-2021 08:57-0400 Body mass index (BMI) [Ratio] 34 kg/m2 Nga Velozjames [facility], [facility].; [facility]. 01-05-2021 08:57-0400 Body surface area Derived from formula 1.92 m2 Nga Velozjames [facility], [facility].; [employer] [facility], [facility]. 01-05-2021 08:57-0400 Body temperature 97.5 [degF] Nga Velozjames [facility], [facility].; [employer], [employer]. Comment on above: Method: Tympanic 01-05-2021 08:57-0400 Body weight 88.45 kg Nga Velozjames [facility], [facility].; [facility]. 01-05-2021 08:57-0400 Diastolic blood pressure 74 mm[Hg] Nga Encinas [employer] [facility].; [employer] [facility], [facility]. Comment on above: Patient Position: Sitting; Cuff Location : Left Arm; Cuff Size: Standard 01-05-2021 08:57-0400 Heart rate 71 /min Nga Velozjames [facility], [facility].; [employer], [facility]. Comment on above: Pattern: Regular 01-05-2021 08:57-0400 Systolic blood pressure 112 mm[Hg] Nga Velozugg [facility], [facility].; [employer], [facility]. Comment on above: Patient Position: Sitting; Cuff Location : Left Arm; Cuff Size: Standard 11-21-2020 07:59-0500 Body height 161.29 cm Ros Maguire RN [facility].; [employer] [facility], [facility]. 11-21-2020 07:59-0500 Body mass index (BMI) [Ratio] 33.83 kg/m2 Ros Mag[facility]ire RN [facility].; [employer] [facility]. 11-21-2020 07:59-0500 Body surface area Derived from formula 1.92 m2 Ros Maguire RN [facility].; [employer] [facility]. 11-21-2020 07:59-0500 Body temperature 98.6 [degF] Ros Maguire RN [employer] [facility].; [employer]. Comment on above: Method: Tympanic 11-21-2020 07:59-0500 Body weight 88 kg Ros [facility] RN [facility].; [employer] [facility]. 11-21-2020 07:59-0500 Diastolic blood pressure 56 mm[Hg] Ros Maguire RN [employer] [facility].; [employer]. Comment on above: Patient Position: Sitting; Cuff Location : Left Arm; Cuff Size: Standard 11-21-2020 07:59-0500 Heart rate 76 /min Ros [facility] RN [facility].; [employer]. Comment on above: Pattern: Regular 11-21-2020 07:59-0500 Systolic blood pressure 116 mm[Hg] Ros Maguire RN [employer] [facility].; [employer]. Comment on above: Patient Position: Sitting; Cuff Location : Left Arm; Cuff Size: Standard 07-14-2020 08:53-0400 Body height 161.29 cm Janice Mendieta LPN [employer] [facility].; [employer] [facility]. 07-14-2020 08:53-0400 Body mass index (BMI) [Ratio] 34.35 kg/m2 Janice Mendieta LPN [employer] [facility].; [employer] [facility]. 07-14-2020 08:53-0400 Body surface area Derived from formula 1.93 m2 Janice Mendieta LPN [employer] [facility].; [employer] [facility]. 07-14-2020 08:53-0400 Body weight 89.36 kg Janice Mendieta LPN [employer] [facility], [employer].; [employer]. 07-14-2020 08:53-0400 Diastolic blood pressure 82 mm[Hg] Janice Mendieta LPN [employer]. Comment on above: Patient Position: Sitting; Cuff Location : Left Arm; Cuff Size: Standard 07-14-2020 08:53-0400 Heart rate 73 /min Janice Mendieta LPN [employer], [employer].; [employer]. Comment on above: Pattern: Regular 07-14-2020 08:53-0400 Systolic blood pressure 124 mm[Hg] Janice Mendieta LPN [employer].; [employer]. Comment on above: Patient Position: Sitting; Cuff Location : Left Arm; Cuff Size: Standard 01-23-2016 14:32-0400 Body height 161.[address] [employer] Work Phone: [employer].; [employer]. 01-23-2016 14:32-0400 Body mass index (BMI) [Ratio] 34.35 kg/m2 [employer] Work Phone: [employer].; [employer]. 01-23-2016 14:32-0400 Body surface area Derived from formula 1.[address] m[address] [employer] Work Phone: [employer].; [employer]. 01-23-2016 14:32-0400 Body weight 89.36 kg [employer] Work Phone: [employer].; [employer]. 01-23-2016 14:32-0400 Diastolic blood pressure 88 mm[Hg] [employer] Work Phone: [employer].; [employer]. Comment on above: Patient Position: Sitting; Cuff Location : Left Arm; Cuff Size: Large 01-23-2016 14:32-0400 Heart rate 85 /min [employer] Work Phone: [employer].; [employer]. Comment on above: Pattern: Regular 01-23-2016 14:32-0400 Systolic blood pressure 150 mm[Hg] Lucretia Louisy [employer] Work Phone: [employer]; [employer]. Comment on above: Patient Position: Sitting; Cuff Location : Left Arm; Cuff Size: Large 09-20-2010 14:51-0500 Body height 161.29 cm Lucretia Almanza [employer] Work Phone: [employer].; [employer]. 09-20-2010 14:51-0500 Body mass index (BMI) [Ratio] 28.77 kg/m2 Lucretia Luoisy [employer] Work Phone: [employer]; [employer]. 09-20-2010 14:51-0500 Body surface area Derived from formula 1.79 m2 Lucretia Almanza LPN Work Phone: [employer]; [employer]. 09-20-2010 14:51-0500 Body temperature 97.5 [degF] Lucretia Almanza LPN Work Phone: [employer]; [employer]. Comment on above: Method: Tympanic 09-20-2010 14:51-0500 Body weight 74.84 kg Lucretia Almanza [employer] Work Phone: [employer]; [employer]. 09-20-2010 14:51-0500 Diastolic blood pressure 81 mm[Hg] Lucretia Louisy [employer] Work Phone: [employer].; [employer]. Comment on above: Patient Position: Sitting; Cuff Location : Left Arm; Cuff Size: Standard 09-20-2010 14:51-0500 Heart rate 87 /min Lucretia Louisy [employer] Work Phone: [employer]; [employer]. Comment on above: Pattern: Regular 09-20-2010 14:51-0500 Systolic blood pressure 129 mm[Hg] Lucretia Almanza LPN Work Phone: [employer].; [employer]. Comment on above: Patient Position: Sitting; Cuff Location : Left Arm; Cuff Size: Standard Encounters Encounter Date Encounter Type Care Provider Facility Start: 09-07-2025 ambulatory Adrianjovanna Park Facility :[facility] Start: 08-10-2025 End: 08-10-2025 [facility] Work [facility]: Start: 08-10-2025 End: 08-10-2025 ambulatory Kathy Osborne Facility:[facility] Start: 06-14-2025 End: 06-14-2025 ambulatory KATHY PAC OSBORNE [facility] Start: 05-10-2025 End: 05-10-2025 Orders Kathy Osborne PA-C Work Phone: [employer]. Start: 05-03-2025 End: 05-03-2025 Medication Kathy Osborne PA-C Work Phone: [employer]. Start: 05-02-2025 End: 05-02-2025 ambulatory KATHY PAC OSBORNE [facility] Start: 05-02-2025 End: 05-02-2025 Orders Kathy Osborne PA-C Work Phone: [employer]. Start: 04-20-2025 End: 04-20-2025 Office outpatient visit 15 minutes Kathy Osborne PA-C Work Phone: [employer]. Start: 03-15-2025 End: 03-15-2025 Office outpatient visit 15 minutes Kathy Osborne PA-C Work Phone: [employer]. Start: 02-10-2025 End: 02-10-2025 Patient encounter procedure Kathy J Osborne PA-C Work Phone: [employer]. Start: 02-02-2025 End: 02-02-2025 ambulatory Hoa Van Facility:[facility] Start: 01-31-2025 End: 01-31-2025 Orders Kathy Osborne PA-C Work Phone: [employer] Start: 01-25-2025 End: 01-25-2025 Historical Summary Kathy Osborne PA-C Work Phone: [employer] Start: 01-13-2025 End: 01-13-2025 ambulatory Kathy Osborne PA Work Phone: [facility] Work Phone: Start: 01-13-2025 End: 01-13-[address] Giorgio Cleaning MD -Laboratory, Specimen Work Phone: Start: 01-13-2025 End: 01-13-2025 ambulatory Kathy Osborne Facility:[facility] Start: 11-24-2024 End: 11-24-2024 Orders Kathy Osborne PA-C Work Phone: [employer] Start: 11-24-2024 End: 11-24-2024 ambulatory KATHY J OSBORNE PA-C Facility:[facility] Start: 11-24-2024 End: 11-24-[address] TRAVIS BARRY MD [facility] Start: 11-02-2024 End: 11-02-2024 Patient encounter procedure [facility] Work Phone: Start: 11-02-2024 End: 11-02-2024 ambulatory Hoa Van Facility:[facility] Start: 10-11-2024 End: 10-11-2024 Office outpatient visit 15 minutes Kathy Osborne PA-C Work Phone: [facility] Start: 10-11-2024 Review Kathy Osborne P A-C Work Phone: [employer] Start: 05-06-2024 End: 05-06-2024 Patient encounter procedure Kathy J Osborne PA-C Work Phone: [facility] Start: 05-06-2024 Patient encounter procedure Linda Keita MA [facility] Start: 04-26-2024 End: 04-26-2024 Orders Kathy Osborne PA-C Work Phone: [facility] Start: 04-12-2024 End: 04-12-2024 Orders Kathy Osborne PA-C Work Phone: [facility] Start: 02-12-2024 ambulatory ALAN MANZO [facility] Start: 02-10-2024 End: 02-10-2024 ambulatory MARIO SEAY [facility] Start: 01-14-2024 End: 01-14-2024 Patient encounter procedure PA Kathy Osborne Work Phone: [facility] Work Phone: Start: 01-12-2024 End: 01-12-2024 ambulatory PA Kathy Osborne Work Phone: [facility] Work Phone: Start: 01-12-2024 End: 01-12-2024 Patient encounter procedure PA Kathy Osborne Work Phone: [facility] Work Phone: Start: 07-25-2023 End: 07-25-2023 Office outpatient visit 15 minutes Kathy Osborne PA-C Work Phone: [facility] Start: 07-11-2023 End: 07-11-2023 ambulatory PA Kathy Osborne Work Phone: [facility] Work Phone: Start: 07-11-2023 End: 07-11-2023 Patient encounter procedure PA Kathy Osborne Work Phone: [facility] Work Phone: Start: 07-07-2023 End: 07-07-2023 ambulatory PA Kathy Osborne Work Phone: [facility] Work Phone: Start: 07-07-2023 End: 07-07-2023 Patient encounter procedure PA Kathy Osborne Work Phone: [facility] Work Phone: Start: 06-30-2023 Non-patient / Non-visit PA Kathy Osborne Work Phone: [facility] Start: 06-30-2023 End: 06-30-2023 Admission to same day surgery center PA Kathy Osborne Work Phone: [facility]-End[facility] Work Phone: Start: 06-30-2023 End: 06-30-2023 ambulatory PA Kathy Osborne Work Phone: [facility] Work Phone: Start: 06-24-2023 End: 06-24-2023 Orders Kathy [facility]-C [facility] Start: 05-07-2023 End: 05-07-2023 Patient encounter procedure Kathy Osborne PA-C [facility] Start: 04-23-2023 End: 04-23-2023 Orders Kathy Osborne PA-C Work Phone: [facility] [employer]. Start: 04-14-2023 End: 04-14-2023 Orders Kathy Osborne PA-C Work Phone: [employer] Start: 03-14-2023 End: 03-14-2023 ambulatory PA Kathy Osborne Work Phone: [facility] Work Phone: Start: 03-14-2023 End: 03-14-2023 Patient encounter procedure PA Kathy Osborne Work Phone: [facility] Work Phone: Start: 01-06-2023 End: 01-06-2023 Office outpatient visit 15 minutes Kathy Osborne PA-C Work Phone: [facility] Start: 12-27-2022 End: 12-27-2022 Telephone follow-up Kathy Osborne PA-C Work Phone: [facility] Start: 12-25-2022 End: 12-26-2022 Evaluation and management of inpatient PA Kathy [facility] Work Phone: Start: 12-17-2022 End: 12-17-2022 Medication Kathy Osborne PA-C Work Phone: [facility] Start: 12-09-2022 End: 12-09-2022 Patient encounter procedure Kathy Osborne PA-C Work Phone: [facility] Start: 12-09-2022 End: 12-09-2022 Telephone follow-up Kathy Osborne PA-C Work Phone: [facility] Start: 11-25-2022 End: 11-25-2022 Office outpatient visit 15 minutes Kathy Osborne PA-C Work Phone: [facility] Start: 11-08-2022 End: 11-08-2022 Medication Kathy Osborne PA-C Work Phone: [facility] Start: 11-06-2022 End: 11-06-2022 Office outpatient visit 15 minutes Kathy Osborne PA-C Work Phone: [facility] Start: 11-04-2022 End: 11-04-2022 Telephone follow-up Kathy Osborne PA-C Work Phone: [facility] Start: 05-13-2022 End: 05-13-2022 Historical Summary Kathy Osborne PA-C Work Phone: [facility] Start: 05-08-2022 End: 05-08-2022 Historical Summary Kathy Osborne PA-C Work Phone: [facility] Start: 05-01-2022 End: 05-01-2022 Patient encounter procedure Kathy Osborne PA-C Work Phone: [facility] Start: 04-04-2022 End: 04-04-2022 Orders Kathy Osborne PA-C Work Phone: [facility] Start: 03-21-2022 End: 03-21-2022 Orders Kathy Osborne PA-C Work Phone: [place] Start: 11-22-2021 End: 11-22-2021 Telephone follow-up Kathy Osborne PA-C Work Phone: [facility] Start: 11-19-2021 End: 11-19-2021 Office outpatient visit 15 minutes Kathy Osborne PA-C Work Phone: [facility] Start: 08-23-2021 End: 08-23-2021 Telephone follow-up Kathy Osborne PA-C Work Phone: [facility] Start: 08-22-2021 End: 08-22-2021 Office outpatient visit 15 minutes Kathy Osborne PA-C Work Phone: [facility] Start: 03-14-2021 End: 03-14-2021 Patient encounter procedure Kathy Osborne PA-C Work Phone: [facility] Start: 03-13-2021 End: 03-13-2021 Patient encounter procedure Kathy Osborne PA-C Work Phone: [facility] Start: 02-22-2021 End: 02-22-2021 Orders Kathy Osborne PA-C Work Phone: [facility] Start: 01-23-2021 End: 01-23-2021 Patient encounter procedure Kathy Osborne PA-C Work Phone: [facility] Start: 01-05-2021 End: 01-05-2021 Office outpatient visit 15 minutes Kathy Osborne PA-C Work Phone: [facility] Start: 11-21-2020 End: 11-21-2020 Office outpatient visit 15 minutes Kathy Osborne PA-C Work Phone: [facility] Start: 10-02-2020 End: 10-02-2020 Telephone follow-up Kathy Osborne PA-C Work Phone: [employer]. Start: 07-14-2020 End: 07-14-2020 Office outpatient visit 10 minutes Kathy Osborne PA-C Work Phone: [facility] Start: 09-22-2017 End: 09-22-2017 Historical Summary Kathy Osborne PA-C Work Phone: [facility] Start: 01-23-2016 End: 01-23-2016 Office outpatient new 20 minutes Kathy Osborne PA-C Work Phone: [facility] Start: 09-20-2010 End: 09-20-2010 Patient encounter procedure Kathy Osborne PA-C Work Phone: [employer] Patient encounter procedure Ros Maguire RN [employer].; [employer] [facility] Patient encounter procedure Kathy J Osborne PA-C Work Phone: [employer].; [employer] Patient encounter procedure Bernadine JOHNSON [employer].; [employer] Procedures Date Procedure Procedure Detail Performing Clinician [...] Cholecystectomy Linda Keita MA Comment on above: [facility] Start: 10-20-1984 End: 10-20-1984 Partial hysterectomy Linda Keita MA Comment on above: Ovaries remain [facility] Start: 10-20-1981 End: 10-20-1981 Decompression of median nerve Linda Keita MA Gallbladder structur e (body structure) DR TRAVIS BARRY MD Partial hysterectomy DR JAMIE BARRY MD Plan of Treatment Date Care Activity Detail Author Start: 02-16-2026 Patient encounter procedure Medical; PHYSICAL - annual AWV [employer]. Start: 16-Feb-2026 08:30-04:00 MARK ANTHONY Osborne Appointment Request [employer]. Start: 02-09-2026 Nursing evaluation of patient and report Medical; Nurse visit - fasting labs- RJB [employer]. Start: 09-Feb-2026 08:20-04:00 NURSE, FLOAT [facility]ment [facility] Start: 07-27-2025 Patient encounter procedure Medical; PHYSICAL - awv (no BW needed per RJB) [employer] Start: 27-Jul-2025 10:00-04:00 MARK ANTHONY Osborne Appointment Request [facility] Start: 05-20-2025 Screening mammography bi 2-view breast inc cad Mammogram Bilateral Screening Digital w/CAD ([id number]) with 3D (tomosynthesis), bilateral ([id number]) Start: 20-May-2025 Intent [employer], [employer]. Start: 05-10-2025 Screening mammography bi 2-view breast inc cad Mammogram Bilateral Screening Digital w/CAD ([id number]) with 3D (tomosynthesis), bilateral ([id number]) Start: 10-May-2025 Intent [employer], [employer]. Start: 05-02-2025 Chest x-ray CHEST X-RAY, PA AND LATERAL ([id number]) Start: 02-May-2025 Intent [employer], [employer]. Start: 02-10-2025 Oncology colorectal screening [facility] USING STOOL DNA AT POINT OF CARE ([id number]) Start: 10-Feb-2025 Intent [employer], [employer]. Start: 02-10-2025 Patient encounter procedure Medical; PHYSICAL - physical [facility]. Start: 10-Feb-2025 08:30-04:00 MARK ANTHONY Osborne Appointment Request [employer], [employer]. Start: 01-31-2025 Nursing evaluation of patient and report Medical; Nurse visit - fasting labs--RJB [employer]. Start: 31-Jan-2025 09:20-04:00 NURSE, FLOAT Appointment Request [employer]. Start: 01-31-2025 Blood count complete auto&auto difrntl wbc [employer].; [employer] Start: 01-31-2025 Lipid panel [employer].; [employer] Start: 01-31-2025 Comprehensive metabolic panel [employer].; [employer], [employer]. Start: 05-06-2024 Patient encounter procedure Medical; PHYSICAL - Medicare Wellness [facility]. Start: 06-May-2024 15:10-04:00 MARK ANTHONY Osborne [facility]ointment [facility] Start: 05-06-2024 Radiologic exam knee complete 4/more views Knee x-ray, Right Complete ([id number]) Start: 06-May-2024 Intent [facility].; [employer] Start: 05-06-2024 Screening mammography bi 2-view breast inc cad Mammogram Bilateral Screening Digital w/CAD ([id number]) with 3D (tomosynthesis), bilateral ([id number]) Start: 06-May-2024 Intent [facility].; [employer]. Start: 05-05-2024 Patient encounter procedure Medical; PHYSICAL - Medicare Wellness [facility] Start: 05-May-2024 14:50-04:00 MARK ANTHONY Osborne Appointment [facility]. Start: 04-26-2024 Blood count complete auto&auto difrntl wbc [facility] [employer], [employer]. Start: 04-26-2024 Comprehensive metabolic panel [facility].; [employer] Start: 04-26-2024 Lipid panel [facility].; [employer], [employer]. Start: 04-26-2024 Nursing evaluation of patient and report Medical; Nurse visit - Medicare Wellness fasting labs RJB [facility] Start: 26-Apr-2024 09:00-04:00 NURSE, FLOAT [facility]ointment [facility] Start: 06-30-2023 Colonoscopy w/biopsy single/multiple COLONOSCOPY AND BIOPSY [facility] Start: 06-30-2023 Egd transoral biopsy single/multiple EGD BIOPSY SINGLE/MULTIPLE [facility] Start: 06-30-2023 Patient discharge [facility] Start: 12-26-2022 Application of intermittent pneumatic compression device [facility] Start: 12-26-2022 Patient discharge [facility] Start: 12-26-2022 Removal of urinary catheter [facility] Start: 12-25-2022 Following clinical pathway protocol [facility] Start: 12-25-2022 Admission procedure [facility] Start: 12-25-2022 Deep breathing and coughing exercises [facility] Start: 12-25-2022 Incentive spirometry [facility] Start: 12-25-2022 Assessment of risk of venous thromboembolism [facility] Start: 12-25-2022 Measuring intake and output [facility] Start: 12-25-2022 Patient education [facility] Start: 12-25-2022 Provision of activity privileges [facility] Start: 12-25-2022 Taking patient vital signs [facility] Start: 12-25-2022 Vital signs measurements [facility] Start: 12-25-2022 End: 12-25-2022 [facility] Start: 05-01-2022 Blood occult fecal hgb deter ia qual feces 1-3 [facility] referral [facility] Work Phone: Immunizations Immunization Date Immunization Notes Care Provider Branden sepulveda 08-22-2021 pneumococcal polysaccharide vaccine, 23 valent Kathy Osborne PA-C Work Phone: [facility]; [facility]. Comment on above: Site: Left DeltoidVI S Given: * Pneumococcal Polysaccharide (PPSV23) (02/10/15) 09-02-2014 influenza, injectabl e, quadrivalent, preservative free DR TRAVIS BARRY MD [facility] 09-02-2014 pneumococcal polysaccharide vaccine, [address] TRAVIS BARRY MD [facility] Payers Date Payer Category Payer Medicare [id number] 2024 Unknown 2024 Self-pay [id number] 1950 Unknown [id number] 1950 Unknown [id number] 1950 Unknown [id number] 1950 Unknown [id number] Private Health Insurance [facility][note 3] [id number] Unknown [employer] [id number] Unknown [id number] Unknown [id number] Unknown [id number] Unknown [id number] Unknown [id number] Social History Date Type Detail Facility Start: 03-14-2023 End: 01-14-2024 Tobacco smoking status CTIS Unknown if ever smoked [facility] Start: 1950 Sex Assigned At Female W [facility] Caffeine Use Caffeine Use [employer] Tobacco Use: Tobacco Use: ; F ormer smoker. [employer] Smokes < 1 pack of cigarettes per day [employer] Work Phone: Start: 03-03-2020 End: 01-14-2024 Ex-smoker [facility] Sexual Orientation [facility] Start: 09-14-2019 End: 01-18-2025 Sex Female (finding) [facility] Sex Female [facility] NEGATED: Highlighted row [facility] Medical Equipment Procedure Code Equipment Code Equipment Origin al Text Equipment Identifier Dates Robot-assisted partial nephrectomy CLIP,HEMLUCY SIMMONS FDA Start: 12-25-2022 Robot-assisted partial nephrectomy Ligation clip, synthetic polymer, non-bioabsorbable ()[id number] FDA Start: 12-25-2022 Robot-assisted partial nephrectomy SEALANT,FLOSEAL HEMOSTATIC 5ML FDA Start: 12-25-2022 Robot-assisted partial nephrectomy Plant polysaccharide haemostatic agent, bioabsorbable ()[id number] FDA Start: 12-25-2022 Robot-assisted partial nephrectomy Suture clasp, bioabsorbable ()[id number] FDA Start: 12-25-2022 Robot-assisted partial nephrectomy [...] 11-24-2024 Functional Status Awake, Up ad yana [facility] 11-24-2024 Functional Status Afternoon Snack Percent 100 [facility] 11-24-2024 Functional Status [facility] 11-24-2024 Functional Status Room check performed [facility] 12-26-2022 Functional status Ambulates [facility] Work Phone: Mental Status Date Assessment Result Facility 11-24-2024 Mental Status Orientation Oriented x 4 [facility] 11-24-2024 Mental Status [facility] 06-30-2023 Cognitive function Level Of Consciousness Sedated [facility] Work Phone: 06-30-2023 Cognitive function Voice/Name [facility] Work Phone: 12-26-2022 Cognitive function Voice/Name [facility] Work Phone: Clinical Notes 06-30-2023 to 08-10-2025 Note Date & Type Note Facility 08-10-2025 Progress note [facility] 11-24-2024 Hospital Discharge instructions Patient Education 11/24/2024 [...] Document Reviewed: 10/07/2014 ExitCare Patient Information 2015 [employer]. This information is not intended to replace [...] until you are awake and alert. Take qpti-sda-xnexqvz and prescription medicines only as told by [...] 07/27/2014 Document Revised: 09/18/2018 Document Reviewed: 01/25/2017 [employer]otope Patient Education 2020 [employer]. Follow Up Care 11/01/2024 14:25:15 With:KATHY OSBORNE PA-C Address: [address] [facility] [place] [address] [phone] When: Unknown With:TRAVIS VIRGEN MD Address: [address] [place] [address]- [phone] When:12/22/2024 13:45:00 Comments:THIS AP[facility]MENT [facility] 11-24-2024 Summary of episode note Discharge Instructions Thank you for allowing [facility] to assist you with your healthcare needs. The following is important discharge information regarding your hospital visit. Your Care Team KATHY OSBORNE PA-C What to do next Instructions From Your Doctor 1. Kindly follow up with your Primary Care Physician and Tip Puncher as recommended. _ 2. Some of your [...] reach out to our [facility] office at [phone] for general queries and [phone] for medication refills. 4. All your medical records and results are available to you through our [facility] Patient Portal. To sign up, please visit [email or web address] Scheduled Follow-Up Appointments Appointment Type When With Where Contact Information StatusCV OV 12/22/2024 01:45 PM [facility] [place] [facility] Up Appointments Follow Up with KATHY OSBORNE PA-C Where:[address] [place] [address]- [phone] Follow Up with TRAVIS VIRGEN MD When:12/22/2024 01:45 PM EST Where:[address] [place] [address]- [phone] Additional Information: THIS APPOINTMENT WILL BE WITH [...] Once a day Refills: 4 Pick[facility] at [facility] 1100 Unchanged acetaminophen (acetaminophen 500 mg oral capsule) 1 cap by mouth Daily at bedtime as needed for as needed for pain Unchanged aspirin (aspirin 81 mg oral delayed release tablet) 1 tab(s) by mouth Every day Pickup at [facility] 1724 Unchanged carvedilol (carvedilol 12.5 mg oral [...] tab(s) by mouth Every day Pharmacy Information [facility]: [address] [place], [place] [id number] [phone] Please take this list to your next [...] may report side effects to FDA at [phone]. What other drugs will affect clopidogrel? Sometimes it is not safe to use certain medications at the same time. Some drugs can affect your blood levels of other drugs you take, which may increase side effects or make the medications less effective. Tell your doctor about all your other medicines, especially: a stomach acid machine container washer such as omeprazole, Nexium, or Prilosec; an antidepressant such as citalopram, fluoxetine, sertraline, Cymbalta, Effexor, Lexapro, Pristiq, or Prozac; rifampin; a blood thinner--warfarin, Coumadin, Jantoven; or NSAIDs (nonsteroidal anti-inflammatory drugs)--aspirin, ibuprofen (Advil, Motrin), naproxen (Aleve), celecoxib, diclofenac, indomethacin, meloxicam, and others. This list is not complete. Other drugs may affect clopidogrel, including prescription and zjgh-ajw-ongpcpm medicines, vitamins, and herbal products. Not all [...] to ensure that the information provided by [employer]. ('Multum') is accurate, up-to-date, and complete, but no guarantee is made to that effect. Drug information contained herein may be time sensitive. [employer] information has been compiled for use by healthcare practitioners and consumers in the [place] and therefore [employer] does not warrant that uses outside of the [place] are appropriate, unless specifically indicated otherwise. [employer]'s drug information does not endorse drugs, diagnose patients or recommend therapy. CounterTack drug information is an informational resource designed [...] effective or appropriate for any given patient. [employer] does not assume any responsibility for any aspect of healthcare administered with the aid of information [employer] provides. The information contained herein is not intended to cover all possible uses, directions, precautions, warnings, drug interactions, allergic reactions, or adverse effects. If you have questions about the drugs you are taking, check with your doctor, nurse or pharmacist. Copyright 3229-8478 [employer]. Version: 18.01. Revision Date: 01/17/2021. Education Materials [...] Document Reviewed: 10/07/2014 ExitCare Patient Information 2015 L[employer]. This information is not intended to replace [...] until you are awake and alert. Take mgzm-kdu-yzwjegb and prescription medicines only as told by [...] 07/27/2014 Document Revised: 09/18/2018 Document Reviewed: 01/25/2017 ElseOmmven Patient Education 2020 [employer] Inc. Additional Information VACCINATE! IT SAVES LIVES! Members of the community who have not yet received the COVID-19 vaccine and would like to receive it can visit one of [facility] vaccine clinics. There are many vaccine clinic locations within the [facility]. For locations and available times, please visit https://gettheshot.coronavirus.[place].gov/. It is important to note that some COVID mobile vaccine clinics are held outdoors and may be canceled in rainy or stormy conditions. To learn more about pediatric vaccinations (ages 5-11), we invite you to visit the [employer] webpage. https://www.Orbis Educations.org/pag es/8934-Zdncr-Fxmbzpnxcei-Frequent av-Gccwd-Edismdptr.html To learn more about the COVID-19 vaccine, we invite you to visit the CDC website for a list of frequently asked questions.https://www.cdc.gov/davon navirus/2019-ncov/vaccines/faq.htm l [employer] Patient Portal Access Instructions: Stay connected with your healthcare team and access your personal medical information anytime with the [employer] Patient Portal. Please follow the directions below to create your [employer] account: 1.Access the email account you provided upon registration to the hospital/physician office.2.Look for an invitation email from [facility].3.Open the email and access the invitation link: Accept Invitation to [employer].4.Fill in the required witt to create your account. To access your account, visit [employer]/[email or web address]. Click the blue button labeled Access Patient [...] your information. You can also access the [facility] Patient Portal on the [facility] Any[facility] terri. Simply click on Patient Portal and then log into your account. If you would like to receive a full copy of your medical records, please contact the [facility] Medical Records Department by calling [phone], Friday through Friday between 8 a.m. and [...] Call your local pharmacy or go to [email or web address]/9Q9Od8w to find one close to you.3.Make use of household items: Use cat litter or old coffee grounds to dispose medications if other options are not available. Mix your drugs with these household products, seal them in an airtight container and throw it into the garbage. Call [facility]: [phone] to be sure your drugs can be [...] aware that I should contact my doctor. Patient/Crystal Grower Signature: Date/Time: Relationship to Patient: ___ Witness Name/Signature: Date/Time: [facility] 11-24-2024 Discharge summary Date of Service [...] and will follow up with her primary administrative technician as an outpatient. Allergies NKA Consults No [...] up with your Primary Care Physician and Tip Puncher as recommended. _ 2. Some of your [...] reach out to our [facility] office at [phone] for general queries and [phone] for medication refills. 4. All your medical records and results are available to you through our [facility] Patient Portal. To sign up, please visit [email or web address]/ Medications New Prescription clopidogrel [...] Follow Up with KATHY OSBORNE PA-C Where:[address] [place] [address]- [phone] Follow Up with TRAVIS VIRGEN MD When:12/22/2024 01:45 PM EST Where:[address] [facility] [place] [address]- [phone] Additional Information: THIS APPOINTMENT WILL BE WITH [...] AM Digitally Signed by TRAVIS VIRGEN MD [facility] 11-02-2024 Evaluation note Diagnosis Onset Date Resolution Constipation acute October 10:54am Loose stools chronic October 10:54am [facility] Work Phone: 1(444) 668-777809-11-2023 History and physical note Author Adrian Friend [facility] June 30, 2023 12:13pm Note Date/Time June 30, 2023 12:13pm [facility] Medical Records Department [address] [place] [address] History & Physical Exam 06/30/23 1213 MR#: [id number] Acct: [id number] Name: BRI RODRIGUES Rep #:[id number] : 1950 72 From: Adrian Friend DO PCP: KARON Correia Status:REG [facility] Location: [place] [address] History and Physical Date of Admission: 06/30/23 72 F who presents to the office today for PMH hyperlipidemia, STEMI. PSH cholecystectomy PCP seen following several ED presentations with concern of recurrent rectal bleeding with previously diagnosed colitis, diverticulitis and GERD. [facility] ED presentation 11.03.22, 11.18.22 and 12.07.22 [...] Appearance: average body habitus and well nourished [facility] Head: normal to inspection Ears: hearing grossly [...] Affect: normal affect Quality Reporting Tobacco Screening ([facility] 138) Smoking Status: Former smoker Assessment and [...] CC: Adrian Park DO; KARON Correia~ Signed [facility] Work Phone: 1(192) 509-708409-11-2023 Procedure [facility] 06-30-2023 Procedure [facility]09-11-2023 Procedure note [facility]09-11-2023 Procedure [facility] Evaluation + Plan note Future Appointments Appointment Date:12/22/2024 01:45:00 PM Scheduled Provider:ETTA NAGEL Location:[facility] Appointment Type:[facility] Evaluation note* Diagnosis Onset Date Resolution Status Colitis chronic [facility] Work Phone: Evaluation noteNo assessment information available [facility] Work Phone: evaluation note* Diagnosis Onset Date Resolution Status Loose stools chronic [facility] Work Phone: Evaluation note* Diagnosis Onset Date Resolution Status Admit Date Constipation acute July 9:52am Heartburn acute August 10, 2025 9:52am Right upper quadrant pain acute August 10, 2025 9:52am [facility] Work Phone: Hospital course Narrative No data available for this section [facility] Progress note Author Hoa [facility] Note Date/Time August 10, 2025 1 1:23am [facility] [address] [place] [address] OFFICE VISIT Date of Service: 08/10/25 MR#: [id number] Acct: [id number] Name: BRI RODRIGUES Rep #: [id number] : 1950 Provider: KARON Osuna Age/Sex: 74/F Location: [facility] Status: Signed Intake Vital Signs 06/30/23 11:01 Height 5 ft 4 in Intake Visit Reasons: 6 M FU Chief Complaint: constipation [employer]iscuit Required: No Accompanied by: Is patient in [...] History 50 billion cell capsule,delayed rel ([employer]) cholecalciferol (vitamin D3) 50 50 [...] and comfortable Nutritional Appearance: overweight Orientation: alert [facility] Head: normal to inspection Ears: hearing grossly [...] fluid intake - Follow-up after procedure Note: PPTV speech recognition cadmium plater software was used to create portions of this document. Sound-alike and misspelled words, as well as other cadmium plater errors may be contained in the documentation. [...] Cosigner Signature: Date (if applicable) CC: ~ [facility] Work Phone: Reason for referral (narrative)No reason for referral information availableW[facility] Work Phone: Chief Complaint and Reason for [...] Date/ Time Name of Medical Power of Financial Sales Advisor Van mcrae December 25, 2022 3:03pm Living Will Yes December 25, 2022 3:03pm Power of Financial Sales Advisor Yes December 25 3:03pm Advance Directive Response Recorded Date/ Time Name of Medical Power of Financial Sales Advisor Manny cano June 27, 2023 9:20am Living Will Yes June 27 023 9:20am Power of Financial Sales Advisor Yes June 27, 2023 9:20am Living Will [...] Yes June 27 023 9:20am Power of Financial Sales Advisor Yes June 27, 2023 9:20am Living Will [...] Do you have a Healthcare Power of Financial Sales Advisor? Yes June 27, 2023 9:20am Living Will [...] Primary Care Provider Active Adelia Carbajal , POWER PLANT ELECTRICIAN-C Attending Provider, Referrin g Provider Active Team [...] section and content) DATE CREATED AUTHOR 02/10/2024 [facility] DATE CREATED AUTHOR AUTHOR'S ORGANIZ ATION 12/18/2024 [facility] DATE CREATED AUTHOR AUTHOR'S ORGANIZ ATION 02/02/2025 [facility] DATE CREATED AUTHOR AUTHOR'S ORGANIZ ATION 06/22/2025 [facility] DATE CREATED AUTHOR AUTHOR'S ORGANIZ ATION 08/26/2025 [facility] FOR RECORDS PERTAINING TO PATIENTS WHO ARE [...] BE BASED ON THE PRIMARY CLINICAL RECORDS. [facility]. provides no warranty or guarantee of the accuracy or completeness of information in this document.
[2025-10-14 17:31] LABS: CREATININE FINGERSTICK 1.2 mg/dL (0.55-1.02)
== END | disposition home or self-care (01) ==
LOC: CT 17:05
PROVIDERS: Referring Provider Urology; Visit Provider Urology
DX: C64.1 Malignant neoplasm of right kidney, except renal pelvis (principal)
CPT/HCPCS: 74177; Q9967